=== PATIENT | male | born 1960 | race Caucasian/White ===

== ENCOUNTER 2024-04-23 08:15 | Outpatient (AMB) | payer OTHER, SELFPAY ==
--- NOTE | 2024-04-23 08:16 | MHC.OFFWIV ---
Intake Vital Signs 04/23/24 08:18 Height 5 ft 10 in Weight 201 lb BMI 28.8 BP 120/80 Blood Pressure Location Rt brachial Position Sitting Pulse 66 Pulse Source Pulse Oximeter Temp 97.9 F Temp Source Oral Pulse Oximetry (%) 97 Oxygen Delivery Method Room Air Intake Visit Reasons: EP-cough Intake Note: Patient here for cough,congestion and nausea that has been present since Monday. Patient Tobacco Use Status: Former Tobacco user Allergies NSAIDS (Non-Steroidal Anti-Inflamma Adverse Reaction (Severe, Verified 04/23/24 08:20) GI issues levofloxacin [From Levaquin] Adverse Reaction (Intermediate, Verified 04/23/24 08:20) Itching Do you need a note to return to daycare/school/sports/work: No HPI HPI Comments History of Present Illness Details Patient is a 64-year-old male complaining of cough, chest congestion, head congestion and some nausea for 4 days. He states his chest feels very heavy. He states he is not a current smoker but he used to smoke and quit 16 years ago. He states he has been taking DayQuil and NyQuil with some mild relief. He denies any fevers, ear pain, sinus pain, vomiting or diarrhea. He states he did test for COVID 2 days ago at home and it was negative [facility] Social History Patient Tobacco Use Status: Former Tobacco user Review of Systems Const All systems reviewed & are unremarkable except as noted in HPI and below Physical Exam Vital Signs: Last Vital Signs Temp 97.9 F 04/23/24 08:18 Pulse 66 04/23/24 08:18 BP 120/80 04/23/24 08:18 Pulse Ox 97 04/23/24 08:18 Oxygen Delivery Method Room Air 04/23/24 08:18 BMI result Body Mass Index 28.8 Const General: cooperative, healthy appearing, comfortable and no acute distress Orientation/consciousness: patient oriented x3 Limitations: no limitations HEENT Head: Yes normal to inspection Ears: hearing grossly normal bilaterally, external ears normal and TM's normal bilaterally General nose exam: Normal external nose present, Normal nares present and No nasal discharge present Face and sinus: Yes normal facial exam and Yes sinuses nontender Mouth: Normal oral and palatal mucosa present and moist mucous membranes Throat: Yes tonsils normal, Yes uvula midline and Yes posterior oropharynx abnormal (Erythema) Eyes General: appearance normal, both eyes and all related structures Neck Neck: Yes normal visual inspection Resp Effort & Inspection: normal respiratory effort, able to speak in complete sentences, Actively coughing, no respiratory distress, not tachypneic, no tripod positioning and no use of accessory muscles Auscultation: wheezes (slight) expiratory wheezes, right lower and right upper Cardio Rate: regular rate Rhythm: regular rhythm Heart sounds: normal S1 and S2 Skin General skin exam: no rashes or lesions noted Neuro General: patient oriented x3 Extrem General: Yes normal to inspection and Yes no clubbing, cyanosis or edema Assessment & Plan Assessment & Plan (1) URI (upper respiratory infection): Code(s): J06.9 - Acute upper respiratory infection, unspecified Qualifiers: URI type: unspecified URI Qualified Code(s): J06.9 - Acute upper respiratory infection, unspecified Plan: Vital signs are stable, slight expiratory wheeze, we will send 20mg prednisone for 5 days, had patient get chest x-ray, may add antibiotic depending on results Plan see above Orders: Orders SARS-CoV2/FLU/RSV Today R09.89 - Other specified symptoms and signs involving the circulatory and respiratory systems Coding Level of Care Code New Pt Level 4 (87838) Diagnoses Upper respiratory tract infection, unspecified type J06.9 URI type: unspecified URI
--- OUTSIDE RECORDS SUMMARY | 2024-04-23 08:16 | XMS_ITS | Continuity of Care Document ---
Author Organization [facility] Adult Address [address] [place] [address]- Care Team Providers Care Drop Wire Aliner Name Role Phone Sneha TEA BAG MACHINE TENDER, Radha Sorensen Primary Care Physician Encounter [facility] Date(s): 11/29/20 - 12/29/20 [facility] [address] [place] [id number]- Allergies, Adverse Reactions, Alerts Substance Reaction Severity Status Levaquin itch Moderate Active nonsteroidal anti-inflammatory agents diarrhea Active statins myalgia Active Crestor ck 400's and myalgia Active Immunizations Given and Recorded Vaccine Date Status Refusal Reason Influenza Virus Vaccine (oldterm) 1 05/12/20 Recor ded influenza virus vaccine, inactivated 2 06/12/19 Gi shane influenza virus vaccine, inactivated 3 05/25/18 Gi shane influenza virus vaccine, inactivated 4 03/03/17 Gi shane influenza virus vaccine, inactivated 06/05/14 Give n influenza virus vaccine, inactivated 06/08/11 Give n influenza virus vaccine, inactivated 05/10/10 Give n influenza virus vaccine, inactivated 5 05/08/09 Gi shane Influenza Inactive (IM) (oldterm) 6 06/10/15 Recor ded pneumococcal 23-valent vaccine 06/29/14 Given FluLaval (oldterm) 06/13/12 Given tetanus/diphtheria/pertussis, acel(Tdap) 06/08/11 Given 1Result Comment: per pt call to report when received vaccine 2Result Comment: [facility] [phone] 3Result Comment: [05/25/2018] [facility]: [id number] 4Admin Note: [facility] 5Admin Note: vis 03/31/09 6Result Comment: [08/11/2015] [facility] Medic[facility] acetaminophen 325 mg oral tablet 650 mg, By Mouth, Every 6 hours, may take OTC, not to exceed 3000 mg/day, Refills 0, Maintenance, 10/07/20 9:39:00 EST, Partial fill upon patient request if the prescription is for a schedule II opioid drug. Start Date: 10/07/20 Status: Ordered Ambien 10 mg oral tablet 1 tablet = 10 mg, By Mouth, Daily at bedtime, PRN for sleep, # 30 tablet, 3 Refills, Maintenance, 12/02/20 15:26:00 EDT, Tablet, [facility], 178, cm, 11/06/20 13:18:00 EDT, Height, 90.1, kg, 10/06/20 6:33:00 EST, Dry Weight Start Date: 12/02/20 Stop Date: 04/01/21 Status: Ordered aspirin 81 mg oral delayed release tablet 81 mg, 1, tablet, By Mouth, Daily, Refills 0, Maintenance, 12/15/20 17:07:00 EDT, Partial fill uponpatient request if the prescription is for a schedule II opioid drug. Start Date: 12/15/20 Status: Ordered Ativan 0.5 mg oral tablet 1 tablet = 0.5 mg, By Mouth, Every 8 hours, PRN as needed for anxiety, # 90 tablet, 3 Refills, Maintenance, 06/11/20 17:06:00 EDT, Tablet, [facility], 175.4, cm, 10/21/19 8:06:00 EST, Height Start Date: 06/11/20 Stop Date: 10/09/20 Status: Ordered fenofibrate 54 mg oral tablet 1 tablet, By Mouth, Daily, # 30 tablet, 5 Refills, Maintenance, 12/14/20 9:58:00 EDT, [facility], 178, cm, 11/06/20 13:18:00 EDT, Height, 90.1, kg, 10/06/20 6:33:00 EST, Dry Weight Start Date: 12/14/20 Status: Ordered finasteride 5 mg oral tablet 1 tablet = 5 mg, By Mouth, Daily at bedtime, # 30 tablet, 0 Refills, Maintenance, 07/29/19 8:19:57 EST, Tablet Start Date: 07/29/19 Status: Ordered gabapentin 100 mg oral capsule See Instructions, TAKE 1 CAPSULE BY MOUTH ONE HOUR PRIOR TO BEDTIME AND IF NEEDED CAN TAKE UP TO 3 CAPSULES, # 90 capsule, Refills 3, Tot. Refills 3, 09/11/20 10:37:00 EST, Instructions Replace Required Details, Route to Pharmacy Electronically, [facility]... Start Date: 09/11/20 Status: Ordered mercaptopurine 50 mg oral tablet 1 tablet = 50 mg, By Mouth, Daily at bedtime, 0 Refills, Maintenance, 07/20/17 8:35:35 EST, Tablet Start Date: 07/20/17 Status: Ordered metoprolol 25 mg oral tablet, extended release 25 mg, By Mouth, Daily at bedtime, # 30 each, Refills 5, Tot. Refills 5, Maintenance, 12/11/20 21:05:00 EDT, Route to Pharmacy Electronically, [facility], 178, cm, 11/06/20 13:18:00 EDT, Height,90.1, kg, 10/06/20 6:33:00 EST, Dry Weight Start Date: 12/11/20 Stop Date: 06/09/21 Status: Ordered MiraLax Powder 1 pack/packet = 17 Gm, By Mouth, Daily, PRN Constipation, 0 Refills, Maintenance, 10/07/20 9:40:00 EST, Powder, Partial fill upon patient request if the prescription is for a schedule II opioid drug. Start Date: 10/07/20 Status: Ordered nitroglycerin 0.4 mg sublingual tablet 1 tablet = 0.4 mg, Sublingual, Every 5 minutes, PRN as needed for chest pain, not to exceed 3 doses/15 min--if pain persists, seek medical attention, # 100 tablet, 0 Refills, Maintenance, 09/28/20 17:00:00 EST, Tablet, [facility], Partial fill up... Start Date: 09/28/20 Status: Ordered terazosin 5 mg oral capsule 5 mg, 1, capsule, By Mouth, Daily at bedtime, # 30 capsule, Refills 11, Tot. Refills 11, Soft Stop,05/08/20 16:25:00 EDT, Route to Pharmacy Electronically, [facility], 175.4, cm, 10/21/19 8:06:00 EST, Height Start Date: 05/08/20 Stop Date: 05/03/21 Status: Ordered Problem List Condition Effective Dates Status Health Status Inform ant Anxiety disorder(Confirmed) Active BPH (benign prostatic hyperplasia)(Confirmed) Active Cervical myofascial pain syndrome(Confirmed) Active Heart failure, diastolic, chronic(Confirmed) Active Chronic headaches(Confirmed) Active Colonic polyp(Confirmed) 1999 Active CAD (coronary artery disease)(Confirmed) Active Diverticulosis(Confirmed) Active 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
--- OUTSIDE RECORDS SUMMARY | 2024-04-23 08:16 | XMS_ITS | Continuity of Care Document ---
Author Organization [facility] Adult Address [address] [place] [id number]- Care Team Providers Care Quality Assurance Monitor Chassis Name Role Phone Radha Hoover NP Primary Care Physician Encounter [facility] Date(s): 12/15/21 - 01/14/22 [facility] [address] [place] [phone]- Allergies, Adverse Reactions, Alerts Substance Reaction Severity Status Levaquin itch Moderate Active nonsteroidal anti-inflammatory agents diarrhea Active Crestor ck 400's and myalgia Active statins myalgia Active Immunizations Given and Recorded Vaccine Date Status Refusal Reason zoster vaccine, inactivated 05/25/21 Recorded zoster vaccine, inactivated 07/02/20 Recorded influenza virus vaccine, inactivated 05/25/21 Domenico rded influenza virus vaccine, inactivated 1 06/12/19 Gi shane influenza virus vaccine, inactivated 2 05/25/18 Gi shane influenza virus vaccine, inactivated 3 03/03/17 Gi shane influenza virus vaccine, inactivated 05/18/16 Domenico rded influenza virus vaccine, inactivated 06/05/14 Give n influenza virus vaccine, inactivated 06/08/11 Give n influenza virus vaccine, inactivated 05/10/10 Give n influenza virus vaccine, inactivated 4 05/08/09 Gi shane SARS-CoV-2 (COVID-19) mRNA BNT-162b2 vac 12/21/20 Recorded SARS-CoV-2 (COVID-19) mRNA BNT-162b2 vac 11/28/20 Recorded Influenza Virus Vaccine (oldterm) 5 05/12/20 Recor ded Influenza Inactive (IM) (oldterm) 6 06/10/15 Recor ded pneumococcal 23-valent vaccine 06/29/14 Given FluLaval (oldterm) 06/13/12 Given tetanus/diphtheria/pertussis, acel(Tdap) 06/08/11 Given 1Result Comment: [facility] [id number] 2Result Comment: [05/25/2018] [facility]: [id number] 3Admin Note: Codi 4Admin Note: gabbie 03/31/09 5Result Comment: per pt call to report when received vaccine 6Result Comment: [08/11/2015] [facility] Medications acetaminophen 325 [...] sleep, # 30 tablet, 3 Refills, Maintenance, 08/18/21 8:58:00 EST, Tablet, [facility], 177.8, cm, 08/10/21 10:04:00 EST, Height, 96.8, kg, 08/05/21 8:57:00 EST, Dry Weight Start Date: 08/18/21 Stop Date: 12/16/21 Status: Ordered aspirin 81 mg oral delayed [...] as needed for anxiety, # 90 tablet, 0 Refills, Maintenance, 12/24/21 12:45:00 EDT, Tablet, [facility], 177.8, cm, 11/22/21 14:53:00 EDT, Height, 96.8, kg, 08/05/21 8:57:00 EST, Dry Weight Start Date: 12/24/21 Stop Date: 01/23/22 Status: Ordered CeleBREX 200 mg oral capsule 1 capsule = 200 mg, By Mouth, 2 times a day, 0 Refills, Maintenance, 10/25/21 11:54:00 EST, Capsule, Partial fill upon patient request if the prescription is for a schedule II opioid drug. Start Date: 10/25/21 Status: Ordered fenofibrate 54 mg oral tablet 1 tablet, By Mouth, Daily, # 30 tablet, 3 Refills, [facility], 177.8, cm, 11/22/21 14:53:00 EDT, Height, 96.8, kg, 08/05/21 8:57:00 EST, Dry Weight Start Date: 12/24/21 Status: Ordered finasteride 5 mg oral tablet 1 tablet = 5 mg, By Mouth, Daily at bedtime, # 30 tablet, 0 Refills, Maintenance, 07/29/19 8:19:57 EST, Tablet Start Date: 07/29/19 Status: Ordered GABAPENTIN 100 MG CAPS 100 Capsule GABAPENTIN 100 MG CAPS 100 Capsule, See Instructions, # 90 capsule, 3 Refills, TAKE 1 CAPSULE BY MOUTH ONE HOUR PRIOR TO BEDTIME AND IF NEEDED CAN TAKE UP TO 3 CAPSULES, 177.8, cm, 06/18/21 9:52:00 EDT, Height, 92.3, kg, 12/18/20 11:27:00 EDT, Dry Weight Start Date: 06/21/21 Status: Ordered gabapentin 100 mg oral capsule See Instructions, TAKE 1 CAPSULE BY MOUTH ONE HOUR PRIOR TO BEDTIME AND IF NEEDED CAN TAKE UP TO 3 CAPSULES, # 90 capsule, Refills 3, Instructions Replace Required Details, Route to Pharmacy Electronically, [facility], 177.8, cm, 09/07/21 13:03:0... Start Date: 09/17/21 Status: Ordered Guaiatussin AC 10 mg-100 mg/5 ml oral syrup 10 mL, By Mouth, Every 6 hours, PRN for cough, # 240 mL, 0 Refills, Maintenance, 11/22/21 16:22:00 EDT, Syrup, [facility], Partial fill upon patient request if the prescription is for a scheduleII opioid drug., 10 mL By Mouth Every 6 hours,PRN:f... Start Date: 11/22/21 Status: Ordered mercaptopurine 50 mg oral tablet 1 tablet = 50 mg, By Mouth, Daily at bedtime, 0 Refills, Maintenance, 07/20/17 8:35:35 EST, Tablet Start Date: 07/20/17 Status: Ordered Metoprolol Succinate ER 25 mg oral tablet, extended release 1 tablet, By Mouth, Daily at bedtime, # 30 tablet, 5 Refills, [facility], 177.8, cm, 11/22/21 14:53:00 EDT, Height, 96.8, kg, 08/05/21 8:57:00 EST, Dry Weight Start Date: 12/23/21 Status: Ordered nitroglycerin 0.4 mg sublingual tablet 1 tablet = 0.4 mg, Sublingual, Every 5 minutes, PRN as needed for chest pain, not to exceed 3 doses/15 min--if pain persists, seek medical attention, # 100 tablet, 0 Refills, Maintenance, 09/28/20 17:00:00 EST, Tablet, [facility], Partial fill up... Start Date: 09/28/20 Status: Ordered terazosin 5 mg oral capsule 5 mg, 1, capsule, By Mouth, Daily at bedtime, # 30 capsule, Refills 8, Tot. Refills 8, Soft Stop, 03/11/22 15:03:00 EDT, Route to Pharmacy Electronically, [facility], 177.8, cm, 04/22/21 14:54:00 EDT, Height, 92.3, kg, 12/18/20 11:27:00 EDT, Dry... 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
--- OUTSIDE RECORDS SUMMARY | 2024-04-23 08:16 | XMS_ITS | Continuity of Care Document ---
Author Organization [facility] Address [address] [facility], [address], [address] [place] [phone]- Care Team Providers Care Service Vehicle Operator Name Role Phone Sneha CASING BUILDER, Radha Sorensen Primary Care Physician Encounter [facility] Date(s): 10/16/23 - 11/15/23 [facility] [address], [address], [address] [place] [phone]- Attending Physician: Admlashay, Julia Admitting Physician: AdmtrJulia Referring Physician: Admtr, Ar8 Allergies, Adverse Reactions, Alerts Substance Reaction Severity Status Levaquin itch Moderate Active Crestor ck 400's and myalgia Active statins myalgia Active nonsteroidal anti-inflammatory agents diarrhea Active Immunizations Given and Recorded Vaccine Date Status Refusal Reason [id number] 12y+ bivalent booster vax 05/19/22 Recorded SARS-CoV-2 (COVID-19) mRNA-1273 vaccine 06/19/21 R ecorded zoster vaccine, inactivated 05/25/21 Recorded zoster vaccine, inactivated 07/02/20 Recorded influenza virus vaccine, inactivated 05/25/21 Domenico rded influenza virus vaccine, inactivated 1 06/12/19 Gi shane influenza virus vaccine, inactivated 2 05/25/18 Gi shane influenza virus vaccine, inactivated 05/23/17 Domenico rded influenza virus vaccine, inactivated 3 03/03/17 Gi [...] Given tetanus/diphtheria/pertussis, acel(Tdap) 06/08/11 Given 1Result Comment: [facility] [id number] 2Result Comment: [05/25/2018] [facility]: [id number] 3Admin Note: Codi 4Admin Note: vis 03/31/09 5Result Comment: per pt call to [...] sleep, # 30 tablet, 3 Refills, Maintenance, 05/12/23 16:48:00 EDT, Tablet, [facility], 177.8, cm, 12/01/22 8:22:00 EDT, Height, 96.8, kg, 08/05/21 8:57:00 EST, Dry Weight Start Date: 05/12/23 Stop Date: 09/09/23 Status: Ordered amLODIPine 5 mg oral tablet See Instructions, TAKE 1 TABLET BY MOUTH DAILY, # 30 tablet, 11 Refills, Maintenance, 10/02/23 17:04:00 EST, [facility], 177.8, cm, 12/01/22 8:22:00 EDT, Height Start Date: 10/02/23 Status: Ordered aspirin 81 mg oral delayed [...] as needed for anxiety, # 90 tablet, 5 Refills, Maintenance, 10/04/23 9:00:00 EST, Tablet, [facility], 177.8, cm, 12/01/22 8:22:00 EDT, Height Start Date: 10/04/23 Stop Date: 04/01/24 Status: Ordered cyclobenzaprine 10 mg oral tablet 10 mg, 1, tablet, By Mouth, Daily at supper, # 30 tablet, Refills 2, Tot. Refills 2, Maintenance, 10/24/22 15:13:00 EST, Route to Pharmacy Electronically, [facility], Partial fill upon patient request if the prescription is for a schedule II opio... Start Date: 10/24/22 Status: Ordered fenofibrate 54 mg oral tablet 1 tablet, By Mouth, Daily, # 30 tablet, 5 Refills, Maintenance, 10/04/23 8:48:00 EST, [facility], 177.8, cm, 12/01/22 8:22:00 EDT, Height Start Date: 10/04/23 Status: Ordered finasteride 5 mg oral tablet 1 tablet = 5 mg, By Mouth, Daily at bedtime, # 30 tablet, 0 Refills, Maintenance, 07/29/19 8:19:57 EST, Tablet Start Date: 07/29/19 Status: Ordered indomethacin 25 mg oral capsule 1 capsule, By Mouth, 3 times a day, PRN NEEDED FOR HEADACHE, # 30 capsule, 5 Refills, Maintenance, 02/09/23 18:32:00 EDT, [facility], 177.8, cm, 12/01/22 8:22:00 EDT, Height, 96.8, kg, 08/05/21 8:57:00 EST, Dry Weight Start Date: 02/09/23 Status: Ordered mercaptopurine 50 mg oral tablet 1 tablet = 50 mg, By Mouth, Daily at bedtime, 0 Refills, Maintenance, 07/20/17 8:35:35 EST, Tablet Start Date: 07/20/17 Status: Ordered Metoprolol Succinate ER 25 mg oral tablet, extended release See Instructions, TAKE 1 TABLET BY MOUTH DAILY AT BEDTIME, # 30 tablet, 5 Refills, Maintenance, 08/08/23 20:42:00 EST, [facility], 177.8, cm, 12/01/22 8:22:00 EDT, Height Start Date: 08/08/23 Status: Ordered nitroglycerin 0.4 mg sublingual tablet 1 tablet = 0.4 mg, Sublingual, Every 5 minutes, PRN as needed for chest pain, not to exceed 3 doses/15 min--if pain persists, seek medical attention, # 100 tablet, 0 Refills, Maintenance, 09/28/20 17:00:00 EST, Tablet, [facility], Partial fill up... Start Date: 09/28/20 Status: Ordered Pepcid 20 mg oral tablet 1 tablet = 20 mg, By Mouth, 2 times a day, # 60 tablet, 3 Refills, Maintenance, 10/16/23 16:31:00 EST, Tablet, [facility], Partial fill upon patient request if the prescription is for a scheduleII opioid drug., 177.8, cm, 10/16/23 16:14:00 EST,... Start Date: 10/16/23 Status: Ordered Repatha SureClick 140 mg/mL subcutaneous solution = 140 mg, Subcutaneous Infusion, Every 14 days, # 2 each, 11 Refills, Maintenance, 08/25/23 8:59:00EST, [facility], Partial fill upon patient request if the prescription is for a schedule II opioid drug., 177.8, cm, 12/01/22 8:22:00... Start Date: 08/25/23 Status: Ordered terazosin 5 mg oral capsule 1, capsule, By Mouth, Daily at bedtime, # 30 capsule, Refills 5, Maintenance, 10/04/23 8:48:00 EST,Route to Pharmacy Electronically, [facility], 177.8, cm, 12/01/22 8:22:00 EDT, Height Start Date: 10/04/23 Status: Ordered Problem List Condition Confirmation Course Effective Dates Status Health Status Informant Anxiety disorder Confirmed Active BPH (benign prostatic hyperplasia) Confirmed Active Cervical myofascial pain syndrome Confirmed Active Heart failure, diastolic, chronic Confirmed Active Chronic headaches Confirmed Active Colonic polyp Confirmed 2000 Active CAD (coronary artery disease) Confirmed Active Diverticulosis Confirmed Active History of DVT in adulthood Confirmed Active History of GI bleed Confirmed Active Hypercholesterolemia Confirmed Active Obese class I Confirmed Active ALICE (obstructive sleep apnea) Confirmed Active Osteoarthritis of knee Confirmed Active Prediabetes Confirmed Active Statin intolerance Confirmed Active Ulcerative colitis Confirmed 10/14/13 Active Social History Social History Type Response Smoking Status Former smoker; Tobac co user in household: No; Other: quit smoking in 2007; entered on: 07/16/14 Sex Patient Care team information Care Team Personnel Name: Kya Marina RN Position: S RN Member Role: Primary Care Nurse Name: Veronica Feng RN Position: [facility] SN RN Member Role: Primary Care Nurse Name: Radha Hoover NP Position: [facility] PCO Associate Professional Member Role: PCP Address: Address: [address] [place] [phone]- Name: Jonathan Ramos RN Position: [facility] RN Member Role: Primary Care Nurse Care Team Related Persons Name: LEN RAZO Address: [address] [address]
--- OUTSIDE RECORDS SUMMARY | 2024-04-23 08:16 | XMS_ITS | Continuity of Care Document ---
Author Organization [facility] Address [address] [place] [address]- Care Team Providers Care Dust Mill Operator Name Role Phone Sneha BANK APPRAISER, Radha Sorensen Primary Care Physician Encounter [facility] Date(s): 04/22/21 - 05/22/21 [facility] [address] [place] [address]- Attending Physician: Admtr, Ar8 Allergies, Adverse Reactions, Alerts [...] to report when received vaccine 2Result Comment: [facility] [id number] 3Result Comment: [05/25/2018] [facility]: [id number] 4Admin Note: Codi 5Admin Note: vis 03/31/09 6Result Comment: [08/11/2015] [...] sleep, # 30 tablet, 3 Refills, Maintenance, 04/19/21 10:21:00 EDT, Tablet, [facility], 177.8, cm, 03/11/21 9:04:00 EDT, Height, 92.3, kg, 12/18/20 11:27:00 EDT, Dry Weight Start Date: 04/19/21 Stop Date: 08/17/21 Status: Ordered aspirin 81 mg oral delayed [...] anxiety, # 90 tablet, 3 Refills, Maintenance, 01/06/21 15:26:00 EDT, Tablet, [facility], 177.8, cm, 12/18/20 11:27:00 EDT, Height, 92.3, kg, 12/18/20 11:27:00 EDT, Dry Weight Start Date: 01/06/21 Stop Date: 05/06/21 Status: Ordered fenofibrate 54 mg oral tablet 1 tablet, By Mouth, Daily, # 30 tablet, 5 Refills, Maintenance, 12/14/20 9:58:00 EDT, [facility], 178, cm, 11/06/20 13:18:00 EDT, Height, 90.1, kg, 10/06/20 6:33:00 EST, Dry Weight Start Date: 12/14/20 Status: Ordered fenofibrate 54 mg oral tablet 1 tablet = 54 mg, By Mouth, Daily, # 90 tablet, 1 Refills, Maintenance, 01/05/21 9:14:00 EDT, [facility], 177.8, cm, 12/18/20 11:27:00 EDT, Height, 92.3, kg, 12/18/20 11:27:00 EDT, Dry Weight Start Date: 01/05/21 Status: Ordered finasteride 5 mg oral tablet 1 tablet = 5 mg, By Mouth, Daily at bedtime, # 30 tablet, 0 Refills, Maintenance, 07/29/19 8:19:57 EST, Tablet Start Date: 07/29/19 Status: Ordered gabapentin 100 mg oral capsule See Instructions, TAKE 1 CAPSULE BY MOUTH ONE HOUR PRIOR TO BEDTIME AND IF NEEDED CAN TAKE UP TO 3 CAPSULES, # 90 capsule, Refills 3, Maintenance, Instructions Replace Required Details, Route to Pharmacy Electronically, [facility], 177.8, cm, ... Start Date: 01/07/21 Status: Ordered mercaptopurine 50 mg oral tablet 1 tablet = 50 mg, By Mouth, Daily at bedtime, 0 Refills, Maintenance, 07/20/17 8:35:35 EST, Tablet Start Date: 07/20/17 Status: Ordered metoprolol 25 mg oral tablet, extended release 25 mg, By Mouth, Daily at bedtime, # 30 each, Refills 5, Tot. Refills 5, Maintenance, 12/11/20 21:05:00 EDT, Route to Pharmacy Electronically, [facility], 178, cm, 11/06/20 13:18:00 EDT, Height,90.1, [...] 0 Refills, Maintenance, 09/28/20 17:00:00 EST, Tablet, [facility], Partial fill up... Start Date: 09/28/20 Status: Ordered terazosin 5 mg oral capsule 5 mg, 1, capsule, By Mouth, Daily at bedtime, for 30 days, # 30 capsule, Refills 11, Tot. Refills 11, Hard Stop 03/11/22 15:03:00 EDT, 03/16/21 15:03:00 EDT, Route to Pharmacy Electronically, [facility], 177.8, cm, 03/11/21 9:04:00 EDT, Height, 9... Start Date: 03/16/21 Stop Date: 03/11/22 Status: Ordered terazosin 5 mg oral capsule 5 mg, 1, capsule, By Mouth, Daily at bedtime, # 30 capsule, Refills 8, Tot. Refills 8, Soft Stop, 03/11/22 15:03:00 EDT, Route to Pharmacy Electronically, [facility], 177.8, cm, 04/22/21 14:54:00 EDT, Height, [...] Statin intolerance(Confirmed) Active Ulcerative colitis(Confirmed) 10/14/13 Active Procedures Procedure Date Related Diagnosis Body Site Status Euflexxa injections, bilateral 1, 2, 3 08[facility]01/12 [facility] 08[facility]08 3third injection 08/16 Social History Social History Type Response Smoking Status Former smoker; Tobac co user in household: No; Other: quit smoking in 2007; entered on: 07/16/14 Sex
--- OUTSIDE RECORDS SUMMARY | 2024-04-23 08:16 | XMS_ITS | Continuity of Care Document ---
Author Organization [facility] Address [address] [place] [address]- Care Team Providers Care Oracle Software Engineer Name Role Phone Sneha GORDON, Radha Sorensen Primary Care Physician Encounter [facility] Date(s): 12/09/21 - 01/08/22 [facility] [address] [place] [phone]- [place] Allergies, Adverse Reactions, Alerts Substance Reaction Severity [...] Given tetanus/diphtheria/pertussis, acel(Tdap) 06/08/11 Given 1Result Comment: [facility] [id number] 2Result Comment: [05/25/2018] [facility]: [id number] 3Admin Note: Codi 4Admin Note: gabbie 03/31/09 [...] 3 Refills, Maintenance, 08/18/21 8:58:00 EST, Tablet, [facility], 177.8, cm, 08/10/21 10:04:00 EST, Height, [...] 0 Refills, Maintenance, 12/24/21 12:45:00 EDT, Tablet, [facility], 177.8, cm, 11/22/21 14:53:00 EDT, Height, [...] Mouth, Daily, # 30 tablet, 3 Refills, [facility], 177.8, cm, 11/22/21 14:53:00 EDT, Height, [...] Replace Required Details, Route to Pharmacy Electronically, [facility], 177.8, cm, 09/07/21 13:03:0... Start Date: 09/17/21 Status: Ordered Guaiatussin AC 10 mg-100 mg/5 ml oral syrup 10 mL, By Mouth, Every 6 hours, PRN for cough, # 240 mL, 0 Refills, Maintenance, 11/22/21 16:22:00 EDT, Syrup, [facility], Partial fill upon patient request if [...] at bedtime, # 30 tablet, 5 Refills, [facility], 177.8, cm, 11/22/21 14:53:00 EDT, Height, 96.8, kg, 08/05/21 8:57:00 EST, Dry Weight Start Date: 12/23/21 Status: Ordered nitroglycerin 0.4 mg sublingual tablet 1 tablet = 0.4 mg, Sublingual, Every 5 minutes, PRN as needed for chest pain, not to exceed 3 doses/15 min--if pain persists, seek medical attention, # 100 tablet, 0 Refills, Maintenance, 09/28/20 17:00:00 EST, Tablet, [facility], Partial fill up... Start Date: 09/28/20 Status: Ordered terazosin 5 mg oral capsule 5 mg, 1, capsule, By Mouth, Daily at bedtime, # 30 capsule, Refills 8, Tot. Refills 8, Soft Stop, 03/11/22 15:03:00 EDT, Route to Pharmacy Electronically, [facility], 177.8, cm, 04/22/21 14:54:00 EDT, Height, [...]
--- OUTSIDE RECORDS SUMMARY | 2024-04-23 08:16 | XMS_ITS | Continuity of Care Document ---
Author Organization [facility] Address [address] [place] [address]- Care Team Providers Care Criminalist Name Role Phone Sneha GORDON, Radha Sorensen Primary Care Physician Encounter [facility] Date(s): 09/20/19 - 01/11/20 [facility] [address] [place] [address]- [facility] Attending Physician: Jaylen Zamora MD Admitting Physician: Jaylen Zamora MD Referring Physician: Radha Hoover NP Allergies, Adverse Reactions, Alerts Substance Reaction Severity Status pravastatin Myalgia Active Levaquin itch Moderate Active nonsteroidal anti-inflammatory agents Active Crestor ck 400's and myalgia Active Immunizations Given and Recorded Vaccine Date Status Refusal Reason influenza virus vaccine, inactivated 1 06/12/19 Gi shane influenza virus vaccine, inactivated 2 05/25/18 Gi shane influenza virus vaccine, inactivated 3 03/03/17 Gi shane influenza virus vaccine, inactivated 06/05/14 Give n influenza virus vaccine, inactivated 06/08/11 Give n influenza virus vaccine, inactivated 05/10/10 Give n influenza virus vaccine, inactivated 4 05/08/09 Gi shane Influenza Inactive (IM) (oldterm) 5 06/10/15 Recor ded pneumococcal 23-valent vaccine 06/29/14 Given FluLaval (oldterm) 06/13/12 Given tetanus/diphtheria/pertussis, acel(Tdap) 06/08/11 Given 1Result Comment: [facility] [id number] 2Result Comment: [05/25/2018] [facility]: [id number] 3Admin Note: [facility] 4Admin Note: vis 03/31/09 5Result Comment: [08/11/2015] [facility] Medic[facility] Ambien 10 mg oral tablet 1 tablet = 10 mg, By Mouth, Daily at bedtime, PRN for sleep, # 30 tablet, 3 Refills, Maintenance, 08/01/19 17:30:00 EST, Tablet, 175.4, cm, 07/29/19 8:33:52 EST, Height Start Date: 08/01/19 Stop Date: 11/29/19 Status: Ordered aspirin 81 mg oral delayed release tablet 81 mg, By Mouth, Daily at bedtime, Refills 0, Maintenance, 07/20/17 8:35:03 Start Date: 07/20/17 Status: Ordered Ativan 0.5 mg oral tablet 1 tablet = 0.5 mg, By Mouth, Every 8 hours, PRN as needed for anxiety, # 60 tablet, 3 Refills, Maintenance, 10/21/19 17:07:00 EST, Tablet, [facility], 175.4, cm, 10/21/19 8:06:00 EST, Height Start Date: 10/21/19 Status: Ordered azelastine nasal 0.15% spray 2 sprays, Nares, Both, 2 times a day, PRN for allergy symptoms, # 30 mL, 0 Refills, Maintenance, 10/21/19 8:40:00 EST, [place], [facility], 2 sprays Nares, Both 2 times a day,PRN:for allergy symptoms, 175.4, cm, 10/21/19 8:06:00 EST, Height Start Date: 10/21/19 Status: Ordered fenofibrate 54 mg oral tablet 1 tablet = 54 mg, By Mouth, Daily, # 30 tablet, 5 Refills, Maintenance, 12/31/19 10:02:00 EDT, [facility], 175.4, cm, 10/21/19 8:06:00 EST, Height Start Date: 12/31/19 Status: Ordered finasteride 5 mg oral tablet 1 tablet = 5 mg, By Mouth, Daily, # 30 tablet, 0 Refills, Maintenance, 07/29/19 8:19:57 EST, Tablet Start Date: 07/29/19 Status: Ordered gabapentin 100 mg oral capsule See Instructions, TAKE 1 CAPSULE BY MOUTH ONE HOUR PRIOR TO BEDTIME AND IF NEEDED CAN TAKE UP TO 3 CAPSULES, # 90 capsule, Refills 0, Maintenance, Instructions Replace Required Details, Route to Pharmacy Electronically, [facility], 175.4, cm, ... Start Date: 12/31/19 Status: Ordered mercaptopurine 50 mg oral tablet = 100 mg, By Mouth, Daily at bedtime, 0 Refills, Maintenance, 07/20/17 8:35:35, Tablet Start Date: 07/20/17 Status: Ordered metoprolol 25 mg oral tablet, extended release 25 mg, By Mouth, Daily at bedtime, # 30 tablet, Refills 5, Tot. Refills 5, Maintenance, 07/30/19 9:11:06 EST, Route to Pharmacy Electronically, [id number], [facility], 175.4, cm, 07/29/19 8:33:52 EST, Height Start Date: 07/30/19 Status: Ordered oxyCODONE 5 mg oral tablet 5 mg, 1, tablet, By Mouth, 2 times a day, PRN, for 28 days, # 56 tablet, Refills 0, Tot. Refills 0,Acute 01/22/20 16:12:00 EDT, Pain , Severe, 12/25/19 16:12:00 EDT, Route to Pharmacy Electronically, [facility], Partial fill upon patient request... Start Date: 12/25/19 Stop Date: 01/22/20 Status: Ordered Shingrix intramuscular injection 0.5 mL, Intramuscular, Once, # 0.5 mL, 1 Refills, Soft Stop, 06/28/19 13:15:54 EST, 0.5 mL Intramuscular Once Start Date: 06/28/19 Status: Ordered terazosin 5 mg oral capsule See Instructions, # 30 capsule, Refills 11 Tot. Refills 11, TAKE 1 CAPSULE BY MOUTH DAILY AT BEDTIME, [facility] Start Date: 05/02/19 Status: Ordered tiZANidine 2 mg oral tablet 1/2 tablet, By Mouth, Every 8 hours, PRN, # 45 tablet, Refills 0, Tot. Refills 0, Maintenance, as needed for muscle spasm, 11/05/19 10:51:00 EDT, Route to Pharmacy Electronically, [facility], 175.4, cm, 10/21/19 8:06:00 EST, Height Start Date: 11/05/19 Stop Date: 12/05/19 Status: Ordered Problem List Condition Effective Dates Status Health Status Inform ant Anxiety disorder(Confirmed) Active BPH (benign prostatic hyperplasia)(Confirmed) Active Cervical myofascial pain syndrome(Confirmed) Active Colonic polyp(Confirmed) 1999 Active CAD (coronary artery disease)(Confirmed) Active Diverticulitis(Confirmed) 2003 Active Facet syndrome of cervical spine(Confirmed) Active Hypercholesterolemia(Confirmed) Active Osteoarthritis of knee(Confirmed) Active 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
--- OUTSIDE RECORDS SUMMARY | 2024-04-23 08:16 | XMS_ITS | Continuity of Care Document ---
Author Organization [facility] Address [address] [place] [address]- Care Team Providers Care Marine Equipment Sales Engineer Name Role Phone Sneha GORDON, Radha Sorensen Primary Care Physician Encounter [facility] Date(s): 11/14/23 - 03/13/24 [facility] [address] [phone]- Attending Physician: Yang ANTONIO, Caleb Malin Admitting Physician: Yang ANTONIO, Caleb Malin Referring Physician: Sneha GORDON, Radha Sorensen Allergies, Adverse Reactions, Alerts Substance Reaction Severity Status statins myalgia Active Levaquin itch Moderate Active nonsteroidal anti-inflammatory agents diarrhea Active Crestor ck 400's and myalgia Active Immunizations Given and Recorded Vaccine Date Status Refusal Reason influenza virus vaccine, inactivated 05/29/23 Domenico rded influenza virus vaccine, inactivated 05/25/21 Domenico rded [...] virus vaccine, inactivated 4 05/08/09 Gi shane SARS-CoV-2(COVID-19)mRNA-LNP vac([id number]) 05/29/23 Recorded [id number] 12y+ bivalent booster vax 05/19/22 Recorded SARS-CoV-2 (COVID-19) mRNA-1273 vaccine 06/19/21 R ecorded zoster vaccine, inactivated 05/25/21 Recorded zoster vaccine, inactivated 07/02/20 Recorded SARS-CoV-2 (COVID-19) mRNA BNT-162b2 vac 12/21/20 Recorded SARS-CoV-2 (COVID-19) mRNA BNT-162b2 vac 11/28/20 Recorded Influenza Virus Vaccine (oldterm) 5 05/12/20 Recor ded Influenza Inactive (IM) (oldterm) 6 06/10/15 Recor ded pneumococcal 23-valent vaccine 06/29/14 Given FluLaval (oldterm) 06/13/12 Given tetanus/diphtheria/pertussis, acel(Tdap) 06/08/11 Given 1Result Comment: [facility] [id number] 2Result Comment: [05/25/2018] [facility]: [id number] 3Admin Note: Codi 4Admin Note: vis 03/31/09 [...] sleep, # 30 tablet, 3 Refills, Maintenance, 11/30/23 12:32:00 EDT, Tablet, [facility], 177.8, cm, 11/23/23 15:37:00 EDT, Height Start Date: 11/30/23 Status: Ordered amLODIPine 5 mg oral tablet See Instructions, TAKE 1 TABLET BY MOUTH DAILY, # 30 tablet, 11 Refills, Maintenance, 10/02/23 17:04:00 EST, [facility], 177.8, cm, 12/01/22 8:22:00 EDT, Height [...] 5 Refills, Maintenance, 10/04/23 9:00:00 EST, Tablet, [facility], 177.8, cm, 12/01/22 8:22:00 EDT, Height Start Date: 10/04/23 Stop Date: 04/01/24 Status: Ordered cyclobenzaprine 10 mg oral tablet 10 mg, 1, tablet, By Mouth, Daily at supper, # 30 tablet, Refills 2, Tot. Refills 2, Maintenance, 10/24/22 15:13:00 EST, Route to Pharmacy Electronically, [facility], Partial fill upon patient request if the prescription is for a schedule II opio... Start Date: 10/24/22 Status: Ordered fenofibrate 54 mg oral tablet 1 tablet, By Mouth, Daily, # 30 tablet, 5 Refills, Maintenance, 10/04/23 8:48:00 EST, [facility], 177.8, cm, 12/01/22 8:22:00 EDT, Height Start Date: 10/04/23 Status: Ordered finasteride 5 mg oral tablet 1 tablet, By Mouth, Daily at bedtime, # 30 tablet, 5 Refills, Maintenance, 01/25/24 7:43:00 EDT, [facility], 177.8, cm, 12/25/23 9:41:00 EDT, Height Start Date: 01/25/24 Status: Ordered indomethacin 25 mg oral capsule 1 capsule, By Mouth, 3 times a day, PRN NEEDED FOR HEADACHE, # 30 capsule, 5 Refills, Maintenance, 02/09/23 18:32:00 EDT, [facility], 177.8, cm, 12/01/22 8:22:00 EDT, Height, [...] at bedtime, # 30 tablet, 5 Refills, Maintenance, 01/25/24 7:43:00 EDT, [facility], 177.8 cm, 12/25/23 9:41:00 EDT, Height Start Date: 01/25/24 Status: Ordered nitroglycerin 0.4 mg sublingual tablet 1 tablet = 0.4 mg, Sublingual, Every 5 minutes, PRN as needed for chest pain, not to exceed 3 doses/15 min--if pain persists, seek medical attention, # 100 tablet, 0 Refills, Maintenance, 09/28/20 17:00:00 EST, Tablet, [facility], Partial fill up... Start Date: 09/28/20 Status: Ordered Pepcid 20 mg oral tablet 1 tablet = 20 mg, By Mouth, 2 times a day, # 60 tablet, 3 Refills, Maintenance, 10/16/23 16:31:00 EST, Tablet, [facility], Partial fill upon patient request if the prescription is for a scheduleII opioid drug., 177.8, cm, 10/16/23 16:14:00 EST,... Start Date: 10/16/23 Status: Ordered Repatha SureClick 140 mg/mL subcutaneous solution = 140 mg, Subcutaneous Infusion, Every 14 days, # 2 each, 11 Refills, Maintenance, 08/25/23 8:59:00EST, [facility], Partial fill upon patient request if the prescription is for a schedule II opioid drug., 177.8, cm, 12/01/22 8:22:00... Start Date: 08/25/23 Status: Ordered terazosin 5 mg oral capsule 1, capsule, By Mouth, Daily at bedtime, # 30 capsule, Refills 5, Maintenance, 10/04/23 8:48:00 EST,Route to Pharmacy Electronically, [facility], 177.8, cm, 12/01/22 8:22:00 EDT, Height [...] Team Personnel Name: Kya Marina RN Position: [facility] RN Member Role: Primary Care Nurse Name: Veronica Feng RN Position: [facility] SN RN Member Role: Primary Care Nurse Name: Radha Hoover NP Position: [facility] PCO Associate Professional Member Role: PCP Address: Address: [address] [place] [address] [address]rd [place] [address]- Name: Jonathan Ramos RN Position: [facility] RN Member Role: Primary Care Nurse Care Team Related Persons Name: LEN RAZO Address: home [address] [place] [id number]
--- OUTSIDE RECORDS SUMMARY | 2024-04-23 08:16 | XMS_ITS | Continuity of Care Document ---
Author Organization [facility] Address [address] [place] [address]- Care Team Providers Care Liquor Gallery Operator Name Role Phone Radha Hoover NP Primary Care Physician Encounter [facility] Date(s): 11/29/23 - 12/29/23 [facility] [address] [place] [address]- Allergies, Adverse Reactions, Alerts Substance Reaction Severity [...] vaccine, inactivated 4 05/08/09 Gi shane SARS-CoV-2(COVID-19)mRNA-LNP vac([id number]) 05/29/23 Recorded [id number] 12y+ bivalent booster vax 05/19/22 Recorded SARS-CoV-2 [...] Given tetanus/diphtheria/pertussis, acel(Tdap) 06/08/11 Given 1Result Comment: [facility] [id number] 2Result Comment: [05/25/2018] [facility]: [id number] 3Admin Note: [facility] 4Admin Note: vis 03/31/09 5Result Comment: per [...] 3 Refills, Maintenance, 11/30/23 12:32:00 EDT, Tablet, [facility], 177.8, cm, 11/23/23 15:37:00 EDT, Height Start Date: 11/30/23 Status: Ordered amLODIPine 5 mg oral tablet See Instructions, TAKE 1 TABLET BY MOUTH DAILY, # 30 tablet, 11 Refills, Maintenance, 10/02/23 17:04:00 EST, [facility], 177.8, cm, 12/01/22 8:22:00 EDT, Height [...] 5 Refills, Maintenance, 10/04/23 9:00:00 EST, Tablet, [facility], 177.8, cm, 12/01/22 8:22:00 EDT, Height Start Date: 10/04/23 Stop Date: 04/01/24 Status: Ordered cyclobenzaprine 10 mg oral tablet 10 mg, 1, tablet, By Mouth, Daily at supper, # 30 tablet, Refills 2, Tot. Refills 2, Maintenance, 10/24/22 15:13:00 EST, Route to Pharmacy Electronically, [facility], Partial fill upon patient request if the prescription is for a schedule II opio... Start Date: 10/24/22 Status: Ordered fenofibrate 54 mg oral tablet 1 tablet, By Mouth, Daily, # 30 tablet, 5 Refills, Maintenance, 10/04/23 8:48:00 EST, [facility], 177.8, cm, 12/01/22 8:22:00 EDT, Height Start Date: 10/04/23 Status: Ordered finasteride 5 mg oral tablet 1 tablet = 5 mg, By Mouth, Daily at bedtime, # 90 tablet, 0 Refills, Maintenance, 11/30/23 12:31:00EDT, Tablet, [facility], Partial fill upon patient request if the prescription is for a schedule II opioid drug., 177.8, cm, 11/23/23 15:37:00 EDT... Start Date: 11/30/23 Stop Date: 02/28/24 Status: Ordered indomethacin 25 mg oral capsule 1 capsule, By Mouth, 3 times a day, PRN NEEDED FOR HEADACHE, # 30 capsule, 5 Refills, Maintenance, 02/09/23 18:32:00 EDT, [facility], 177.8, cm, 12/01/22 8:22:00 EDT, Height, [...] tablet, 5 Refills, Maintenance, 08/08/23 20:42:00 EST, [facility], 177.8, cm, 12/01/22 8:22:00 EDT, Height Start Date: 08/08/23 Status: Ordered nitroglycerin 0.4 mg sublingual tablet 1 tablet = 0.4 mg, Sublingual, Every 5 minutes, PRN as needed for chest pain, not to exceed 3 doses/15 min--if pain persists, seek medical attention, # 100 tablet, 0 Refills, Maintenance, 09/28/20 17:00:00 EST, Tablet, [facility], Partial fill up... Start Date: 09/28/20 Status: Ordered Pepcid 20 mg oral tablet 1 tablet = 20 mg, By Mouth, 2 times a day, # 60 tablet, 3 Refills, Maintenance, 10/16/23 16:31:00 EST, Tablet, [facility], Partial fill upon patient request if the prescription is for a scheduleII opioid drug., 177.8, cm, 10/16/23 16:14:00 EST,... Start Date: 10/16/23 Status: Ordered Repatha SureClick 140 mg/mL subcutaneous solution = 140 mg, Subcutaneous Infusion, Every 14 days, # 2 each, 11 Refills, Maintenance, 08/25/23 8:59:00EST, [facility], Partial fill upon patient request if the prescription is for a schedule II opioid drug., 177.8, cm, 12/01/22 8:22:00... Start Date: 08/25/23 Status: Ordered terazosin 5 mg oral capsule 1, capsule, By Mouth, Daily at bedtime, # 30 capsule, Refills 5, Maintenance, 10/04/23 8:48:00 EST,Route to Pharmacy Electronically, [facility], 177.8, cm, 12/01/22 8:22:00 EDT, Height [...] Care Nurse Name: Veronica Feng RN Position: [facility] SN RN Member Role: Primary Care Nurse Name: Radha Hoover NP Position: [facility] PCO Associate Professional Member Role: PCP Address: Address: [address] [place] [address] [address] [place] [address]- Name: Jonathan Ramos RN Position: S RN Member Role: Primary Care Nurse Care Team Related Persons Name: LEN RAZO Address: [address] [address]
--- OUTSIDE RECORDS SUMMARY | 2024-04-23 08:16 | XMS_ITS | Continuity of Care Document ---
Author Organization [facility] Address [address] [facility], [address], [address] [place] [phone]- Care Team Providers Care Insole Coverer Name Role Phone Sneha GORDON, Radha Sorensen Primary Care Physician Encounter [facility] Date(s): 03/21/22 - 04/20/22 [facility] [address], [address], [address] [place] [phone] [place] Allergies, Adverse Reactions, Alerts Substance Reaction [...] Given tetanus/diphtheria/pertussis, acel(Tdap) 06/08/11 Given 1Result Comment: [facility] [id number] 2Result Comment: [05/25/2018] [facility]: [id number] 3Admin Note: [facility] 4Admin Note: gabbie 03/31/09 5Result Comment: per [...] sleep, # 30 tablet, 3 Refills, Maintenance, 02/17/22 12:36:00 EDT, Tablet, [facility], 177.8, cm, 02/14/22 8:18:00 EDT, Height, 96.8, kg, 08/05/21 8:57:00 EST, Dry Weight Start Date: 02/17/22 Stop Date: 06/17/22 Status: Ordered amitriptyline 50 mg oral tablet 1 tablet = 50 mg, By Mouth, Daily at bedtime, # 30 tablet, 5 Refills, Maintenance, 02/17/22 9:53:00EDT, [facility], Partial fill upon patient request if the prescription is for a schedule II opioid drug., 177.8, cm, 02/14/22 8:18:00 EDT, Height,... Start Date: 02/17/22 Status: Ordered aspirin 81 mg oral delayed [...] anxiety, # 90 tablet, 0 Refills, Maintenance, 03/09/22 10:00:00 EDT, Tablet, [facility], 177.8, cm, 02/14/22 8:18:00 EDT, Height, 96.8, kg, 08/05/21 8:57:00 EST, Dry Weight Start Date: 03/09/22 Stop Date: 04/08/22 Status: Ordered CeleBREX 200 mg oral capsule 1 capsule = 200 mg, By Mouth, 2 times a day, 0 Refills, Maintenance, 10/25/21 11:54:00 EST, Caps[facility], Partial fill upon patient request if the prescription is for a schedule II opioid drug. Start Date: 10/25/21 Status: Ordered fenofibrate 54 mg oral tablet 1 tablet, By Mouth, Daily, # 30 tablet, 5 Refills, Maintenance, 03/25/22 14:14:00 EDT, [facility], 177.8, cm, 02/14/22 8:18:00 EDT, Height, 96.8, kg, 08/05/21 8:57:00 EST, Dry Weight Start Date: 03/25/22 Status: Ordered finasteride 5 mg oral tablet [...] Replace Required Details, Route to Pharmacy Electronically, [facility], 177.8, cm, 02/14/22 8:18:00... Start Date: 03/24/22 Status: Ordered Guaiatussin AC 10 mg-100 mg/5 ml oral syrup 10 mL, By Mouth, Every 6 hours, PRN for cough, # 240 mL, 0 Refills, Maintenance, 11/22/21 16:22:00 EDT, Syrup, [facility], Partial fill upon patient request if [...] at bedtime, # 30 tablet, 5 Refills, [facility], 177.8, cm, 11/22/21 14:53:00 EDT, Height, 96.8, kg, 08/05/21 8:57:00 EST, Dry Weight Start Date: 12/23/21 Status: Ordered nitroglycerin 0.4 mg sublingual tablet 1 tablet = 0.4 mg, Sublingual, Every 5 minutes, PRN as needed for chest pain, not to exceed 3 doses/15 min--if pain persists, seek medical attention, # 100 tablet, 0 Refills, Maintenance, 09/28/20 17:00:00 EST, Tablet, [facility], Partial fill up... Start Date: 09/28/20 Status: Ordered SUMAtriptan 4 mg/0.5 mL subcutaneous solution 0.5 mL = 4 mg, Subcutaneous Injection, Once, PRN as needed for migraine headache, may repeat once in 1 hour if needed, # 1 kit, 0 Refills, Soft Stop, 03/21/22 14:40:00 EDT, Solution, [facility],Partial fill upon patient request if the prescripti... Start Date: 03/21/22 Status: Ordered terazosin 5 mg oral capsule See Instructions, TAKE 1 CAPSULE BY MOUTH DAILY AT BEDTIME, # 30 capsule, Refills 5, Instructions Replace Required Details, Route to Pharmacy Electronically, [facility], 177.8, cm, 02/14/22 8:18:00 EDT, Height, 96.8, kg, 08/05/21 8:57:00 EST, Dry... Start Date: 02/17/22 Status: Ordered Problem List Condition Effective Dates [...] smoking in 2007; entered on: 07/16/14 Sex Care Team Personnel Name: Sneha GORDON, Radha Sorensen Address: [address] [place] [address] 3rd [address] [place], [place] [address]
--- OUTSIDE RECORDS SUMMARY | 2024-04-23 08:16 | XMS_ITS | Continuity of Care Document ---
Author Organization [facility] Address [address] [place] [phone]- Care Team Providers Care Medicinal Plant Picker Name Role Phone Sneha WAIST PLEATER, Radha Sorensen Primary Care Physician Encounter [facility] Date(s): 07/14/21 - 08/13/21 [facility] [address] [place] [id number]- Attending Physician: Julia Allen Admitting Physician: Julia Allen Referring Physician: AdmtrJulia Allergies, Adverse Reactions, Alerts Substance Reaction Severity [...] Given tetanus/diphtheria/pertussis, acel(Tdap) 06/08/11 Given 1Result Comment: [facility] [id number] 2Result Comment: [05/25/2018] [facility]: [id number] 3Admin Note: Codi 4Admin Note: vis 03/31/09 [...] 3 Refills, Maintenance, 04/19/21 10:21:00 EDT, Tablet, [facility], 177.8, cm, 03/11/21 9:04:00 EDT, Height, [...] anxiety, # 90 tablet, 0 Refills, Maintenance, 07/16/21 12:39:00 EST, Tablet, [facility], 177.8, cm, 06/18/21 9:52:00 EDT, Height, 92.3, kg, 12/18/20 11:27:00 EDT, Dry Weight Start Date: 07/16/21 Stop Date: 08/15/21 Status: Ordered fenofibrate 54 mg oral tablet 1 tablet = 54 mg, By Mouth, Daily at bedtime, # 90 tablet, 1 Refills, Maintenance, 01/05/21 9:14:00EDT, [facility], 177.8, cm, 12/18/20 11:27:00 EDT, Height, [...] Dry Weight Start Date: 06/21/21 Status: Ordered mercaptopurine 50 mg oral tablet 1 tablet = 50 mg, By Mouth, Daily at bedtime, 0 Refills, Maintenance, 07/20/17 8:35:35 EST, Tablet Start Date: 07/20/17 Status: Ordered Metoprolol Succinate ER 25 mg oral tablet, extended release See Instructions, TAKE 1 TABLET BY MOUTH DAILY AT BEDTIME, # 30 tablet, 5 Refills, [facility],177.8, cm, 06/18/21 9:52:00 EDT, Height, 92.3, kg, 12/18/20 11:27:00 EDT, Dry Weight Start Date: 07/16/21 Status: Ordered nitroglycerin 0.4 mg sublingual tablet 1 tablet = 0.4 mg, Sublingual, Every 5 minutes, PRN as needed for chest pain, not to exceed 3 doses/15 min--if pain persists, seek medical attention, # 100 tablet, 0 Refills, Maintenance, 09/28/20 17:00:00 EST, Tablet, [facility], Partial fill up... Start Date: 09/28/20 Status: Ordered terazosin 5 mg oral capsule 5 mg, 1, capsule, By Mouth, Daily at bedtime, # 30 capsule, Refills 8, Tot. Refills 8, Soft Stop, 03/11/22 15:03:00 EDT, Route to Pharmacy Electronically, [facility], 177.8, cm, 04/22/21 14:54:00 EDT, Height, [...]
--- OUTSIDE RECORDS SUMMARY | 2024-04-23 08:16 | XMS_ITS | Continuity of Care Document ---
Author Organization [facility] Address [address] [place] [phone]- Care Team Providers Care Local Truck Driver Name Role Phone Radha Hoovre NP Primary Care Physician Encounter [facility] Date(s): 09/15/22 - 10/15/22 [facility] [address] [place] [id number]- Allergies, Adverse Reactions, Alerts Substance Reaction Severity [...] tetanus/diphtheria/pertussis, acel(Tdap) 06/08/11 Given 1Result Comment: [facility] [id number] 2Result Comment: [05/25/2018] [facility]: [id number] 3Admin Note: Codi 4Admin Note: gabbie 03/31/09 [...] sleep, # 30 tablet, 3 Refills, Maintenance, 09/16/22 8:46:00 EST, Tablet, [facility], 177.8, cm, 08/03/22 15:31:00 EST, Height, 96.8, kg, 08/05/21 8:57:00 EST, Dry Weight Start Date: 09/16/22 Stop Date: 01/14/23 Status: Ordered amitriptyline 50 mg oral tablet 2 tablet = 100 mg, By Mouth, Daily at bedtime, 1 tab dailyx 1 week then increase to 2 tabs, # 60 tablet, 5 Refills, Maintenance, 05/20/22 7:56:00 EDT, [facility], Partial fill upon patient request if the prescription is for a schedule II opioid... Start Date: 05/20/22 Stop Date: 11/16/22 Status: Ordered amLODIPine 5 mg oral tablet 5 mg, 1, tablet, By Mouth, Daily, # 90 tablet, Refills 3, Tot. Refills 3, Maintenance, 09/29/22 9:48:00 EST, Route to Pharmacy Electronically, [facility], Partial fill upon patient request if the prescription is for a schedule II opioid drug., 17... Start Date: 09/29/22 Status: Ordered aspirin 81 mg oral delayed [...] anxiety, # 90 tablet, 5 Refills, Maintenance, 04/27/22 12:46:00 EDT, Tablet, [facility], 177.8, cm, 04/19/22 9:41:00 EDT, Height, 96.8, kg, 08/05/21 8:57:00 EST, Dry Weight Start Date: 04/27/22 Stop Date: 10/24/22 Status: Ordered evolocumab 140 mg/mL subcutaneous solution = 140 mg, Subcutaneous Infusion, Every 14 days, # 1 kit, 6 Refills, Maintenance, 09/29/22 9:51:00 EST, [facility], Partial fill upon patient request if the prescription is for a schedule II opioid drug., 177.8, cm, 09/29/22 9:19:00 EST, Height, 9... Start Date: 09/29/22 Status: Ordered fenofibrate 54 mg oral tablet 1 tablet, By Mouth, Daily, # 30 tablet, 5 Refills, Maintenance, 03/25/22 14:14:00 EDT, [facility], 177.8, cm, 02/14/22 8:18:00 EDT, Height, [...] CAPSULES, # 90 capsule, Refills 3, Maintenance, 06/23/22 10:23:00 EDT, Instructions Replace RequiredDetails, Route to Pharmacy Electronically, [facility]... Start Date: 06/23/22 Status: Ordered Guaiatussin AC 10 mg-100 mg/5 ml oral syrup 10 mL, By Mouth, Every 6 hours, PRN for cough, # 240 mL, 0 Refills, Maintenance, 11/22/21 16:22:00 EDT, Syrup, [facility], Partial fill upon patient request if the prescription is for a scheduleII opioid drug., 10 mL By Mouth Every 6 hours,PRN:f... Start Date: 11/22/21 Status: Ordered indomethacin 25 mg oral capsule 1 capsule = 25 mg, By Mouth, 3 times a day, PRN Headache, # 30 capsule, 5 Refills, Maintenance, 08/24/22 13:53:00 EST, Capsule, [facility], 30 caps / month, 177.8, cm, 08/03/22 15:31:00 EST, Height, 96.8, kg, 08/05/21 8:57:00 EST, Dry Weight Start Date: 08/24/22 Status: Ordered mercaptopurine 50 mg oral tablet 1 tablet = 50 mg, By Mouth, Daily at bedtime, 0 Refills, Maintenance, 07/20/17 8:35:35 EST, Tablet Start Date: 07/20/17 Status: Ordered Metoprolol Succinate ER 25 mg oral tablet, extended release 1 tablet, By Mouth, Daily at bedtime, # 30 tablet, 5 Refills, [facility], 177.8, cm, 11/22/21 14:53:00 EDT, Height, 96.8, kg, 08/05/21 8:57:00 EST, Dry Weight Start Date: 12/23/21 Status: Ordered nitroglycerin 0.4 mg sublingual tablet 1 tablet = 0.4 mg, Sublingual, Every 5 minutes, PRN as needed for chest pain, not to exceed 3 doses/15 min--if pain persists, seek medical attention, # 100 tablet, 0 Refills, Maintenance, 09/28/20 17:00:00 EST, Tablet, [facility], Partial fill up... Start Date: 09/28/20 Status: Ordered rizatriptan 5 mg oral tablet 1 tablet = 5 mg, By Mouth, Once, PRN for migraine headache, may repeat dose once in 2 hours max 2 tabs in 24hrs ., # 12 tablet, 2 Refills, Soft Stop, 05/20/22 7:59:00 EDT, Tablet, [facility], Partial fill upon patient request if the prescript... Start Date: 05/20/22 Status: Ordered SUMAtriptan 4 mg/0.5 mL subcutaneous solution 0.5 mL = 4 mg, Subcutaneous Injection, Once, PRN as needed for migraine headache, may repeat once in 1 hour if needed, # 1 kit, 0 Refills, Soft Stop, 03/21/22 14:40:00 EDT, Solution, [facility],Partial fill upon patient request if the prescripti... Start Date: 03/21/22 Status: Ordered terazosin 5 mg oral capsule 1, capsule, By Mouth, Daily at bedtime, # 30 capsule, Refills 5, Maintenance, 08/04/22 11:10:00 EST, Route to Pharmacy Electronically, [facility], 177.8, cm, 08/03/22 15:31:00 EST, Height, 96.8,kg, 08/05/21 8:57:00 EST, Dry Weight Start Date: 08/04/22 Status: Ordered Problem List Condition Confirmation Course Effective Dates Status Health Status Informant Anxiety disorder Confirmed Active BPH (benign prostatic hyperplasia) Confirmed Active Cervical myofascial pain syndrome Confirmed Active Heart failure, diastolic, chronic Confirmed Active Chronic headaches Confirmed Active Colonic polyp Confirmed 1999 Active CAD (coronary artery disease) Confirmed Active [...] Care Nurse Name: Veronica Feng RN Position: S RN Member Role: Primary Care Nurse Name: Radha Hoover NP Position: [facility] PCO Associate Professional Member Role: PCP Address: Address: [address] [place] [address] [address] [place] [address]- Name: Richard AREVALO, Jonathan Position: [facility] RN Member Role: Primary Care Nurse Care Team Related Persons Name: DUNG, LEN Address: home [address] [place] [id number]
--- OUTSIDE RECORDS SUMMARY | 2024-04-23 08:17 | XMS_ITS | Continuity of Care Document ---
Author Organization [facility] Address [address] [place] [address]- Care Team Providers Care Repairer Helper Name Role Phone Sneha BUSINESS ANALYSIS SPECIALIST, Radha Sorensen Primary Care Physician Encounter [facility] Date(s): 12/02/20 - 01/01/21 [facility] [address] [place] [phone]- Allergies, Adverse Reactions, Alerts Substance Reaction Severity [...] to report when received vaccine 2Result Comment: [facility] [id number] 3Result Comment: [05/25/2018] [facility]: [id number] 4Admin Note: [facility] 5Admin Note: vis 03/31/09 [...] 3 Refills, Maintenance, 12/02/20 15:26:00 EDT, Tablet, [facility], 178, cm, 11/06/20 13:18:00 EDT, Height, [...] 3 Refills, Maintenance, 06/11/20 17:06:00 EDT, Tablet, [facility], 175.4, cm, 10/21/19 8:06:00 EST, Height Start Date: 06/11/20 Stop Date: 10/09/20 Status: Ordered fenofibrate 54 mg oral tablet 1 tablet, By Mouth, Daily, # 30 tablet, 5 Refills, Maintenance, 12/14/20 9:58:00 EDT, [facility], 178, cm, 11/06/20 13:18:00 EDT, Height, [...] 12/11/20 21:05:00 EDT, Route to Pharmacy Electronically, [facility], 178, cm, 11/06/20 13:18:00 EDT, Height,90.1, [...] 0 Refills, Maintenance, 09/28/20 17:00:00 EST, Tablet, [facility], Partial fill up... Start Date: 09/28/20 Status: Ordered terazosin 5 mg oral capsule 5 mg, 1, capsule, By Mouth, Daily at bedtime, # 30 capsule, Refills 11, Tot. Refills 11, Soft Stop,05/08/20 16:25:00 EDT, Route to Pharmacy Electronically, [facility], 175.4, cm, 10/21/19 8:06:00 EST, Height [...]
--- OUTSIDE RECORDS SUMMARY | 2024-04-23 08:17 | XMS_ITS | Continuity of Care Document ---
Author Organization [facility] Address [address] [facility], [address] Floor, [address] [place] [id number]- Care Team Providers Care Technical Solution Architect Name Role Phone Sneha GORDNO, Radha Sorensen Primary Care Physician [place] [facility] [place]s): 02/09/23 - 03/11/23 [facility] [address], [address], [address] [place] [address] Allergies, Adverse Reactions, Alerts Substance Reaction Severity Status Levaquin itch Moderate Active nonsteroidal anti-inflammatory agents diarrhea Active Crestor ck 400's and myalgia Active statins myalgia Active Immunizations Given and Recorded Vaccine Date Status Refusal Reason [id number] 12y+ bivalent booster vax 05/19/22 Recorded SARS-CoV-2 [...] Given tetanus/diphtheria/pertussis, acel(Tdap) 06/08/11 Given 1Result Comment: [facility] [id number] 2Result Comment: [05/25/2018] [facility]: [id number] 3Admin Note: Codi 4Admin Note: vis 03/31/09 [...] sleep, # 30 tablet, 3 Refills, Maintenance, 01/10/23 16:19:00 EDT, Tablet, [facility], 177.8, cm, 12/01/22 8:22:00 EDT, Height, 96.8, kg, 08/05/21 8:57:00 EST, Dry Weight Start Date: 01/10/23 Stop Date: 05/10/23 Status: Ordered amitriptyline 50 mg oral tablet 2 tablet = 100 mg, By Mouth, Daily at bedtime, # 60 tablet, 0 Refills, Maintenance, 12/15/22 13:40:00 EDT, [facility], Partial fill upon patient request if the prescription is for a schedule II opioid drug., 177.8, cm, 12/01/22 8:22:00 EDT, Heigh... Start Date: 12/15/22 Stop Date: 01/14/23 Status: Ordered amLODIPine 5 mg oral tablet 5 mg, 1, tablet, By Mouth, Daily, # 90 tablet, Refills 3, Tot. Refills 3, Maintenance, 09/29/22 9:48:00 EST, Route to Pharmacy Electronically, [facility], Partial fill upon patient request if [...] anxiety, # 90 tablet, 5 Refills, Maintenance, 11/11/22 12:40:00 EDT, Tablet, [facility], 177.8, cm, 10/24/22 8:53:00 EST, Height, 96.8, kg, 08/05/21 8:57:00 EST, Dry Weight Start Date: 11/11/22 Stop Date: 05/10/23 Status: Ordered cyclobenzaprine 10 mg oral tablet 10 mg, 1, tablet, By Mouth, Daily at supper, # 30 tablet, Refills 2, Tot. Refills 2, Maintenance, 10/24/22 15:13:00 EST, Route to Pharmacy Electronically, [facility], Partial fill upon patient request if the prescription is for a schedule II opio... Start Date: 10/24/22 Status: Ordered evolocumab 140 mg/mL subcutaneous solution = 140 mg, Subcutaneous Infusion, Every 14 days, # 1 kit, 6 Refills, Maintenance, 01/30/23 14:16:00 EDT, [facility], Partial fill upon patient request if the prescription is for a schedule II opioid drug., 177.8, cm, 12/01/22 8:22:00 E... Start Date: 01/30/23 Status: Ordered fenofibrate 54 mg oral tablet 1 tablet, By Mouth, Daily, # 30 tablet, 5 Refills, Maintenance, 11/09/22 6:38:00 EDT, [facility], 177.8, cm, 10/24/22 8:53:00 EST, Height, 96.8, kg, 08/05/21 8:57:00 EST, Dry Weight Start Date: 11/09/22 Status: Ordered finasteride 5 mg oral tablet [...] CENTER P... Start Date: 06/23/22 Status: Ordered indomethacin 25 mg oral capsule 1 capsule, By Mouth, 3 times a day, PRN NEEDED FOR HEADACHE, # 30 capsule, 5 Refills, Maintenance, 02/09/23 18:32:00 EDT, [facility], 177.8, cm, 12/01/22 8:22:00 EDT, Height, [...] at bedtime, # 30 tablet, 5 Refills, 03/07/23 10:21:00 EDT, [facility], 177.8, cm, 12/01/22 8:22:00 EDT, Height, 96.8, kg, 08/05/21 8:57:00 EST, Dry Weight Start Date: 03/07/23 Status: Ordered nitroglycerin 0.4 mg sublingual tablet 1 tablet = 0.4 mg, Sublingual, Every 5 minutes, PRN as needed for chest pain, not to exceed 3 doses/15 min--if pain persists, seek medical attention, # 100 tablet, 0 Refills, Maintenance, 09/28/20 17:00:00 EST, Tablet, [facility], Partial fill up... Start Date: 09/28/20 Status: Ordered Praluent Pen 75 mg/mL subcutaneous solution See Instructions, 75 mg Subcutaneous Infusion every 2 weeks, # 3 kit, 0 Refills, Maintenance, 02/01/23 16:53:00 EDT, [facility], Partial fill upon patient request if the prescriptionis for a schedule II opioid drug., 177.8, cm, 12/01... Start Date: 02/01/23 Status: Ordered rizatriptan 5 mg oral tablet 1 tablet = 5 mg, By Mouth, Once, PRN for migraine headache, may repeat dose once in 2 hours max 2 tabs in 24hrs ., # 12 tablet, 2 Refills, Soft Stop, 05/20/22 7:59:00 EDT, Tablet, [facility], Partial fill upon patient request if the prescript... Start Date: 05/20/22 Status: Ordered SUMAtriptan 4 mg/0.5 mL subcutaneous solution 0.5 mL = 4 mg, Subcutaneous Injection, Once, PRN as needed for migraine headache, may repeat once in 1 hour if needed, # 1 kit, 0 Refills, Soft Stop, 03/21/22 14:40:00 EDT, Solution, [facility],Partial fill upon patient request if the prescripti... Start Date: 03/21/22 Status: Ordered terazosin 5 mg oral capsule See Instructions, TAKE 1 CAPSULE BY MOUTH DAILY AT BEDTIME, # 30 capsule, Refills 5, Maintenance, 02/09/23 19:59:00 EDT, Instructions Replace Required Details, Route to Pharmacy Electronically, [facility], 177.8, cm, 12/01/22 8:22:00 EDT, Height,... Start Date: 02/09/23 Status: Ordered Problem List Condition Confirmation Course [...] RN Member Role: Primary Care Nurse Name: Sneha GORDON, Radha Sorensen Position: [facility] PCO Associate Professional Member Role: PCP Address: Address: [address] [place] [address]- Name: Jonathan Ramos RN Position: S RN Member Role: Primary Care Nurse Care Team Related Persons Name: LEN RAZO Address: home [address] [place] [id number]
--- OUTSIDE RECORDS SUMMARY | 2024-04-23 08:17 | XMS_ITS | Continuity of Care Document ---
Author Organization [facility] Address [address] [place] [phone]- Care Team Providers Care Inletter Name Role Phone Sneha GORDON, Radha Sorensen Primary Care Physician Encounter [facility] Date(s): 11/05/19 - 11/12/19 [facility] [address] [place] [address]- [facility] Attending Physician: Ashley ANTONIO, Petr Marcus Referring Physician: Radha Hoover NP Allergies, Adverse [...] Given tetanus/diphtheria/pertussis, acel(Tdap) 06/08/11 Given 1Result Comment: [facility] [id number] 2Result Comment: [05/25/2018] [facility]: [id number] 3Admin Note: [facility] 4Admin Note: vis 03/31/09 [...] 3 Refills, Maintenance, 10/21/19 17:07:00 EST, Tablet, [facility], 175.4, cm, 10/21/19 8:06:00 EST, Height Start Date: 10/21/19 Status: Ordered azelastine nasal 0.15% spray 2 sprays, Nares, Both, 2 times a day, PRN for allergy symptoms, # 30 mL, 0 Refills, Maintenance, 10/21/19 8:40:00 EST, [place], [facility], 2 sprays Nares, Both 2 times a day,PRN:for allergy symptoms, 175.4, cm, 10/21/19 8:06:00 EST, Height Start Date: 10/21/19 Status: Ordered baclofen 10 mg oral tablet 5 mg, 0.5, tablet, By Mouth, 3 times a day, # 45 tablet, Refills 1, Tot. Refills 1, Maintenance, 09/10/19 9:37:00 EST, Route to Pharmacy Electronically, [facility], 175.4, cm, 09/10/19 9:16:00 EST, Height Start Date: 09/10/19 Stop Date: 11/09/19 Status: Ordered fenofibrate 54 mg oral tablet 1 tablet = 54 mg, By Mouth, Daily, # 30 tablet, 5 Refills, Maintenance, 07/02/19 10:01:56 EST Start Date: 07/02/19 Status: Ordered finasteride 5 mg oral tablet 1 tablet = 5 mg, By Mouth, Daily, # 30 tablet, 0 Refills, Maintenance, 07/29/19 8:19:57 EST, Tablet Start Date: 07/29/19 Status: Ordered gabapentin 100 mg oral capsule See Instructions, 1 capsule By Mouth 1 hr prior to bed time, if needed can go up to 3 caspule, # 90capsule, Refills 0, Tot. Refills 0, Maintenance, 10/21/19 8:40:00 EST, Instructions Replace Required Details, Route to Pharmacy Electronically, [facility]... Start Date: 10/21/19 Status: Ordered mercaptopurine 50 mg oral tablet = 100 mg, By Mouth, Daily at bedtime, 0 Refills, Maintenance, 07/20/17 8:35:35, Tablet Start Date: 07/20/17 Status: Ordered metoprolol 25 mg oral tablet, extended release 25 mg, By Mouth, Daily at bedtime, # 30 tablet, Refills 5, Tot. Refills 5, Maintenance, 07/30/19 9:11:06 EST, Route to Pharmacy Electronically, [id number], [facility], 175.4, cm, 07/29/19 8:33:52 EST, Height Start Date: 07/30/19 Status: Ordered oxyCODONE 5 mg oral tablet 5 mg, 1, tablet, By Mouth, 2 times a day, PRN, for 28 days, # 56 tablet, Refills 0, Tot. Refills 0,Acute 11/26/19 12:55:00 EDT, Pain , Severe, 10/29/19 12:55:00 EDT, Route to Pharmacy Electronically, [facility], Partial fill upon patient request... Start Date: 10/29/19 Stop Date: 11/26/19 Status: Ordered Shingrix intramuscular injection 0.5 mL, Intramuscular, Once, # 0.5 mL, 1 Refills, Soft Stop, 06/28/19 13:15:54 EST, 0.5 mL Intramuscular Once Start Date: 06/28/19 Status: Ordered terazosin 5 mg oral capsule See Instructions, # 30 capsule, Refills 11 Tot. Refills 11, TAKE 1 CAPSULE BY MOUTH DAILY AT BEDTIME, [facility] Start Date: 05/02/19 Status: Ordered tiZANidine 2 mg oral tablet 1/2 tablet, By Mouth, Every 8 hours, PRN, # 45 tablet, Refills 0, Tot. 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
--- OUTSIDE RECORDS SUMMARY | 2024-04-23 08:17 | XMS_ITS | Continuity of Care Document ---
Author Organization [facility] Address [address] [place] [address]- Care Team Providers Care Instructor Of Education Name Role Phone Sneha GORDON, Radha Sorensen Primary Care Physician Encounter [facility] [place] Date(s): 05/26/20 - 06/01/[address] [address]- [facility] Discharge Disposition: A-D/C Home Attending Physician: Dany Molina MD Admitting Physician: Dany Molina MD Referring Physician: Dany Molina MD Allergies, Adverse Reactions, Alerts Substance Reaction Severity [...] Comment: [facility] [id number] 2Result Comment: [05/25/2018] [facility]: [id number] 3Admin Note: [facility] 4Admin Note: vis 03/31/09 5Result Comment: [08/11/2015] [facility] Ambien 10 mg oral tablet 1 tablet = 10 mg, By Mouth, Daily at bedtime, PRN for sleep, # 30 tablet, 3 Refills, Maintenance, 05/08/20 9:35:00 EDT, Tablet, [facility], 175.4, cm, 10/21/19 8:06:00 EST, Height Start Date: 05/08/20 Stop Date: 09/05/20 Status: Ordered aspirin 81 mg oral delayed release tablet 81 mg, By Mouth, Daily at bedtime, Refills 0, Maintenance, 07/20/17 8:35:03 Start Date: 07/20/17 Status: Ordered Ativan 0.5 mg oral tablet 1 tablet = 0.5 mg, By Mouth, Every 8 hours, PRN as needed for anxiety, # 60 tablet, 3 Refills, Maintenance, 10/21/19 17:07:00 EST, Tablet, [facility], 175.4, cm, 10/21/19 8:06:00 EST, Height Start Date: 10/21/19 Status: Ordered azelastine nasal 0.15% spray 2 sprays, Nares, Both, 2 times a day, PRN for allergy symptoms, # 30 mL, 0 Refills, Maintenance, 10/21/19 8:40:00 EST, [place], [facility], 2 sprays Nares, Both 2 times a day,PRN:for allergy symptoms, 175.4, cm, 10/21/19 8:06:00 EST, Height Start Date: 10/21/19 Status: Ordered fenofibrate 54 mg oral tablet 1 tablet = 54 mg, By Mouth, Daily, # 30 tablet, 5 Refills, Maintenance, 12/31/19 10:02:00 EDT, [facility], 175.4, cm, 10/21/19 8:06:00 EST, Height [...] Replace Required Details, Route to Pharmacy Electronically, [facility], 175.4, cm, ... Start Date: 02/26/20 Status: Ordered mercaptopurine 50 mg oral tablet = 100 mg, By Mouth, Daily at bedtime, 0 Refills, Maintenance, 07/20/17 8:35:35, Tablet Start Date: 07/20/17 Status: Ordered metoprolol 25 mg oral tablet, extended release 25 mg, By Mouth, Daily at bedtime, # 30 each, Refills 0, Tot. Refills 0, Maintenance, 03/02/20 14:36:00 EDT, Route to Pharmacy Electronically, [facility], 175.4, cm, 10/21/19 8:06:00 EST, Height Start Date: 03/02/20 Stop Date: 04/01/20 Status: Ordered oxyCODONE 5 mg oral tablet 5 mg, 1, tablet, By Mouth, 2 times a day, PRN, for 28 days, # 56 tablet, Refills 0, Tot. Refills 0,Acute 06/09/20 12:17:00 EDT, Pain , Severe, 05/12/20 12:17:00 EDT, Route to Pharmacy Electronically, [facility], Partial fill upon patient request... Start Date: 05/12/20 Stop Date: 06/09/20 Status: Ordered Shingrix intramuscular injection 0.5 mL, Intramuscular, Once, # 0.5 mL, 1 Refills, Soft Stop, 06/28/19 13:15:54 EST, 0.5 mL Intramuscular Once Start Date: 06/28/19 Status: Ordered terazosin 5 mg oral capsule 5 mg, 1, capsule, By Mouth, Daily at bedtime, # 30 capsule, Refills 11, Tot. Refills 11, Soft Stop,05/08/20 16:25:00 EDT, Route to Pharmacy Electronically, [facility], 175.4, cm, 10/21/19 8:06:00 EST, Height Start Date: 05/08/20 Stop Date: 05/03/21 Status: Ordered tiZANidine 2 mg oral tablet [...]
--- OUTSIDE RECORDS SUMMARY | 2024-04-23 08:17 | XMS_ITS | Continuity of Care Document ---
Author Organization [facility] Address [address] [place] [address]- Care Team Providers Care Adult Neuropsychologist Name Role Phone Sneha FIRE SAFETY MANAGER, Radha Sorensen Primary Care Physician [facility]counter [facility] Date(s): 12/12/20 - 01/11/21 [facility] [address] [place] [address]- Allergies, Adverse Reactions, Alerts Substance Reaction Severity [...] to report when received vaccine 2Result Comment: [facility] [id number] 3Result Comment: [05/25/2018] [facility]: [id number] 4Admin Note: [facility] 5Admin Note: vis 03/31/09 [...] 3 Refills, Maintenance, 12/02/20 15:26:00 EDT, Tablet, [facility], 178, cm, 11/06/20 13:18:00 EDT, Height, [...] 3 Refills, Maintenance, 01/06/21 15:26:00 EDT, Tablet, [facility], 177.8, cm, 12/18/20 11:27:00 EDT, Height, 92.3, kg, 12/18/20 11:27:00 EDT, Dry Weight Start Date: 01/06/21 Stop Date: 05/06/21 Status: Ordered fenofibrate 54 mg oral tablet 1 tablet, By Mouth, Daily, # 30 tablet, 5 Refills, Maintenance, 12/14/20 9:58:00 EDT, [facility], 178, cm, 11/06/20 13:18:00 EDT, Height, 90.1, kg, 10/06/20 6:33:00 EST, Dry Weight Start Date: 12/14/20 Status: Ordered fenofibrate 54 mg oral tablet 1 tablet = 54 mg, By Mouth, Daily, # 90 tablet, 1 Refills, Maintenance, 01/05/21 9:14:00 EDT, [facility], 177.8, cm, 12/18/20 11:27:00 EDT, Height, [...] Replace Required Details, Route to Pharmacy Electronically, [facility], 177.8, cm, ... Start Date: 01/07/21 [...] 12/11/20 21:05:00 EDT, Route to Pharmacy Electronically, [facility], 178, cm, 11/06/20 13:18:00 EDT, Height,90.1, [...] 0 Refills, Maintenance, 09/28/20 17:00:00 EST, Tablet, [facility], Partial fill up... Start Date: 09/28/20 Status: Ordered oxyCODONE 5 mg oral tablet 5 mg, 1, tablet, By Mouth, Every 6 hours, PRN, for 10 days, # 40 tablet, Refills 0, Tot. Refills 0,Acute 01/18/21 14:05:00 EDT, as needed for pain, 01/08/21 14:05:00 EDT, Route to Pharmacy Electronically, [facility], Partial fill upon patient re... Start Date: 01/08/21 Stop Date: 01/18/21 Status: Ordered terazosin 5 mg oral capsule 5 mg, 1, capsule, By Mouth, Daily at bedtime, # 30 capsule, Refills 11, Tot. Refills 11, Soft Stop,05/08/20 16:25:00 EDT, Route to Pharmacy Electronically, [facility], 175.4, cm, 10/21/19 8:06:00 EST, Height [...]
--- OUTSIDE RECORDS SUMMARY | 2024-04-23 08:17 | XMS_ITS | Continuity of Care Document ---
Author Organization [facility] Address [address] [place] [address]- Care Team Providers Care Paving Rammer Name Role Phone Sneha SEISMIC PROSPECTING SUPERVISOR, Radha Sorensen Primary Care Physician Encounter [facility] Date(s): 07/07/20 - 08/06/20 [facility] [address] [place] [address]- Allergies, Adverse Reactions, Alerts Substance Reaction Severity [...] to report when received vaccine 2Result Comment: [facility] [id number] 3Result Comment: [05/25/2018] [facility]: [id number] 4Admin Note: [facility] 5Admin Note: vis 03/31/09 6Result Comment: [08/11/2015] [facility] Ambien 10 mg oral tablet 1 tablet = 10 mg, By Mouth, Daily at bedtime, PRN for sleep, # 30 tablet, 3 Refills, Maintenance, 05/08/20 9:35:00 EDT, Tablet, [facility], 175.4, cm, 10/21/19 8:06:00 EST, Height [...] 3 Refills, Maintenance, 06/11/20 17:06:00 EDT, Tablet, [facility], 175.4, cm, 10/21/19 8:06:00 EST, Height Start Date: 06/11/20 Stop Date: 10/09/20 Status: Ordered azelastine nasal 0.15% spray 2 sprays, Nares, Both, 2 times a day, PRN for allergy symptoms, # 30 mL, 0 Refills, Maintenance, 10/21/19 8:40:00 EST, [place], [facility], 2 sprays Nares, Both 2 times a day,PRN:for allergy symptoms, 175.4, cm, 10/21/19 8:06:00 EST, Height Start Date: 10/21/19 Status: Ordered fenofibrate 54 mg oral tablet 1 tablet = 54 mg, By Mouth, Daily, # 30 tablet, 5 Refills, Maintenance, 06/11/20 11:29:00 EDT, [facility], 175.4, cm, 10/21/19 8:06:00 EST, Height Start Date: 06/11/20 Status: Ordered finasteride 5 mg oral tablet [...] Replace Required Details, Route to Pharmacy Electronically, [facility], 175.4, cm, ... Start Date: 02/26/20 Status: Ordered mercaptopurine 50 mg oral tablet = 100 mg, By Mouth, Daily at bedtime, 0 Refills, Maintenance, 07/20/17 8:35:35, Tablet Start Date: 07/20/17 Status: Ordered metoprolol 25 mg oral tablet, extended release 25 mg, By Mouth, Daily at bedtime, # 30 each, Refills 0, Tot. Refills 0, Maintenance, 03/02/20 14:36:00 EDT, Route to Pharmacy Electronically, [facility], 175.4, cm, 10/21/19 8:06:00 EST, Height Start Date: 03/02/20 Stop Date: 04/01/20 Status: Ordered Shingrix intramuscular injection 0.5 mL, Intramuscular, Once, # 0.5 mL, 1 Refills, Soft Stop, 06/28/19 13:15:54 EST, 0.5 mL Intramuscular Once Start Date: 06/28/19 Status: Ordered terazosin 5 mg oral capsule 5 mg, 1, capsule, By Mouth, Daily at bedtime, # 30 capsule, Refills 11, Tot. Refills 11, Soft Stop,05/08/20 16:25:00 EDT, Route to Pharmacy Electronically, [facility], 175.4, cm, 10/21/19 8:06:00 EST, Height Start Date: 05/08/20 Stop Date: 05/03/21 Status: Ordered tiZANidine 2 mg oral tablet 1/2 tablet, By Mouth, Every 8 hours, PRN, # 45 tablet, Refills 0, Tot. Refills 0, Maintenance, as needed for muscle spasm, 11/05/19 10:51:00 EDT, Route to Pharmacy Electronically, [facility], 175.4, cm, 10/21/19 8:06:00 EST, Height [...]
--- OUTSIDE RECORDS SUMMARY | 2024-04-23 08:17 | XMS_ITS | Continuity of Care Document ---
Author Organization [facility] Address [address] [place] [address]- Care Team Providers Care House Superintendent Name Role Phone Sneha SHAREBROKER, Radha Sorensen Primary Care Physician Encounter [facility] Date(s): 11/20/20 - 12/20/[address] [address]- Attending Physician: Julia Allen Admitting Physician: Julia [...] to report when received vaccine 2Result Comment: [facility] [id number] 3Result Comment: [05/25/2018] [facility]: [id number] 4Admin Note: [facility] 5Admin Note: gabbie 03/31/09 6Result Comment: [08/11/2015] [facility] acetaminophen [...] 3 Refills, Maintenance, 12/02/20 15:26:00 EDT, Tablet, [facility], 178, cm, 11/06/20 13:18:00 EDT, Height, [...] 3 Refills, Maintenance, 06/11/20 17:06:00 EDT, Tablet, [facility], 175.4, cm, 10/21/19 8:06:00 EST, Height Start Date: 06/11/20 Stop Date: 10/09/20 Status: Ordered fenofibrate 54 mg oral tablet 1 tablet, By Mouth, Daily, # 30 tablet, 5 Refills, Maintenance, 12/14/20 9:58:00 EDT, [facility], 178, cm, 11/06/20 13:18:00 EDT, Height, [...] Replace Required Details, [facility] to [facility] Electronically, [facility] Start Date: 09/11/20 Status: Ordered mercaptopurine 50 mg oral tablet 1 tablet = 50 mg, By Mouth, Daily at bedtime, 0 Refills, Maintenance, 07/20/17 8:35:35 EST, Tablet Start Date: 07/20/17 Status: Ordered metoprolol 25 mg oral tablet, extended release 25 mg, By Mouth, Daily at bedtime, # 30 each, Refills 5, Tot. Refills 5, Maintenance, 12/11/20 21:05:00 EDT, Route to Pharmacy Electronically, [facility], 178, cm, 11/06/20 13:18:00 EDT, Height,90.1, [...] Stop,05/08/20 16:25:00 EDT, Route to Pharmacy Electronically, [facility], 175.4, cm, 10/21/19 8:06:00 EST, Height [...]
--- OUTSIDE RECORDS SUMMARY | 2024-04-23 08:17 | XMS_ITS | Continuity of Care Document ---
Author Organization [facility] alicia Address [address] [place], [place] [address]i ve [address] [place] [address]- Care Team Providers Care Deaf/Hard Of Hearing Specialist Name Role Phone Sneha GORDON, Radha Sorensen Primary Care Physician Encounter [facility] Date(s): 03/27/21 - 07/25/21 [facility] [address] [place] [address] Drive [address] [place], [place] [address] Attending Physician: Raj Borja MD Referring Physician: Radha oHover NP Allergies, Adverse Reactions, Alerts Substance Reaction Severity Status Levaquin itch Moderate Active statins myalgia Active Crestor ck 400's and myalgia Active nonsteroidal anti-inflammatory agents diarrhea Active [...] Given tetanus/diphtheria/pertussis, acel(Tdap) 06/08/11 Given 1Result Comment: [facility] [id number] 2Result Comment: [05/25/2018] [facility]: [id number] 3Admin Note: [facility] 4Admin Note: vis 03/31/09 [...] 3 Refills, Maintenance, 04/19/21 10:21:00 EDT, Tablet, [facility], 177.8, cm, 03/11/21 9:04:00 EDT, Height, [...] 0 Refills, Maintenance, 07/16/21 12:39:00 EST, Tablet, [facility], 177.8, cm, 06/18/21 9:52:00 EDT, Height, 92.3, kg, 12/18/20 11:27:00 EDT, Dry Weight Start Date: 07/16/21 Stop Date: 08/15/21 Status: Ordered fenofibrate 54 mg oral tablet 1 tablet, By Mouth, Daily, # 30 tablet, 5 Refills, Maintenance, 12/14/20 9:58:00 EDT, [facility], 178, cm, 11/06/20 13:18:00 EDT, Height, 90.1, kg, 10/06/20 6:33:00 EST, Dry Weight Start Date: 12/14/20 Status: Ordered fenofibrate 54 mg oral tablet 1 tablet = 54 mg, By Mouth, Daily, # 90 tablet, 1 Refills, Maintenance, 01/05/21 9:14:00 EDT, [facility], 177.8, cm, 12/18/20 11:27:00 EDT, Height, [...] Replace Required Details, Route to Pharmacy Electronically, [facility], 177.8, cm, ... Start Date: 01/07/21 Status: Ordered mercaptopurine 50 mg oral tablet 1 tablet = 50 mg, By Mouth, Daily at bedtime, 0 Refills, Maintenance, 07/20/17 8:35:35 EST, Tablet Start Date: 07/20/17 Status: Ordered Metoprolol Succinate ER 25 mg oral tablet, extended release See Instructions, TAKE 1 TABLET BY MOUTH DAILY AT BEDTIME, # 30 tablet, 5 Refills, [facility],177.8, cm, 06/18/21 9:52:00 EDT, Height, 92.3, kg, 12/18/20 11:27:00 EDT, Dry Weight Start Date: 07/16/21 Status: Ordered MiraLax Powder 1 pack/packet = [...] 03/16/21 15:03:00 EDT, Route to Pharmacy Electronically, [facility], 177.8, cm, 03/11/21 9:04:00 EDT, Height, 9... Start Date: 03/16/21 Stop Date: 03/11/22 Status: Ordered terazosin 5 mg oral capsule 5 mg, 1, capsule, By Mouth, Daily at bedtime, # 30 capsule, Refills 8, Tot. Refills 8, Soft Stop, 03/11/22 15:03:00 EDT, Route to Pharmacy Electronically, [facility], 177.8, cm, 04/22/21 14:54:00 EDT, Height, [...]
--- OUTSIDE RECORDS SUMMARY | 2024-04-23 08:17 | XMS_ITS | Continuity of Care Document ---
Author Organization [facility] Address [address] [place] [address]- Care Team Providers Care Practical Nursing Instructor Name Role Phone Sneha BICYCLE TAXI DRIVER, Radha Sorensen Primary Care Physician [facility]counter [facility] Date(s): 01/05/21 - 02/04/21 [facility] [address] [place] [address]- Allergies, Adverse Reactions, Alerts Substance Reaction Severity [...] to report when received vaccine 2Result Comment: [facility] [id number] 3Result Comment: [05/25/2018] [facility]: [id number] 4Admin Note: [facility] 5Admin Note: vis 03/31/09 [...] 3 Refills, Maintenance, 12/02/20 15:26:00 EDT, Tablet, [facility], 178, cm, 11/06/20 13:18:00 EDT, Height, [...] 3 Refills, Maintenance, 01/06/21 15:26:00 EDT, Tablet, [facility], 177.8, cm, 12/18/20 11:27:00 EDT, Height, 92.3, kg, 12/18/20 11:27:00 EDT, Dry Weight Start Date: 01/06/21 Stop Date: 05/06/21 Status: Ordered fenofibrate 54 mg oral tablet 1 tablet, By Mouth, Daily, # 30 tablet, 5 Refills, Maintenance, 12/14/20 9:58:00 EDT, [facility], 178, cm, 11/06/20 13:18:00 EDT, Height, 90.1, kg, 10/06/20 6:33:00 EST, Dry Weight Start Date: 12/14/20 Status: Ordered fenofibrate 54 mg oral tablet 1 tablet = 54 mg, By Mouth, Daily, # 90 tablet, 1 Refills, Maintenance, 01/05/21 9:14:00 EDT, [facility], 177.8, cm, 12/18/20 11:27:00 EDT, Height, [...] Replace Required Details, Route to Pharmacy Electronically, [facility], 177.8, cm, ... Start Date: 01/07/21 [...] 12/11/20 21:05:00 EDT, Route to Pharmacy Electronically, [facility], 178, cm, 11/06/20 13:18:00 EDT, Height,90.1, [...] 0 Refills, Maintenance, 09/28/20 17:00:00 EST, Tablet, [facility], Partial fill up... Start Date: 09/28/20 Status: Ordered terazosin 5 mg oral capsule 5 mg, 1, capsule, By Mouth, Daily at bedtime, # 30 capsule, Refills 11, Tot. Refills 11, Soft Stop,05/08/20 16:25:00 EDT, Route to Pharmacy Electronically, [facility], [...]
--- OUTSIDE RECORDS SUMMARY | 2024-04-23 08:17 | XMS_ITS | Continuity of Care Document ---
Author Organization [facility] Address [address] [place] [address]- Care Team Providers Care Group President Name Role Phone Sneha ENVIRONMENTAL STUDIES DEPARTMENT CHAIR, Radha Sorensen Primary Care Physician [place] [facility] [place]15[place] - 10/13/19 [facility] [address] [place] [address]- [facility] Attending Physician: Ruby Luque MD Referring Physician: Julius ANTONIO, Prashanth Turner Allergies, Adverse Reactions, Alerts Substance Reaction Severity [...] tetanus/diphtheria/pertussis, acel(Tdap) 06/08/11 Given 1Result Comment: [facility] [id number] 2Result Comment: [05/25/2018] [facility]: [id number] 3Admin Note: [facility] 4Admin Note: vis 03/31/09 [...] anxiety, # 60 tablet, 3 Refills, Maintenance, 08/01/19 17:30:00 EST, Tablet, 175.4, cm, 07/29/19 8:33:52 EST, Height Start Date: 08/01/19 Status: Ordered baclofen 10 mg oral tablet 5 mg, 0.5, tablet, By Mouth, 3 times a day, # 45 tablet, Refills 1, Tot. Refills 1, Maintenance, 09/10/19 9:37:00 EST, Route to Pharmacy Electronically, [facility], 175.4, cm, 09/10/19 9:16:00 EST, Height [...] EST, Tablet Start Date: 07/29/19 Status: Ordered mercaptopurine 50 mg oral tablet = 100 mg, By Mouth, Daily at bedtime, 0 Refills, Maintenance, 07/20/17 8:35:35, Tablet Start Date: 07/20/17 Status: Ordered metoprolol 25 mg oral tablet, extended release 25 mg, By Mouth, Daily at bedtime, # 30 tablet, Refills 5, Tot. Refills 5, Maintenance, 07/30/19 9:11:06 EST, Route to Pharmacy Electronically, [id number], [facility], 175.4, cm, 07/29/19 8:33:52 EST, Height Start Date: 07/30/19 Status: Ordered oxyCODONE 5 mg oral tablet 5 mg, 1, tablet, By Mouth, 2 times a day, PRN, for 28 days, # 56 tablet, Refills 0, Tot. Refills 0,Acute 10/29/19 17:53:00 EDT, Pain , Severe, 10/01/19 17:53:00 EST, Route to Pharmacy Electronically, [facility], Partial fill upon patient request... Start Date: 10/01/19 Stop Date: 10/29/19 Status: Ordered Shingrix intramuscular injection 0.5 mL, Intramuscular, Once, # 0.5 mL, 1 Refills, Soft Stop, 06/28/19 13:15:54 EST, 0.5 mL Intramuscular Once Start Date: 06/28/19 Status: Ordered terazosin 5 mg oral capsule See Instructions, # 30 capsule, Refills 11 Tot. Refills 11, TAKE 1 CAPSULE BY MOUTH DAILY AT BEDTIME, [facility] Start Date: 05/02/19 Status: Ordered Problem List Condition Effective Dates [...]
--- OUTSIDE RECORDS SUMMARY | 2024-04-23 08:17 | XMS_ITS | Continuity of Care Document ---
Author Organization [facility] Address [address] [facility], [address] d Floor, [address] [place] [address]- Care Team Providers Care Speech Language Pathology Assistant Name Role Phone Sneha SUPERVISOR ALUM PLANTRadha Primary Care Physician [place] [facility] [place] - 05/20/22 [facility] [address], [address], [address] [place] [address]- [place] Allergies, Adverse Reactions, Alerts Substance Reaction [...] Given tetanus/diphtheria/pertussis, acel(Tdap) 06/08/11 Given 1Result Comment: [facility] [id number] 2Result Comment: [05/25/2018] [facility]: [id number] 3Admin Note: Codi 4Admin Note: gabbie 03/31/09 [...] 3 Refills, Maintenance, 02/17/22 12:36:00 EDT, Tablet, [facility], 177.8, cm, 02/14/22 8:18:00 EDT, Height, 96.8, kg, 08/05/21 8:57:00 EST, Dry Weight Start Date: 02/17/22 Stop Date: 06/17/22 Status: Ordered amitriptyline 50 mg oral tablet 2 tablet = 100 mg, By Mouth, Daily at bedtime, 1 tab dailyx 1 week then increase to 2 tabs, # 60 tablet, 5 Refills, Maintenance, 05/20/22 7:56:00 EDT, [facility], Partial fill upon patient request if the prescription is for a schedule II opioid... Start Date: 05/20/22 Stop Date: 11/16/22 Status: Ordered aspirin 81 mg oral delayed [...] 5 Refills, Maintenance, 04/27/22 12:46:00 EDT, Tablet, [facility], 177.8, cm, 04/19/22 9:41:00 EDT, Height, 96.8, kg, 08/05/21 8:57:00 EST, Dry Weight Start Date: 04/27/22 Stop Date: 10/24/22 Status: Ordered CeleBREX 200 mg oral capsule [...] tablet, 5 Refills, Maintenance, 03/25/22 14:14:00 EDT, [facility], 177.8, cm, 02/14/22 8:18:00 EDT, Height, [...] Replace Required Details, Route to Pharmacy Electronically, [facility], 177.8, cm, 02/14/22 8:18:00... Start Date: 03/24/22 Status: Ordered Guaiatussin AC 10 mg-100 mg/5 ml oral syrup 10 mL, By Mouth, Every 6 hours, PRN for cough, # 240 mL, 0 Refills, Maintenance, 11/22/21 16:22:00 EDT, Syrup, [facility], Partial fill upon patient request if the prescription is for a scheduleII opioid drug., 10 mL By Mouth Every 6 hours,PRN:f... Start Date: 11/22/21 Status: Ordered indomethacin 25 mg oral capsule 1 capsule = 25 mg, By Mouth, 3 times a day, PRN Headache, # 30 capsule, 2 Refills, Maintenance, 05/20/22 8:07:00 EDT, Capsule, [facility], 30 caps / month, 177.8, cm, 04/19/22 9:41:00 EDT, Height, 96.8, kg, 08/05/21 8:57:00 EST, Dry Weight Start Date: 05/20/22 Status: Ordered mercaptopurine 50 mg oral tablet 1 tablet = 50 mg, By Mouth, Daily at bedtime, 0 Refills, Maintenance, 07/20/17 8:35:35 EST, Tablet Start Date: 07/20/17 Status: Ordered Metoprolol Succinate ER 25 mg oral tablet, extended release 1 tablet, By Mouth, Daily at bedtime, # 30 tablet, 5 Refills, [facility], 177.8, cm, 11/22/21 14:53:00 EDT, Height, 96.8, kg, 08/05/21 8:57:00 EST, Dry Weight Start Date: 12/23/21 Status: Ordered nitroglycerin 0.4 mg sublingual tablet 1 tablet = 0.4 mg, Sublingual, Every 5 minutes, PRN as needed for chest pain, not to exceed 3 doses/15 min--if pain persists, seek medical attention, # 100 tablet, 0 Refills, Maintenance, 09/28/20 17:00:00 EST, Tablet, [facility], Partial fill up... Start Date: 09/28/20 Status: Ordered rizatriptan 5 mg oral tablet 1 tablet = 5 mg, By Mouth, Once, PRN for migraine headache, may repeat dose once in 2 hours max 2 tabs in 24hrs ., # 12 tablet, 2 Refills, Soft Stop, 05/20/22 7:59:00 EDT, Tablet, [facility], Partial fill upon patient request if the prescript... Start Date: 05/20/22 Status: Ordered SUMAtriptan 4 mg/0.5 mL subcutaneous solution 0.5 mL = 4 mg, Subcutaneous Injection, Once, PRN as needed for migraine headache, may repeat once in 1 hour if needed, # 1 kit, 0 Refills, Soft Stop, 03/21/22 14:40:00 EDT, Solution, [facility],Partial fill upon patient request if the prescripti... Start Date: 03/21/22 Status: Ordered terazosin 5 mg oral capsule See Instructions, TAKE 1 CAPSULE BY MOUTH DAILY AT BEDTIME, # 30 capsule, Refills 5, Instructions Replace Required Details, Route to Pharmacy Electronically, [facility], 177.8, cm, 02/14/22 8:18:00 EDT, Height, 96.8, kg, 08/05/21 8:57:00 EST, Dry... Start Date: 02/17/22 Status: Ordered Problem List Condition Confirmation Course [...] on: 07/16/14 Sex Patient Care team information Personnel Name: Radha Hoover NP Address: Address: [address] [place] [address] 3rd [address] [place], [place] [address]
--- OUTSIDE RECORDS SUMMARY | 2024-04-23 08:17 | XMS_ITS | Continuity of Care Document ---
Author Organization [facility] Address [address] [place] [address]- Care Team Providers Care Geological Drafter Name Role Phone Sneha GORDON, Radha Sorensen Primary Care Physician [place] [facility] [place] - 08/13/[address] [facility] [address] [address]- Attending Physician: Kimo Queen MD Admitting Physician: Kimo Queen MD Referring Physician: Radha Hoover NP Allergies, [...] Given tetanus/diphtheria/pertussis, acel(Tdap) 06/08/11 Given 1Result Comment: [facility] [id number] 2Result Comment: [05/25/2018] [facility]: [id number] 3Admin Note: Codi 4Admin Note: vis 03/31/09 [...] 0 Refills, Maintenance, 07/16/21 12:39:00 EST, Tablet, [facility], 177.8, cm, 06/18/21 9:52:00 EDT, Height, 92.3, kg, 12/18/20 11:27:00 EDT, Dry Weight Start Date: 07/16/21 Stop Date: 08/15/21 Status: Ordered fenofibrate 54 mg oral tablet 1 tablet = 54 mg, By Mouth, Daily at bedtime, # 90 tablet, 1 Refills, Maintenance, 01/05/21 9:14:00EDT, [facility], 177.8, cm, 12/18/20 11:27:00 EDT, Height, [...] AT BEDTIME, # 30 tablet, 5 Refills, [facility],177.8, cm, 06/18/21 9:52:00 EDT, Height, 92.3, kg, 12/18/20 11:27:00 EDT, Dry Weight Start Date: 07/16/21 Status: Ordered nitroglycerin 0.4 mg sublingual tablet 1 tablet = 0.4 mg, Sublingual, Every 5 minutes, PRN as needed for chest pain, not to exceed 3 doses/15 min--if pain persists, seek medical attention, # 100 tablet, 0 Refills, Maintenance, 09/28/20 17:00:00 EST, Tablet, [facility], Partial fill up... Start Date: 09/28/20 [...]
--- OUTSIDE RECORDS SUMMARY | 2024-04-23 08:17 | XMS_ITS | Continuity of Care Document ---
Author Organization [facility] Address [address] [place] [address]- Care Team Providers Care Thermometer Tester Name Role Phone Sneha PLANT PHYSIOLOGIST, Radha Sorensen Primary Care Physician Encounter [facility] [place] Date(s): 11/19/19 - 11/29/19 [facility] [address] [place] [address]- [facility] Attending Physician: Julia Allen Admitting Physician: AdmJulia metz Referring Physician: AdmtrJulia Allergies, Adverse Reactions, Alerts [...] Given tetanus/diphtheria/pertussis, acel(Tdap) 06/08/11 Given 1Result Comment: [facility] [id number] 2Result Comment: [05/25/2018] [facility]: [id number] 3Admin Note: [facility] 4Admin Note: vis 03/31/09 [...] 3 Refills, Maintenance, 10/21/19 17:07:00 EST, Tablet, [facility], 175.4, cm, 10/21/19 8:06:00 EST, Height Start Date: 10/21/19 Status: Ordered azelastine nasal 0.15% spray 2 sprays, Nares, Both, 2 times a day, PRN for allergy symptoms, # 30 mL, 0 Refills, Maintenance, 10/21/19 8:40:00 EST, [place], [facility], 2 sprays Nares, Both 2 times [...] Replace Required Details, Route to Pharmacy Electronically, [facility], 175.4, cm, .. Start Date: 11/26/19 Status: Ordered mercaptopurine 50 mg oral tablet = 100 mg, By Mouth, Daily at bedtime, 0 Refills, Maintenance, 07/20/17 8:35:35, Tablet Start Date: 07/20/17 Status: Ordered metoprolol 25 mg oral tablet, extended release 25 mg, By Mouth, Daily at bedtime, # 30 tablet, Refills 5, Tot. Refills 5, Maintenance, 07/30/19 9:11:06 EST, Route to Pharmacy Electronically, [id number], [facility], 175.4, cm, 07/29/19 8:33:52 EST, Height Start Date: 07/30/19 Status: Ordered oxyCODONE 5 mg oral tablet 5 mg, 1, tablet, By Mouth, 2 times a day, PRN, for 28 days, # 56 tablet, Refills 0, Tot. Refills 0,Acute 12/24/19 14:59:00 EDT, Pain , Severe, 11/26/19 14:59:00 EDT, Route to Pharmacy Electronically, [facility], Partial fill upon patient request... Start Date: 11/26/19 Stop Date: 12/24/19 Status: Ordered Shingrix intramuscular injection 0.5 mL, Intramuscular, Once, # 0.5 mL, 1 Refills, Soft Stop, 06/28/19 13:15:54 EST, 0.5 mL Intramuscular Once Start Date: 06/28/19 Status: Ordered terazosin 5 mg oral capsule See Instructions, # 30 capsule, Refills 11 Tot. Refills 11, TAKE 1 CAPSULE BY MOUTH DAILY AT BEDTIME, [facility] Start Date: 05/02/19 Status: Ordered tiZANidine 2 mg oral tablet 1/2 tablet, By Mouth, Every 8 hours, PRN, # 45 tablet, Refills 0, Tot. Refills 0, Maintenance, as needed for muscle spasm, 11/05/19 10:51:00 EDT, Route to Pharmacy Electronically, [facility], 175.4, cm, 10/21/19 8:06:00 EST, Height [...]
--- OUTSIDE RECORDS SUMMARY | 2024-04-23 08:17 | XMS_ITS | Continuity of Care Document ---
Author Organization [facility] Address [address] [place] [address]- Care Team Providers Care Hydrographic Surveyor Name Role Phone Sneha CHIEF DISPATCHER SERVICE, Radha Sorensen Primary Care Physician Encounter [facility] Date(s): 10/05/20 - 11/04/20 [facility] [address] [place] [address]- Allergies, Adverse Reactions, Alerts Substance Reaction Severity Status Levaquin itch Moderate Active nonsteroidal anti-inflammatory agents Active Crestor ck 400's and myalgia Active statins Active Immunizations Given and Recorded Vaccine Date [...] received vaccine 2Result Comment: [facility] [id number] 3Result Comment: [05/25/2018] [facility] [place] 2]: [id number] 4Admin Note: [facility] 5Admin Note: vis 03/31/09 [...] 3 Refills, Maintenance, 05/08/20 9:35:00 EDT, Tablet, [facility], 175.4, cm, 10/21/19 8:06:00 EST, Height Start Date: 05/08/20 Stop Date: 09/05/20 Status: Ordered apixaban 5 mg oral tablet 1 tablet = 5 mg, By Mouth, 2 times a day, # 60 tablet, 0 Refills, Maintenance, 10/07/20 9:38:00 EST, Tablet, [facility], Partial fill upon patient request if the prescription is for a schedule II opioid drug., 178, cm, 10/07/20 7:43:00 E... Start Date: 10/07/20 Stop Date: 11/06/20 Status: Ordered Ativan 0.5 mg oral tablet 1 tablet = 0.5 mg, By Mouth, Every 8 hours, PRN as needed for anxiety, # 90 tablet, 3 Refills, Maintenance, 06/11/20 17:06:00 EDT, Tablet, [facility], 175.4, cm, 10/21/19 8:06:00 EST, Height Start Date: 06/11/20 Stop Date: 10/09/20 Status: Ordered docusate sodium 100 mg oral capsule 100 mg, 1, capsule, By Mouth, 2 times a day, # 60 capsule, Refills 0, Tot. Refills 0, Maintenance, 10/07/20 9:37:00 EST, Route to Pharmacy Electronically, [facility], Partial fill upon patient request if the prescription is for a schedul... Start Date: 10/07/20 Status: Ordered fenofibrate 54 mg oral tablet 1 tablet = 54 mg, By Mouth, Daily at bedtime, # 30 tablet, 5 Refills, Maintenance, 06/11/20 11:29:00 EDT, [facility], 175.4, cm, 10/21/19 8:06:00 EST, Height [...] Replace Required Details, Route to Pharmacy Electronically, [facility] Start Date: 09/11/20 Status: Ordered Maalox Plus Liquid 30 mL, By Mouth, Every 4 hours, PRN Other, Heartburn, 0 Refills, Maintenance, 10/07/20 9:40:00 EST,Suspension, Partial fill upon patient request if the prescription is for a schedule II opioid drug. Start Date: 10/07/20 Status: Ordered mercaptopurine 50 mg oral tablet 1 tablet = 50 mg, By Mouth, Daily at bedtime, 0 Refills, Maintenance, 07/20/17 8:35:35 EST, Tablet Start Date: 07/20/17 Status: Ordered metoprolol 25 mg oral tablet, extended release 25 mg, By Mouth, Daily at bedtime, # 30 each, Refills 2, Tot. Refills 2, Maintenance, 08/09/20 21:59:00 EST, Route to Pharmacy Electronically, [facility], 175.4, cm, 10/21/19 8:06:00 EST, Height Start Date: 08/09/20 Stop Date: 11/07/20 Status: Ordered Milk of Magnesia Liquid 30 mL, By Mouth, Daily, PRN Constipation, 0 Refills, Maintenance, 10/07/20 9:40:00 EST, Suspension,Partial fill upon patient request if the prescription is for a schedule II opioid drug. Start Date: 10/07/20 Status: Ordered MiraLax Powder 1 pack/packet = [...] fill up... Start Date: 09/28/20 Status: Ordered pantoprazole 40 mg oral delayed release tablet = 40 mg, By Mouth, Daily in AM, # 30 tablet, 0 Refills, Maintenance, 10/07/20 9:37:00 EST, [facility], 178, cm, 10/07/20 7:43:00 EST, Height, 90.1, kg, 10/06/20 6:33:00 EST, Dry Weight Start Date: 10/07/20 Stop Date: 11/06/20 Status: Ordered senna 187 mg oral tablet 1 tablet = 8.6 mg, By Mouth, Daily at bedtime, PRN as needed for constipation, 0 Refills, Maintenance, 10/07/20 9:40:00 EST, Tablet, Partial fill upon patient request if the prescription is for a schedule II opioid drug. Start Date: 10/07/20 Status: Ordered terazosin 5 mg oral capsule 5 mg, 1, capsule, By Mouth, Daily at bedtime, # 30 capsule, Refills 11, Tot. Refills 11, Soft Stop,05/08/20 16:25:00 EDT, Route to Pharmacy Electronically, [facility], 175.4, cm, 10/21/19 8:06:00 EST, Height Start Date: 05/08/20 Stop Date: 05/03/21 Status: Ordered Zetia 10 mg oral tablet 1 tablet = 10 mg, By Mouth, Daily at bedtime, # 90 tablet, 3 Refills, Maintenance, 09/14/20 9:19:00EST, Tablet, [facility], Partial fill upon patient request if the prescription is for a schedule II opioid drug., 175.4, cm, 10/21/19 8:06:00 EST,... Start Date: 09/14/20 Status: Ordered Problem List Condition Effective Dates [...]
--- OUTSIDE RECORDS SUMMARY | 2024-04-23 08:17 | XMS_ITS | Continuity of Care Document ---
Author Organization [facility] Address [address] [place] [address]- Care Team Providers Care Distance Learning Technician Name Role Phone Radha Hoover NP Primary Care Physician [facility]counter [facility] Date(s): 06/10/22 - 07/10/22 [facility] [address] [place] [address]- Allergies, Adverse Reactions, Alerts Substance Reaction Severity [...] Given tetanus/diphtheria/pertussis, acel(Tdap) 06/08/11 Given 1Result Comment: [facility] [id number] 2Result Comment: [05/25/2018] [facility]: [id number] 3Admin Note: Codi 4Admin Note: vis 03/31/09 [...] 3 Refills, Maintenance, 02/17/22 12:36:00 EDT, Tablet, [facility], 177.8, cm, 02/14/22 8:18:00 EDT, Height, 96.8, kg, 08/05/21 8:57:00 EST, Dry Weight Start Date: 02/17/22 Stop Date: 06/17/22 Status: Ordered amitriptyline 50 mg oral tablet 2 tablet = 100 mg, By Mouth, Daily at bedtime, 1 tab dailyx 1 week then increase to 2 tabs, # 60 tablet, 5 Refills, Maintenance, 05/20/22 7:56:00 EDT, [facility], Partial fill upon patient request [...] 5 Refills, Maintenance, 04/27/22 12:46:00 EDT, Tablet, [facility], 177.8, cm, 04/19/22 9:41:00 EDT, Height, [...] tablet, 5 Refills, Maintenance, 03/25/22 14:14:00 EDT, [facility], 177.8, cm, 02/14/22 8:18:00 EDT, Height, [...] 0 Refills, Maintenance, 11/22/21 16:22:00 EDT, Syrup, [facility], Partial fill upon patient request if the prescription is for a scheduleII opioid drug., 10 mL By Mouth Every 6 hours,PRN:f... Start Date: 11/22/21 Status: Ordered indomethacin 25 mg oral capsule 1 capsule = 25 mg, By Mouth, 3 times a day, PRN Headache, # 30 capsule, 2 Refills, Maintenance, 05/20/22 8:07:00 EDT, Capsule, [facility], 30 caps / month, 177.8, cm, [...] at bedtime, # 30 tablet, 5 Refills, [facility], 177.8, cm, 11/22/21 14:53:00 EDT, Height, 96.8, kg, 08/05/21 8:57:00 EST, Dry Weight Start Date: 12/23/21 Status: Ordered nitroglycerin 0.4 mg sublingual tablet 1 tablet = 0.4 mg, Sublingual, Every 5 minutes, PRN as needed for chest pain, not to exceed 3 doses/15 min--if pain persists, seek medical attention, # 100 tablet, 0 Refills, Maintenance, 09/28/20 17:00:00 EST, Tablet, [facility], Partial fill up... Start Date: 09/28/20 Status: Ordered rizatriptan 5 mg oral tablet 1 tablet = 5 mg, By Mouth, Once, PRN for migraine headache, may repeat dose once in 2 hours max 2 tabs in 24hrs ., # 12 tablet, 2 Refills, Soft Stop, 05/20/22 7:59:00 EDT, Tablet, [facility], Partial fill upon patient request if the prescript... Start Date: 05/20/22 Status: Ordered SUMAtriptan 4 mg/0.5 mL subcutaneous solution 0.5 mL = 4 mg, Subcutaneous Injection, Once, PRN as needed for migraine headache, may repeat once in 1 hour if needed, # 1 kit, 0 Refills, Soft Stop, 03/21/22 14:40:00 EDT, Solution, [facility],Partial fill upon patient request if the prescripti... Start Date: 03/21/22 Status: Ordered terazosin 5 mg oral capsule See Instructions, TAKE 1 CAPSULE BY MOUTH DAILY AT BEDTIME, # 30 capsule, Refills 5, Instructions Replace Required Details, Route to Pharmacy Electronically, [facility], 177.8, cm, 02/14/22 8:18:00 EDT, Height, [...] Team Personnel Name: Kya Marina RN Position: [facility] RN Member Role: Primary Care Nurse Name: Veronica Feng RN Position: S RN Member Role: Primary Care Nurse Name: Radha Hoover NP Position: [facility] PCO Associate Professional Member Role: PCP Address: Address: [address] [facility] [address]rd [place] [address]- Name: Jonathan Ramos RN Position: S RN Member Role: Primary Care Nurse Care Team Related Persons Name: DUNG LEN Address: home [address] [place] [id number]
--- OUTSIDE RECORDS SUMMARY | 2024-04-23 08:17 | XMS_ITS | Continuity of Care Document ---
Author Organization [facility] Address [address] [place] [address]- Care Team Providers Care Client Insights Consultant Name Role Phone Sneha ELECTRIC SHOVEL OPERATOR, Radha Sorensen Primary Care Physician [facility]counter [facility] Date(s): 01/07/21 - 02/06/21 [facility] [address] [place] [address] Allergies, Adverse Reactions, Alerts Substance Reaction Severity [...] to report when received vaccine 2Result Comment: [facility] [id number] 3Result Comment: [05/25/2018] [facility]: [id number] 4Admin Note: [facility] 5Admin Note: vis 03/31/09 [...] 3 Refills, Maintenance, 12/02/20 15:26:00 EDT, Tablet, [facility], 178, cm, 11/06/20 13:18:00 EDT, Height, [...] 3 Refills, Maintenance, 01/06/21 15:26:00 EDT, Tablet, [facility], 177.8, cm, 12/18/20 11:27:00 EDT, Height, 92.3, kg, 12/18/20 11:27:00 EDT, Dry Weight Start Date: 01/06/21 Stop Date: 05/06/21 Status: Ordered fenofibrate 54 mg oral tablet 1 tablet, By Mouth, Daily, # 30 tablet, 5 Refills, Maintenance, 12/14/20 9:58:00 EDT, [facility], 178, cm, 11/06/20 13:18:00 EDT, Height, 90.1, kg, 10/06/20 6:33:00 EST, Dry Weight Start Date: 12/14/20 Status: Ordered fenofibrate 54 mg oral tablet 1 tablet = 54 mg, By Mouth, Daily, # 90 tablet, 1 Refills, Maintenance, 01/05/21 9:14:00 EDT, [facility], 177.8, cm, 12/18/20 11:27:00 EDT, Height, [...] Replace Required Details, Route to Pharmacy Electronically, [facility], 177.8, cm, ... Start Date: 01/07/21 [...] 12/11/20 21:05:00 EDT, Route to Pharmacy Electronically, [facility], 178, cm, 11/06/20 13:18:00 EDT, Height,90.1, [...] Stop,05/08/20 16:25:00 EDT, Route to Pharmacy Electronically, [facility], 175.4, cm, 10/21/19 8:06:00 EST, Height [...]
--- OUTSIDE RECORDS SUMMARY | 2024-04-23 08:17 | XMS_ITS | Continuity of Care Document ---
Author Organization [facility] Address [address] [facility], [address] d [address], [address] [place] [address]- Care Team Providers Care Retail Warehouse Associate Name Role Phone Sneha GORDON, Radha Sorensen Primary Care Physician [place] [facility] [place] 04/20/22 [facility] [address], [address], [address] [place] [address]- [place] Allergies, Adverse Reactions, Alerts Substance Reaction [...] 06/08/11 Given 1Result Comment: [facility] [id number] 2Result Comment: [05/25/2018] [facility]: [id number] 3Admin Note: Danielitomatt 4Admin Note: gabbie 03/31/09 [...] tablet, 5 Refills, Maintenance, 03/25/22 14:14:00 EDT, [facility], 177.8, cm, 02/14/22 8:18:00 EDT, Height, [...] Replace Required Details, Route to Pharmacy Electronically, [facility], 177.8, cm, 02/14/22 8:18:00... Start Date: 03/24/22 Status: Ordered Guaiatussin AC 10 mg-100 mg/5 ml oral syrup 10 mL, By Mouth, Every 6 hours, PRN for cough, # 240 mL, 0 Refills, Maintenance, 11/22/21 16:22:00 EDT, Syrup, [facility], Partial fill upon patient request if [...] at bedtime, # 30 tablet, 5 Refills, [facility], 177.8, cm, 11/22/21 14:53:00 EDT, Height, 96.8, kg, 08/05/21 8:57:00 EST, Dry Weight Start Date: 12/23/21 Status: Ordered nitroglycerin 0.4 mg sublingual tablet 1 tablet = 0.4 mg, Sublingual, Every 5 minutes, PRN as needed for chest pain, not to exceed 3 doses/15 min--if pain persists, seek medical attention, # 100 tablet, 0 Refills, Maintenance, 09/28/20 17:00:00 EST, Tablet, [facility], Partial fill up... Start Date: 09/28/20 Status: Ordered SUMAtriptan 4 mg/0.5 mL subcutaneous solution 0.5 mL = 4 mg, Subcutaneous Injection, Once, PRN as needed for migraine headache, may repeat once in 1 hour if needed, # 1 kit, 0 Refills, Soft Stop, 03/21/22 14:40:00 EDT, Solution, [facility],Partial fill upon patient request if the prescripti... Start Date: 03/21/22 Status: Ordered terazosin 5 mg oral capsule See Instructions, TAKE 1 CAPSULE BY MOUTH DAILY AT BEDTIME, # 30 capsule, Refills 5, Instructions Replace Required Details, Route to Pharmacy Electronically, [facility], 177.8, cm, 02/14/22 8:18:00 EDT, Height, [...] Personnel Name: Sneha GORDON, Radha Sorensen Address: [address] [place] [address] 3rd [address] [place], [place] [address]
--- OUTSIDE RECORDS SUMMARY | 2024-04-23 08:17 | XMS_ITS | Continuity of Care Document ---
Author Organization [facility] Address [address] [place] [address]- Care Team Providers Care Material Handling Technician Name Role Phone Sneha GORDON, Radha Sorensen Primary Care Physician En[place] [facility] [place] Date(s): 12/08/21 - 12/15/21 [facility] [address] [place] [address]- Encounter Diagnosis Acute headache(Discharge Diagnosis) - 12/08/21 Attending Physician: Srini PAYTON, Lori Sanchez Allergies, Adverse Reactions, Alerts Substance Reaction Severity [...] Given tetanus/diphtheria/pertussis, acel(Tdap) 06/08/11 Given 1Result Comment: [facility] [place] [id number] 2Result Comment: [05/25/2018] [facility]: [id number] 3Admin Note: Codi 4Admin Note: vis 03/31/09 [...] 3 Refills, Maintenance, 08/18/21 8:58:00 EST, Tablet, [facility], 177.8, cm, 08/10/21 10:04:00 EST, Height, [...] anxiety, # 90 tablet, 0 Refills, Maintenance, 11/22/21 12:48:00 EDT, Tablet, [facility], 177.8, cm, 11/15/21 9:37:00 EDT, Height, 96.8, kg, 08/05/21 8:57:00 EST, Dry Weight Start Date: 11/22/21 Stop Date: 12/22/21 Status: Ordered CeleBREX 200 mg oral capsule [...] 90 tablet, 1 Refills, Maintenance, 01/05/21 9:14:00EDT, [facility], 177.8, cm, 12/18/20 11:27:00 EDT, Height, [...] Replace Required Details, Route to Pharmacy Electronically, [facility], 177.8, cm, 09/07/21 13:03:0... Start Date: 09/17/21 Status: Ordered Guaiatussin AC 10 mg-100 mg/5 ml oral syrup 10 mL, By Mouth, Every 6 hours, PRN for cough, # 240 mL, 0 Refills, Maintenance, 11/22/21 16:22:00 EDT, Syrup, [facility], Partial fill upon patient request if [...] AT BEDTIME, # 30 tablet, 5 Refills, [facility],177.8, cm, 06/18/21 9:52:00 EDT, Height, 92.3, kg, 12/18/20 11:27:00 EDT, Dry Weight Start Date: 07/16/21 Status: Ordered nitroglycerin 0.4 mg sublingual tablet 1 tablet = 0.4 mg, Sublingual, Every 5 minutes, PRN as needed for chest pain, not to exceed 3 doses/15 min--if pain persists, seek medical attention, # 100 tablet, 0 Refills, Maintenance, 09/28/20 17:00:00 EST, Tablet, [facility], Partial fill up... Start Date: 09/28/20 Status: Ordered terazosin 5 mg oral capsule 5 mg, 1, capsule, By Mouth, Daily at bedtime, # 30 capsule, Refills 8, Tot. Refills 8, Soft Stop, 03/11/22 15:03:00 EDT, Route to Pharmacy Electronically, [facility], 177.8, cm, 04/22/21 14:54:00 EDT, Height, [...] Statin intolerance(Confirmed) Active Ulcerative colitis(Confirmed) 10/14/13 Active Diagnosis Diagnosis Type Effective Dates Health Status Cl inical Service Informant Acute headache Discharge Diagnosis 12/08/21 Social History Social History Type Response Smoking Status Former smoker; Tobac co user in household: No; Other: quit smoking in 2007; entered on: 07/16/14 Sex
--- OUTSIDE RECORDS SUMMARY | 2024-04-23 08:17 | XMS_ITS | Continuity of Care Document ---
Author Organization [facility] Address [address] [place] [address]- Care Team Providers Care Ground Intelligence Officer Name Role Phone Sneha CORPORATE STRATEGY INTERN, Radha Sorensen Primary Care Physician [facility] Date[facility]s): 09/[facility]/20 - 10/25/20 [facility] [address] [place] [phone]- Allergies, Adverse Reactions, Alerts Substance Reaction Severity [...] to report when received vaccine 2Result Comment: [facility] [id number] 3Result Comment: [05/25/2018] [facility] [place]NOTE 2]: [address]-84 4Admin Note: [facility] 5Admin Note: vis 03/31/09 [...] Refills, Maintenance, 05/08/20 9:35:00 EDT, Tablet, [facility], 175.4, cm, 10/21/19 8:06:00 EST, Height Start Date: 05/08/20 Stop Date: 09/05/20 Status: Ordered apixaban 5 mg oral tablet 1 tablet = 5 mg, By Mouth, 2 times a day, # 60 tablet, 0 Refills, Maintenance, 10/07/20 9:38:00 EST, Tablet, [facility], Partial fill upon patient request if the prescription is for a schedule II opioid drug., 178, cm, 10/07/20 7:43:00 E... Start Date: 10/07/20 Stop Date: 11/06/20 Status: Ordered Ativan 0.5 mg oral tablet 1 tablet = 0.5 mg, By Mouth, Every 8 hours, PRN as needed for anxiety, # 90 tablet, 3 Refills, Maintenance, 06/11/20 17:06:00 EDT, Tablet, [facility], 175.4, cm, 10/21/19 8:06:00 EST, Height Start Date: 06/11/20 Stop Date: 10/09/20 Status: Ordered docusate sodium 100 mg oral capsule 100 mg, 1, capsule, By Mouth, 2 times a day, # 60 capsule, Refills 0, Tot. Refills 0, Maintenance, 10/07/20 9:37:00 EST, Route to Pharmacy Electronically, [facility], Partial fill upon patient request if the prescription is for a schedul... Start Date: 10/07/20 Status: Ordered fenofibrate 54 mg oral tablet 1 tablet = 54 mg, By Mouth, Daily at bedtime, # 30 tablet, 5 Refills, Maintenance, 06/11/20 11:29:00 EDT, [facility], 175.4, cm, 10/21/19 8:06:00 EST, Height [...] Replace Required Details, Route to Pharmacy Electronically, [facility] Start Date: 09/11/20 Status: Ordered Maalox Plus [...] 08/09/20 21:59:00 EST, Route to Pharmacy Electronically, [facility], 175.4, cm, 10/21/19 8:06:00 EST, Height [...]
--- OUTSIDE RECORDS SUMMARY | 2024-04-23 08:17 | XMS_ITS | Continuity of Care Document ---
Author Organization [facility] Address [address] [place] [phone]- Care Team Providers Care Supervisor Wrapping Room Name Role Phone Sneha GORDON, Radha Sorensen Primary Care Physician [facility] Date(s): 04/15/20 - 05/15/20 [facility] [address] [place] [phone]- [facility] Allergies, Adverse Reactions, Alerts Substance Reaction Severity [...] Given tetanus/diphtheria/pertussis, acel(Tdap) 06/08/11 Given 1Result Comment: [facility] [id number] 2Result Comment: [05/25/2018] [facility]: [id number] 3Admin Note: Codi 4Admin Note: vis 03/31/09 5Result Comment: [08/11/2015] [facility] Ambien 10 mg oral tablet 1 tablet = 10 mg, By Mouth, Daily at bedtime, PRN for sleep, # 30 tablet, 3 Refills, Maintenance, 05/08/20 9:35:00 EDT, Tablet, [facility], 175.4, cm, 10/21/19 8:06:00 EST, Height [...] 3 Refills, Maintenance, 10/21/19 17:07:00 EST, Tablet, [facility], 175.4, cm, 10/21/19 8:06:00 EST, Height Start Date: 10/21/19 Status: Ordered azelastine nasal 0.15% spray 2 sprays, Nares, Both, 2 times a day, PRN for allergy symptoms, # 30 mL, 0 Refills, Maintenance, 10/21/19 8:40:00 EST, [place], [facility], 2 sprays Nares, Both 2 times a day,PRN:for allergy symptoms, 175.4, cm, 10/21/19 8:06:00 EST, Height Start Date: 10/21/19 Status: Ordered fenofibrate 54 mg oral tablet 1 tablet = 54 mg, By Mouth, Daily, # 30 tablet, 5 Refills, Maintenance, 12/31/19 10:02:00 EDT, [facility], 175.4, cm, 10/21/19 8:06:00 EST, Height [...] Replace Required Details, Route to Pharmacy Electronically, [facility], 175.4, cm, ... Start Date: 02/26/20 Status: Ordered mercaptopurine 50 mg oral tablet = 100 mg, By Mouth, Daily at bedtime, 0 Refills, Maintenance, 07/20/17 8:35:35, Tablet Start Date: 07/20/17 Status: Ordered metoprolol 25 mg oral tablet, extended release 25 mg, By Mouth, Daily at bedtime, # 30 each, Refills 0, Tot. Refills 0, Maintenance, 03/02/20 14:36:00 EDT, Route to Pharmacy Electronically, [facility], 175.4, cm, 10/21/19 8:06:00 EST, Height Start Date: 03/02/20 Stop Date: 04/01/20 Status: Ordered oxyCODONE 5 mg oral tablet 5 mg, 1, tablet, By Mouth, 2 times a day, PRN, for 28 days, # 56 tablet, Refills 0, Tot. Refills 0,Acute 06/09/20 12:17:00 EDT, Pain , Severe, 05/12/20 12:17:00 EDT, Route to Pharmacy Electronically, [facility], Partial fill upon patient request... Start [...] Stop,05/08/20 16:25:00 EDT, Route to Pharmacy Electronically, [facility], 175.4, cm, 10/21/19 8:06:00 EST, Height Start Date: 05/08/20 Stop Date: 05/03/21 Status: Ordered tiZANidine 2 mg oral tablet 1/2 tablet, By Mouth, Every 8 hours, PRN, # 45 tablet, Refills 0, Tot. Refills 0, Maintenance, as needed for muscle spasm, 11/05/19 10:51:00 EDT, Route to Pharmacy Electronically, [facility], 175.4, cm, 10/21/19 8:06:00 EST, Height [...]
--- OUTSIDE RECORDS SUMMARY | 2024-04-23 08:17 | XMS_ITS | Continuity of Care Document ---
Author Organization [facility] Address [address] [place] [address]- Care Team Providers Care Field Artillery Fire Control Man Name Role Phone Sneha GORDON, Radha Sorensen Primary Care Physician [facility] Date(s): 05/11/23 - 06/10/23 [facility] [address] [place] [phone]- Allergies, Adverse Reactions, Alerts Substance Reaction Severity Status Levaquin itch Moderate Active nonsteroidal anti-inflammatory agents diarrhea Active Crestor ck 400's and myalgia Active statins myalgia Active Immunizations Given and Recorded Vaccine Date Status Refusal Reason [id number] 12y+ bivalent booster vax 05/19/22 Recorded SARS-CoV-2 [...] 1Result Comment: [facility] [id number] 2Result Comment: [05/25/2018] [facility]: [id number] 3Admin Note: Codi 4Admin Note: vis 03/31/09 [...] 3 Refills, Maintenance, 05/12/23 16:48:00 EDT, Tablet, [facility], 177.8, cm, 12/01/22 8:22:00 EDT, Height, 96.8, kg, 08/05/21 8:57:00 EST, Dry Weight Start Date: 05/12/23 Stop Date: 09/09/23 Status: Ordered amitriptyline 50 mg oral tablet 2 tablet = 100 mg, By Mouth, Daily at bedtime, # 60 tablet, 0 Refills, Maintenance, 12/15/22 13:40:00 EDT, [facility], Partial fill upon patient request if the prescription is for a schedule II opioid drug., 177.8, cm, 12/01/22 8:22:00 EDT, Anisha... Start Date: 12/15/22 Stop Date: 01/14/23 Status: Ordered amLODIPine 5 mg oral tablet 5 mg, 1, tablet, By Mouth, Daily, # 90 tablet, Refills 3, Tot. Refills 3, Maintenance, 09/29/22 9:48:00 EST, Route to Pharmacy Electronically, [facility], Partial fill upon patient request [...] anxiety, # 90 tablet, 5 Refills, Maintenance, 05/11/23 14:18:00 EDT, Tablet, [facility], 177.8, cm, 12/01/22 8:22:00 EDT, Height, 96.8, kg, 08/05/21 8:57:00 EST, Dry Weight Start Date: 05/11/23 Stop Date: 11/07/23 Status: Ordered cyclobenzaprine 10 mg oral tablet 10 mg, 1, tablet, By Mouth, Daily at supper, # 30 tablet, Refills 2, Tot. Refills 2, Maintenance, 10/24/22 15:13:00 EST, Route to Pharmacy Electronically, [facility], Partial fill upon patient request if the prescription is for a schedule II opio... Start Date: 10/24/22 Status: Ordered evolocumab 140 mg/mL subcutaneous solution = 140 mg, Subcutaneous Infusion, Every 14 days, # 1 kit, 6 Refills, Maintenance, 01/30/23 14:16:00 EDT, [facility], Partial fill upon patient request if the prescription is for a schedule II opioid drug., 177.8, cm, 12/01/22 8:22:00 E... Start Date: 01/30/23 Status: Ordered fenofibrate 54 mg oral tablet 1 tablet, By Mouth, Daily, # 30 tablet, 5 Refills, Maintenance, 05/11/23 13:30:00 EDT, [facility], 177.8, cm, 12/01/22 8:22:00 EDT, Height, 96.8, kg, 08/05/21 8:57:00 EST, Dry Weight Start Date: 05/11/23 Status: Ordered finasteride 5 mg oral tablet [...] capsule, 5 Refills, Maintenance, 02/09/23 18:32:00 EDT, [facility], 177.8, cm, 12/01/22 8:22:00 EDT, Height, [...] 30 tablet, 5 Refills, 03/07/23 10:21:00 EDT, [facility], 177.8, cm, 12/01/22 8:22:00 EDT, Height, 96.8, kg, 08/05/21 8:57:00 EST, Dry Weight Start Date: 03/07/23 Status: Ordered nitroglycerin 0.4 mg sublingual tablet 1 tablet = 0.4 mg, Sublingual, Every 5 minutes, PRN as needed for chest pain, not to exceed 3 doses/15 min--if pain persists, seek medical attention, # 100 tablet, 0 Refills, Maintenance, 09/28/20 17:00:00 EST, Tablet, [facility], Partial fill up... Start Date: 09/28/20 Status: Ordered Praluent Pen 75 mg/mL subcutaneous solution See Instructions, INJECT 75MG SUBCUTANEOUSLY EVERY 2 WEEKS, # 2 mL, 10 Refills, Maintenance, 05/25/23 10:56:00 EDT, [facility], 177.8, cm, 12/01/22 8:22:00 EDT, Height, 96.8, kg, 08/05/21 8:57:00 EST, Dry Weight Start Date: 05/25/23 Status: Ordered rizatriptan 5 mg oral tablet 1 tablet = 5 mg, By Mouth, Once, PRN for migraine headache, may repeat dose once in 2 hours max 2 tabs in 24hrs ., # 12 tablet, 2 Refills, Soft Stop, 05/20/22 7:59:00 EDT, Tablet, [facility], Partial fill upon patient request if the prescript... Start Date: 05/20/22 Status: Ordered SUMAtriptan 4 mg/0.5 mL subcutaneous solution 0.5 mL = 4 mg, Subcutaneous Injection, Once, PRN as needed for migraine headache, may repeat once in 1 hour if needed, # 1 kit, 0 Refills, Soft Stop, 03/21/22 14:40:00 EDT, Solution, [facility],Partial fill upon patient request if the prescripti... Start Date: 03/21/22 Status: Ordered terazosin 5 mg oral capsule See Instructions, TAKE 1 CAPSULE BY MOUTH DAILY AT BEDTIME, # 90 capsule, Refills 1, Tot. Refills 1, Maintenance, 03/13/23 8:21:00 EDT, Instructions Replace Required Details, Route to Pharmacy Electronically, [facility], 177.8, cm, 12/01/22 8:22:... Start Date: 03/13/23 Status: Ordered zolpidem 10 mg oral tablet 1 tablet = 10 mg, By Mouth, Daily at bedtime, PRN as needed for insomnia, # 15 tablet, 0 Refills, Maintenance, 05/12/23 7:19:00 EDT, Tablet, [facility], Partial fill upon patient request if the prescription is for a schedule II opioid... Start Date: 05/12/23 Status: Ordered Problem List Condition Confirmation Course [...] Team Personnel Name: Kya Marina RN Position: [facility] RN Member Role: Primary Care Nurse Name: Veronica Feng RN Position: S RN Member Role: Primary Care Nurse Name: Radha Hoover NP Position: [facility] PCO Associate Professional Member Role: PCP Address: Address: [address] [place] [address] [address] [place] [address]- Name: Jonathan Ramos RN Position: S RN Member Role: Primary Care Nurse Care Team Related Persons Name: LEN RAZO Address: home [address] [place] [address]
--- OUTSIDE RECORDS SUMMARY | 2024-04-23 08:17 | XMS_ITS | Continuity of Care Document ---
Author Organization [facility] Address [address] [facility], [address], [address] [place] [address]- Care Team Providers Care Strainer Cleaner Name Role Phone Sneha GORDON, Radha Sorensen Primary Care Physician Encounter [facility] Date(s): 04/21/22 - 05/21/22 [facility] [address] [place], [address], [address] [place] [phone]- [place] Allergies, Adverse Reactions, Alerts Substance Reaction [...] Given tetanus/diphtheria/pertussis, acel(Tdap) 06/08/11 Given 1Result Comment: [facility] [id number] 2Result Comment: [05/25/2018] [facility]: [id number] 3Admin Note: Danielitomatt 4Admin Note: gabbie 03/31/09 [...] 5 Refills, Maintenance, 04/27/22 12:46:00 EDT, Tablet, [facility], 177.8, cm, 04/19/22 9:41:00 EDT, Height, [...] tablet, 5 Refills, Maintenance, 03/25/22 14:14:00 EDT, [facility], 177.8, cm, 02/14/22 8:18:00 EDT, Height, [...] Replace Required Details, Route to Pharmacy Electronically, [facility], 177.8, cm, 02/14/22 8:18:00... Start Date: 03/24/22 Status: Ordered Guaiatussin AC 10 mg-100 mg/5 ml oral syrup 10 mL, By Mouth, Every 6 hours, PRN for cough, # 240 mL, 0 Refills, Maintenance, 11/22/21 16:22:00 EDT, Syrup, [facility], Partial fill upon patient request if the prescription is for a scheduleII opioid drug., 10 mL By Mouth Every 6 hours,PRN:f... Start Date: 11/22/21 Status: Ordered indomethacin 25 mg oral capsule 1 capsule = 25 mg, By Mouth, 3 times a day, PRN Headache, # 30 capsule, 2 Refills, Maintenance, 05/20/22 8:07:00 EDT, Capsule, [facility], 30 caps / month, 177.8, cm, [...] at bedtime, # 30 tablet, 5 Refills, [facility], 177.8, cm, 11/22/21 14:53:00 EDT, Height, 96.8, kg, 08/05/21 8:57:00 EST, Dry Weight Start Date: 12/23/21 Status: Ordered nitroglycerin 0.4 mg sublingual tablet 1 tablet = 0.4 mg, Sublingual, Every 5 minutes, PRN as needed for chest pain, not to exceed 3 doses/15 min--if pain persists, seek medical attention, # 100 tablet, 0 Refills, Maintenance, 09/28/20 17:00:00 EST, Tablet, [facility], Partial fill up... Start Date: 09/28/20 Status: Ordered rizatriptan 5 mg oral tablet 1 tablet = 5 mg, By Mouth, Once, PRN for migraine headache, may repeat dose once in 2 hours max 2 tabs in 24hrs ., # 12 tablet, 2 Refills, Soft Stop, 05/20/22 7:59:00 EDT, Tablet, [facility], Partial fill upon patient request if the prescript... Start Date: 05/20/22 Status: Ordered SUMAtriptan 4 mg/0.5 mL subcutaneous solution 0.5 mL = 4 mg, Subcutaneous Injection, Once, PRN as needed for migraine headache, may repeat once in 1 hour if needed, # 1 kit, 0 Refills, Soft Stop, 03/21/22 14:40:00 EDT, Solution, [facility],Partial fill upon patient request if the prescripti... Start Date: 03/21/22 Status: Ordered terazosin 5 mg oral capsule See Instructions, TAKE 1 CAPSULE BY MOUTH DAILY AT BEDTIME, # 30 capsule, Refills 5, Instructions Replace Required Details, Route to Pharmacy Electronically, [facility], 177.8, cm, 02/14/22 8:18:00 EDT, Height, [...] Personnel Name: Radha Hoover NP Address: Address: [address] [facility] [address]rd [address] [place], [place] [address]
--- OUTSIDE RECORDS SUMMARY | 2024-04-23 08:17 | XMS_ITS | Continuity of Care Document ---
Author Organization [facility] Address [address] [place] [address]- Care Team Providers Care Legal Administrator Name Role Phone Sneha FUR WEIGHER, Radha Sorensen Primary Care Physician [facility] Date[facility]s): 09/25/20 - 10/25/20 [facility] [address] [place] [phone]- Allergies, Adverse Reactions, Alerts Substance Reaction Severity [...] to report when received vaccine 2Result Comment: [facility] [id number] 3Result Comment: [05/25/2018] [facility]: [id number] 4Admin Note: [facility] 5Admin Note: vis 03/31/09 [...] 3 Refills, Maintenance, 05/08/20 9:35:00 EDT, Tablet, [facility], 175.4, cm, 10/21/19 8:06:00 EST, Height Start Date: 05/08/20 Stop Date: 09/05/20 Status: Ordered apixaban 5 mg oral tablet 1 tablet = 5 mg, By Mouth, 2 times a day, # 60 tablet, 0 Refills, Maintenance, 10/07/20 9:38:00 EST, Tablet, [facility], Partial fill upon patient request if the prescription is for a schedule II opioid drug., 178, cm, 10/07/20 7:43:00 E... Start Date: 10/07/20 Stop Date: 11/06/20 Status: Ordered Ativan 0.5 mg oral tablet 1 tablet = 0.5 mg, By Mouth, Every 8 hours, PRN as needed for anxiety, # 90 tablet, 3 Refills, Maintenance, 06/11/20 17:06:00 EDT, Tablet, [facility], 175.4, cm, 10/21/19 8:06:00 EST, Height Start Date: 06/11/20 Stop Date: 10/09/20 Status: Ordered docusate sodium 100 mg oral capsule 100 mg, 1, capsule, By Mouth, 2 times a day, # 60 capsule, Refills 0, Tot. Refills 0, Maintenance, 10/07/20 9:37:00 EST, Route to Pharmacy Electronically, [facility], Partial fill upon patient request if the prescription is for a schedul... Start Date: 10/07/20 Status: Ordered fenofibrate 54 mg oral tablet 1 tablet = 54 mg, By Mouth, Daily at bedtime, # 30 tablet, 5 Refills, Maintenance, 06/11/20 11:29:00 EDT, [facility], 175.4, cm, 10/21/19 8:06:00 EST, Height [...] Replace Required Details, Route to Pharmacy Electronically, [facility] Start Date: 09/11/20 Status: Ordered Maalox Plus [...] 08/09/20 21:59:00 EST, Route to Pharmacy Electronically, [facility], 175.4, cm, 10/21/19 8:06:00 EST, Height [...]
--- OUTSIDE RECORDS SUMMARY | 2024-04-23 08:17 | XMS_ITS | Continuity of Care Document ---
Author Organization [facility] Address [address] [place] [address]- Care Team Providers Care Stock Lifter Name Role Phone Sneha GORDON, Radha Sorensen Primary Care Physician [facility] Date[facility]s): 03/13/20 - 04/12/20 [facility] [address] [place] [phone]- [facility] Allergies, Adverse Reactions, Alerts Substance Reaction Severity [...] tetanus/diphtheria/pertussis, acel(Tdap) 06/08/11 Given 1Result Comment: [facility] [id number] 2Result Comment: [05/25/2018] [facility]: [id number] 3Admin Note: C[facility] 4Admin Note: vis 03/31/09 [...] 3 Refills, Maintenance, 10/21/19 17:07:00 EST, Tablet, [facility], 175.4, cm, 10/21/19 8:06:00 EST, Height Start Date: 10/21/19 Status: Ordered azelastine nasal 0.15% spray 2 sprays, Nares, Both, 2 times a day, PRN for allergy symptoms, # 30 mL, 0 Refills, Maintenance, 10/21/19 8:40:00 EST, [place], [facility], 2 sprays Nares, Both 2 times a day,PRN:for allergy symptoms, 175.4, cm, 10/21/19 8:06:00 EST, Height Start Date: 10/21/19 Status: Ordered fenofibrate 54 mg oral tablet 1 tablet = 54 mg, By Mouth, Daily, # 30 tablet, 5 Refills, Maintenance, 12/31/19 10:02:00 EDT, [facility], 175.4, cm, 10/21/19 8:06:00 EST, Height [...] Replace Required Details, Route to Pharmacy Electronically, [facility], 175.4, cm, .. Start Date: 02/26/20 Status: Ordered mercaptopurine 50 mg oral tablet = 100 mg, By Mouth, Daily at bedtime, 0 Refills, Maintenance, 07/20/17 8:35:35, Tablet Start Date: 07/20/17 Status: Ordered metoprolol 25 mg oral tablet, extended release 25 mg, By Mouth, Daily at bedtime, # 30 each, Refills 0, Tot. Refills 0, Maintenance, 03/02/20 14:36:00 EDT, Route to Pharmacy Electronically, [facility], 175.4, cm, 10/21/19 8:06:00 EST, Height [...] 1 CAPSULE BY MOUTH DAILY AT BEDTIME, [facility] Start Date: 05/02/19 Status: Ordered tiZANidine 2 mg oral tablet 1/2 tablet, By Mouth, Every 8 hours, PRN, # 45 tablet, Refills 0, Tot. Refills 0, Maintenance, as needed for muscle spasm, 11/05/19 10:51:00 EDT, Route to Pharmacy Electronically, [facility], 175.4, cm, 10/21/19 8:06:00 EST, Height [...]
--- OUTSIDE RECORDS SUMMARY | 2024-04-23 08:17 | XMS_ITS | Continuity of Care Document ---
Author Organization [facility] Adult Address [address] [place] [address]- Care Team Providers Care Hvac Service Technician Name Role Phone Sneha ACCOUNTING CONSULTANT, Radha Sorensen Primary Care Physician [facility]): 09[facility]/20 - 10/11/20 [facility] Adult [address] [place] [address]- Allergies, Adverse Reactions, Alerts Substance Reaction Severity [...] to report when received vaccine 2Result Comment: [facility] [id number] 3Result Comment: [05/25/2018] [facility]: [id number] 4Admin Note: [facility] 5Admin Note: vis 03/31/09 [...] 3 Refills, Maintenance, 05/08/20 9:35:00 EDT, Tablet, [facility], 175.4, cm, 10/21/19 8:06:00 EST, Height Start Date: 05/08/20 Stop Date: 09/05/20 Status: Ordered apixaban 5 mg oral tablet 1 tablet = 5 mg, By Mouth, 2 times a day, # 60 tablet, 0 Refills, Maintenance, 10/07/20 9:38:00 EST, Tablet, [facility], Partial fill upon patient request if the prescription is for a schedule II opioid drug., 178, cm, 10/07/20 7:43:00 E... Start Date: 10/07/20 Stop Date: 11/06/20 Status: Ordered Ativan 0.5 mg oral tablet 1 tablet = 0.5 mg, By Mouth, Every 8 hours, PRN as needed for anxiety, # 90 tablet, 3 Refills, Maintenance, 06/11/20 17:06:00 EDT, Tablet, [facility], 175.4, cm, 10/21/19 8:06:00 EST, Height Start Date: 06/11/20 Stop Date: 10/09/20 Status: Ordered docusate sodium 100 mg oral capsule 100 mg, 1, capsule, By Mouth, 2 times a day, # 60 capsule, Refills 0, Tot. Refills 0, Maintenance, 10/07/20 9:37:00 EST, Route to Pharmacy Electronically, [facility], Partial fill upon patient request if the prescription is for a schedul... Start Date: 10/07/20 Status: Ordered fenofibrate 54 mg oral tablet 1 tablet = 54 mg, By Mouth, Daily at bedtime, # 30 tablet, 5 Refills, Maintenance, 06/11/20 11:29:00 EDT, [facility], 175.4, cm, 10/21/19 8:06:00 EST, Height [...] Replace Required Details, Route to Pharmacy Electronically, [facility] Start Date: 09/11/20 Status: Ordered HYDROmorphone 2 mg oral tablet See Instructions, PRN Pain , Moderate, Take 1-2 tablets every 4 hours as needed for pain x 7 days.,# 84 tablet, 0 Refills, Acute 10/14/20 8:00:00 EST, 10/07/20 9:35:00 EST, Tablet, [facility], Partial fill upon patient request if the pr... Start Date: 10/07/20 Stop Date: 10/14/20 Status: Ordered Maalox Plus Liquid 30 mL, [...] 08/09/20 21:59:00 EST, Route to Pharmacy Electronically, [facility], 175.4, cm, 10/21/19 8:06:00 EST, Height [...]
[2024-04-23 08:18] VITALS: BP 120/80; PULSE 66; TEMP 36.6; O2SAT 97; BMI 28.8
--- OUTSIDE RECORDS SUMMARY | 2024-04-23 08:18 | XMS_ITS | Continuity of Care Document ---
Author Organization [facility] ter Address [address] [place] [address]- Care Team Providers Care Air Defense Control Officer Name Role Phone Sneha NEON INSTALLER, Radha Sorensen Primary Care Physician [facility] Date[facility]s): 09/25/20 - 10/25/[address] [address] Attending Physician: AdmJulia metz Admitting Physician: AdmtrJulia Referring Physician: Admtr, Ar8 Allergies, Adverse Reactions, Alerts Substance Reaction Severity Status Levaquin itch Moderate Active statins Active Crestor ck 400's and myalgia Active nonsteroidal anti-inflammatory agents Active Immunizations Given and Recorded Vaccine Date [...] to report when received vaccine 2Result Comment: [facility] [id number] 3Result Comment: [05/25/2018] [facility]: [id number] 4Admin Note: [facility] 5Admin Note: vis 03/31/09 [...] 3 Refills, Maintenance, 05/08/20 9:35:00 EDT, Tablet, [facility], 175.4, cm, 10/21/19 8:06:00 EST, Height Start Date: 05/08/20 Stop Date: 09/05/20 Status: Ordered apixaban 5 mg oral tablet 1 tablet = 5 mg, By Mouth, 2 times a day, # 60 tablet, 0 Refills, Maintenance, 10/07/20 9:38:00 EST, Tablet, [facility], Partial fill upon patient request if the prescription is for a schedule II opioid drug., 178, cm, 10/07/20 7:43:00 E... Start Date: 10/07/20 Stop Date: 11/06/20 Status: Ordered Ativan 0.5 mg oral tablet 1 tablet = 0.5 mg, By Mouth, Every 8 hours, PRN as needed for anxiety, # 90 tablet, 3 Refills, Maintenance, 06/11/20 17:06:00 EDT, Tablet, [facility], 175.4, cm, 10/21/19 8:06:00 EST, Height Start Date: 06/11/20 Stop Date: 10/09/20 Status: Ordered docusate sodium 100 mg oral capsule 100 mg, 1, capsule, By Mouth, 2 times a day, # 60 capsule, Refills 0, Tot. Refills 0, Maintenance, 10/07/20 9:37:00 EST, Route to Pharmacy Electronically, [facility], Partial fill upon patient request if the prescription is for a schedul... Start Date: 10/07/20 Status: Ordered fenofibrate 54 mg oral tablet 1 tablet = 54 mg, By Mouth, Daily at bedtime, # 30 tablet, 5 Refills, Maintenance, 06/11/20 11:29:00 EDT, [facility], 175.4, cm, 10/21/19 8:06:00 EST, Height [...] Replace Required Details, Route to Pharmacy Electronically, [facility]... Start Date: 09/11/20 Status: Ordered Maalox Plus [...] 08/09/20 21:59:00 EST, Route to Pharmacy Electronically, [facility], 175.4, cm, 10/21/19 8:06:00 EST, Height [...] Stop,05/08/20 16:25:00 EDT, Route to Pharmacy Electronically, [facility], 175.4, cm, 10/21/19 8:06:00 EST, Height [...]
--- OUTSIDE RECORDS SUMMARY | 2024-04-23 08:18 | XMS_ITS | Continuity of Care Document ---
Author Organization [facility] Address [address] [place] [address]- Care Team Providers Care Cultural Centre Manager Name Role Phone Sneha GORDON, Radha Sorensen Primary Care Physician [place] [facility] [place] 11/18/22 - 12/18/22 [facility] [address] [place] [id number] Attending Physician: Julia Allen Admitting Physician: AdmJulia metz Referring Physician: AdmtrJulia Allergies, Adverse Reactions, Alerts Substance Reaction Severity Status Levaquin itch Moderate Active nonsteroidal anti-inflammatory agents diarrhea Active Crestor ck 400's and myalgia Active statins myalgia Active Immunizations Given and Recorded Vaccine Date Status Refusal Reason [id number] 12y+ bivalent booster vax 05/19/22 Recorded SARS-CoV-2 [...] tetanus/diphtheria/pertussis, acel(Tdap) 06/08/11 Given 1Result Comment: [facility] [id number] 2Result Comment: [05/25/2018] [facility]: [id number] 3Admin Note: [facility] 4Admin Note: vis 03/31/09 [...] 3 Refills, Maintenance, 09/16/22 8:46:00 EST, Tablet, [facility], 177.8, cm, 08/03/22 15:31:00 EST, Height, 96.8, kg, 08/05/21 8:57:00 EST, Dry Weight Start Date: 09/16/22 Stop Date: 01/14/23 Status: Ordered amitriptyline 50 mg oral tablet 2 tablet = 100 mg, By Mouth, Daily at bedtime, # 60 tablet, 0 Refills, Maintenance, 12/15/22 13:40:00 EDT, [facility], Partial fill upon patient request if [...] 5 Refills, Maintenance, 11/11/22 12:40:00 EDT, Tablet, [facility], 177.8, cm, 10/24/22 8:53:00 EST, Height, 96.8, kg, 08/05/21 8:57:00 EST, Dry Weight Start Date: 11/11/22 Stop Date: 05/10/23 Status: Ordered cyclobenzaprine 10 mg oral tablet 10 mg, 1, tablet, By Mouth, Daily at supper, # 30 tablet, Refills 2, Tot. Refills 2, Maintenance, 10/24/22 15:13:00 EST, Route to Pharmacy Electronically, [facility], Partial fill upon patient request if the prescription is for a schedule II opio... Start Date: 10/24/22 Status: Ordered evolocumab 140 mg/mL subcutaneous solution = 140 mg, Subcutaneous Infusion, Every 14 days, # 1 kit, 6 Refills, Maintenance, 09/29/22 9:51:00 EST, [facility], Partial fill upon patient request if the prescription is for a schedule II opioid drug., 177.8, cm, 09/29/22 9:19:00 EST, Height, 9... Start Date: 09/29/22 Status: Ordered fenofibrate 54 mg oral tablet 1 tablet, By Mouth, Daily, # 30 tablet, 5 Refills, Maintenance, 11/09/22 6:38:00 EDT, [facility], 177.8, cm, 10/24/22 8:53:00 EST, Height, [...] 5 Refills, Maintenance, 08/24/22 13:53:00 EST, Capsule, [facility], 30 caps / month, 177.8, cm, [...] at bedtime, # 30 tablet, 5 Refills, [facility], 177.8, cm, 11/22/21 14:53:00 EDT, Height, [...] Refills, Soft Stop, 05/20/22 7:59:00 EDT, Tablet, [facility], Partial fill upon patient request if the prescript... Start Date: 05/20/22 Status: Ordered SUMAtriptan 4 mg/0.5 mL subcutaneous solution 0.5 mL = 4 mg, Subcutaneous Injection, Once, PRN as needed for migraine headache, may repeat once in 1 hour if needed, # 1 kit, 0 Refills, Soft Stop, 03/21/22 14:40:00 EDT, Solution, [facility],Partial fill upon patient request if the prescripti... Start Date: 03/21/22 Status: Ordered terazosin 5 mg oral capsule 1, capsule, By Mouth, Daily at bedtime, # 30 capsule, Refills 5, Maintenance, 08/04/22 11:10:00 EST, Route to Pharmacy Electronically, [facility], 177.8, cm, 08/03/22 15:31:00 EST, Height, [...] Nurse Name: Sneha GORDON, Radha Sorensen Position: [facility] PCO Associate Professional Member Role: PCP Address: Address: [address] [place] [address] [address] [place], [place] [address] Name: Jonathan Ramos RN Position: S RN Member Role: Primary Care Nurse Care Team Related Persons Name: LEN RAZO Address: [address] [address]
--- OUTSIDE RECORDS SUMMARY | 2024-04-23 08:18 | XMS_ITS | Continuity of Care Document ---
Author Organization [facility] Adult Address [address] [place] [address]- Care Team Providers Care Lan/Wan Engineer Name Role Phone Sneha GORDON, Radha Sorensen Primary Care Physician [facility] Date[facility]s): 05/12/20 - 06/11/20 [facility] Adult [address] [place] [address] [facility] Allergies, Adverse Reactions, Alerts Substance Reaction Severity [...] to report when received vaccine 2Result Comment: [facility] [id number] 3Result Comment: [05/25/2018] [facility]: [id number] 4Admin Note: [facility] 5Admin Note: vis 03/31/09 6Result Comment: [08/11/2015] [facility] Ambien 10 mg oral tablet 1 tablet = 10 mg, By Mouth, Daily at bedtime, PRN for sleep, # 30 tablet, 3 Refills, Maintenance, 05/08/20 9:35:00 EDT, Tablet, [facility], 175.4, cm, 10/21/19 8:06:00 EST, Height [...] 3 Refills, Maintenance, 06/11/20 17:06:00 EDT, Tablet, [facility], 175.4, cm, 10/21/19 8:06:00 EST, Height Start Date: 06/11/20 Stop Date: 10/09/20 Status: Ordered azelastine nasal 0.15% spray 2 sprays, Nares, Both, 2 times a day, PRN for allergy symptoms, # 30 mL, 0 Refills, Maintenance, 10/21/19 8:40:00 EST, [place], [facility], 2 sprays Nares, Both 2 times a day,PRN:for allergy symptoms, 175.4, cm, 10/21/19 8:06:00 EST, Height Start Date: 10/21/19 Status: Ordered fenofibrate 54 mg oral tablet 1 tablet = 54 mg, By Mouth, Daily, # 30 tablet, 5 Refills, Maintenance, 06/11/20 11:29:00 EDT, [facility], 175.4, cm, 10/21/19 8:06:00 EST, Height [...] Replace Required Details, Route to Pharmacy Electronically, [facility], 175.4, cm, ... Start Date: 02/26/20 Status: Ordered mercaptopurine 50 mg oral tablet = 100 mg, By Mouth, Daily at bedtime, 0 Refills, Maintenance, 07/20/17 8:35:35, Tablet Start Date: 07/20/17 Status: Ordered metoprolol 25 mg oral tablet, extended release 25 mg, By Mouth, Daily at bedtime, # 30 each, Refills 0, Tot. Refills 0, Maintenance, 03/02/20 14:36:00 EDT, Route to Pharmacy Electronically, [facility], 175.4, cm, 10/21/19 8:06:00 EST, Height [...] Stop,05/08/20 16:25:00 EDT, Route to Pharmacy Electronically, [facility], 175.4, cm, 10/21/19 8:06:00 EST, Height Start Date: 05/08/20 Stop Date: 05/03/21 Status: Ordered tiZANidine 2 mg oral tablet 1/2 tablet, By Mouth, Every 8 hours, PRN, # 45 tablet, Refills 0, Tot. Refills 0, Maintenance, as needed for muscle spasm, 11/05/19 10:51:00 EDT, Route to Pharmacy Electronically, [facility], 175.4, cm, 10/21/19 8:06:00 EST, Height [...]
--- OUTSIDE RECORDS SUMMARY | 2024-04-23 08:18 | XMS_ITS | Continuity of Care Document ---
Author Organization [facility] Adult Address [address] [place] [address]- Care Team Providers Care Industrial Laborer Name Role Phone Sneha GORDON, Radha Sorensen Primary Care Physician Encounter [facility] Date(s): 05/12/23 - 06/11/23 [facility] Adult [address] [place] [address]- Allergies, Adverse Reactions, Alerts Substance Reaction Severity Status Levaquin itch Moderate Active nonsteroidal anti-inflammatory agents diarrhea Active Crestor ck 400's and myalgia Active statins myalgia Active Immunizations Given and Recorded Vaccine Date Status Refusal Reason [id number] 12y+ bivalent booster vax 05/19/22 Recorded SARS-CoV-2 [...] Given 1Result Comment: [facility] [id number] 2Result Comment: [05/25/2018] [facility]: [id number] 3Admin Note: [facility] 4Admin Note: vis 03/31/09 [...] 3 Refills, Maintenance, 05/12/23 16:48:00 EDT, Tablet, [facility], 177.8, cm, 12/01/22 8:22:00 EDT, Height, 96.8, kg, 08/05/21 8:57:00 EST, Dry Weight Start Date: 05/12/23 Stop Date: 09/09/23 Status: Ordered amitriptyline 50 mg oral tablet 2 tablet = 100 mg, By Mouth, Daily at bedtime, # 60 tablet, 0 Refills, Maintenance, 12/15/22 13:40:00 EDT, [facility], Partial fill upon patient request if [...] 5 Refills, Maintenance, 05/11/23 14:18:00 EDT, Tablet, [facility], 177.8, cm, 12/01/22 8:22:00 EDT, Height, 96.8, kg, 08/05/21 8:57:00 EST, Dry Weight Start Date: 05/11/23 Stop Date: 11/07/23 Status: Ordered cyclobenzaprine 10 mg oral tablet 10 mg, 1, tablet, By Mouth, Daily at supper, # 30 tablet, Refills 2, Tot. Refills 2, Maintenance, 10/24/22 15:13:00 EST, Route to Pharmacy Electronically, [facility], Partial fill upon patient request if the prescription is for a schedule II opio... Start Date: 10/24/22 Status: Ordered evolocumab 140 mg/mL subcutaneous solution = 140 mg, Subcutaneous Infusion, Every 14 days, # 1 kit, 6 Refills, Maintenance, 01/30/23 14:16:00 EDT, [facility], Partial fill upon patient request if the prescription is for a schedule II opioid drug., 177.8, cm, 12/01/22 8:22:00 E... Start Date: 01/30/23 Status: Ordered fenofibrate 54 mg oral tablet 1 tablet, By Mouth, Daily, # 30 tablet, 5 Refills, Maintenance, 05/11/23 13:30:00 EDT, [facility], 177.8, cm, 12/01/22 8:22:00 EDT, Height, [...] capsule, 5 Refills, Maintenance, 02/09/23 18:32:00 EDT, [facility], 177.8, cm, 12/01/22 8:22:00 EDT, Height, [...] 30 tablet, 5 Refills, 03/07/23 10:21:00 EDT, [facility], 177.8, cm, 12/01/22 8:22:00 EDT, Height, 96.8, kg, 08/05/21 8:57:00 EST, Dry Weight Start Date: 03/07/23 Status: Ordered nitroglycerin 0.4 mg sublingual tablet 1 tablet = 0.4 mg, Sublingual, Every 5 minutes, PRN as needed for chest pain, not to exceed 3 doses/15 min--if pain persists, seek medical attention, # 100 tablet, 0 Refills, Maintenance, 09/28/20 17:00:00 EST, Tablet, [facility], Partial fill up... Start Date: 09/28/20 Status: Ordered Praluent Pen 75 mg/mL subcutaneous solution See Instructions, INJECT 75MG SUBCUTANEOUSLY EVERY 2 WEEKS, # 2 mL, 10 Refills, Maintenance, 05/25/23 10:56:00 EDT, [facility], 177.8, cm, 12/01/22 8:22:00 EDT, Height, 96.8, kg, 08/05/21 8:57:00 EST, Dry Weight Start Date: 05/25/23 Status: Ordered rizatriptan 5 mg oral tablet 1 tablet = 5 mg, By Mouth, Once, PRN for migraine headache, may repeat dose once in 2 hours max 2 tabs in 24hrs ., # 12 tablet, 2 Refills, Soft Stop, 05/20/22 7:59:00 EDT, Tablet, [facility], Partial fill upon patient request if the prescript... Start Date: 05/20/22 Status: Ordered SUMAtriptan 4 mg/0.5 mL subcutaneous solution 0.5 mL = 4 mg, Subcutaneous Injection, Once, PRN as needed for migraine headache, may repeat once in 1 hour if needed, # 1 kit, 0 Refills, Soft Stop, 03/21/22 14:40:00 EDT, Solution, [facility],Partial fill upon patient request if the prescripti... Start Date: 03/21/22 Status: Ordered terazosin 5 mg oral capsule See Instructions, TAKE 1 CAPSULE BY MOUTH DAILY AT BEDTIME, # 90 capsule, Refills 1, Tot. Refills 1, Maintenance, 03/13/23 8:21:00 EDT, Instructions Replace Required Details, Route to Pharmacy Electronically, [facility], 177.8, cm, 12/01/22 8:22:... Start Date: [...] Team Personnel Name: Kya Marina RN Position: [facility] RN Member Role: Primary Care Nurse Name: Veronica Feng RN Position: S RN Member Role: Primary Care Nurse Name: Radha Hoover NP Position: [facility] PCO Associate Professional Member Role: PCP Address: Address: [address] [place] [address] [address] [place] [address]- Name: Jonathan Ramos RN Position: S RN Member Role: Primary Care Nurse Care Team Related Persons Name: LEN RAZO Address: home [address] [place] [address]
--- OUTSIDE RECORDS SUMMARY | 2024-04-23 08:18 | XMS_ITS | Continuity of Care Document ---
Author Organization [facility] Adult Address [address] [place] [address]- Care Team Providers Care Hearing And Speech Assistant Name Role Phone Sneha MENTAL HEALTH ASSOCIATE, Radha Sorensen Primary Care Physician [facility] Date[facility]s): 01/05/21 - 02/04/21 [facility] [address] [place] [address]- Allergies, Adverse Reactions, Alerts Substance Reaction Severity [...] to report when received vaccine 2Result Comment: [facility] [id number] 3Result Comment: [05/25/2018] [facility]: [id number] 4Admin Note: [facility] 5Admin Note: vis 03/31/09 [...] 3 Refills, Maintenance, 12/02/20 15:26:00 EDT, Tablet, [facility], 178, cm, 11/06/20 13:18:00 EDT, Height, [...] 3 Refills, Maintenance, 01/06/21 15:26:00 EDT, Tablet, [facility], 177.8, cm, 12/18/20 11:27:00 EDT, Height, 92.3, kg, 12/18/20 11:27:00 EDT, Dry Weight Start Date: 01/06/21 Stop Date: 05/06/21 Status: Ordered fenofibrate 54 mg oral tablet 1 tablet, By Mouth, Daily, # 30 tablet, 5 Refills, Maintenance, 12/14/20 9:58:00 EDT, [facility], 178, cm, 11/06/20 13:18:00 EDT, Height, 90.1, kg, 10/06/20 6:33:00 EST, Dry Weight Start Date: 12/14/20 Status: Ordered fenofibrate 54 mg oral tablet 1 tablet = 54 mg, By Mouth, Daily, # 90 tablet, 1 Refills, Maintenance, 01/05/21 9:14:00 EDT, [facility], 177.8, cm, 12/18/20 11:27:00 EDT, Height, [...] Replace Required Details, Route to Pharmacy Electronically, [facility], 177.8, cm, ... Start Date: 01/07/21 [...] 12/11/20 21:05:00 EDT, Route to Pharmacy Electronically, [facility], 178, cm, 11/06/20 13:18:00 EDT, Height,90.1, [...] 0 Refills, Maintenance, 09/28/20 17:00:00 EST, Tablet, [facility], Partial fill up... Start Date: 09/28/20 [...]
--- OUTSIDE RECORDS SUMMARY | 2024-04-23 08:18 | XMS_ITS | Continuity of Care Document ---
Author Organization [facility] Address [address] [place] [address]- Care Team Providers Care Electrical Panel Builder Name Role Phone Sneha SPRAY PAINTING MACHINE OPERATOR, Radha Sorensen Primary Care Physician Encounter [facility] Date(s): 01/20/20 - 02/19/20 [facility] [address] [address]- [facility] Attending Physician: Julia Allen Admitting Physician: AdmtrJulia Referring Physician: AdmtrJulia Allergies, Adverse Reactions, Alerts [...] 1Result Comment: [facility] [id number] 2Result Comment: [05/25/2018] [facility]: [id number] 3Admin Note: [facility] 4Admin Note: vis 03/31/09 [...] 3 Refills, Maintenance, 10/21/19 17:07:00 EST, Tablet, [facility], 175.4, cm, 10/21/19 8:06:00 EST, Height Start Date: 10/21/19 Status: Ordered azelastine nasal 0.15% spray 2 sprays, Nares, Both, 2 times a day, PRN for allergy symptoms, # 30 mL, 0 Refills, Maintenance, 10/21/19 8:40:00 EST, [place], [facility], 2 sprays Nares, Both 2 times a day,PRN:for allergy symptoms, 175.4, cm, 10/21/19 8:06:00 EST, Height Start Date: 10/21/19 Status: Ordered fenofibrate 54 mg oral tablet 1 tablet = 54 mg, By Mouth, Daily, # 30 tablet, 5 Refills, Maintenance, 12/31/19 10:02:00 EDT, [facility], 175.4, cm, 10/21/19 8:06:00 EST, Height [...] Replace Required Details, Route to Pharmacy Electronically, [facility], 175.4, cm, ... Start Date: 12/31/19 Status: Ordered mercaptopurine 50 mg oral tablet = 100 mg, By Mouth, Daily at bedtime, 0 Refills, Maintenance, 07/20/17 8:35:35, Tablet Start Date: 07/20/17 Status: Ordered metoprolol 25 mg oral tablet, extended release 25 mg, By Mouth, Daily at bedtime, # 30 tablet, Refills 5, Tot. Refills 5, Maintenance, 07/30/19 9:11:06 EST, Route to Pharmacy Electronically, [id number], [facility], 175.4, cm, 07/29/19 8:33:52 EST, Height Start Date: 07/30/19 Status: Ordered oxyCODONE 5 mg oral tablet 5 mg, 1, tablet, By Mouth, 2 times a day, PRN, for 28 days, # 56 tablet, Refills 0, Tot. Refills 0,Acute 03/17/20 11:39:00 EDT, Pain , Severe, 02/18/20 11:39:00 EDT, Route to Pharmacy Electronically, [facility], Partial fill upon patient request... Start Date: 02/18/20 Stop Date: 03/17/20 Status: Ordered Shingrix intramuscular injection 0.5 mL, Intramuscular, Once, # 0.5 mL, 1 Refills, Soft Stop, 06/28/19 13:15:54 EST, 0.5 mL Intramuscular Once Start Date: 06/28/19 Status: Ordered terazosin 5 mg oral capsule See Instructions, # 30 capsule, Refills 11 Tot. Refills 11, TAKE 1 CAPSULE BY MOUTH DAILY AT BEDTIME, [facility] Start Date: 05/02/19 Status: Ordered tiZANidine 2 mg oral tablet 1/2 tablet, By Mouth, Every 8 hours, PRN, # 45 tablet, Refills 0, Tot. Refills 0, Maintenance, as needed for muscle spasm, 11/05/19 10:51:00 EDT, Route to Pharmacy Electronically, [facility], 175.4, cm, 10/21/19 8:06:00 EST, Height [...]
--- OUTSIDE RECORDS SUMMARY | 2024-04-23 08:18 | XMS_ITS | Continuity of Care Document ---
Author Organization [facility] Address [address] [place] [address] [address] [place] [address]- Care Team Providers Care Dinkey Engineer Name Role Phone Sneha GORDON, Radha Sorensen Primary Care Physician Encounter [facility] Date(s): 08/10/21 - 08/17/21 [facility] [address] [place] [address]- Attending Physician: Nader GORDON, Kari Berman Referring Physician: Sneha GORDON, Radha Sorensen Allergies, [...] [facility] [id number] 2Result Comment: [05/25/2018] [facility]: [id number] 3Admin Note: Codi 4Admin Note: vis 03/31/09 [...] 3 Refills, Maintenance, 04/19/21 10:21:00 EDT, Tablet, [facility], 177.8, cm, 03/11/21 9:04:00 EDT, Height, [...] 0 Refills, Maintenance, 07/16/21 12:39:00 EST, Tablet, [facility], 177.8, cm, 06/18/21 9:52:00 EDT, Height, 92.3, kg, 12/18/20 11:27:00 EDT, Dry Weight Start Date: 07/16/21 Stop Date: 08/15/21 Status: Ordered fenofibrate 54 mg oral tablet 1 tablet = 54 mg, By Mouth, Daily at bedtime, # 90 tablet, 1 Refills, Maintenance, 01/05/21 9:14:00EDT, [facility], 177.8, cm, 12/18/20 11:27:00 EDT, Height, [...] AT BEDTIME, # 30 tablet, 5 Refills, [facility],177.8, cm, 06/18/21 9:52:00 EDT, Height, 92.3, kg, 12/18/20 11:27:00 EDT, Dry Weight Start Date: 07/16/21 Status: Ordered nitroglycerin 0.4 mg sublingual tablet 1 tablet = 0.4 mg, Sublingual, Every 5 minutes, PRN as needed for chest pain, not to exceed 3 doses/15 min--if pain persists, seek medical attention, # 100 tablet, 0 Refills, Maintenance, 09/28/20 17:00:00 EST, Tablet, [facility], Partial fill up... Start Date: 09/28/20 Status: Ordered terazosin 5 mg oral capsule 5 mg, 1, capsule, By Mouth, Daily at bedtime, # 30 capsule, Refills 8, Tot. Refills 8, Soft Stop, 03/11/22 15:03:00 EDT, Route to Pharmacy Electronically, [facility], 177.8, cm, 04/22/21 14:54:00 EDT, Height, [...] Statin intolerance(Confirmed) Active Ulcerative colitis(Confirmed) 10/14/13 Active Vital Signs Most recent to oldest [Reference Range]: 1 Height 177.8 cm (08/10/21 10:04 AM) Temperature [96.8-100.4 DegF] 96.4 DegF *L* (08/10/21 10:04 AM) Temperature Route Temporal (08/10/21 10:04 AM) Social History Social History Type Response Smoking Status Former smoker; Tobac co user in household: No; Other: quit smoking in 2007; entered on: 07/16/14 Sex
--- OUTSIDE RECORDS SUMMARY | 2024-04-23 08:18 | XMS_ITS | Continuity of Care Document ---
Author Organization [facility] Address [address] [place] [address]- Care Team Providers Care Deliverer Food Name Role Phone Sneha CARDIOLOGY ASSOCIATE, Radha Sorensen Primary Care Physician [facility]counter [facility] Date(s): 06/18/21 - 07/18/21 [facility] [address] [place] [address]- Attending Physician: Admtr, Ar8 Allergies, Adverse Reactions, [...] Given tetanus/diphtheria/pertussis, acel(Tdap) 06/08/11 Given 1Result Comment: [facility] [id number] 2Result Comment: [05/25/2018] [facility]: [id number] 3Admin Note: Codi 4Admin Note: vis 03/31/09 [...] 3 Refills, Maintenance, 04/19/21 10:21:00 EDT, Tablet, [facility], 177.8, cm, 03/11/21 9:04:00 EDT, Height, [...] 0 Refills, Maintenance, 07/16/21 12:39:00 EST, Tablet, [facility], 177.8, cm, 06/18/21 9:52:00 EDT, Height, 92.3, kg, 12/18/20 11:27:00 EDT, Dry Weight Start Date: 07/16/21 Stop Date: 08/15/21 Status: Ordered fenofibrate 54 mg oral tablet 1 tablet, By Mouth, Daily, # 30 tablet, 5 Refills, Maintenance, 12/14/20 9:58:00 EDT, [facility], 178, cm, 11/06/20 13:18:00 EDT, Height, 90.1, kg, 10/06/20 6:33:00 EST, Dry Weight Start Date: 12/14/20 Status: Ordered fenofibrate 54 mg oral tablet 1 tablet = 54 mg, By Mouth, Daily, # 90 tablet, 1 Refills, Maintenance, 01/05/21 9:14:00 EDT, [facility], 177.8, cm, 12/18/20 11:27:00 EDT, Height, [...] Replace Required Details, Route to Pharmacy Electronically, [facility], 177.8, cm, ... Start Date: 01/07/21 Status: Ordered mercaptopurine 50 mg oral tablet 1 tablet = 50 mg, By Mouth, Daily at bedtime, 0 Refills, Maintenance, 07/20/17 8:35:35 EST, Tablet Start Date: 07/20/17 Status: Ordered Metoprolol Succinate ER 25 mg oral tablet, extended release See Instructions, TAKE 1 TABLET BY MOUTH DAILY AT BEDTIME, # 30 tablet, 5 Refills, [facility],177.8, cm, 06/18/21 9:52:00 EDT, Height, 92.3, [...] 03/16/21 15:03:00 EDT, Route to Pharmacy Electronically, [facility], 177.8, cm, 03/11/21 9:04:00 EDT, Height, 9... Start Date: 03/16/21 Stop Date: 03/11/22 Status: Ordered terazosin 5 mg oral capsule 5 mg, 1, capsule, By Mouth, Daily at bedtime, # 30 capsule, Refills 8, Tot. Refills 8, Soft Stop, 03/11/22 15:03:00 EDT, Route to Pharmacy Electronically, [facility], 177.8, cm, 04/22/21 14:54:00 EDT, Height, 92.3, kg, 12/18/20 11:27:00 EDT, Dry... Start Date: 03/11/22 Stop Date: 12/06/22 Status: Ordered Problem List Condition Effective Dates Status Health Status Inform ant Anxiety disorder(Confirmed) Active BPH (benign prostatic hyperplasia)(Confirmed) Active Cervical myofascial pain syndrome(Confirmed) Active Heart failure, diastolic, chronic(Confirmed) Active Chronic headaches(Confirmed) Active Colonic polyp(Confirmed) 2000 Active CAD (coronary artery disease)(Confirmed) Active Diverticulosis(Confirmed) Active History of DVT in adulthood(Confirmed) Active History of GI bleed(Confirmed) Active Hypercholesterolemia(Confirmed) Active ALICE (obstructive sleep apnea)(Confirmed) Active Osteoarthritis of knee(Confirmed) Active Prediabetes(Confirmed) Active Statin intolerance(Confirmed) Active Ulcerative colitis(Confirmed) 10/14/13 Active Procedures Procedure Date Related Diagnosis Body Site Status Euflexxa injections, bilateral 1, 2, 3 08/01/12 [facility] 08[facility]08 3third injection 08/16 Social History Social History Type Response Smoking Status Former smoker; Tobac co user in household: No; Other: quit smoking in 2007; entered on: 07/16/14 Sex
--- OUTSIDE RECORDS SUMMARY | 2024-04-23 08:18 | XMS_ITS | Continuity of Care Document ---
Author Organization [facility] Address [address] [place] [address]- Care Team Providers Care Quality Checker Name Role Phone Sneha CLIENT SERVICE CONSULTANT, Radha Sorensen Primary Care Physician Encounter [facility] Date(s): 05/17/22 - 08/27/22 [facility] [address] [address]- Attending Physician: Kimo Queen MD Admitting Physician: Kimo Queen MD Allergies, Adverse Reactions, Alerts Substance Reaction [...] Given tetanus/diphtheria/pertussis, acel(Tdap) 06/08/11 Given 1Result Comment: [facility] [id number] 2Result Comment: [05/25/2018] [facility]: [id number] 3Admin Note: Codi 4Admin Note: vis 03/31/09 [...] 5 Refills, Maintenance, 04/27/22 12:46:00 EDT, Tablet, [facility], 177.8, cm, 04/19/22 9:41:00 EDT, Height, [...] tablet, 5 Refills, Maintenance, 03/25/22 14:14:00 EDT, [facility], 177.8, cm, 02/14/22 8:18:00 EDT, Height, [...] Instructions Replace RequiredDetails, Route to Pharmacy Electronically, [facility] Start Date: 06/23/22 Status: Ordered Guaiatussin AC 10 mg-100 mg/5 ml oral syrup 10 mL, By Mouth, Every 6 hours, PRN for cough, # 240 mL, 0 Refills, Maintenance, 11/22/21 16:22:00 EDT, Syrup, [facility], Partial fill upon patient request if the prescription is for a scheduleII opioid drug., 10 mL By Mouth Every 6 hours,PRN:f... Start Date: 11/22/21 Status: Ordered indomethacin 25 mg oral capsule 1 capsule = 25 mg, By Mouth, 3 times a day, PRN Headache, # 30 capsule, 5 Refills, Maintenance, 08/24/22 13:53:00 EST, Capsule, [facility], 30 caps / month, 177.8, cm, [...] at bedtime, # 30 tablet, 5 Refills, [facility], 177.8, cm, 11/22/21 14:53:00 EDT, Height, 96.8, kg, 08/05/21 8:57:00 EST, Dry Weight Start Date: 12/23/21 Status: Ordered nitroglycerin 0.4 mg sublingual tablet 1 tablet = 0.4 mg, Sublingual, Every 5 minutes, PRN as needed for chest pain, not to exceed 3 doses/15 min--if pain persists, seek medical attention, # 100 tablet, 0 Refills, Maintenance, 09/28/20 17:00:00 EST, Tablet, [facility], Partial fill up... Start Date: 09/28/20 [...] Refills, Soft Stop, 03/21/22 14:40:00 EDT, Solution, [facility],Partial fill upon patient request if the prescripti... Start Date: 03/21/22 Status: Ordered terazosin 5 mg oral capsule 1, capsule, By Mouth, Daily at bedtime, # 30 capsule, Refills 5, Maintenance, 08/04/22 11:10:00 EST, Route to Pharmacy Electronically, [facility], 177.8, cm, 08/03/22 15:31:00 EST, Height, [...] Team Personnel Name: Kya Marina RN Position: [facility] RN Member Role: Primary Care Nurse Name: Veronica Feng RN Position: S RN Member Role: Primary Care Nurse Name: Radha Hoover NP Position: [facility] PCO Associate Professional Member Role: PCP [facility] [address] [place] [address]- Name: Jonathan Ramos RN Position: [facility] RN Member Role: Primary Care Nurse Care Team Related Persons Name: DUNGLEN Address: home [address] [place] [address]
--- OUTSIDE RECORDS SUMMARY | 2024-04-23 08:18 | XMS_ITS | Continuity of Care Document ---
Author Organization [facility] Address [address] [facility], [address], [address] [place] [address]- Care Team Providers Care Black Powder Glazing Operator Name Role Phone Sneha FAMILY DINNER SERVICE SPECIALIST, Radha Sorensen Primary Care Physician Encounter [facility] Date(s): 10/24/22 - 11/23/22 [facility] [address] [facility], 3rd Floor, [address] [place] [address]- Attending Physician: Julia Allen Admitting Physician: Julia [...] Given tetanus/diphtheria/pertussis, acel(Tdap) 06/08/11 Given 1Result Comment: [facility] [id number] 2Result Comment: [05/25/2018] [facility]: [id number] 3Admin Note: Codi 4Admin Note: vis 03/31/09 [...] opioid drug. Start Date: 10/07/20 Status: Ordered alirocumab 75 mg/mL subcutaneous solution = 75 mg, Subcutaneous Infusion, Every 14 days, # 2 each, 11 Refills, Maintenance, 10/20/22 8:14:00 EST, [facility], Partial fill upon patient request if the prescription is for a schedule II opioid drug., 177.8, cm, 09/29/22 9:19:00 EST, Height,... Start Date: 10/20/22 Stop Date: 10/15/23 Status: Ordered Ambien 10 mg oral tablet [...] tablet, 5 Refills, Maintenance, 05/20/22 7:56:00 EDT, [facility], Partial fill upon patient request if [...] 5 Refills, Maintenance, 11/11/22 12:40:00 EDT, Tablet, [facility], 177.8, cm, 10/24/22 8:53:00 EST, Height, [...] tablet, 5 Refills, Maintenance, 11/09/22 6:38:00 EDT, [facility], 177.8, cm, 10/24/22 8:53:00 EST, Height, [...] Instructions Replace RequiredDetails, Route to Pharmacy Electronically, [facility] Start Date: 06/23/22 Status: Ordered Guaiatussin AC 10 mg-100 mg/5 ml oral syrup 10 mL, By Mouth, Every 6 hours, PRN for cough, # 240 mL, 0 Refills, Maintenance, 11/22/21 16:22:00 EDT, Syrup, [facility], Partial fill upon patient request if the prescription is for a scheduleII opioid drug., 10 mL By Mouth Every 6 hours,PRN:f... Start Date: 11/22/21 Status: Ordered indomethacin 25 mg oral capsule 1 capsule = 25 mg, By Mouth, 3 times a day, PRN Headache, # 30 capsule, 5 Refills, Maintenance, 08/24/22 13:53:00 EST, Capsule, [facility], 30 caps / month, 177.8, cm, [...] at bedtime, # 30 tablet, 5 Refills, [facility], 177.8, cm, 11/22/21 14:53:00 EDT, Height, 96.8, kg, 08/05/21 8:57:00 EST, Dry Weight Start Date: 12/23/21 Status: Ordered nitroglycerin 0.4 mg sublingual tablet 1 tablet = 0.4 mg, Sublingual, Every 5 minutes, PRN as needed for chest pain, not to exceed 3 doses/15 min--if pain persists, seek medical attention, # 100 tablet, 0 Refills, Maintenance, 09/28/20 17:00:00 EST, Tablet, [facility], Partial fill up... Start Date: 09/28/20 Status: Ordered rizatriptan 5 mg oral tablet 1 tablet = 5 mg, By Mouth, Once, PRN for migraine headache, may repeat dose once in 2 hours max 2 tabs in 24hrs ., # 12 tablet, 2 Refills, Soft Stop, 05/20/22 7:59:00 EDT, Tablet, [facility], Partial fill upon patient request if [...] 08/04/22 11:10:00 EST, Route to Pharmacy Electronically, [facility], 177.8, cm, 08/03/22 15:31:00 EST, Height, [...] Team Personnel Name: Kya Marina RN Position: [facility] RN Member Role: Primary Care Nurse Name: Veronica Feng RN Position: S RN Member Role: Primary Care Nurse Name: Radha Hoover NP Position: [facility] PCO Associate Professional Member Role: PCP Address: Address: [address] [place] [address] [address]rd [place] [address]- Name: Jonathan Ramos RN Position: [facility] RN Member Role: Primary Care Nurse Care Team Related Persons Name: LEN RAZO Address: home [address] [place] [id number]
--- OUTSIDE RECORDS SUMMARY | 2024-04-23 08:18 | XMS_ITS | Continuity of Care Document ---
Author Organization [facility] Address [address] [place] [address]- Care Team Providers Care Cellars Supervisor Name Role Phone Sneha GORDON, Radha Sorensen Primary Care Physician Encounter [id number] Date(s): 11/20/23 - 11/20/23 [facility] [address] [place] [address]- [place] Allergies, Adverse Reactions, Alerts Substance Reaction Severity Status Levaquin itch Moderate Active Crestor ck 400's and myalgia Active statins myalgia Active nonsteroidal anti-inflammatory agents diarrhea Active Immunizations Given and Recorded Vaccine Date Status Refusal Reason [id number] 12y+ bivalent booster vax 05/19/22 Recorded SARS-CoV-2 [...] Given tetanus/diphtheria/pertussis, acel(Tdap) 06/08/11 Given 1Result Comment: [facility] [id number] 2Result Comment: [05/25/2018] [facility]: [id number] 3Admin Note: Codi 4Admin Note: vis 03/31/09 [...] 3 Refills, Maintenance, 05/12/23 16:48:00 EDT, Tablet, [facility], 177.8, cm, 12/01/22 8:22:00 EDT, Height, 96.8, kg, 08/05/21 8:57:00 EST, Dry Weight Start Date: 05/12/23 Stop Date: 09/09/23 Status: Ordered amLODIPine 5 mg oral tablet See Instructions, TAKE 1 TABLET BY MOUTH DAILY, # 30 tablet, 11 Refills, Maintenance, 10/02/23 17:04:00 EST, [facility], 177.8, cm, 12/01/22 8:22:00 EDT, Height [...] 5 Refills, Maintenance, 10/04/23 9:00:00 EST, Tablet, [facility], 177.8, cm, 12/01/22 8:22:00 EDT, Height Start Date: 10/04/23 Stop Date: 04/01/24 Status: Ordered cyclobenzaprine 10 mg oral tablet 10 mg, 1, tablet, By Mouth, Daily at supper, # 30 tablet, Refills 2, Tot. Refills 2, Maintenance, 10/24/22 15:13:00 EST, Route to Pharmacy Electronically, [facility], Partial fill upon patient request if the prescription is for a schedule II opio... Start Date: 10/24/22 Status: Ordered fenofibrate 54 mg oral tablet 1 tablet, By Mouth, Daily, # 30 tablet, 5 Refills, Maintenance, 10/04/23 8:48:00 EST, [facility], 177.8, cm, 12/01/22 8:22:00 EDT, Height [...] capsule, 5 Refills, Maintenance, 02/09/23 18:32:00 EDT, [facility], 177.8, cm, 12/01/22 8:22:00 EDT, Height, [...] tablet, 5 Refills, Maintenance, 08/08/23 20:42:00 EST, [facility], 177.8, cm, 12/01/22 8:22:00 EDT, Height [...] 3 Refills, Maintenance, 10/16/23 16:31:00 EST, Tablet, [facility], Partial fill upon patient request if the prescription is for a scheduleII opioid drug., 177.8, cm, 10/16/23 16:14:00 EST,... Start Date: 10/16/23 Status: Ordered Repatha SureClick 140 mg/mL subcutaneous solution = 140 mg, Subcutaneous Infusion, Every 14 days, # 2 each, 11 Refills, Maintenance, 08/25/23 8:59:00EST, [facility], Partial fill upon patient request if the prescription is for a schedule II opioid drug., 177.8, cm, 12/01/22 8:22:00... Start Date: 08/25/23 Status: Ordered terazosin 5 mg oral capsule 1, capsule, By Mouth, Daily at bedtime, # 30 capsule, Refills 5, Maintenance, 10/04/23 8:48:00 EST,Route to Pharmacy Electronically, [facility], 177.8, cm, 12/01/22 8:22:00 EDT, Height [...] Care Nurse Name: Veronica Feng RN Position: [facility] RN Member Role: Primary Care Nurse Name: Radha Hoover NP Position: [facility] PCO Associate Professional Member Role: PCP [facility]: [facility] [address] [place], [place] [address] Name: Jonathan Ramos RN Position: S RN Member Role: Primary Care Nurse Care Team Related Persons Name: LEN RAZO Address: [address] [address]
--- OUTSIDE RECORDS SUMMARY | 2024-04-23 08:18 | XMS_ITS | Continuity of Care Document ---
Author Organization [facility] Address [address] [place] [address]- Care Team Providers Care Receiving Weigher Name Role Phone Sneha APPLICATION SYSTEMS ENGINEER, Radha Sorensen Primary Care Physician [facility]counter [facility] Date(s): 04/15/21 - 05/15/21 [facility] [address] [place] [address]- Allergies, Adverse Reactions, Alerts Substance Reaction Severity [...] to report when received vaccine 2Result Comment: [facility] [id number] 3Result Comment: [05/25/2018] [facility]: [id number] 4Admin Note: [facility] 5Admin Note: vis 03/31/09 6Result Comment: [08/11/2015] [...] 3 Refills, Maintenance, 04/19/21 10:21:00 EDT, Tablet, [facility], 177.8, cm, 03/11/21 9:04:00 EDT, Height, [...] 3 Refills, Maintenance, 01/06/21 15:26:00 EDT, Tablet, [facility], 177.8, cm, 12/18/20 11:27:00 EDT, Height, 92.3, kg, 12/18/20 11:27:00 EDT, Dry Weight Start Date: 01/06/21 Stop Date: 05/06/21 Status: Ordered fenofibrate 54 mg oral tablet 1 tablet, By Mouth, Daily, # 30 tablet, 5 Refills, Maintenance, 12/14/20 9:58:00 EDT, [facility], 178, cm, 11/06/20 13:18:00 EDT, Height, 90.1, kg, 10/06/20 6:33:00 EST, Dry Weight Start Date: 12/14/20 Status: Ordered fenofibrate 54 mg oral tablet 1 tablet = 54 mg, By Mouth, Daily, # 90 tablet, 1 Refills, Maintenance, 01/05/21 9:14:00 EDT, [facility], 177.8, cm, 12/18/20 11:27:00 EDT, Height, [...] Replace Required Details, Route to Pharmacy Electronically, [facility], 177.8, cm, .. Start Date: 01/07/21 Status: Ordered mercaptopurine 50 mg oral tablet 1 tablet = 50 mg, By Mouth, Daily at bedtime, 0 Refills, Maintenance, 07/20/17 8:35:35 EST, Tablet Start Date: 07/20/17 Status: Ordered metoprolol 25 mg oral tablet, extended release 25 mg, By Mouth, Daily at bedtime, # 30 each, Refills 5, Tot. Refills 5, Maintenance, 12/11/20 21:05:00 EDT, Route to Pharmacy Electronically, [facility], 178, cm, 11/06/20 13:18:00 EDT, Height,90.1, [...] 0 Refills, Maintenance, 09/28/20 17:00:00 EST, Tablet, [facility], Partial fill up... Start Date: 09/28/20 Status: Ordered terazosin 5 mg oral capsule 5 mg, 1, capsule, By Mouth, Daily at bedtime, # 30 capsule, Refills 11, Tot. Refills 11, Soft Stop,03/16/21 15:03:00 EDT, Route to Pharmacy Electronically, [facility], 177.8, cm, 03/11/21 9:04:00 EDT, Height, 92.3, kg, 12/18/20 11:27:00 EDT, Dry... Start Date: 03/16/21 Stop Date: 03/11/22 Status: Ordered Problem List Condition Effective Dates [...]
--- OUTSIDE RECORDS SUMMARY | 2024-04-23 08:18 | XMS_ITS | Continuity of Care Document ---
Author Organization [facility] Address [address] [place] [address]- Care Team Providers Care Property Claim Rep Name Role Phone Sneha PREDICTIVE MAINTENANCE TECHNICIAN, Radha Sorensen Primary Care Physician [facility] Date(s): 12/11/20 - 01/10/21 [facility] [address] [place] [address]- Allergies, Adverse Reactions, Alerts Substance Reaction Severity [...] report when received vaccine 2Result Comment: [facility] [id number] 3Result Comment: [05/25/2018] [facility]: [id number] 4Admin Note: [facility] 5Admin Note: vis 03/31/09 [...] 3 Refills, Maintenance, 12/02/20 15:26:00 EDT, Tablet, [facility], 178, cm, 11/06/20 13:18:00 EDT, Height, [...] 3 Refills, Maintenance, 01/06/21 15:26:00 EDT, Tablet, [facility], 177.8, cm, 12/18/20 11:27:00 EDT, Height, 92.3, kg, 12/18/20 11:27:00 EDT, Dry Weight Start Date: 01/06/21 Stop Date: 05/06/21 Status: Ordered fenofibrate 54 mg oral tablet 1 tablet, By Mouth, Daily, # 30 tablet, 5 Refills, Maintenance, 12/14/20 9:58:00 EDT, [facility], 178, cm, 11/06/20 13:18:00 EDT, Height, 90.1, kg, 10/06/20 6:33:00 EST, Dry Weight Start Date: 12/14/20 Status: Ordered fenofibrate 54 mg oral tablet 1 tablet = 54 mg, By Mouth, Daily, # 90 tablet, 1 Refills, Maintenance, 01/05/21 9:14:00 EDT, [facility], 177.8, cm, 12/18/20 11:27:00 EDT, Height, [...] Replace Required Details, Route to Pharmacy Electronically, [facility], 177.8, cm, ... Start Date: 01/07/21 [...] 12/11/20 21:05:00 EDT, Route to Pharmacy Electronically, [facility], 178, cm, 11/06/20 13:18:00 EDT, Height,90.1, [...] 0 Refills, Maintenance, 09/28/20 17:00:00 EST, Tablet, [facility], Partial fill up... Start Date: 09/28/20 [...] Stop,05/08/20 16:25:00 EDT, Route to Pharmacy Electronically, [facility], 175.4, cm, 10/21/19 8:06:00 EST, Height [...]
--- OUTSIDE RECORDS SUMMARY | 2024-04-23 08:18 | XMS_ITS | Continuity of Care Document ---
Author Organization [facility] Address [address] [place] [address]- Care Team Providers Care Cutter Banana Room Name Role Phone Sneha GORDON, Radha Sorensen Primary Care Physician [facility]counter [facility] Date(s): 11/14/19 - 11/24/19 [facility] [address] [place] [address] [facility] Attending Physician: Julia Allen Admitting Physician: AdmtrJulia [...] Given tetanus/diphtheria/pertussis, acel(Tdap) 06/08/11 Given 1Result Comment: [facility] [id number] 2Result Comment: [05/25/2018] [facility]: [id number] 3Admin Note: [facility] 4Admin Note: vis 03/31/09 [...] 3 Refills, Maintenance, 10/21/19 17:07:00 EST, Tablet, [facility], 175.4, cm, 10/21/19 8:06:00 EST, Height Start Date: 10/21/19 Status: Ordered azelastine nasal 0.15% spray 2 sprays, Nares, Both, 2 times a day, PRN for allergy symptoms, # 30 mL, 0 Refills, Maintenance, 10/21/19 8:40:00 EST, Sims, [facility], 2 sprays Nares, Both 2 times [...] 07/30/19 9:11:06 EST, Route to Pharmacy Electronically, [id number], [facility], 175.4, cm, 07/29/19 8:33:52 EST, Height Start Date: 07/30/19 Status: Ordered oxyCODONE 5 mg oral tablet 5 mg, 1, tablet, By Mouth, 2 times a day, PRN, for 28 days, # 56 tablet, Refills 0, Tot. Refills 0,Acute 11/26/19 12:55:00 EDT, Pain , Severe, 10/29/19 12:55:00 EDT, Route to Pharmacy Electronically, [facility], Partial fill upon patient request... Start [...] 11/05/19 10:51:00 EDT, Route to Pharmacy Electronically, [facility], 175.4, cm, 10/21/19 8:06:00 EST, Height [...]
--- OUTSIDE RECORDS SUMMARY | 2024-04-23 08:18 | XMS_ITS | Continuity of Care Document ---
Author Organization [facility] Address [address] [facility], [address] d Floor, [address] [place] [address]- Care Team Providers Care Distribution Engineering Technologist Name Role Phone Sneha [facility] NURSING DIRECTOR, Radha Sorensen Primary Care Physician Encounter [facility] Date(s): 07/22/22 - 08/21/22 [facility] [address], 3rd Floor, [address] [place] [address]- Allergies, Adverse Reactions, Alerts Substance Reaction Severity [...] tetanus/diphtheria/pertussis, acel(Tdap) 06/08/11 Given 1Result Comment: [facility] [id number] 2Result Comment: [05/25/2018] [facility]: [id number] 3Admin Note: Codi 4Admin Note: vis 03/31/09 [...] tablet, 5 Refills, Maintenance, 03/25/22 14:14:00 EDT, [facility], 177.8, cm, 02/14/22 8:18:00 EDT, Height, [...] 0 Refills, Maintenance, 11/22/21 16:22:00 EDT, Syrup, [facility], Partial fill upon patient request if the prescription is for a scheduleII opioid drug., 10 mL By Mouth Every 6 hours,PRN:f... Start Date: 11/22/21 Status: Ordered indomethacin 25 mg oral capsule 1 capsule = 25 mg, By Mouth, 3 times a day, PRN Headache, # 30 capsule, 2 Refills, Maintenance, 05/20/22 8:07:00 EDT, Capsule, [facility], 30 caps / month, 177.8, cm, [...] at bedtime, # 30 tablet, 5 Refills, [facility], 177.8, cm, 11/22/21 14:53:00 EDT, Height, 96.8, kg, 08/05/21 8:57:00 EST, Dry Weight Start Date: 12/23/21 Status: Ordered nitroglycerin 0.4 mg sublingual tablet 1 tablet = 0.4 mg, Sublingual, Every 5 minutes, PRN as needed for chest pain, not to exceed 3 doses/15 min--if pain persists, seek medical attention, # 100 tablet, 0 Refills, Maintenance, 09/28/20 17:00:00 EST, Tablet, [facility], Partial fill up... Start Date: 09/28/20 Status: Ordered rizatriptan 5 mg oral tablet 1 tablet = 5 mg, By Mouth, Once, PRN for migraine headache, may repeat dose once in 2 hours max 2 tabs in 24hrs ., # 12 tablet, 2 Refills, Soft Stop, 05/20/22 7:59:00 EDT, Tablet, [facility], Partial fill upon patient request if the prescript... Start Date: 05/20/22 Status: Ordered SUMAtriptan 4 mg/0.5 mL subcutaneous solution 0.5 mL = 4 mg, Subcutaneous Injection, Once, PRN as needed for migraine headache, may repeat once in 1 hour if needed, # 1 kit, 0 Refills, Soft Stop, 03/21/22 14:40:00 EDT, Solution, [facility],Partial fill upon patient request if the prescripti... Start Date: 03/21/22 Status: Ordered terazosin 5 mg oral capsule 1, capsule, By Mouth, Daily at bedtime, # 30 capsule, Refills 5, Maintenance, 08/04/22 11:10:00 EST, Route to Pharmacy Electronically, [facility], 177.8, cm, 08/03/22 15:31:00 EST, Height, [...] Nurse Name: Sneha GORDON, Radha Sorensen Position: [facility] PCO Associate Professional Member Role: PCP Address: Address: [address] [place] [address] [address]rd [place] [address]- Name: Jonathan Ramos RN Position: S RN Member Role: Primary Care Nurse Care Team Related Persons Name: LEN RAZO Address: home [address] [place] [id number]
--- OUTSIDE RECORDS SUMMARY | 2024-04-23 08:18 | XMS_ITS | Continuity of Care Document ---
Author Organization [facility] Address [address] [place] [address]- Care Team Providers Care Pet Walker Name Role Phone Sneha GORDON, Radha Sorensen Primary Care Physician Encounter [facility] Date(s): 05/06/20 - 06/05/20 [facility] [address] [place] [address]- [facility] Allergies, Adverse Reactions, Alerts Substance Reaction [...] tetanus/diphtheria/pertussis, acel(Tdap) 06/08/11 Given 1Result Comment: [facility] [id number] 2Result Comment: [05/25/2018] [facility]: [id number] 3Admin Note: Codi 4Admin Note: vis 03/31/09 5Result Comment: [08/11/2015] [facility] Ambien 10 mg oral tablet 1 tablet = 10 mg, By Mouth, Daily at bedtime, PRN for sleep, # 30 tablet, 3 Refills, Maintenance, 05/08/20 9:35:00 EDT, Tablet, [facility], 175.4, cm, 10/21/19 8:06:00 EST, Height [...] 3 Refills, Maintenance, 10/21/19 17:07:00 EST, Tablet, [facility], 175.4, cm, 10/21/19 8:06:00 EST, Height Start Date: 10/21/19 Status: Ordered azelastine nasal 0.15% spray 2 sprays, Nares, Both, 2 times a day, PRN for allergy symptoms, # 30 mL, 0 Refills, Maintenance, 10/21/19 8:40:00 EST, [place], [facility], 2 sprays Nares, Both 2 times a day,PRN:for allergy symptoms, 175.4, cm, 10/21/19 8:06:00 EST, Height Start Date: 10/21/19 Status: Ordered fenofibrate 54 mg oral tablet 1 tablet = 54 mg, By Mouth, Daily, # 30 tablet, 5 Refills, Maintenance, 12/31/19 10:02:00 EDT, [facility], 175.4, cm, 10/21/19 8:06:00 EST, Height [...] Replace Required Details, Route to Pharmacy Electronically, [facility], 175.4, cm, ... Start Date: 02/26/20 Status: Ordered mercaptopurine 50 mg oral tablet = 100 mg, By Mouth, Daily at bedtime, 0 Refills, Maintenance, 07/20/17 8:35:35, Tablet Start Date: 07/20/17 Status: Ordered metoprolol 25 mg oral tablet, extended release 25 mg, By Mouth, Daily at bedtime, # 30 each, Refills 0, Tot. Refills 0, Maintenance, 03/02/20 14:36:00 EDT, Route to Pharmacy Electronically, [facility], 175.4, cm, 10/21/19 8:06:00 EST, Height Start Date: 03/02/20 Stop Date: 04/01/20 Status: Ordered oxyCODONE 5 mg oral tablet 5 mg, 1, tablet, By Mouth, 2 times a day, PRN, for 28 days, # 56 tablet, Refills 0, Tot. Refills 0,Acute 06/09/20 12:17:00 EDT, Pain , Severe, 05/12/20 12:17:00 EDT, Route to Pharmacy Electronically, [facility], Partial fill upon patient request... Start [...] Stop,05/08/20 16:25:00 EDT, Route to Pharmacy Electronically, [facility], 175.4, cm, 10/21/19 8:06:00 EST, Height Start Date: 05/08/20 Stop Date: 05/03/21 Status: Ordered tiZANidine 2 mg oral tablet 1/2 tablet, By Mouth, Every 8 hours, PRN, # 45 tablet, Refills 0, Tot. Refills 0, Maintenance, as needed for muscle spasm, 11/05/19 10:51:00 EDT, Route to Pharmacy Electronically, [facility], 175.4, cm, 10/21/19 8:06:00 EST, Height [...]
--- OUTSIDE RECORDS SUMMARY | 2024-04-23 08:18 | XMS_ITS | Continuity of Care Document ---
Author Organization [facility] Address [address] [facility], [address] d Floor, [address] [place] [address]- Care Team Providers Care Fixed Capital Clerk Name Role Phone Sneha GORDON, Radha Sorensen Primary Care Physician [id number] Date(s): 02/09/22 - 04/22/22 [facility] [address], [address], [address] [place] [address]- Attending Physician: Albertina Fong Admitting Physician: Albertina Fong Referring Physician: Radha Hoover NP Allergies, Adverse [...] Given tetanus/diphtheria/pertussis, acel(Tdap) 06/08/11 Given 1Result Comment: [facility] [id number] 2Result Comment: [05/25/2018] [facility]: [id number] 3Admin Note: Codi 4Admin Note: vis 03/31/09 [...] 0 Refills, Maintenance, 03/09/22 10:00:00 EDT, Tablet, [facility], 177.8, cm, 02/14/22 8:18:00 EDT, Height, [...] tablet, 5 Refills, Maintenance, 03/25/22 14:14:00 EDT, [facility], 177.8, cm, 02/14/22 8:18:00 EDT, Height, [...] Replace Required Details, Route to Pharmacy Electronically, [facility], 177.8, cm, 02/14/22 8:18:00... Start Date: 03/24/22 Status: Ordered Guaiatussin AC 10 mg-100 mg/5 ml oral syrup 10 mL, By Mouth, Every 6 hours, PRN for cough, # 240 mL, 0 Refills, Maintenance, 11/22/21 16:22:00 EDT, Syrup, [facility], Partial fill upon patient request [...] at bedtime, # 30 tablet, 5 Refills, [facility], 177.8, cm, 11/22/21 14:53:00 EDT, Height, 96.8, kg, 08/05/21 8:57:00 EST, Dry Weight Start Date: 12/23/21 Status: Ordered nitroglycerin 0.4 mg sublingual tablet 1 tablet = 0.4 mg, Sublingual, Every 5 minutes, PRN as needed for chest pain, not to exceed 3 doses/15 min--if pain persists, seek medical attention, # 100 tablet, 0 Refills, Maintenance, 09/28/20 17:00:00 EST, Tablet, [facility], Partial fill up... Start Date: 09/28/20 Status: Ordered SUMAtriptan 4 mg/0.5 mL subcutaneous solution 0.5 mL = 4 mg, Subcutaneous Injection, Once, PRN as needed for migraine headache, may repeat once in 1 hour if needed, # 1 kit, 0 Refills, Soft Stop, 03/21/22 14:40:00 EDT, Solution, [facility],Partial fill upon patient request if the prescripti... Start Date: 03/21/22 Status: Ordered terazosin 5 mg oral capsule See Instructions, TAKE 1 CAPSULE BY MOUTH DAILY AT BEDTIME, # 30 capsule, Refills 5, Instructions Replace Required Details, Route to Pharmacy Electronically, [facility], 177.8, cm, 02/14/22 8:18:00 EDT, Height, [...] Personnel Name: Sneha GORDON, Radha Sorensen Address: [address] [place] [address] [address] [place], [place] [address]
--- OUTSIDE RECORDS SUMMARY | 2024-04-23 08:18 | XMS_ITS | Continuity of Care Document ---
Author Organization [facility] Address [address] [place] [address]- Care Team Providers Care Automatic Beading Lathe Operator Name Role Phone Sneha GORDON, Radha Sorensen Primary Care Physician Encounter [facility] Date(s): 01/20/20 - 04/25/20 [facility] [address] [place] [address]- [facility] Attending Physician: Kimo Queen MD Admitting Physician: [...] Given 1Result Comment: [facility] [id number] 2Result Comment: [05/25/2018] [facility]: [id number] 3Admin Note: Codi 4Admin Note: vis 03/31/09 [...] 3 Refills, Maintenance, 10/21/19 17:07:00 EST, Tablet, [facility], 175.4, cm, 10/21/19 8:06:00 EST, Height Start Date: 10/21/19 Status: Ordered azelastine nasal 0.15% spray 2 sprays, Nares, Both, 2 times a day, PRN for allergy symptoms, # 30 mL, 0 Refills, Maintenance, 10/21/19 8:40:00 EST, [facility], 2 sprays Nares, Both 2 times [...] Replace Required Details, Route to Pharmacy Electronically, [facility], 175.4, cm, ... Start Date: 02/26/20 Status: Ordered mercaptopurine 50 mg oral tablet = 100 mg, By Mouth, Daily at bedtime, 0 Refills, Maintenance, 07/20/17 8:35:35, Tablet Start Date: 07/20/17 Status: Ordered metoprolol 25 mg oral tablet, extended release 25 mg, By Mouth, Daily at bedtime, # 30 each, Refills 0, Tot. Refills 0, Maintenance, 03/02/20 14:36:00 EDT, Route to Pharmacy Electronically, [facility], 175.4, cm, 10/21/19 8:06:00 EST, Height Start Date: 03/02/20 Stop Date: 04/01/20 Status: Ordered oxyCODONE 5 mg oral tablet 5 mg, 1, tablet, By Mouth, 2 times a day, PRN, for 28 days, # 56 tablet, Refills 0, Tot. Refills 0,Acute 05/13/20 10:08:00 EDT, Pain , Severe, 04/15/20 10:08:00 EDT, Route to Pharmacy Electronically, [facility], Partial fill upon patient request... Start Date: 04/15/20 Stop Date: 05/13/20 Status: Ordered Shingrix intramuscular injection 0.5 mL, Intramuscular, Once, # 0.5 mL, 1 Refills, Soft Stop, 06/28/19 13:15:54 EST, 0.5 mL Intramuscular Once Start Date: 06/28/19 Status: Ordered terazosin 5 mg oral capsule See Instructions, # 30 capsule, Refills 11 Tot. Refills 11, TAKE 1 CAPSULE BY MOUTH DAILY AT BEDTIME, [facility] Start Date: 05/02/19 Status: Ordered tiZANidine 2 mg oral tablet 1/2 tablet, By Mouth, Every 8 hours, PRN, # 45 tablet, Refills 0, Tot. Refills 0, Maintenance, as needed for muscle spasm, 11/05/19 10:51:00 EDT, Route to Pharmacy Electronically, [facility], 175.4, cm, 10/21/19 8:06:00 EST, Height [...]
--- OUTSIDE RECORDS SUMMARY | 2024-04-23 08:18 | XMS_ITS | Continuity of Care Document ---
Author Organization [facility] Address [address] [place] [address] [address] [place] [address]- Care Team Providers Care Waste Machine Tender Name Role Phone Sneha GORDON, Radha Sorensen Primary Care Physician [place] [facility] Date[place]s): 11/21/22 - 11/28/22 [facility] [address] [place] [address]- Attending Physician: Raj Borja MD Referring Physician: Kimo Queen MD Allergies, Adverse Reactions, Alerts Substance Reaction Severity Status nonsteroidal anti-inflammatory agents diarrhea Active Crestor ck 400's and myalgia Active statins myalgia Active Levaquin itch Moderate Active Immunizations Given and Recorded Vaccine Date [...] 6 06/10/15 Recor ded pneumococcal 23-valent vaccine 11/9/14 Given FluLaval (oldterm) 06/13/12 Given tetanus/diphtheria/pertussis, acel(Tdap) 06/08/11 Given 1Result Comment: [facility] [id number] 2Result Comment: [05/25/2018] [facility]: [id number] 3Admin Note: Codi 4Admin Note: vis 03/31/09 [...] 3 Refills, Maintenance, 09/16/22 8:46:00 EST, Tablet, [facility], 177.8, cm, 08/03/22 15:31:00 EST, Height, 96.8, kg, 08/05/21 8:57:00 EST, Dry Weight Start Date: 09/16/22 Stop Date: 01/14/23 Status: Ordered amitriptyline 50 mg oral tablet 2 tablet = 100 mg, By Mouth, Daily at bedtime, 1 tab dailyx 1 week then increase to 2 tabs, # 60 tablet, 5 Refills, Maintenance, 05/20/22 7:56:00 EDT, [facility], Partial fill upon patient request if [...] Instructions Replace RequiredDetails, Route to Pharmacy Electronically, [facility] Start Date: 06/23/22 Status: Ordered Guaiatussin AC 10 mg-100 mg/5 ml oral syrup 10 mL, By Mouth, Every 6 hours, PRN for cough, # 240 mL, 0 Refills, Maintenance, 11/22/21 16:22:00 EDT, Syrup, [facility], Partial fill upon patient request if the prescription is for a scheduleII opioid drug., 10 mL By Mouth Every 6 hours,PRN:f... Start Date: 11/22/21 Status: Ordered indomethacin 25 mg oral capsule 1 capsule = 25 mg, By Mouth, 3 times a day, PRN Headache, # 30 capsule, 5 Refills, Maintenance, 08/24/22 13:53:00 EST, Capsule, [facility], 30 caps / month, 177.8, cm, [...] at bedtime, # 30 tablet, 5 Refills, [facility], 177.8, cm, 11/22/21 14:53:00 EDT, Height, 96.8, kg, 08/05/21 8:57:00 EST, Dry Weight Start Date: 12/23/21 Status: Ordered nitroglycerin 0.4 mg sublingual tablet 1 tablet = 0.4 mg, Sublingual, Every 5 minutes, PRN as needed for chest pain, not to exceed 3 doses/15 min--if pain persists, seek medical attention, # 100 tablet, 0 Refills, Maintenance, 09/28/20 17:00:00 EST, Tablet, [facility], Partial fill up... Start Date: 09/28/20 Status: Ordered rizatriptan 5 mg oral tablet 1 tablet = 5 mg, By Mouth, Once, PRN for migraine headache, may repeat dose once in 2 hours max 2 tabs in 24hrs ., # 12 tablet, 2 Refills, Soft Stop, 05/20/22 7:59:00 EDT, Tablet, [facility], Partial fill upon patient request if [...] 08/04/22 11:10:00 EST, Route to Pharmacy Electronically, [facility], 177.8, cm, 08/03/22 15:31:00 EST, Height, [...] Confirmed Active Ulcerative colitis Confirmed 10/14/13 Active Vital Signs Most recent to oldest [Reference Range]: 1 Height 177.8 cm (11/21/22 11:18 AM) Social History Social History Type Response Smoking Status Former smoker; Tobac co user in household: No; Other: quit smoking in 2007; entered on: 07/16/14 Sex Patient Care team information Care Team Personnel Name: Kya Marina RN Position: S RN Member Role: Primary Care Nurse Name: Veronica Feng RN Position: S RN Member Role: Primary Care Nurse Name: Radha Hoover NP Position: [facility] PCO Associate Professional Member Role: PCP Address: Address: [address] [place] [address] [address] [place] [address]- Name: Jonathan Ramos RN Position: S RN Member Role: Primary Care Nurse Care Team Related Persons Name: LEN RAZO Address: home [address] [place] [id number]
--- OUTSIDE RECORDS SUMMARY | 2024-04-23 08:18 | XMS_ITS | Continuity of Care Document ---
Author Organization [facility] Address [address] [place] [address]- Care Team Providers Care Poultry Slaughterer Name Role Phone Sneha GORDON, Radha Sorensen Primary Care Physician Encounter [facility] Date(s): 05/11/23 - 06/10/23 [facility] [address] [place] [address]- Allergies, Adverse Reactions, Alerts Substance Reaction Severity Status Levaquin itch Moderate Active nonsteroidal anti-inflammatory agents diarrhea Active Crestor ck 400's and myalgia Active statins myalgia Active Immunizations Given and Recorded Vaccine Date Status Refusal Reason [id number] 12y+ bivalent booster vax 05/19/22 Recorded SARS-CoV-2 [...] Given tetanus/diphtheria/pertussis, acel(Tdap) 06/08/11 Given 1Result Comment: [facility] [id number] 2Result Comment: [05/25/2018] [facility]: [id number] 3Admin Note: Codi 4Admin Note: vis 03/31/09 [...] 3 Refills, Maintenance, 05/12/23 16:48:00 EDT, Tablet, [facility], 177.8, cm, 12/01/22 8:22:00 EDT, Height, 96.8, kg, 08/05/21 8:57:00 EST, Dry Weight Start Date: 05/12/23 Stop Date: 09/09/23 Status: Ordered amitriptyline 50 mg oral tablet 2 tablet = 100 mg, By Mouth, Daily at bedtime, # 60 tablet, 0 Refills, Maintenance, 12/15/22 13:40:00 EDT, [facility], Partial fill upon patient request if [...] 5 Refills, Maintenance, 05/11/23 14:18:00 EDT, Tablet, [facility], 177.8, cm, 12/01/22 8:22:00 EDT, Height, 96.8, kg, 08/05/21 8:57:00 EST, Dry Weight Start Date: 05/11/23 Stop Date: 11/07/23 Status: Ordered cyclobenzaprine 10 mg oral tablet 10 mg, 1, tablet, By Mouth, Daily at supper, # 30 tablet, Refills 2, Tot. Refills 2, Maintenance, 10/24/22 15:13:00 EST, Route to Pharmacy Electronically, [facility], Partial fill upon patient request if the prescription is for a schedule II opio... Start Date: 10/24/22 Status: Ordered evolocumab 140 mg/mL subcutaneous solution = 140 mg, Subcutaneous Infusion, Every 14 days, # 1 kit, 6 Refills, Maintenance, 01/30/23 14:16:00 EDT, [facility], Partial fill upon patient request if the prescription is for a schedule II opioid drug., 177.8, cm, 12/01/22 8:22:00 E... Start Date: 01/30/23 Status: Ordered fenofibrate 54 mg oral tablet 1 tablet, By Mouth, Daily, # 30 tablet, 5 Refills, Maintenance, 05/11/23 13:30:00 EDT, [facility], 177.8, cm, 12/01/22 8:22:00 EDT, Height, [...] capsule, 5 Refills, Maintenance, 02/09/23 18:32:00 EDT, [facility], 177.8, cm, 12/01/22 8:22:00 EDT, Height, [...] 30 tablet, 5 Refills, 03/07/23 10:21:00 EDT, [facility], 177.8, cm, 12/01/22 8:22:00 EDT, Height, 96.8, kg, 08/05/21 8:57:00 EST, Dry Weight Start Date: 03/07/23 Status: Ordered nitroglycerin 0.4 mg sublingual tablet 1 tablet = 0.4 mg, Sublingual, Every 5 minutes, PRN as needed for chest pain, not to exceed 3 doses/15 min--if pain persists, seek medical attention, # 100 tablet, 0 Refills, Maintenance, 09/28/20 17:00:00 EST, Tablet, [facility], Partial fill up... Start Date: 09/28/20 Status: Ordered Praluent Pen 75 mg/mL subcutaneous solution See Instructions, INJECT 75MG SUBCUTANEOUSLY EVERY 2 WEEKS, # 2 mL, 10 Refills, Maintenance, 05/25/23 10:56:00 EDT, [facility], 177.8, cm, 12/01/22 8:22:00 EDT, Height, 96.8, kg, 08/05/21 8:57:00 EST, Dry Weight Start Date: 05/25/23 Status: Ordered rizatriptan 5 mg oral tablet 1 tablet = 5 mg, By Mouth, Once, PRN for migraine headache, may repeat dose once in 2 hours max 2 tabs in 24hrs ., # 12 tablet, 2 Refills, Soft Stop, 05/20/22 7:59:00 EDT, Tablet, [facility], Partial fill upon patient request if the prescript... Start Date: 05/20/22 Status: Ordered SUMAtriptan 4 mg/0.5 mL subcutaneous solution 0.5 mL = 4 mg, Subcutaneous Injection, Once, PRN as needed for migraine headache, may repeat once in 1 hour if needed, # 1 kit, 0 Refills, Soft Stop, 03/21/22 14:40:00 EDT, Solution, [facility],Partial fill upon patient request if the prescripti... Start Date: 03/21/22 Status: Ordered terazosin 5 mg oral capsule See Instructions, TAKE 1 CAPSULE BY MOUTH DAILY AT BEDTIME, # 90 capsule, Refills 1, Tot. Refills 1, Maintenance, 03/13/23 8:21:00 EDT, Instructions Replace Required Details, Route to Pharmacy Electronically, [facility], 177.8, cm, 12/01/22 8:22:... Start Date: [...] Team Personnel Name: Kya Marina RN Position: [facility] RN Member Role: Primary Care Nurse Name: Veronica Feng RN Position: S RN Member Role: Primary Care Nurse Name: Radha Hoover NP Position: [facility] PCO Associate Professional Member Role: PCP Address: Address: [address] [place] [address] [address]rd [place] [address]- Name: Jonathan Ramos RN Position: S RN Member Role: Primary Care Nurse Care Team Related Persons Name: LEN RAZO Address: home [address] [place] [id number]
--- OUTSIDE RECORDS SUMMARY | 2024-04-23 08:18 | XMS_ITS | Continuity of Care Document ---
Author Organization [facility] Adult Address [address] [place] [address]- Care Team Providers Care Racing Board Marker Name Role Phone Sneha MECHANICAL OXIDIZER, Radha Sorensen Primary Care Physician [facility] Date[facility]): 08/[facility]/20 - 09/08/20 [facility] Adult [address] [place] [phone]- Allergies, Adverse Reactions, Alerts Substance Reaction Severity [...] Comment: [facility] [id number] 3Result Comment: [05/25/2018] [facility]: [id number] 4Admin Note: Codi 5Admin Note: vis 03/31/09 6Result Comment: [08/11/2015] [facility] Ambien 10 mg oral tablet 1 tablet = 10 mg, By Mouth, Daily at bedtime, PRN for sleep, # 30 tablet, 3 Refills, Maintenance, 05/08/20 9:35:00 EDT, Tablet, [facility], 175.4, cm, 10/21/19 8:06:00 EST, Height [...] 3 Refills, Maintenance, 06/11/20 17:06:00 EDT, Tablet, [facility], 175.4, cm, 10/21/19 8:06:00 EST, Height Start Date: 06/11/20 Stop Date: 10/09/20 Status: Ordered azelastine nasal 0.15% spray 2 sprays, Nares, Both, 2 times a day, PRN for allergy symptoms, # 30 mL, 0 Refills, Maintenance, 10/21/19 8:40:00 EST, [place], [facility], 2 sprays Nares, Both 2 times a day,PRN:for allergy symptoms, 175.4, cm, 10/21/19 8:06:00 EST, Height Start Date: 10/21/19 Status: Ordered fenofibrate 54 mg oral tablet 1 tablet = 54 mg, By Mouth, Daily, # 30 tablet, 5 Refills, Maintenance, 06/11/20 11:29:00 EDT, [facility], 175.4, cm, 10/21/19 8:06:00 EST, Height [...] Replace Required Details, Route to Pharmacy Electronically, [facility], 175.4, cm, 03... Start Date: 02/26/20 Status: Ordered mercaptopurine 50 mg oral tablet = 100 mg, By Mouth, Daily at bedtime, 0 Refills, Maintenance, 07/20/17 8:35:35, Tablet Start Date: 07/20/17 Status: Ordered metoprolol 25 mg oral tablet, extended release 25 mg, By Mouth, Daily at bedtime, # 30 each, Refills 2, Tot. Refills 2, Maintenance, 08/09/20 21:59:00 EST, Route to Pharmacy Electronically, [facility], 175.4, cm, 10/21/19 8:06:00 EST, Height Start Date: 08/09/20 Stop Date: 11/07/20 Status: Ordered oxyCODONE 5 mg oral tablet 5 mg, 1, tablet, By Mouth, 2 times a day, PRN, for 28 days, # 56 tablet, Refills 0, Tot. Refills 0,Acute 09/17/20 8:19:00 EST, Pain , Severe, 08/20/20 8:19:00 EST, Route to Pharmacy Electronically, [facility], Partial fill upon patient request,... Start Date: 08/20/20 Stop Date: 09/17/20 Status: Ordered Shingrix intramuscular injection 0.5 mL, Intramuscular, Once, # 0.5 mL, 1 Refills, Soft Stop, 06/28/19 13:15:54 EST, 0.5 mL Intramuscular Once Start Date: 06/28/19 Status: Ordered terazosin 5 mg oral capsule 5 mg, 1, capsule, By Mouth, Daily at bedtime, # 30 capsule, Refills 11, Tot. Refills 11, Soft Stop,05/08/20 16:25:00 EDT, Route to Pharmacy Electronically, [facility], 175.4, cm, 10/21/19 8:06:00 EST, Height Start Date: 05/08/20 Stop Date: 05/03/21 Status: Ordered tiZANidine 2 mg oral tablet 1/2 tablet, By Mouth, Every 8 hours, PRN, # 45 tablet, Refills 0, Tot. Refills 0, Maintenance, as needed for muscle spasm, 11/05/19 10:51:00 EDT, Route to Pharmacy Electronically, [facility], 175.4, cm, 10/21/19 8:06:00 EST, Height [...]
--- OUTSIDE RECORDS SUMMARY | 2024-04-23 08:18 | XMS_ITS | Continuity of Care Document ---
Author Organization [facility] Adult Address [address] [place] [address]- Care Team Providers Care Iuss Acoustic Analyst Name Role Phone Sneha PERFORMANCE TESTER, Radha Sorensen Primary Care Physician [facility]): 12/03/20 - 01/02/21 [facility] Adult [address] [place] [address]- Allergies, Adverse Reactions, Alerts Substance Reaction Severity [...] report when received vaccine 2Result Comment: [facility] [id number] 3Result Comment: [05/25/2018] [facility]: [id number] 4Admin Note: [facility] 5Admin Note: vis 03/31/09 [...] 3 Refills, Maintenance, 12/02/20 15:26:00 EDT, Tablet, [facility], 178, cm, 11/06/20 13:18:00 EDT, Height, [...] 3 Refills, Maintenance, 06/11/20 17:06:00 EDT, Tablet, [facility], 175.4, cm, 10/21/19 8:06:00 EST, Height Start Date: 06/11/20 Stop Date: 10/09/20 Status: Ordered fenofibrate 54 mg oral tablet 1 tablet, By Mouth, Daily, # 30 tablet, 5 Refills, Maintenance, 12/14/20 9:58:00 EDT, [facility], 178, cm, 11/06/20 13:18:00 EDT, Height, [...] 12/11/20 21:05:00 EDT, Route to Pharmacy Electronically, [facility], 178, cm, 11/06/20 13:18:00 EDT, Height,90.1, [...] 0 Refills, Maintenance, 09/28/20 17:00:00 EST, Tablet, [facility], Partial fill up... Start Date: 09/28/20 Status: Ordered terazosin 5 mg oral capsule 5 mg, 1, capsule, By Mouth, Daily at bedtime, # 30 capsule, Refills 11, Tot. Refills 11, Soft Stop,05/08/20 16:25:00 EDT, Route to Pharmacy Electronically, [facility], 175.4, cm, 10/21/19 8:06:00 EST, Height [...]
--- OUTSIDE RECORDS SUMMARY | 2024-04-23 08:18 | XMS_ITS | Continuity of Care Document ---
Author Organization [facility] Address [address] [place] [address] [address] [place] [address]- Care Team Providers Care Bioassayist Name Role Phone Sneha LINTER TENDER, Radha Sorensen Primary Care Physician [facility] Date(s): 09/10/21 - 10/10/21 [facility] [address] [place], [place] [address] Attending Physician: Admtr, [id number] Admitting Physician: Admtr, Ar8 Referring Physician: Admtr, Ar8 Allergies, Adverse Reactions, [...] tetanus/diphtheria/pertussis, acel(Tdap) 06/08/11 Given 1Result Comment: [facility] [id number] 2Result Comment: [05/25/2018] [facility]: [id number] 3Admin Note: Codi 4Admin Note: vis 03/31/09 [...] 3 Refills, Maintenance, 08/18/21 8:58:00 EST, Tablet, [facility], 177.8, cm, 08/10/21 10:04:00 EST, Height, [...] anxiety, # 90 tablet, 0 Refills, Maintenance, 09/17/21 11:09:00 EST, Tablet, [facility], 177.8, cm, 09/07/21 13:03:00 EST, Height, 96.8, kg, 08/05/21 8:57:00 EST, Dry Weight Start Date: 09/17/21 Stop Date: 10/17/21 Status: Ordered fenofibrate 54 mg oral tablet 1 tablet = 54 mg, By Mouth, Daily at bedtime, # 90 tablet, 1 Refills, Maintenance, 01/05/21 9:14:00EDT, [facility], 177.8, cm, 12/18/20 11:27:00 EDT, [...] Replace Required Details, Route to Pharmacy Electronically, [facility], 177.8, cm, 09/07/21 13:03:0... Start Date: 09/17/21 Status: Ordered mercaptopurine 50 mg oral tablet 1 tablet = 50 mg, By Mouth, Daily at bedtime, 0 Refills, Maintenance, 07/20/17 8:35:35 EST, Tablet Start Date: 07/20/17 Status: Ordered Metoprolol Succinate ER 25 mg oral tablet, extended release See Instructions, TAKE 1 TABLET BY MOUTH DAILY AT BEDTIME, # 30 tablet, 5 Refills, [facility],177.8, cm, 06/18/21 9:52:00 EDT, Height, 92.3, kg, 12/18/20 11:27:00 EDT, Dry Weight Start Date: 07/16/21 Status: Ordered nitroglycerin 0.4 mg sublingual tablet 1 tablet = 0.4 mg, Sublingual, Every 5 minutes, PRN as needed for chest pain, not to exceed 3 doses/15 min--if pain persists, seek medical attention, # 100 tablet, 0 Refills, Maintenance, 09/28/20 17:00:00 EST, Tablet, [facility], Partial fill up... Start Date: 09/28/20 Status: Ordered terazosin 5 mg oral capsule 5 mg, 1, capsule, By Mouth, Daily at bedtime, # 30 capsule, Refills 8, Tot. Refills 8, Soft Stop, 03/11/22 15:03:00 EDT, Route to Pharmacy Electronically, [facility], 177.8, cm, 04/22/21 14:54:00 EDT, Height, [...]
--- OUTSIDE RECORDS SUMMARY | 2024-04-23 08:18 | XMS_ITS | Continuity of Care Document ---
Author Organization [facility] Adult Address [address] [place] [address]- Care Team Providers Care Battery Checker Name Role Phone Sneha GORDON, Radha Sorensen Primary Care Physician Encounter [facility] Date(s): 10/25/21 - 11/01/21 [facility] Adult [address] [place] [address]- Encounter Diagnosis Physical exam(Discharge Diagnosis) - 10/25/21 Anxiety disorder(Discharge Diagnosis) - 10/25/21 BPH (benign prostatic hyperplasia)(Discharge Diagnosis) - 10/25/21 CAD (coronary artery disease)(Discharge Diagnosis) - 10/25/21 Heart failure, diastolic, chronic(Discharge Diagnosis) - 10/25/21 Ulcerative colitis(Discharge Diagnosis) - 10/25/21 Prediabetes(Discharge Diagnosis) - 10/25/21 Obese class I(Discharge Diagnosis) - 10/25/21 Hypercholesterolemia(Discharge Diagnosis) - 10/25/21 Chronic headaches(Discharge Diagnosis) - 10/25/21 Attending Physician: Radha Hoover NP Allergies, Adverse Reactions, [...] tetanus/diphtheria/pertussis, acel(Tdap) 06/08/11 Given 1Result Comment: [facility] [id number] 2Result Comment: [05/25/2018] [facility]: [id number] 3Admin Note: Codi 4Admin Note: vis 03/31/09 [...] 3 Refills, Maintenance, 08/18/21 8:58:00 EST, Tablet, [facility], 177.8, cm, 08/10/21 10:04:00 EST, Height, [...] anxiety, # 90 tablet, 0 Refills, Maintenance, 10/18/21 16:31:00 EST, Tablet, [facility], 177.8, cm, 10/12/21 8:38:00 EST, Height, 96.8, kg, 08/05/21 8:57:00 EST, Dry Weight Start Date: 10/18/21 Stop Date: 11/17/21 Status: Ordered CeleBREX 200 mg oral capsule [...] 90 tablet, 1 Refills, Maintenance, 01/05/21 9:14:00EDT, [facility], 177.8, cm, 12/18/20 11:27:00 EDT, Height, [...] Replace Required Details, Route to Pharmacy Electronically, [facility], 177.8, cm, 09/07/21 13:03:0... Start Date: 09/17/21 Status: Ordered mercaptopurine 50 mg oral tablet 1 tablet = 50 mg, By Mouth, Daily at bedtime, 0 Refills, Maintenance, 07/20/17 8:35:35 EST, Tablet Start Date: 07/20/17 Status: Ordered Metoprolol Succinate ER 25 mg oral tablet, extended release See Instructions, TAKE 1 TABLET BY MOUTH DAILY AT BEDTIME, # 30 tablet, 5 Refills, [facility],177.8, cm, 06/18/21 9:52:00 EDT, Height, 92.3, kg, 12/18/20 11:27:00 EDT, Dry Weight Start Date: 07/16/21 Status: Ordered nitroglycerin 0.4 mg sublingual tablet 1 tablet = 0.4 mg, Sublingual, Every 5 minutes, PRN as needed for chest pain, not to exceed 3 doses/15 min--if pain persists, seek medical attention, # 100 tablet, 0 Refills, Maintenance, 09/28/20 17:00:00 EST, Tablet, [facility], Partial fill up... Start Date: 09/28/20 Status: Ordered terazosin 5 mg oral capsule 5 mg, 1, capsule, By Mouth, Daily at bedtime, # 30 capsule, Refills 8, Tot. Refills 8, Soft Stop, 03/11/22 15:03:00 EDT, Route to Pharmacy Electronically, [facility], 177.8, cm, 04/22/21 14:54:00 EDT, Height, [...] Diagnosis Diagnosis Type Effective Dates Health Status Clinical Service Informant Physical exam Discharge Diagnosis 10/25/21 Anxiety disorder Discharge Diagnosis 10/25/21 BPH (benign prostatic hyperplasia) Discharge Diagnosis 10/25/21 CAD (coronary artery disease) Discharge Diagnosis 10/25/21 Heart failure, diastolic, chronic Discharge Diagnosis 10/25/21 Ulcerative colitis Discharge Diagnosis 10/25/21 Prediabetes Discharge Diagnosis 10/25/21 Obese class I Discharge Diagnosis 10/25/21 Hypercholesterolemia Discharge Diagnosis 10/25/21 Chronic headaches Discharge Diagnosis 10/25/21 Vital Signs Most recent to oldest [Reference Range]: 1 2 Height 177.8 cm (10/25/21 12:06 PM) 177.8 cm (10/25/21 11:29 AM) Weight 95.7 kg (10/25/21 11:29 AM) Oxygen Saturation [94-100 %] 95 % (10/25/21 11:29 AM) Pulse Rate [55-90 bpm] 63 bpm (10/25/21 11:29 AM) Body Mass Index [18.5-24.99] 30.27 *>HHI* (10/25/21 11:29 AM) Blood Pressure [90-138/55-84 mm Hg] 130/ 82mm Hg (10/25/21 12:06 PM) 123/78mm Hg (10/25/21 11:29 AM) Temperature [96.8-100.4 DegF] 98.1 DegF (10/25/21 11:29 AM) Mode of Delivery (Oxygen) Room air (10/25/21 11:29 AM) Blood pressure sites Arm, left (10/25/21 12:06 PM) Arm, right (10/25/21 11:29 AM) Temperature Route Temporal (10/25/21 11:29 AM) Weight Obtained Via Standing scale (10/25/21 11:29 AM) Social History Social History Type Response Smoking Status Former smoker; Tobac co user in household: No; Other: quit smoking in 2007; entered on: 07/16/14 Sex
--- OUTSIDE RECORDS SUMMARY | 2024-04-23 08:18 | XMS_ITS | Continuity of Care Document ---
Author Organization [facility] Adult Address [address] [place] [address]- Care Team Providers Care Email Designer Name Role Phone Sneha COUNSELOR AT LAW, Radha Sorensen Primary Care Physician [facility] Date[facility]s): 01/25/24 - 02/24/24 [facility] Adult [address] [place] [phone]- Allergies, Adverse Reactions, Alerts Substance Reaction Severity [...] vaccine, inactivated 4 05/08/09 Gi shane SARS-CoV-2(COVID-19)mRNA-LNP vac(ete966) 05/29/23 Recorded [id number] 12y+ bivalent booster vax 05/19/22 Recorded SARS-CoV-2 (COVID-19) mRNA-1273 vaccine 06/19/21 R ecorded zoster vaccine, inactivated 05/25/21 Recorded zoster vaccine, inactivated 07/02/20 Recorded SARS-CoV-2 (COVID-19) mRNA BNT-162b2 vac 5/3/21 Recorded SARS-CoV-2 (COVID-19) mRNA BNT-162b2 vac 11/28/20 Recorded Influenza Virus Vaccine (oldterm) 5 05/12/20 Recor ded Influenza Inactive (IM) (oldterm) 6 06/10/15 Recor ded pneumococcal 23-valent vaccine 06/29/14 Given FluLaval (oldterm) 06/13/12 Given tetanus/diphtheria/pertussis, acel(Tdap) 06/08/11 Given 1Result Comment: [facility][note 3] [id number] 2Result Comment: [05/25/2018] [facility]: [id number] 3Admin Note: Codi 4Admin Note: vis 03/31/09 [...] 3 Refills, Maintenance, 11/30/23 12:32:00 EDT, Tablet, [facility], 177.8, cm, 11/23/23 15:37:00 EDT, Height Start Date: 11/30/23 Status: Ordered amLODIPine 5 mg oral tablet See Instructions, TAKE 1 TABLET BY MOUTH DAILY, # 30 tablet, 11 Refills, Maintenance, 10/02/23 17:04:00 EST, [facility], 177.8, cm, 12/01/22 8:22:00 EDT, Height [...] 5 Refills, Maintenance, 10/04/23 9:00:00 EST, Tablet, [facility], 177.8, cm, 12/01/22 8:22:00 EDT, Height Start Date: 10/04/23 Stop Date: 04/01/24 Status: Ordered cyclobenzaprine 10 mg oral tablet 10 mg, 1, tablet, By Mouth, Daily at supper, # 30 tablet, Refills 2, Tot. Refills 2, Maintenance, 10/24/22 15:13:00 EST, Route to Pharmacy Electronically, [facility], Partial fill upon patient request if the prescription is for a schedule II opio... Start Date: 10/24/22 Status: Ordered fenofibrate 54 mg oral tablet 1 tablet, By Mouth, Daily, # 30 tablet, 5 Refills, Maintenance, 10/04/23 8:48:00 EST, [facility], 177.8, cm, 12/01/22 8:22:00 EDT, Height Start Date: 10/04/23 Status: Ordered finasteride 5 mg oral tablet 1 tablet, By Mouth, Daily at bedtime, # 30 tablet, 5 Refills, Maintenance, 01/25/24 7:43:00 EDT, [facility], 177.8, cm, 12/25/23 9:41:00 EDT, Height Start Date: 01/25/24 Status: Ordered indomethacin 25 mg oral capsule 1 capsule, By Mouth, 3 times a day, PRN NEEDED FOR HEADACHE, # 30 capsule, 5 Refills, Maintenance, 02/09/23 18:32:00 EDT, [facility], 177.8, cm, 12/01/22 8:22:00 EDT, Height, [...] tablet, 5 Refills, Maintenance, 01/25/24 7:43:00 EDT, [facility], 177.8, cm, 12/25/23 9:41:00 EDT, Height Start Date: 01/25/24 Status: Ordered nitroglycerin 0.4 mg sublingual tablet 1 tablet = 0.4 mg, Sublingual, Every 5 minutes, PRN as needed for chest pain, not to exceed 3 doses/15 min--if pain persists, seek medical attention, # 100 tablet, 0 Refills, Maintenance, 09/28/20 17:00:00 EST, Tablet, [facility], Partial fill up... Start Date: 09/28/20 Status: Ordered Pepcid 20 mg oral tablet 1 tablet = 20 mg, By Mouth, 2 times a day, # 60 tablet, 3 Refills, Maintenance, 10/16/23 16:31:00 EST, Tablet, [facility], Partial fill upon patient request if the prescription is for a scheduleII opioid drug., 177.8, cm, 10/16/23 16:14:00 EST,... Start Date: 10/16/23 Status: Ordered Repatha SureClick 140 mg/mL subcutaneous solution = 140 mg, Subcutaneous Infusion, Every 14 days, # 2 each, 11 Refills, Maintenance, 08/25/23 8:59:00EST, [facility], Partial fill upon patient request if the prescription is for a schedule II opioid drug., 177.8, cm, 12/01/22 8:22:00... Start Date: 08/25/23 Status: Ordered terazosin 5 mg oral capsule 1, capsule, By Mouth, Daily at bedtime, # 30 capsule, Refills 5, Maintenance, 10/04/23 8:48:00 EST,Route to Pharmacy Electronically, [facility], 177.8, cm, 12/01/22 8:22:00 EDT, Height [...] Care Nurse Name: Radha Hoover NP Position: [facility] PCO Associate Professional Member Role: PCP Address: Address: [address] [place] [phone]- Name: Jonathan Ramos RN Position: [facility] RN Member Role: Primary Care Nurse Care Team Related Persons Name: LEN RAZO Address: [address] [address]
--- OUTSIDE RECORDS SUMMARY | 2024-04-23 08:19 | XMS_ITS | Continuity of Care Document ---
Author Organization [facility] Adult Address [address] [place] [address]- Care Team Providers Care Shingle Cutter Name Role Phone Sneha BLOWER INSTALLER, Radha Sorensen Primary Care Physician [facility] 12/02/20 - 01/01/[address] [facility] [address] [place] [phone]- Allergies, Adverse Reactions, Alerts Substance Reaction Severity [...] to report when received vaccine 2Result Comment: [facility] [id number] 3Result Comment: [05/25/2018] [facility]: [id number] 4Admin Note: [facility] 5Admin Note: vis 03/31/09 [...] 3 Refills, Maintenance, 12/02/20 15:26:00 EDT, Tablet, [facility], 178, cm, 11/06/20 13:18:00 EDT, Height, [...] 3 Refills, Maintenance, 06/11/20 17:06:00 EDT, Tablet, [facility], 175.4, cm, 10/21/19 8:06:00 EST, Height Start Date: 06/11/20 Stop Date: 10/09/20 Status: Ordered fenofibrate 54 mg oral tablet 1 tablet, By Mouth, Daily, # 30 tablet, 5 Refills, Maintenance, 12/14/20 9:58:00 EDT, [facility], 178, cm, 11/06/20 13:18:00 EDT, Height, [...] 12/11/20 21:05:00 EDT, Route to Pharmacy Electronically, [facility], 178, cm, 11/06/20 13:18:00 EDT, Height,90.1, [...] 0 Refills, Maintenance, 09/28/20 17:00:00 EST, Tablet, [facility], Partial fill up... Start Date: 09/28/20 Status: Ordered terazosin 5 mg oral capsule 5 mg, 1, capsule, By Mouth, Daily at bedtime, # 30 capsule, Refills 11, Tot. Refills 11, Soft Stop,05/08/20 16:25:00 EDT, Route to Pharmacy Electronically, [facility], 175.4, cm, 10/21/19 8:06:00 EST, Height [...]
--- OUTSIDE RECORDS SUMMARY | 2024-04-23 08:19 | XMS_ITS | Continuity of Care Document ---
Author Organization [facility] Address [address] [place] [address]- Care Team Providers Care Dowel Sticker Operator Name Role Phone Sneha TRANSACTION COORDINATOR, Radha Sorensen Primary Care Physician [facility]): 09[facility]20[facility]21 - 10/20/21 [facility] [address] [place] [id number] Allergies, Adverse Reactions, Alerts Substance Reaction Severity [...] 06/08/11 Given 1Result Comment: [facility] [id number] 2Result Comment: [05/25/2018] [facility]: [id number] 3Admin Note: Codi 4Admin Note: vis 03/31/09 [...] 3 Refills, Maintenance, 08/18/21 8:58:00 EST, Tablet, [facility], 177.8, cm, 08/10/21 10:04:00 EST, Height, [...] 0 Refills, Maintenance, 10/18/21 16:31:00 EST, Tablet, [facility], 177.8, cm, 10/12/21 8:38:00 EST, Height, 96.8, kg, 08/05/21 8:57:00 EST, Dry Weight Start Date: 10/18/21 Stop Date: 11/17/21 Status: Ordered fenofibrate 54 mg oral tablet 1 tablet = 54 mg, By Mouth, Daily at bedtime, # 90 tablet, 1 Refills, Maintenance, 01/05/21 9:14:00EDT, [facility], 177.8, cm, 12/18/20 11:27:00 EDT, Height, [...] Replace Required Details, Route to Pharmacy Electronically, [facility], 177.8, cm, 09/07/21 13:03:0... Start Date: 09/17/21 Status: Ordered mercaptopurine 50 mg oral tablet 1 tablet = 50 mg, By Mouth, Daily at bedtime, 0 Refills, Maintenance, 07/20/17 8:35:35 EST, Tablet Start Date: 07/20/17 Status: Ordered Metoprolol Succinate ER 25 mg oral tablet, extended release See Instructions, TAKE 1 TABLET BY MOUTH DAILY AT BEDTIME, # 30 tablet, 5 Refills, [facility],177.8, cm, 06/18/21 9:52:00 EDT, Height, 92.3, kg, 12/18/20 11:27:00 EDT, Dry Weight Start Date: 07/16/21 Status: Ordered nitroglycerin 0.4 mg sublingual tablet 1 tablet = 0.4 mg, Sublingual, Every 5 minutes, PRN as needed for chest pain, not to exceed 3 doses/15 min--if pain persists, seek medical attention, # 100 tablet, 0 Refills, Maintenance, 09/28/20 17:00:00 EST, Tablet, [facility], Partial fill up... Start Date: 09/28/20 Status: Ordered terazosin 5 mg oral capsule 5 mg, 1, capsule, By Mouth, Daily at bedtime, # 30 capsule, Refills 8, Tot. Refills 8, Soft Stop, 03/11/22 15:03:00 EDT, Route to Pharmacy Electronically, [facility], 177.8, cm, 04/22/21 14:54:00 EDT, Height, [...]
--- OUTSIDE RECORDS SUMMARY | 2024-04-23 08:19 | XMS_ITS | Continuity of Care Document ---
Author Organization [facility] Adult Address [address] [place] [id number]- Care Team Providers Care Java Developer With Security Clearance Name Role Phone Radha Hoover NP Primary Care Physician [facility]counter [facility] Date(s): 12/14/21 - 01/13/22 [facility] [address] [place] [address]- Allergies, Adverse Reactions, Alerts Substance Reaction Severity [...] tetanus/diphtheria/pertussis, acel(Tdap) 06/08/11 Given 1Result Comment: [facility] [id number] 2Result Comment: [05/25/2018] [facility]: [id number] 3Admin Note: Codi 4Admin Note: gabbie 03/31/09 [...] 3 Refills, Maintenance, 08/18/21 8:58:00 EST, Tablet, [facility], 177.8, cm, 08/10/21 10:04:00 EST, Height, [...] 0 Refills, Maintenance, 12/24/21 12:45:00 EDT, Tablet, [facility], 177.8, cm, 11/22/21 14:53:00 EDT, Height, [...] Mouth, Daily, # 30 tablet, 3 Refills, [facility], 177.8, cm, 11/22/21 14:53:00 EDT, Height, [...] Replace Required Details, Route to Pharmacy Electronically, [facility], 177.8, cm, 09/07/21 13:03:0... Start Date: 09/17/21 Status: Ordered Guaiatussin AC 10 mg-100 mg/5 ml oral syrup 10 mL, By Mouth, Every 6 hours, PRN for cough, # 240 mL, 0 Refills, Maintenance, 11/22/21 16:22:00 EDT, Syrup, [facility], Partial fill upon patient request if [...] at bedtime, # 30 tablet, 5 Refills, [facility], 177.8, cm, 11/22/21 14:53:00 EDT, Height, 96.8, kg, 08/05/21 8:57:00 EST, Dry Weight Start Date: 12/23/21 Status: Ordered nitroglycerin 0.4 mg sublingual tablet 1 tablet = 0.4 mg, Sublingual, Every 5 minutes, PRN as needed for chest pain, not to exceed 3 doses/15 min--if pain persists, seek medical attention, # 100 tablet, 0 Refills, Maintenance, 09/28/20 17:00:00 EST, Tablet, [facility], Partial fill up... Start Date: 09/28/20 Status: Ordered terazosin 5 mg oral capsule 5 mg, 1, capsule, By Mouth, Daily at bedtime, # 30 capsule, Refills 8, Tot. Refills 8, Soft Stop, 03/11/22 15:03:00 EDT, Route to Pharmacy Electronically, [facility], 177.8, cm, 04/22/21 14:54:00 EDT, Height, [...]
--- OUTSIDE RECORDS SUMMARY | 2024-04-23 08:19 | XMS_ITS | Continuity of Care Document ---
Author Organization [facility] Address [address] [place] [address]- Care Team Providers Care Hand Cloth Examiner Name Role Phone Sneha CADD INSTRUCTOR, Radha Sorensen Primary Care Physician [facility] Date(s): 01/05/21 - 02/04/21 [facility] [address] [place] [address]- Allergies, Adverse Reactions, Alerts Substance Reaction Severity [...] to report when received vaccine 2Result Comment: [facility] [id number] 3Result Comment: [05/25/2018] [facility]: [id number] 4Admin Note: [facility] 5Admin Note: vis 03/31/09 [...] 3 Refills, Maintenance, 12/02/20 15:26:00 EDT, Tablet, [facility], 178, cm, 11/06/20 13:18:00 EDT, Height, [...] 3 Refills, Maintenance, 01/06/21 15:26:00 EDT, Tablet, [facility], 177.8, cm, 12/18/20 11:27:00 EDT, Height, 92.3, kg, 12/18/20 11:27:00 EDT, Dry Weight Start Date: 01/06/21 Stop Date: 05/06/21 Status: Ordered fenofibrate 54 mg oral tablet 1 tablet, By Mouth, Daily, # 30 tablet, 5 Refills, Maintenance, 12/14/20 9:58:00 EDT, [facility], 178, cm, 11/06/20 13:18:00 EDT, Height, 90.1, kg, 10/06/20 6:33:00 EST, Dry Weight Start Date: 12/14/20 Status: Ordered fenofibrate 54 mg oral tablet 1 tablet = 54 mg, By Mouth, Daily, # 90 tablet, 1 Refills, Maintenance, 01/05/21 9:14:00 EDT, [facility], 177.8, cm, 12/18/20 11:27:00 EDT, Height, [...] Replace Required Details, Route to Pharmacy Electronically, [facility], 177.8, cm, ... Start Date: 01/07/21 [...] 12/11/20 21:05:00 EDT, Route to Pharmacy Electronically, [facility], 178, cm, 11/06/20 13:18:00 EDT, Height,90.1, [...] 0 Refills, Maintenance, 09/28/20 17:00:00 EST, Tablet, [facility], Partial fill up... Start Date: 09/28/20 [...]
--- OUTSIDE RECORDS SUMMARY | 2024-04-23 08:19 | XMS_ITS | Continuity of Care Document ---
Author Organization [facility] Address [address] [place] [address] [address] [place] [address]- Care Team Providers Care Drawing Instructor Name Role Phone Sneha GORDON, Radha Sorensen Primary Care Physician [facility] Date[facility]s): 07/23/21 - 07/30/21 [facility] [address] [place] [address] Drive [address] [place], [place] [address] Attending Physician: Raj Borja MD Referring Physician: Radha Hoover NP Allergies, Adverse Reactions, Alerts Substance Reaction Severity Status nonsteroidal anti-inflammatory agents diarrhea Active statins myalgia Active Levaquin itch Moderate Active Crestor ck 400's [...] 06/08/11 Given 1Result Comment: [facility] [id number] 2Result Comment: [05/25/2018] [facility]: [id number] 3Admin Note: [facility] 4Admin Note: vis 03/31/09 [...] 3 Refills, Maintenance, 04/19/21 10:21:00 EDT, Tablet, [facility], 177.8, cm, 03/11/21 9:04:00 EDT, Height, [...] 0 Refills, Maintenance, 07/16/21 12:39:00 EST, Tablet, [facility], 177.8, cm, 06/18/21 9:52:00 EDT, Height, 92.3, kg, 12/18/20 11:27:00 EDT, Dry Weight Start Date: 07/16/21 Stop Date: 08/15/21 Status: Ordered fenofibrate 54 mg oral tablet 1 tablet = 54 mg, By Mouth, Daily at bedtime, # 90 tablet, 1 Refills, Maintenance, 01/05/21 9:14:00EDT, [facility], 177.8, cm, 12/18/20 11:27:00 EDT, Height, [...] AT BEDTIME, # 30 tablet, 5 Refills, [facility],177.8, cm, 06/18/21 9:52:00 EDT, Height, 92.3, kg, 12/18/20 11:27:00 EDT, Dry Weight Start Date: 07/16/21 Status: Ordered nitroglycerin 0.4 mg sublingual tablet 1 tablet = 0.4 mg, Sublingual, Every 5 minutes, PRN as needed for chest pain, not to exceed 3 doses/15 min--if pain persists, seek medical attention, # 100 tablet, 0 Refills, Maintenance, 09/28/20 17:00:00 EST, Tablet, [facility], Partial fill up... Start Date: 09/28/20 Status: Ordered terazosin 5 mg oral capsule 5 mg, 1, capsule, By Mouth, Daily at bedtime, # 30 capsule, Refills 8, Tot. Refills 8, Soft Stop, 03/11/22 15:03:00 EDT, Route to Pharmacy Electronically, [facility], 177.8, cm, 04/22/21 14:54:00 EDT, Height, [...] recent to oldest [Reference Range]: 1 Height 177.80 cm (07/23/21 9:38 AM) Weight 96.36 kg (07/23/21 9:38 AM) Body Mass Index [18.5-24.99] 30.48 *>HHI* (07/23/21 9:38 AM) Temperature [96.8-100.4 DegF] 98.6 DegF (07/23/21 9:38 AM) Temperature Route Temporal (07/23/21 9:38 AM) Weight Obtained Via Standing scale (07/23/21 9:38 AM) Social History Social History Type Response Smoking Status Former smoker; Tobac co user in household: No; Other: quit smoking in 2007; entered on: 07/16/14 Sex
--- OUTSIDE RECORDS SUMMARY | 2024-04-23 08:19 | XMS_ITS | Continuity of Care Document ---
Author Organization [facility] Address [address] [place] [address] [address] [place] [address]- Care Team Providers Care Tanker Driver Name Role Phone Sneha GORDON, Radha Sorensen Primary Care Physician [facility] Date[facility]s): 09/10/21 - 09/17/21 [facility] [address] [place], [place] [address] Attending Physician: Raj Borja MD Referring Physician: Radha Hoover NP Allergies, Adverse Reactions, Alerts Substance Reaction Severity Status Crestor ck 400's and myalgia Active statins myalgia Active Levaquin itch Moderate Active nonsteroidal anti-inflammatory agents diarrhea Active Immunizations [...] 06/08/11 Given 1Result Comment: [facility] [id number] 2Result Comment: [05/25/2018] [facility]: [id number] 3Admin Note: [facility] 4Admin Note: vis 03/31/09 [...] 3 Refills, Maintenance, 08/18/21 8:58:00 EST, Tablet, [facility], 177.8, cm, 08/10/21 10:04:00 EST, Height, [...] 0 Refills, Maintenance, 09/17/21 11:09:00 EST, Tablet, [facility], 177.8, cm, 09/07/21 13:03:00 EST, Height, 96.8, kg, 08/05/21 8:57:00 EST, Dry Weight Start Date: 09/17/21 Stop Date: 10/17/21 Status: Ordered fenofibrate 54 mg oral tablet 1 tablet = 54 mg, By Mouth, Daily at bedtime, # 90 tablet, 1 Refills, Maintenance, 01/05/21 9:14:00EDT, [facility], 177.8, cm, 12/18/20 11:27:00 EDT, Height, [...] Replace Required Details, Route to Pharmacy Electronically, [facility], 177.8, cm, 09/07/21 13:03:0... Start Date: 09/17/21 Status: Ordered mercaptopurine 50 mg oral tablet 1 tablet = 50 mg, By Mouth, Daily at bedtime, 0 Refills, Maintenance, 07/20/17 8:35:35 EST, Tablet Start Date: 07/20/17 Status: Ordered Metoprolol Succinate ER 25 mg oral tablet, extended release See Instructions, TAKE 1 TABLET BY MOUTH DAILY AT BEDTIME, # 30 tablet, 5 Refills, [facility],177.8, cm, 06/18/21 9:52:00 EDT, Height, 92.3, [...]
--- OUTSIDE RECORDS SUMMARY | 2024-04-23 08:19 | XMS_ITS | Continuity of Care Document ---
Author Organization [facility] Address [address] [place] [address]- Care Team Providers Care Conference Specialist Name Role Phone Sneha GORDON, Radha Sorensen Primary Care Physician Encounter [facility] Date(s): 07/26/19 - 08/05/19 [facility] [address] [place] [address]- [facility] Attending Physician: Julia Allen Admitting Physician: [...] Given tetanus/diphtheria/pertussis, acel(Tdap) 06/08/11 Given 1Result Comment: [facility] [phone] 2Result Comment: [05/25/2018] [facility]: [id number] 3Admin Note: [facility] 4Admin Note: vis 03/31/09 [...] EST, Height Start Date: 08/01/19 Status: Ordered fenofibrate 54 mg oral tablet [...] 07/30/19 9:11:06 EST, Route to Pharmacy Electronically, [id number], [facility], 175.4, cm, 07/29/19 8:33:52 EST, Height Start Date: 07/30/19 Status: Ordered oxyCODONE 5 mg oral tablet 5 mg, 1, tablet, By Mouth, 2 times a day, PRN, for 28 days, opiate agreement, # 56 tablet, Refills 0, Tot. Refills 0, Acute 08/06/19 12:48:00 EST, Pain , Severe, 07/09/19 12:48:00 EST, Route to Pharmacy Electronically, [id number]... Start Date: 07/09/19 Stop Date: 08/06/19 Status: Ordered Shingrix intramuscular injection 0.5 mL, [...]
--- OUTSIDE RECORDS SUMMARY | 2024-04-23 08:19 | XMS_ITS | Continuity of Care Document ---
Author Organization [facility] Address [address] [place] [address]- Care Team Providers Care Showroom Consultant Name Role Phone Sneha ARCHITECTURAL SALES CONSULTANT, Radha Sorensen Primary Care Physician [facility] Date(s): 10/18/21 - 11/17/[address] [address]- Allergies, Adverse Reactions, Alerts Substance Reaction Severity [...] Given tetanus/diphtheria/pertussis, acel(Tdap) 06/08/11 Given 1Result Comment: [facility] [id number] 2Result Comment: [05/25/2018] [facility]: [id number] 3Admin Note: Danielitochrismilagrosradha 4Admin Note: gabbie 03/31/09 5Result Comment: per [...] 3 Refills, Maintenance, 08/18/21 8:58:00 EST, Tablet, [facility], 177.8, cm, 08/10/21 10:04:00 EST, Height, [...] 0 Refills, Maintenance, 10/18/21 16:31:00 EST, Tablet, [facility], 177.8, cm, 10/12/21 8:38:00 EST, Height, [...] 90 tablet, 1 Refills, Maintenance, 01/05/21 9:14:00EDT, [facility], 177.8, cm, 12/18/20 11:27:00 EDT, Height, [...] Replace Required Details, Route to Pharmacy Electronically, [facility], 177.8, cm, 09/07/21 13:03:0... Start Date: 09/17/21 Status: Ordered mercaptopurine 50 mg oral tablet 1 tablet = 50 mg, By Mouth, Daily at bedtime, 0 Refills, Maintenance, 07/20/17 8:35:35 EST, Tablet Start Date: 07/20/17 Status: Ordered Metoprolol Succinate ER 25 mg oral tablet, extended release See Instructions, TAKE 1 TABLET BY MOUTH DAILY AT BEDTIME, # 30 tablet, 5 Refills, [facility],177.8, cm, 06/18/21 9:52:00 EDT, Height, 92.3, kg, 12/18/20 11:27:00 EDT, Dry Weight Start Date: 07/16/21 Status: Ordered nitroglycerin 0.4 mg sublingual tablet 1 tablet = 0.4 mg, Sublingual, Every 5 minutes, PRN as needed for chest pain, not to exceed 3 doses/15 min--if pain persists, seek medical attention, # 100 tablet, 0 Refills, Maintenance, 09/28/20 17:00:00 EST, Tablet, [facility], Partial fill up... Start Date: 09/28/20 Status: Ordered terazosin 5 mg oral capsule 5 mg, 1, capsule, By Mouth, Daily at bedtime, # 30 capsule, Refills 8, Tot. Refills 8, Soft Stop, 03/11/22 15:03:00 EDT, Route to Pharmacy Electronically, [facility], 177.8, cm, 04/22/21 14:54:00 EDT, Height, [...]
--- OUTSIDE RECORDS SUMMARY | 2024-04-23 08:19 | XMS_ITS | Continuity of Care Document ---
Author Organization [facility] Address [address] [place] [address]- Care Team Providers Care Rn Licensed Practical Name Role Phone Sneha GORDON, Radha Sorensen Primary Care Physician Encounter [facility] Date(s): 09/08/21 - 11/13/21 [facility] [address] [address]- Attending Physician: Kimo Queen MD Admitting Physician: [...] Given 1Result Comment: [facility] [id number] 2Result Comment: [05/25/2018] [facility]: [id number] 3Admin Note: [facility] 4Admin Note: vis 03/31/09 [...] 3 Refills, Maintenance, 08/18/21 8:58:00 EST, Tablet, [facility], 177.8, cm, 08/10/21 10:04:00 EST, Height, [...] 0 Refills, Maintenance, 10/18/21 16:31:00 EST, Tablet, [facility], 177.8, cm, 10/12/21 8:38:00 EST, Height, [...] 90 tablet, 1 Refills, Maintenance, 01/05/21 9:14:00EDT, [facility], 177.8, cm, 12/18/20 11:27:00 EDT, Height, [...] Replace Required Details, Route to Pharmacy Electronically, [facility], 177.8, cm, 09/07/21 13:03:0... Start Date: 09/17/21 Status: Ordered mercaptopurine 50 mg oral tablet 1 tablet = 50 mg, By Mouth, Daily at bedtime, 0 Refills, Maintenance, 07/20/17 8:35:35 EST, Tablet Start Date: 07/20/17 Status: Ordered Metoprolol Succinate ER 25 mg oral tablet, extended release See Instructions, TAKE 1 TABLET BY MOUTH DAILY AT BEDTIME, # 30 tablet, 5 Refills, [facility],177.8, cm, 06/18/21 9:52:00 EDT, Height, 92.3, [...] 03/11/22 15:03:00 EDT, Route to Pharmacy Electronically, [facility], 177.8, cm, 04/22/21 14:54:00 EDT, Height, [...]
--- OUTSIDE RECORDS SUMMARY | 2024-04-23 08:19 | XMS_ITS | Continuity of Care Document ---
Author Organization [facility] Address [address] [place] [address]- Care Team Providers Care Mix Mill Tender Name Role Phone Sneha GORDON, Radha Sorensen Primary Care Physician [facility] Date[facility]s): 10/31/19 - 02/28/20 [facility] [address] [place] [address]- [facility] Attending Physician: Radha Hoover NP Allergies, Adverse [...] [facility] [phone] 2Result Comment: [05/25/2018] [facility]: [id number] 3Admin Note: [facility] 4Admin Note: vis 03/31/09 [...] 3 Refills, Maintenance, 10/21/19 17:07:00 EST, Tablet, [facility], 175.4, cm, 10/21/19 8:06:00 EST, Height Start Date: 10/21/19 Status: Ordered azelastine nasal 0.15% spray 2 sprays, Nares, Both, 2 times a day, PRN for allergy symptoms, # 30 mL, 0 Refills, Maintenance, 10/21/19 8:40:00 EST, [place], [facility], 2 sprays Nares, Both 2 times a day,PRN:for allergy symptoms, 175.4, cm, 10/21/19 8:06:00 EST, Height Start Date: 10/21/19 Status: Ordered fenofibrate 54 mg oral tablet 1 tablet = 54 mg, By Mouth, Daily, # 30 tablet, 5 Refills, Maintenance, 12/31/19 10:02:00 EDT, [facility], 175.4, cm, 10/21/19 8:06:00 EST, Height [...] Replace Required Details, Route to Pharmacy Electronically, [facility], 175.4, cm, 03/... Start Date: 02/26/20 Status: Ordered mercaptopurine 50 mg oral tablet = 100 mg, By Mouth, Daily at bedtime, 0 Refills, Maintenance, 07/20/17 8:35:35, Tablet Start Date: 07/20/17 Status: Ordered metoprolol 25 mg oral tablet, extended release 25 mg, By Mouth, Daily at bedtime, # 30 tablet, Refills 5, Tot. Refills 5, Maintenance, 02/27/20 14:03:00 EDT, Route to Pharmacy Electronically, [facility], 175.4, cm, 10/21/19 8:06:00 EST, Height Start Date: 02/27/20 Status: Ordered oxyCODONE 5 mg oral tablet 5 mg, 1, tablet, By Mouth, 2 times a day, PRN, for 28 days, # 56 tablet, Refills 0, Tot. Refills 0,Acute 03/17/20 11:39:00 EDT, Pain , Severe, 02/18/20 11:39:00 EDT, Route to Pharmacy Electronically, [facility], Partial fill upon patient request... Start Date: 02/18/20 Stop Date: 03/17/20 Status: Ordered Shingrix intramuscular injection 0.5 mL, Intramuscular, Once, # 0.5 mL, 1 Refills, Soft Stop, 06/28/19 13:15:54 EST, 0.5 mL Intramuscular Once Start Date: 06/28/19 Status: Ordered terazosin 5 mg oral capsule See Instructions, # 30 capsule, Refills 11 Tot. Refills 11, TAKE 1 CAPSULE BY MOUTH DAILY AT BEDTIME, [facility] Start Date: 05/02/19 Status: Ordered tiZANidine 2 mg oral tablet 1/2 tablet, By Mouth, Every 8 hours, PRN, # 45 tablet, Refills 0, Tot. Refills 0, Maintenance, as needed for muscle spasm, 11/05/19 10:51:00 EDT, Route to Pharmacy Electronically, [facility], 175.4, cm, 10/21/19 8:06:00 EST, Height [...]
--- OUTSIDE RECORDS SUMMARY | 2024-04-23 08:19 | XMS_ITS | Continuity of Care Document ---
Author Organization [facility] Address [address] [place] [address]- Care Team Providers Care Waiter/Waitress Tourist Class Name Role Phone Sneha GORDON, Radha Sorensen Primary Care Physician [facility] Date(s): 05/11/23 - 06/10/23 [facility] [address] [place] [address]- Allergies, Adverse Reactions, Alerts Substance Reaction Severity Status Levaquin itch Moderate Active nonsteroidal anti-inflammatory agents diarrhea Active Crestor ck 400's and myalgia Active statins myalgia Active Immunizations Given and Recorded Vaccine Date Status Refusal Reason [id number] 12y+ bivalent booster vax 05/19/22 Recorded SARS-CoV-2 [...] Comment: [facility] [id number] 2Result Comment: [05/25/2018] [facility]: [id number] 3Admin Note: [facility] 4Admin Note: vis 03/31/09 [...] 3 Refills, Maintenance, 05/12/23 16:48:00 EDT, Tablet, [facility], 177.8, cm, 12/01/22 8:22:00 EDT, Height, 96.8, kg, 08/05/21 8:57:00 EST, Dry Weight Start Date: 05/12/23 Stop Date: 09/09/23 Status: Ordered amitriptyline 50 mg oral tablet 2 tablet = 100 mg, By Mouth, Daily at bedtime, # 60 tablet, 0 Refills, Maintenance, 12/15/22 13:40:00 EDT, [facility], Partial fill upon patient request if [...] 5 Refills, Maintenance, 05/11/23 14:18:00 EDT, Tablet, [facility], 177.8, cm, 12/01/22 8:22:00 EDT, Height, 96.8, kg, 08/05/21 8:57:00 EST, Dry Weight Start Date: 05/11/23 Stop Date: 11/07/23 Status: Ordered cyclobenzaprine 10 mg oral tablet 10 mg, 1, tablet, By Mouth, Daily at supper, # 30 tablet, Refills 2, Tot. Refills 2, Maintenance, 10/24/22 15:13:00 EST, Route to Pharmacy Electronically, [facility], Partial fill upon patient request if the prescription is for a schedule II opio... Start Date: 10/24/22 Status: Ordered evolocumab 140 mg/mL subcutaneous solution = 140 mg, Subcutaneous Infusion, Every 14 days, # 1 kit, 6 Refills, Maintenance, 01/30/23 14:16:00 EDT, [facility], Partial fill upon patient request if the prescription is for a schedule II opioid drug., 177.8, cm, 12/01/22 8:22:00 E... Start Date: 01/30/23 Status: Ordered fenofibrate 54 mg oral tablet 1 tablet, By Mouth, Daily, # 30 tablet, 5 Refills, Maintenance, 05/11/23 13:30:00 EDT, [facility], 177.8, cm, 12/01/22 8:22:00 EDT, Height, [...] capsule, 5 Refills, Maintenance, 02/09/23 18:32:00 EDT, [facility], 177.8, cm, 12/01/22 8:22:00 EDT, Height, [...] 30 tablet, 5 Refills, 03/07/23 10:21:00 EDT, [facility], 177.8, cm, 12/01/22 8:22:00 EDT, Height, 96.8, kg, 08/05/21 8:57:00 EST, Dry Weight Start Date: 03/07/23 Status: Ordered nitroglycerin 0.4 mg sublingual tablet 1 tablet = 0.4 mg, Sublingual, Every 5 minutes, PRN as needed for chest pain, not to exceed 3 doses/15 min--if pain persists, seek medical attention, # 100 tablet, 0 Refills, Maintenance, 09/28/20 17:00:00 EST, Tablet, [facility], Partial fill up... Start Date: 09/28/20 Status: Ordered Praluent Pen 75 mg/mL subcutaneous solution See Instructions, INJECT 75MG SUBCUTANEOUSLY EVERY 2 WEEKS, # 2 mL, 10 Refills, Maintenance, 05/25/23 10:56:00 EDT, [facility], 177.8, cm, 12/01/22 8:22:00 EDT, Height, 96.8, kg, 08/05/21 8:57:00 EST, Dry Weight Start Date: 05/25/23 Status: Ordered rizatriptan 5 mg oral tablet 1 tablet = 5 mg, By Mouth, Once, PRN for migraine headache, may repeat dose once in 2 hours max 2 tabs in 24hrs ., # 12 tablet, 2 Refills, Soft Stop, 05/20/22 7:59:00 EDT, Tablet, [facility], Partial fill upon patient request if the prescript... Start Date: 05/20/22 Status: Ordered SUMAtriptan 4 mg/0.5 mL subcutaneous solution 0.5 mL = 4 mg, Subcutaneous Injection, Once, PRN as needed for migraine headache, may repeat once in 1 hour if needed, # 1 kit, 0 Refills, Soft Stop, 03/21/22 14:40:00 EDT, Solution, [facility],Partial fill upon patient request if the prescripti... Start Date: 03/21/22 Status: Ordered terazosin 5 mg oral capsule See Instructions, TAKE 1 CAPSULE BY MOUTH DAILY AT BEDTIME, # 90 capsule, Refills 1, Tot. Refills 1, Maintenance, 03/13/23 8:21:00 EDT, Instructions Replace Required Details, Route to Pharmacy Electronically, [facility], 177.8, cm, 12/01/22 8:22:... Start Date: [...] Associate Professional Member Role: PCP Address: Address: [address] [place] [address] [address] [place] [address]- Name: Jonathan Ramos RN Position: [facility] RN Member Role: Primary Care Nurse Care Team Related Persons Name: LEN RAZO Address: home [address] [place] [address]
--- OUTSIDE RECORDS SUMMARY | 2024-04-23 08:19 | XMS_ITS | Continuity of Care Document ---
Author Organization [facility] Address [address] [place] [address]- Care Team Providers Care Survey Research Associate Name Role Phone Sneha GORDON, Radha Sorensen Primary Care Physician [place] [facility] [place]s): 09/28/20 - 10/05/20 [facility] [address] [place] [address]- Attending Physician: Radha Hoover NP Allergies, Adverse [...] to report when received vaccine 2Result Comment: [facility] [id number] 3Result Comment: [05/25/2018] [facility]: [id number] 4Admin Note: [facility] 5Admin Note: vis 03/31/09 6Result Comment: [08/11/2015] [facility] Ambien 10 mg oral tablet 1 tablet = 10 mg, By Mouth, Daily at bedtime, PRN for sleep, # 30 tablet, 3 Refills, Maintenance, 05/08/20 9:35:00 EDT, Tablet, [facility], 175.4, cm, 10/21/19 8:06:00 EST, Height [...] 3 Refills, Maintenance, 06/11/20 17:06:00 EDT, Tablet, [facility], 175.4, cm, 10/21/19 8:06:00 EST, Height Start Date: 06/11/20 Stop Date: 10/09/20 Status: Ordered fenofibrate 54 mg oral tablet 1 tablet = 54 mg, By Mouth, Daily, # 30 tablet, 5 Refills, Maintenance, 06/11/20 11:29:00 EDT, [facility], 175.4, cm, 10/21/19 8:06:00 EST, Height [...] Electronically, [facility]... Start Date: 09/11/20 Status: Ordered Guaiatussin AC 10 mg-100 mg/5 ml oral syrup 5 mL, By Mouth, Every 4 hours, PRN for cough, # 240 mL, 0 Refills, Maintenance, 10/05/20 10:37:00 EST, Syrup, [facility], Partial fill upon patient request if the prescription is for a schedule II opioid drug., 5 mL By Mouth Every 4 hours,PRN:for... Start Date: 10/05/20 Status: Ordered mercaptopurine 50 mg oral tablet = 100 mg, By Mouth, Daily at bedtime, 0 Refills, Maintenance, 07/20/17 8:35:35, Tablet Start Date: 07/20/17 Status: Ordered metoprolol 25 mg oral tablet, extended release 25 mg, By Mouth, Daily at bedtime, # 30 each, Refills 2, Tot. Refills 2, Maintenance, 08/09/20 21:59:00 EST, Route to Pharmacy Electronically, [facility], 175.4, cm, 10/21/19 8:06:00 EST, Height Start Date: 08/09/20 Stop Date: 11/07/20 Status: Ordered nitroglycerin 0.4 mg sublingual tablet 1 tablet = 0.4 mg, Sublingual, Every 5 minutes, PRN as needed for chest pain, not to exceed 3 doses/15 min--if pain persists, seek medical attention, # 100 tablet, 0 Refills, Maintenance, 09/28/20 17:00:00 EST, Tablet, [facility], Partial fill up... Start Date: 09/28/20 Status: Ordered oxyCODONE 5 mg oral tablet 5 mg, 1, tablet, By Mouth, Every 6 hours, PRN, # 56 tablet, Refills 0, Tot. Refills 0, Acute 10/06/20 10:13:00 EST, as needed for pain, 10/05/20 10:15:00 EST, [facility], Partial fill upon patient request if the... Start Date: 10/05/20 Stop Date: 10/06/20 Status: Ordered terazosin 5 mg oral capsule 5 mg, 1, capsule, By Mouth, Daily at bedtime, # 30 capsule, Refills 11, Tot. Refills 11, Soft Stop,05/08/20 16:25:00 EDT, Route to Pharmacy Electronically, [facility], 175.4, cm, 10/21/19 8:06:00 EST, Height Start Date: 05/08/20 Stop Date: 05/03/21 Status: Ordered Zetia 10 mg oral tablet 1 tablet = 10 mg, By Mouth, Daily, # 90 tablet, 3 Refills, Maintenance, 09/14/20 9:19:00 EST, Tablet, [facility], Partial fill upon patient request if the prescription is for a schedule II opioid drug., 175.4, cm, 10/21/19 8:06:00 EST, Height Start Date: 09/14/20 Status: Ordered Problem List [...] recent to oldest [Reference Range]: 1 Height 175.4 cm (09/28/20 11:57 AM) Social History Social History Type Response Smoking Status Former smoker; Tobac co user in household: No; Other: quit smoking in 2007; entered on: 07/16/14 Sex
--- OUTSIDE RECORDS SUMMARY | 2024-04-23 08:19 | XMS_ITS | Continuity of Care Document ---
Author Organization [facility] Adult Address [address] [place] [id number]- Care Team Providers Care Warehouse Driver Name Role Phone Sneha GORDON, Radha Sorensen Primary Care Physician [place] [facility] [place]23 - 12/26/23 [facility] Adult [address] [place] [id number]- Encounter Diagnosis Physical exam(Discharge Diagnosis) - 12/19/23 Anxiety disorder(Discharge Diagnosis) - 12/19/23 BPH (benign prostatic hyperplasia)(Discharge Diagnosis) - 12/19/23 CAD (coronary artery disease)(Discharge Diagnosis) - 12/19/23 Cervical myofascial pain syndrome(Discharge Diagnosis) - 12/19/23 Chronic headaches(Discharge Diagnosis) - 12/19/23 Colonic polyp(Discharge Diagnosis) - 12/19/23 Diverticulosis(Discharge Diagnosis) - 12/19/23 Heart failure, diastolic, chronic(Discharge Diagnosis) - 12/19/23 History of DVT in adulthood(Discharge Diagnosis) - 12/19/23 History of GI bleed(Discharge Diagnosis) - 12/19/23 Hypercholesterolemia(Discharge Diagnosis) - 12/19/23 ALICE (obstructive sleep apnea)(Discharge Diagnosis) - 12/19/23 Obese class I(Discharge Diagnosis) - 12/19/23 Prediabetes(Discharge Diagnosis) - 12/19/23 Ulcerative colitis(Discharge Diagnosis) - 12/19/23 Statin intolerance(Discharge Diagnosis) - 12/19/23 Attending Physician: Radha Hoover NP Allergies, Adverse [...] vaccine, inactivated 4 05/08/09 Gi shane SARS-CoV-2(COVID-19)mRNA-LNP vac([id number]) 05/29/23 Recorded [id number] 12y+ bivalent booster vax 05/19/22 Recorded SARS-CoV-2 [...] acel(Tdap) 06/08/11 Given 1Result Comment: [facility] [id number] 2Result Comment: [05/25/2018] [facility]: [id number] 3Admin Note: Codi 4Admin Note: vis 03/31/09 [...] 3 Refills, Maintenance, 11/30/23 12:32:00 EDT, Tablet, [facility], 177.8, cm, 11/23/23 15:37:00 EDT, Height Start Date: 11/30/23 Status: Ordered amLODIPine 5 mg oral tablet See Instructions, TAKE 1 TABLET BY MOUTH DAILY, # 30 tablet, 11 Refills, Maintenance, 10/02/23 17:04:00 EST, [facility], 177.8, cm, 12/01/22 8:22:00 EDT, Height [...] 5 Refills, Maintenance, 10/04/23 9:00:00 EST, Tablet, [facility], 177.8, cm, 12/01/22 8:22:00 EDT, Height Start Date: 10/04/23 Stop Date: 04/01/24 Status: Ordered cyclobenzaprine 10 mg oral tablet 10 mg, 1, tablet, By Mouth, Daily at supper, # 30 tablet, Refills 2, Tot. Refills 2, Maintenance, 10/24/22 15:13:00 EST, Route to Pharmacy Electronically, [facility], Partial fill upon patient request if the prescription is for a schedule II opio... Start Date: 10/24/22 Status: Ordered fenofibrate 54 mg oral tablet 1 tablet, By Mouth, Daily, # 30 tablet, 5 Refills, Maintenance, 10/04/23 8:48:00 EST, [facility], 177.8, cm, 12/01/22 8:22:00 EDT, Height Start Date: 10/04/23 Status: Ordered finasteride 5 mg oral tablet 1 tablet = 5 mg, By Mouth, Daily at bedtime, # 90 tablet, 0 Refills, Maintenance, 11/30/23 12:31:00EDT, Tablet, [facility], Partial fill upon patient request if the prescription is for a schedule II opioid drug., 177.8, cm, 11/23/23 15:37:00 EDT... Start Date: 11/30/23 Stop Date: 02/28/24 Status: Ordered indomethacin 25 mg oral capsule 1 capsule, By Mouth, 3 times a day, PRN NEEDED FOR HEADACHE, # 30 capsule, 5 Refills, Maintenance, 02/09/23 18:32:00 EDT, [facility], 177.8, cm, 12/01/22 8:22:00 EDT, Height, [...] tablet, 5 Refills, Maintenance, 08/08/23 20:42:00 EST, [facility], 177.8, cm, 12/01/22 8:22:00 EDT, Height [...] 2 each, 11 Refills, Maintenance, 08/25/23 8:59:00EST, [facility], Partial fill upon patient request if the prescription is for a schedule II opioid drug., 177.8, cm, 12/01/22 8:22:00... Start Date: 08/25/23 Status: Ordered terazosin 5 mg oral capsule 1, capsule, By Mouth, Daily at bedtime, # 30 capsule, Refills 5, Maintenance, 10/04/23 8:48:00 EST,Route to Pharmacy Electronically, [facility], 177.8, cm, 12/01/22 8:22:00 EDT, Height [...] Confirmed Active Ulcerative colitis Confirmed 10/14/13 Active Diagnosis Diagnosis Type Effective Dates Health Status Clinical Service Informant Physical exam Discharge Diagnosis 12/19/23 Anxiety disorder Discharge Diagnosis 12/19/23 BPH (benign prostatic hyperplasia) Discharge Diagnosis 12/19/23 CAD (coronary artery disease) Discharge Diagnosis 12/19/23 Cervical myofascial pain syndrome Discharge Diagnosis 12/19/23 Chronic headaches Discharge Diagnosis 12/19/23 Colonic polyp Discharge Diagnosis 12/19/23 Diverticulosis Discharge Diagnosis 12/19/23 Heart failure, diastolic, chronic Discharge Diagnosis 12/19/23 History of DVT in adulthood Discharge Diagnosis 12/19/23 History of GI bleed Discharge Diagnosis 12/19/23 Hypercholesterolemia Discharge Diagnosis 12/19/23 ALICE (obstructive sleep apnea) Discharge Diagnosis 12/19/23 Obese class I Discharge Diagnosis 12/19/23 Prediabetes Discharge Diagnosis 12/19/23 Ulcerative colitis Discharge Diagnosis 12/19/23 Statin intolerance Discharge Diagnosis 12/19/23 Vital Signs Most recent to oldest [Reference Range]: 1 2 Height 177.8 cm (12/19/23 8:24 AM) 177.8 cm (12/19/23 7:51 AM) Weight 95.2 kg (12/19/23 7:51 AM) Oxygen Saturation [94-100 %] 96 % (12/19/23 7:51 AM) Pulse Rate [55-90 bpm] 56 bpm (12/19/23 7:51 AM) Body Mass Index [18.5-24.99 kg/m2] 30.11 kg/m2 *>HHI* (12/19/23 7:51 AM) Blood Pressure [90-138/55-84 mm Hg] 112/ 72mm Hg (12/19/23 8:24 AM) 111/66mm Hg (12/19/23 7:51 AM) Mode of Delivery (Oxygen) Room air (12/19/23 7:51 AM) Blood pressure sites Arm, left (12/19/23 8:24 AM) Arm, left (12/19/23 7:51 AM) Weight Obtained Via Standing scale (12/19/23 7:51 AM) Social History Social History Type Response Smoking Status Former smoker; Tobac co user in household: No; Other: quit smoking in 2007; entered on: 07/16/14 Sex Note * Fidelia Lombardo: VERIFY, PERFORM, SIGN Event Display: Patient Education/Instruction Authored Date: [id number] [facility] *[facility] Clinical Summary Name ANTHONY RAZO Age 63 Years 1960 PCP Sneha OCEAN IMPORT REPRESENTATIVE, Radha [id number] Visit Date 12/19/2023 07:40:00 Additional Instructions: Physical in one year Scheduled Appointments?? Future Appointments ?*[facility] ?[address] ?[place],??[place],??[address] ?Phone:??[phone]?Fax:??-- ?Appt. Date:??12/25/2023?9:30 AM ?Scheduled Provider:??Rebel ANTONIO , Ruby Kyle ?*[facility] ?[address] ?[place] ?[place],??[place],??[address] ?Phone:??[phone]?Fax:??-- ?Appt. Date:??02/12/2024?8:00 AM ?Scheduled Provider:??Yang ANTONIO, Caleb Malin Follow-Up Instructions ?? Diagnosis Atherosclerotic heart disease of [place] coronary artery without angina pectoris; Prediabetes; Ulcerative colitis, unspecified, without complications; Encounter for general adult medical examination without abnormal findings; Cervicalgia; Pure hypercholesterolemia, unspecified; Body mass index [BMI]30.0-30.9, adult; Diverticulosis of intestine, part unspecified, without perforation or abscess without bleeding; Chronic diastolic (congestive) heart failure; Obstructive sleep apnea (adult) (pediatric); Benign prostatic hyperplasia without lower urinary tract symptoms; Polyp of colon; Encounter for screening for malignant neoplasm of prostate; Headache, unspecified; Other specified health status; Anxiety disorder, unspecified; Personal history of other venous thrombosis and embolism; Personalhistory of other diseases of the digestive system Medications: Please continue your medications until treatment is completed or stopped by your provider. Discuss any questions related to medications with your provider. Medications to Continue Taking That Have Changed These medications were not printed or sent to your pharmacy - evolocumab (Repatha SureClick 140 mg/mL subcutaneous solution) 140 Milligram Subcutaneous Infusion Every 14 days. Refills: 11. Next Dose: Medications to Continue with No Changes These medications were not printed or sent to your pharmacy Acetaminophen (acetaminophen 325 mg oral tablet) 650 Milligram Oral every 6 hours. may take OTC, not to exceed 3000 mg/day. Next Dose: Amlodipine (amLODIPine 5 mg oral tablet) TAKE 1 TABLET BY MOUTH DAILY. Refills: 11. Next Dose: Aspirin (aspirin 81 mg oral delayed release tablet) 1 tab(s) Oral Daily. Next Dose: Cyclobenzaprine (cyclobenzaprine 10 mg oral tablet) 1 tab(s) Oral Daily at supper. Refills: 2. Next Dose: Famotidine (Pepcid 20 mg oral tablet) 1 tab(s) Oral twice a day. Refills: 3. Next Dose: Fenofibrate (fenofibrate 54 mg oral tablet) 1 tab(s) Oral Daily. Refills: 5. Next Dose: Finasteride (finasteride 5 mg oral tablet) 1 tab(s) Oral Daily at Bedtime for 90 Days. Refills: 0. Next Dose: Indomethacin (indomethacin 25 mg oral capsule) 1 capsule Oral 3 times a day as needed NEEDED FORHEADACHE. Refills: 5. Next Dose: Lorazepam (Ativan 0.5 mg oral tablet) 1 tab(s) Oral every 8 hours as needed as needed for anxiety for 30 Days. Refills: 5. Next Dose: Mercaptopurine (mercaptopurine 50 mg oral tablet) 1 tab(s) Oral Daily at Bedtime. Next Dose: Metoprolol (Metoprolol Succinate ER 25 mg oral tablet, extended release) TAKE 1 TABLET BY MOUTH DAILY AT BEDTIME. Refills: 5. Next Dose: Nitroglycerin (nitroglycerin 0.4 mg sublingual tablet) 1 tab(s) Sublingual every 5 minutes as needed as needed for chest pain. not to exceed 3 doses/15 min--if pain persists, seek medical attention. Refills: 0. Next Dose: Terazosin (terazosin 5 mg oral capsule) 1 capsule Oral Daily at Bedtime. Refills: 5. Next Dose: Zolpidem (Ambien 10 mg oral tablet) 1 tab(s) Oral Daily at Bedtime as needed for sleep. Refills: 3. Next Dose: Allergy Info:?? statins; Crestor; nonsteroidal anti-inflammatory agents; Levaquin Medications Given This Visit Future Orders ?Chest 2 Views Frontal and Lat? Order Date:12/19/23?- Complete on or after?12/19/23 Future Orders ?Chest 2 Views Frontal and Lat? Order Date:12/19/23?- Complete on or after?12/19/23 ?CBC w/ Differential? Order Date:12/19/23?- Complete within?Comprehensive Metabolic Panel? Order Date:12/19/23?- Complete within?TSH with T4 Reflex (Adults Only)? Order Date:12/19/23?- Complete within?Complete Urinalysis? Order Date:12/19/23?- Complete within?Hemoglobin A1C (Monitoring)? Order Date:12/19/23?- Complete within? Vital Signs Height 177.8 cm Weight 95.2 kg BMI 30.11 kg/m2 Blood Pressure 112 mm Hg/72 mm Hg Temperature Pulse Rate 56 bpm Respiratory Rate 02 Sat Mode of Delivery 96 %/Room air You can now view a summary of your hospital visit from the comfort of your home through a free online portal called [employer]. [employer] is a website that allows you to securely view your medical information including discharge summary, medications and follow-up visits. ??You can alsosend a secure electronic message to your doctor???s office to request appointments, renew medications or just ask a question. You can enroll at [email or web address] or register during your next office visit. Disclaimer:?? The information provided is of a general nature and is intended to be used in conjunction with the recommendations and advice of your health care practitioner. ??Every effort has been made to ensure that the information provided is accurate and complete at the time it is provided to you however, as your needs change, or, as new ??information becomes available, different or additional instructions may be required. If you have questions, please consult with your primary care provider or pharmacist, as appropriate. ??This information is not intended to serve as substitution for assessment and evaluation by a qualified health care provider. If you do not have a primary care provider, you may find a [facility] provider by calling [facility] at [phone]. [facility], in keeping with [facility] guidance, no longer requires face masks for staff, patientsor visitors in most situations. Similar to time spent indoors at other locations, there is the chance that you were exposed to respiratory viruses during your time with us (such as flu or COVID-19).? If you develop symptoms concerning for a viral respiratory infection, please seek testing (and treatment if indicated) from your medical provider or home test kit. For information about the plan of care including goals and instructions for your diagnosis, please see the patient education orders section of this document. Patient Education Materials?? The content of this educational material or handout may have been modified, supplemented, or adapted from its original content and format to support your individualized medical care. * Sneha GORDON, Radha Sorensen: PERFORM, SIGN, VERIFY Event Display: Patient Education/Instruction Authored Date: [id number] [facility] *[facility] Clinical Summary Name ANTHONY RAZO Age 63 Years 1960 PCP Sneha GORDON, Radha Sorensen PCP Visit Date 12/19/2023 07:40:00 Additional Instructions: Physical in one year Scheduled Appointments?? Future Appointments ?*[facility] ?[address] ?[place] ?[place],??[place],??[address] ?Phone:??[phone]?Fax:??-- ?Appt. Date:??12/25/2023?9:30 AM ?Scheduled Provider:??Rebel ANTONIO , Ruby Kyle ?*[facility] ?[address] ?[place],??[place],??[address] ?Phone:??[phone]?Fax:??-- ?Appt. Date:??02/12/2024?8:00 AM ?Scheduled Provider:??Yang ATNONIO, Caleb Malin Follow-Up Instructions ?? Diagnosis Atherosclerotic heart disease of [place] coronary artery without angina pectoris; Prediabetes; Ulcerative colitis, unspecified, without complications; Encounter for general adult medical examination without abnormal findings; Cervicalgia; Pure hypercholesterolemia, unspecified; Body mass index [BMI]30.0-30.9, adult; Diverticulosis of intestine, part unspecified, without perforation or abscess without bleeding; Chronic diastolic (congestive) heart failure; Obstructive sleep apnea (adult) (pediatric); Benign prostatic hyperplasia without lower urinary tract symptoms; Polyp of colon; Encounter for screening for malignant neoplasm of prostate; Headache, unspecified; Other specified health status; Anxiety disorder, unspecified; Personal history of other venous thrombosis and embolism; Personalhistory of other diseases of the digestive system Medications: Please continue your medications until treatment is completed or stopped by your provider. Discuss any questions related to medications with your provider. Medications to Continue Taking That Have Changed These medications were not printed or sent to your pharmacy - evolocumab (Repatha SureClick 140 mg/mL subcutaneous solution) 140 Milligram Subcutaneous Infusion Every 14 days. Refills: 11. Next Dose: Medications to Continue with No Changes These medications were not printed or sent to your pharmacy Acetaminophen (acetaminophen 325 mg oral tablet) 650 Milligram Oral every 6 hours. may take OTC, not to exceed 3000 mg/day. Next Dose: Amlodipine (amLODIPine 5 mg oral tablet) TAKE 1 TABLET BY MOUTH DAILY. Refills: 11. Next Dose: Aspirin (aspirin 81 mg oral delayed release tablet) 1 tab(s) Oral Daily. Next Dose: Cyclobenzaprine (cyclobenzaprine 10 mg oral tablet) 1 tab(s) Oral Daily at supper. Refills: 2. Next Dose: Famotidine (Pepcid 20 mg oral tablet) 1 tab(s) Oral twice a day. Refills: 3. Next Dose: Fenofibrate (fenofibrate 54 mg oral tablet) 1 tab(s) Oral Daily. Refills: 5. Next Dose: Finasteride (finasteride 5 mg oral tablet) 1 tab(s) Oral Daily at Bedtime for 90 Days. Refills: 0. Next Dose: Indomethacin (indomethacin 25 mg oral capsule) 1 capsule Oral 3 times a day as needed NEEDED FORHEADACHE. Refills: 5. Next Dose: Lorazepam (Ativan 0.5 mg oral tablet) 1 tab(s) Oral every 8 hours as needed as needed for anxiety for 30 Days. Refills: 5. Next Dose: Mercaptopurine (mercaptopurine 50 mg oral tablet) 1 tab(s) Oral Daily at Bedtime. Next Dose: Metoprolol (Metoprolol Succinate ER 25 mg oral tablet, extended release) TAKE 1 TABLET BY MOUTH DAILY AT BEDTIME. Refills: 5. Next Dose: Nitroglycerin (nitroglycerin 0.4 mg sublingual tablet) 1 tab(s) Sublingual every 5 minutes as needed as needed for chest pain. not to exceed 3 doses/15 min--if pain persists, seek medical attention. Refills: 0. Next Dose: Terazosin (terazosin 5 mg oral capsule) 1 capsule Oral Daily at Bedtime. Refills: 5. Next Dose: Zolpidem (Ambien 10 mg oral tablet) 1 tab(s) Oral Daily at Bedtime as needed for sleep. Refills: 3. Next Dose: Allergy Info:?? statins; Crestor; nonsteroidal anti-inflammatory agents; Levaquin Medications Given This Visit Future Orders ?Chest 2 Views Frontal and Lat? Order Date:12/19/23?- Complete on or after?12/19/23 Future Orders ?Chest 2 Views Frontal and Lat? Order Date:12/19/23?- Complete on or after?12/19/23 ?CBC w/ Differential? Order Date:12/19/23?- Complete within?Comprehensive Metabolic Panel? Order Date:12/19/23?- Complete within?TSH with T4 Reflex (Adults Only)? Order Date:12/19/23?- Complete within?Complete Urinalysis? Order Date:12/19/23?- Complete within?Hemoglobin A1C (Monitoring)? Order Date:12/19/23?- Complete within? Vital Signs Height 177.8 cm Weight 95.2 kg BMI 30.11 kg/m2 Blood Pressure 111 mm Hg/66 mm Hg Temperature Pulse Rate 56 bpm Respiratory Rate 02 Sat Mode of Delivery 96 %/Room air You can now view a summary of your hospital visit from the comfort of your home through a free online portal called [employer]. [employer] is a website that allows you to securely view your medical information including discharge summary, medications and follow-up visits. ??You can alsosend a secure electronic message to your doctor???s office to request appointments, renew medications or just ask a question. You can enroll at [email or web address] or register during your next office visit. Disclaimer:?? The information provided is of a general nature and is intended to be used in conjunction with the recommendations and advice of your health care practitioner. ??Every effort has been made to ensure that the information provided is accurate and complete at the time it is provided to you however, as your needs change, or, as new ??information becomes available, different or additional instructions may be required. If you have questions, please consult with your primary care provider or pharmacist, as appropriate. ??This information is not intended to serve as substitution for assessment and evaluation by a qualified health care provider. If you do not have a primary care provider, you may find a [facility] provider by calling [employer] [facility] at [phone]. [facility], in keeping with [facility] guidance, no longer requires face masks for staff, patientsor visitors in most situations. Similar to time spent indoors at other locations, there is the chance that you were exposed to respiratory viruses during your time with us (such as flu or COVID-19).? If you develop symptoms concerning for a viral respiratory infection, please seek testing (and treatment if indicated) from your medical provider or home test kit. For information about the plan of care including goals and instructions for your diagnosis, please see the patient education orders section of this document. Patient Education Materials?? The content of this educational material or handout may have been modified, supplemented, or adapted from its original content and format to support your individualized medical care. Patient Care team information Care Team Personnel Name: Kya Marina RN Position: [facility] RN Member Role: Primary Care Nurse Name: Veronica Feng RN Position: [facility] RN Member Role: Primary Care Nurse Name: Radha Hoover NP Position: [facility] PCO Associate Professional Member Role: PCP Address: Address: [address] [place] [address] [place] [address]- Name: Jonathan Ramos RN Position: [facility] RN Member Role: Primary Care Nurse Care Team Related Persons Name: DUNGLEN Address: home [address] [place] [id number]
--- OUTSIDE RECORDS SUMMARY | 2024-04-23 08:19 | XMS_ITS | Continuity of Care Document ---
Author Organization [facility] Adult Address [address] [place] [address]- Care Team Providers Care Lacquer Shader Name Role Phone Sneha GORDON, Radha Sorensen Primary Care Physician [facility] - 03/19/20 [facility] [address] [place] [address]- [facility] Allergies, Adverse Reactions, Alerts Substance Reaction [...] Given 1Result Comment: [facility] [id number] 2Result Comment: [05/25/2018] [facility]: [id number] 3Admin Note: Codi 4Admin Note: vis 03/31/09 [...] 3 Refills, Maintenance, 10/21/19 17:07:00 EST, Tablet, [facility], 175.4, cm, 10/21/19 8:06:00 EST, Height Start Date: 10/21/19 Status: Ordered azelastine nasal 0.15% spray 2 sprays, Nares, Both, 2 times a day, PRN for allergy symptoms, # 30 mL, 0 Refills, Maintenance, 10/21/19 8:40:00 EST, [place], [facility], 2 sprays Nares, Both 2 times a day,PRN:for allergy symptoms, 175.4, cm, 10/21/19 8:06:00 EST, Height Start Date: 10/21/19 Status: Ordered fenofibrate 54 mg oral tablet 1 tablet = 54 mg, By Mouth, Daily, # 30 tablet, 5 Refills, Maintenance, 12/31/19 10:02:00 EDT, [facility], 175.4, cm, 10/21/19 8:06:00 EST, Height [...] Replace Required Details, Route to Pharmacy Electronically, [facility], 175.4, cm, .. Start Date: 02/26/20 Status: Ordered mercaptopurine 50 mg oral tablet = 100 mg, By Mouth, Daily at bedtime, 0 Refills, Maintenance, 07/20/17 8:35:35, Tablet Start Date: 07/20/17 Status: Ordered metoprolol 25 mg oral tablet, extended release 25 mg, By Mouth, Daily at bedtime, # 30 each, Refills 0, Tot. Refills 0, Maintenance, 03/02/20 14:36:00 EDT, Route to Pharmacy Electronically, [facility], 175.4, cm, 10/21/19 8:06:00 EST, Height Start Date: 03/02/20 Stop Date: 04/01/20 Status: Ordered oxyCODONE 5 mg oral tablet 5 mg, 1, tablet, By Mouth, 2 times a day, PRN, for 28 days, # 56 tablet, Refills 0, Tot. Refills 0,Acute 04/10/20 18:44:00 EDT, Pain , Severe, 03/13/20 18:44:00 EDT, Route to Pharmacy Electronically, [facility], Partial fill upon patient request... Start Date: 03/13/20 Stop Date: 04/10/20 Status: Ordered Shingrix intramuscular injection 0.5 mL, Intramuscular, Once, # 0.5 mL, 1 Refills, Soft Stop, 06/28/19 13:15:54 EST, 0.5 mL Intramuscular Once Start Date: 06/28/19 Status: Ordered terazosin 5 mg oral capsule See Instructions, # 30 capsule, Refills 11 Tot. Refills 11, TAKE 1 CAPSULE BY MOUTH DAILY AT BEDTIME, [facility] Start Date: 05/02/19 Status: Ordered tiZANidine 2 mg oral tablet 1/2 tablet, By Mouth, Every 8 hours, PRN, # 45 tablet, Refills 0, Tot. Refills 0, Maintenance, as needed for muscle spasm, 11/05/19 10:51:00 EDT, Route to Pharmacy Electronically, [facility], 175.4, cm, 10/21/19 8:06:00 EST, Height Start Date: 11/05/19 Stop Date: 12/05/19 Status: Ordered Problem List Condition Effective Dates Status Health Status Inform ant Anxiety disorder(Confirmed) Active BPH (benign prostatic hyperplasia)(Confirmed) Active Cervical myofascial pain syndrome(Confirmed) Active Colonic polyp(Confirmed) 2000 Active CAD (coronary artery disease)(Confirmed) Active Diverticulitis(Confirmed) 2004 Active Facet syndrome of cervical spine(Confirmed) Active Hypercholesterolemia(Confirmed) Active Osteoarthritis of knee(Confirmed) Active 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
--- OUTSIDE RECORDS SUMMARY | 2024-04-23 08:19 | XMS_ITS | Continuity of Care Document ---
Author Organization [facility] Adult Address [address] [place] [address]- Care Team Providers Care Apartment Maintenance Manager Name Role Phone Radha Hoover NP Primary Care Physician [facility] Date[facility]s): 09/17/21 - 10/17/21 [facility] Adult [address] [place] [address]- Allergies, Adverse Reactions, Alerts Substance Reaction Severity [...] 06/08/11 Given 1Result Comment: [facility] [id number] 2Result Comment: [05/25/2018] [facility]: [id number] 3Admin Note: Codi 4Admin Note: vis 03/31/09 [...] 3 Refills, Maintenance, 08/18/21 8:58:00 EST, Tablet, [facility], 177.8, cm, 08/10/21 10:04:00 EST, Height, [...] 0 Refills, Maintenance, 09/17/21 11:09:00 EST, Tablet, [facility], 177.8, cm, 09/07/21 13:03:00 EST, Height, 96.8, kg, 08/05/21 8:57:00 EST, Dry Weight Start Date: 09/17/21 Stop Date: 10/17/21 Status: Ordered fenofibrate 54 mg oral tablet 1 tablet = 54 mg, By Mouth, Daily at bedtime, # 90 tablet, 1 Refills, Maintenance, 01/05/21 9:14:00EDT, [facility], 177.8, cm, 12/18/20 11:27:00 EDT, Height, [...] Replace Required Details, Route to Pharmacy Electronically, [facility], 177.8, cm, 09/07/21 13:03:0... Start Date: 09/17/21 Status: Ordered mercaptopurine 50 mg oral tablet 1 tablet = 50 mg, By Mouth, Daily at bedtime, 0 Refills, Maintenance, 07/20/17 8:35:35 EST, Tablet Start Date: 07/20/17 Status: Ordered Metoprolol Succinate ER 25 mg oral tablet, extended release See Instructions, TAKE 1 TABLET BY MOUTH DAILY AT BEDTIME, # 30 tablet, 5 Refills, [facility],177.8, cm, 06/18/21 9:52:00 EDT, Height, 92.3, [...] 03/11/22 15:03:00 EDT, Route to Pharmacy Electronically, [facility], 177.8, cm, 04/22/21 14:54:00 EDT, Height, [...]
--- OUTSIDE RECORDS SUMMARY | 2024-04-23 08:19 | XMS_ITS | Continuity of Care Document ---
Author Organization [facility] Address [address] [place] [address]- Care Team Providers Care Core Piler Name Role Phone Sneha SCALE ADJUSTER, Radha Sorensen Primary Care Physician [place] [facility] [place] 10/19/20 - 11/25/[address] [address] Discharge Disposition: A-D/C Home Attending Physician: Dany [...] to report when received vaccine 2Result Comment: [facility] [id number] 3Result Comment: [05/25/2018] [facility]: [id number] 4Admin Note: Codi 5Admin Note: gabbie 03/31/09 [...] 3 Refills, Maintenance, 05/08/20 9:35:00 EDT, Tablet, [facility], 175.4, cm, 10/21/19 8:06:00 EST, Height Start Date: 05/08/20 Stop Date: 09/05/20 Status: Ordered apixaban 5 mg oral tablet 1 tablet = 5 mg, By Mouth, 2 times a day, # 60 tablet, 0 Refills, Maintenance, 10/07/20 9:38:00 EST, Tablet, [facility], Partial fill upon patient request if the prescription is for a schedule II opioid drug., 178, cm, 10/07/20 7:43:00 E... Start Date: 10/07/20 Stop Date: 11/06/20 Status: Ordered Ativan 0.5 mg oral tablet 1 tablet = 0.5 mg, By Mouth, Every 8 hours, PRN as needed for anxiety, # 90 tablet, 3 Refills, Maintenance, 06/11/20 17:06:00 EDT, Tablet, [facility], 175.4, cm, 10/21/19 8:06:00 EST, Height Start Date: 06/11/20 Stop Date: 10/09/20 Status: Ordered docusate sodium 100 mg oral capsule 100 mg, 1, capsule, By Mouth, 2 times a day, # 60 capsule, Refills 0, Tot. Refills 0, Maintenance, 10/07/20 9:37:00 EST, Route to Pharmacy Electronically, [facility], Partial fill upon patient request if the prescription is for a schedul... Start Date: 10/07/20 Status: Ordered fenofibrate 54 mg oral tablet 1 tablet = 54 mg, By Mouth, Daily at bedtime, # 30 tablet, 5 Refills, Maintenance, 06/11/20 11:29:00 EDT, [facility], 175.4, cm, 10/21/19 8:06:00 EST, Height [...] Replace Required Details, Route to Pharmacy Electronically, [facility]... Start Date: 09/11/20 Status: Ordered Maalox Plus [...] 08/09/20 21:59:00 EST, Route to Pharmacy Electronically, [facility], 175.4, cm, 10/21/19 8:06:00 EST, Height [...] Stop,05/08/20 16:25:00 EDT, Route to Pharmacy Electronically, [facility], 175.4, cm, 10/21/19 8:06:00 EST, Height [...]
--- OUTSIDE RECORDS SUMMARY | 2024-04-23 08:19 | XMS_ITS | Continuity of Care Document ---
Author Organization [facility] Address [address] [place] [address]- Care Team Providers Care Extension Agent Name Role Phone Sneha REFRIGERATION TECH, Radha Sorensen Primary Care Physician [facility]): 09[facility]/21 - 10/22/21 [facility] [address] [place] [id number] Allergies, Adverse Reactions, Alerts Substance Reaction Severity [...] [facility] [id number] 2Result Comment: [05/25/2018] [facility]: [id number] 3Admin Note: Codi 4Admin Note: vis 03/31/09 [...] 3 Refills, Maintenance, 08/18/21 8:58:00 EST, Tablet, [facility], 177.8, cm, 08/10/21 10:04:00 EST, Height, [...] 0 Refills, Maintenance, 10/18/21 16:31:00 EST, Tablet, [facility], 177.8, cm, 10/12/21 8:38:00 EST, Height, 96.8, kg, 08/05/21 8:57:00 EST, Dry Weight Start Date: 10/18/21 Stop Date: 11/17/21 Status: Ordered fenofibrate 54 mg oral tablet 1 tablet = 54 mg, By Mouth, Daily at bedtime, # 90 tablet, 1 Refills, Maintenance, 01/05/21 9:14:00EDT, [facility], 177.8, cm, 12/18/20 11:27:00 EDT, Height, [...] Replace Required Details, Route to Pharmacy Electronically, [facility], 177.8, cm, 09/07/21 13:03:0... Start Date: 09/17/21 Status: Ordered mercaptopurine 50 mg oral tablet 1 tablet = 50 mg, By Mouth, Daily at bedtime, 0 Refills, Maintenance, 07/20/17 8:35:35 EST, Tablet Start Date: 07/20/17 Status: Ordered Metoprolol Succinate ER 25 mg oral tablet, extended release See Instructions, TAKE 1 TABLET BY MOUTH DAILY AT BEDTIME, # 30 tablet, 5 Refills, [facility],177.8, cm, 06/18/21 9:52:00 EDT, Height, 92.3, kg, 12/18/20 11:27:00 EDT, Dry Weight Start Date: 07/16/21 Status: Ordered nitroglycerin 0.4 mg sublingual tablet 1 tablet = 0.4 mg, Sublingual, Every 5 minutes, PRN as needed for chest pain, not to exceed 3 doses/15 min--if pain persists, seek medical attention, # 100 tablet, 0 Refills, Maintenance, 09/28/20 17:00:00 EST, Tablet, [facility], Partial fill up... Start Date: 09/28/20 Status: Ordered terazosin 5 mg oral capsule 5 mg, 1, capsule, By Mouth, Daily at bedtime, # 30 capsule, Refills 8, Tot. Refills 8, Soft Stop, 03/11/22 15:03:00 EDT, Route to Pharmacy Electronically, [facility], 177.8, cm, 04/22/21 14:54:00 EDT, Height, [...]
--- OUTSIDE RECORDS SUMMARY | 2024-04-23 08:19 | XMS_ITS | Continuity of Care Document ---
Author Organization [facility] Adult Address [address] [place] [address]- Care Team Providers Care Senior Security Engineer Name Role Phone Sneha FLATWORK FINISHER HAND, Radha Sorensen Primary Care Physician [facility]): 01/30/24 - 02/29/24 [facility] [address] [place] [address]- Allergies, Adverse Reactions, Alerts Substance Reaction Severity [...] vaccine, inactivated 4 05/08/09 Gi shane SARS-CoV-2(COVID-19)mRNA-LNP vac([id number]) 05/29/23 Recorded [id number] 12y+ bivalent booster vax 05/19/22 Recorded SARS-CoV-2 [...] 1Result Comment: [facility] [id number] 2Result Comment: [05/25/2018] [facility]: [id number] 3Admin Note: Codi 4Admin Note: vis 03/31/09 [...] 3 Refills, Maintenance, 11/30/23 12:32:00 EDT, Tablet, [facility], 177.8, cm, 11/23/23 15:37:00 EDT, Height Start Date: 11/30/23 Status: Ordered amLODIPine 5 mg oral tablet See Instructions, TAKE 1 TABLET BY MOUTH DAILY, # 30 tablet, 11 Refills, Maintenance, 10/02/23 17:04:00 EST, [facility], 177.8, cm, 12/01/22 8:22:00 EDT, Height [...] 5 Refills, Maintenance, 10/04/23 9:00:00 EST, Tablet, [facility], 177.8, cm, 12/01/22 8:22:00 EDT, Height Start Date: 10/04/23 Stop Date: 04/01/24 Status: Ordered cyclobenzaprine 10 mg oral tablet 10 mg, 1, tablet, By Mouth, Daily at supper, # 30 tablet, Refills 2, Tot. Refills 2, Maintenance, 10/24/22 15:13:00 EST, Route to Pharmacy Electronically, [facility], Partial fill upon patient request if the prescription is for a schedule II opio... Start Date: 10/24/22 Status: Ordered fenofibrate 54 mg oral tablet 1 tablet, By Mouth, Daily, # 30 tablet, 5 Refills, Maintenance, 10/04/23 8:48:00 EST, [facility], 177.8, cm, 12/01/22 8:22:00 EDT, Height Start Date: 10/04/23 Status: Ordered finasteride 5 mg oral tablet 1 tablet, By Mouth, Daily at bedtime, # 30 tablet, 5 Refills, Maintenance, 01/25/24 7:43:00 EDT, [facility], 177.8, cm, 12/25/23 9:41:00 EDT, Height Start Date: 01/25/24 Status: Ordered indomethacin 25 mg oral capsule 1 capsule, By Mouth, 3 times a day, PRN NEEDED FOR HEADACHE, # 30 capsule, 5 Refills, Maintenance, 02/09/23 18:32:00 EDT, [facility], 177.8, cm, 12/01/22 8:22:00 EDT, Height, [...] 0 Refills, Maintenance, 09/28/20 17:00:00 EST, Tablet, [facility], Partial fill up... Start Date: 09/28/20 Status: Ordered Pepcid 20 mg oral tablet 1 tablet = 20 mg, By Mouth, 2 times a day, # 60 tablet, 3 Refills, Maintenance, 10/16/23 16:31:00 EST, Tablet, [facility], Partial fill upon patient request if the prescription is for a scheduleII opioid drug., 177.8, cm, 10/16/23 16:14:00 EST,... Start Date: 10/16/23 Status: Ordered Repatha SureClick 140 mg/mL subcutaneous solution = 140 mg, Subcutaneous Infusion, Every 14 days, # 2 each, 11 Refills, Maintenance, 08/25/23 8:59:00EST, [facility], Partial fill upon patient request if the prescription is for a schedule II opioid drug., 177.8, cm, 12/01/22 8:22:00... Start Date: 08/25/23 Status: Ordered terazosin 5 mg oral capsule 1, capsule, By Mouth, Daily at bedtime, # 30 capsule, Refills 5, Maintenance, 10/04/23 8:48:00 EST,Route to Pharmacy Electronically, [facility], 177.8, cm, 12/01/22 8:22:00 EDT, Height [...] Team Personnel Name: Kya Marina RN Position: [facility] RN Member Role: Primary Care Nurse Name: Veronica Feng RN Position: [facility] SN RN Member Role: Primary Care Nurse Name: Radha Hoover NP Position: [facility] PCO Associate Professional Member Role: PCP Address: Address: [address] [place] [address]- Name: Jonathan Ramos RN Position: [facility] RN Member Role: Primary Care Nurse Care Team Related Persons Name: LEN RAZO Address: [address] [address]
--- OUTSIDE RECORDS SUMMARY | 2024-04-23 08:19 | XMS_ITS | Continuity of Care Document ---
Author Organization [facility] Adult Address [address] [place] [address]- Care Team Providers Care Loading Dock Helper Name Role Phone Radha Hoover NP Primary Care Physician [facility]21 - 01/20/22 [facility] [address] [place] [address]- Allergies, Adverse Reactions, Alerts Substance Reaction Severity [...] 06/08/11 Given 1Result Comment: [facility] [id number] 2Result Comment: [05/25/2018] [facility]: [id number] 3Admin Note: Codi 4Admin Note: gabbie 03/31/09 [...] 3 Refills, Maintenance, 08/18/21 8:58:00 EST, Tablet, [facility], 177.8, cm, 08/10/21 10:04:00 EST, Height, [...] 0 Refills, Maintenance, 12/24/21 12:45:00 EDT, Tablet, [facility], 177.8, cm, 11/22/21 14:53:00 EDT, Height, [...] Mouth, Daily, # 30 tablet, 3 Refills, [facility], 177.8, cm, 11/22/21 14:53:00 EDT, Height, [...] Replace Required Details, Route to Pharmacy Electronically, [facility], 177.8, cm, 09/07/21 13:03:0... Start Date: 09/17/21 Status: Ordered Guaiatussin AC 10 mg-100 mg/5 ml oral syrup 10 mL, By Mouth, Every 6 hours, PRN for cough, # 240 mL, 0 Refills, Maintenance, 11/22/21 16:22:00 EDT, Syrup, [facility], Partial fill upon patient request if [...] at bedtime, # 30 tablet, 5 Refills, [facility], 177.8, cm, 11/22/21 14:53:00 EDT, Height, 96.8, kg, 08/05/21 8:57:00 EST, Dry Weight Start Date: 12/23/21 Status: Ordered nitroglycerin 0.4 mg sublingual tablet 1 tablet = 0.4 mg, Sublingual, Every 5 minutes, PRN as needed for chest pain, not to exceed 3 doses/15 min--if pain persists, seek medical attention, # 100 tablet, 0 Refills, Maintenance, 09/28/20 17:00:00 EST, Tablet, [facility], Partial fill up... Start Date: 09/28/20 Status: Ordered terazosin 5 mg oral capsule 5 mg, 1, capsule, By Mouth, Daily at bedtime, # 30 capsule, Refills 8, Tot. Refills 8, Soft Stop, 03/11/22 15:03:00 EDT, Route to Pharmacy Electronically, [facility], 177.8, cm, 04/22/21 14:54:00 EDT, Height, [...]
--- OUTSIDE RECORDS SUMMARY | 2024-04-23 08:19 | XMS_ITS | Continuity of Care Document ---
Author Organization [facility] Address [address] [place] [address]- Care Team Providers Care Antique Furniture Repairer Name Role Phone Radha Hoover NP Primary Care Physician Encounter [facility] Date(s): 11/30/23 - 12/30/23 [facility] [address] [place] [address]- Allergies, Adverse Reactions, Alerts Substance Reaction Severity [...] vaccine, inactivated 4 05/08/09 Gi shane SARS-CoV-2(COVID-19)mRNA-LNP vac([id number]) 05/29/23 Recorded [id number] 12y+ bivalent booster vax 05/19/22 Recorded SARS-CoV-2 [...] Given tetanus/diphtheria/pertussis, acel(Tdap) 06/08/11 Given 1Result Comment: [facility] [id number] 2Result Comment: [05/25/2018] [facility]: [id number] 3Admin Note: [facility] 4Admin Note: vis 03/31/09 [...] 3 Refills, Maintenance, 11/30/23 12:32:00 EDT, Tablet, [facility], 177.8, cm, 11/23/23 15:37:00 EDT, Height Start Date: 11/30/23 Status: Ordered amLODIPine 5 mg oral tablet See Instructions, TAKE 1 TABLET BY MOUTH DAILY, # 30 tablet, 11 Refills, Maintenance, 10/02/23 17:04:00 EST, [facility], 177.8, cm, 12/01/22 8:22:00 EDT, Height [...] 5 Refills, Maintenance, 10/04/23 9:00:00 EST, Tablet, [facility], 177.8, cm, 12/01/22 8:22:00 EDT, Height Start Date: 10/04/23 Stop Date: 04/01/24 Status: Ordered cyclobenzaprine 10 mg oral tablet 10 mg, 1, tablet, By Mouth, Daily at supper, # 30 tablet, Refills 2, Tot. Refills 2, Maintenance, 10/24/22 15:13:00 EST, Route to Pharmacy Electronically, [facility], Partial fill upon patient request if the prescription is for a schedule II opio... Start Date: 10/24/22 Status: Ordered fenofibrate 54 mg oral tablet 1 tablet, By Mouth, Daily, # 30 tablet, 5 Refills, Maintenance, 10/04/23 8:48:00 EST, [facility], 177.8, cm, 12/01/22 8:22:00 EDT, Height Start Date: 10/04/23 Status: Ordered finasteride 5 mg oral tablet 1 tablet = 5 mg, By Mouth, Daily at bedtime, # 90 tablet, 0 Refills, Maintenance, 11/30/23 12:31:00EDT, Tablet, [facility], Partial fill upon patient request if the prescription is for a schedule II opioid drug., 177.8, cm, 11/23/23 15:37:00 EDT... Start Date: 11/30/23 Stop Date: 02/28/24 Status: Ordered indomethacin 25 mg oral capsule 1 capsule, By Mouth, 3 times a day, PRN NEEDED FOR HEADACHE, # 30 capsule, 5 Refills, Maintenance, 02/09/23 18:32:00 EDT, [facility], 177.8, cm, 12/01/22 8:22:00 EDT, Height, [...] tablet, 5 Refills, Maintenance, 08/08/23 20:42:00 EST, [facility], 177.8, cm, 12/01/22 8:22:00 EDT, Height Start Date: 08/08/23 Status: Ordered nitroglycerin 0.4 mg sublingual tablet 1 tablet = 0.4 mg, Sublingual, Every 5 minutes, PRN as needed for chest pain, not to exceed 3 doses/15 min--if pain persists, seek medical attention, # 100 tablet, 0 Refills, Maintenance, 09/28/20 17:00:00 EST, Tablet, [facility], Partial fill up... Start Date: 09/28/20 Status: Ordered Pepcid 20 mg oral tablet 1 tablet = 20 mg, By Mouth, 2 times a day, # 60 tablet, 3 Refills, Maintenance, 10/16/23 16:31:00 EST, Tablet, [facility], Partial fill upon patient request if the prescription is for a scheduleII opioid drug., 177.8, cm, 10/16/23 16:14:00 EST,... Start Date: 10/16/23 Status: Ordered Repatha SureClick 140 mg/mL subcutaneous solution = 140 mg, Subcutaneous Infusion, Every 14 days, # 2 each, 11 Refills, Maintenance, 08/25/23 8:59:00EST, [facility], Partial fill upon patient request if the prescription is for a schedule II opioid drug., 177.8, cm, 12/01/22 8:22:00... Start Date: 08/25/23 Status: Ordered terazosin 5 mg oral capsule 1, capsule, By Mouth, Daily at bedtime, # 30 capsule, Refills 5, Maintenance, 10/04/23 8:48:00 EST,Route to Pharmacy Electronically, [facility], 177.8, cm, 12/01/22 8:22:00 EDT, Height [...] Care Nurse Name: Veronica Feng RN Position: [facility] SN RN Member Role: Primary Care Nurse Name: Radha Hoover NP Position: [facility] PCO Associate Professional Member Role: PCP Address: Address: [address] [place] [address] [address] [place] [address]- Name: Jonathan Ramos RN Position: S RN Member Role: Primary Care Nurse Care Team Related Persons Name: LEN RAZO Address: [address] [address]
--- OUTSIDE RECORDS SUMMARY | 2024-04-23 08:19 | XMS_ITS | Continuity of Care Document ---
Author Organization [facility] Address [address] [place] [address]- Care Team Providers Care Carpentry Instructor Name Role Phone Sneha GORDON, Radha Sorensen Primary Care Physician [place] [facility] [place] 11/22/21 - 11/29/[address] [facility] [address] [place] [address]- Encounter Diagnosis Cough(Discharge Diagnosis) - 11/22/21 Attending Physician: Radha Hoover NP Allergies, Adverse [...] Given tetanus/diphtheria/pertussis, acel(Tdap) 06/08/11 Given 1Result Comment: [facility] [id number] 2Result Comment: [05/25/2018] [facility]: [id number] 3Admin Note: Codi 4Admin Note: vis 03/31/09 [...] 3 Refills, Maintenance, 08/18/21 8:58:00 EST, Tablet, [facility], 177.8, cm, 08/10/21 10:04:00 EST, Height, [...] 0 Refills, Maintenance, 11/22/21 12:48:00 EDT, Tablet, [facility], 177.8, cm, 11/15/21 9:37:00 EDT, Height, [...] 90 tablet, 1 Refills, Maintenance, 01/05/21 9:14:00EDT, [facility], 177.8, cm, 12/18/20 11:27:00 EDT, Height, [...] Replace Required Details, Route to Pharmacy Electronically, [facility], 177.8, cm, 09/07/21 13:03:0... Start Date: [...] AT BEDTIME, # 30 tablet, 5 Refills, [facility],177.8, cm, 06/18/21 9:52:00 EDT, Height, 92.3, [...] 03/11/22 15:03:00 EDT, Route to Pharmacy Electronically, [facility], 177.8, cm, 04/22/21 14:54:00 EDT, Height, [...] Diagnosis Diagnosis Type Effective Dates Health Status [facility] Service Informant Cough Discharge Diagnosis 11/22/21 Vital Signs Most recent to oldest [Reference Range]: 1 Height 177.8 cm (11/22/21 2:53 PM) Social History Social History Type Response Smoking Status Former smoker; Tobac co user in household: No; Other: quit smoking in 2007; entered on: 07/16/14 Sex
--- OUTSIDE RECORDS SUMMARY | 2024-04-23 08:19 | XMS_ITS | Continuity of Care Document ---
Author Organization [facility] Adult Address [address] [place] [address]- Care Team Providers Care Business Process Lead Name Role Phone Sneha GORDON, Radha Sorensen Primary Care Physician Encounter [facility] Date(s): 01/10/23 - 02/09/[address] [facility] Adult [address] [place] [address]- Allergies, Adverse Reactions, Alerts Substance Reaction Severity Status Levaquin itch Moderate Active nonsteroidal anti-inflammatory agents diarrhea Active Crestor ck 400's and myalgia Active statins myalgia Active Immunizations Given and Recorded Vaccine Date Status Refusal Reason [id number] 12y+ bivalent booster vax 05/19/22 Recorded SARS-CoV-2 [...] acel(Tdap) 06/08/11 Given 1Result Comment: [facility] [id number] 2Result Comment: [05/25/2018] [facility]: [id number] 3Admin Note: Codi 4Admin Note: vis 03/31/09 [...] 3 Refills, Maintenance, 01/10/23 16:19:00 EDT, Tablet, [facility], 177.8, cm, 12/01/22 8:22:00 EDT, Height, 96.8, kg, 08/05/21 8:57:00 EST, Dry Weight Start Date: 01/10/23 Stop Date: 05/10/23 Status: Ordered amitriptyline 50 mg oral tablet 2 tablet = 100 mg, By Mouth, Daily at bedtime, # 60 tablet, 0 Refills, Maintenance, 12/15/22 13:40:00 EDT, [facility], Partial fill upon patient request if [...] 5 Refills, Maintenance, 11/11/22 12:40:00 EDT, Tablet, [facility], 177.8, cm, 10/24/22 8:53:00 EST, Height, 96.8, kg, 08/05/21 8:57:00 EST, Dry Weight Start Date: 11/11/22 Stop Date: 05/10/23 Status: Ordered cyclobenzaprine 10 mg oral tablet 10 mg, 1, tablet, By Mouth, Daily at supper, # 30 tablet, Refills 2, Tot. Refills 2, Maintenance, 10/24/22 15:13:00 EST, Route to Pharmacy Electronically, [facility], Partial fill upon patient request if the prescription is for a schedule II opio... Start Date: 10/24/22 Status: Ordered evolocumab 140 mg/mL subcutaneous solution = 140 mg, Subcutaneous Infusion, Every 14 days, # 1 kit, 6 Refills, Maintenance, 01/30/23 14:16:00 EDT, [facility], Partial fill upon patient request if the prescription is for a schedule II opioid drug., 177.8, cm, 12/01/22 8:22:00 E... Start Date: 01/30/23 Status: Ordered fenofibrate 54 mg oral tablet 1 tablet, By Mouth, Daily, # 30 tablet, 5 Refills, Maintenance, 11/09/22 6:38:00 EDT, [facility], 177.8, cm, 10/24/22 8:53:00 EST, Height, [...] capsule, 5 Refills, Maintenance, 02/09/23 18:32:00 EDT, [facility], 177.8, cm, 12/01/22 8:22:00 EDT, Height, [...] at bedtime, # 30 tablet, 5 Refills, [facility], 177.8, cm, 11/22/21 14:53:00 EDT, Height, 96.8, kg, 08/05/21 8:57:00 EST, Dry Weight Start Date: 12/23/21 Status: Ordered nitroglycerin 0.4 mg sublingual tablet 1 tablet = 0.4 mg, Sublingual, Every 5 minutes, PRN as needed for chest pain, not to exceed 3 doses/15 min--if pain persists, seek medical attention, # 100 tablet, 0 Refills, Maintenance, 09/28/20 17:00:00 EST, Tablet, [facility], Partial fill up... Start Date: 09/28/20 Status: Ordered Praluent Pen 75 mg/mL subcutaneous solution See Instructions, 75 mg Subcutaneous Infusion every 2 weeks, # 3 kit, 0 Refills, Maintenance, 02/01/23 16:53:00 EDT, [facility], Partial fill upon patient request [...] Refills, Soft Stop, 05/20/22 7:59:00 EDT, Tablet, [facility], Partial fill upon patient request if the prescript... Start Date: 05/20/22 Status: Ordered SUMAtriptan 4 mg/0.5 mL subcutaneous solution 0.5 mL = 4 mg, Subcutaneous Injection, Once, PRN as needed for migraine headache, may repeat once in 1 hour if needed, # 1 kit, 0 Refills, Soft Stop, 03/21/22 14:40:00 EDT, Solution, [facility],Partial fill upon patient request if the prescripti... Start Date: 03/21/22 Status: Ordered terazosin 5 mg oral capsule See Instructions, TAKE 1 CAPSULE BY MOUTH DAILY AT BEDTIME, # 30 capsule, Refills 5, Maintenance, 02/09/23 19:59:00 EDT, Instructions Replace Required Details, Route to Pharmacy Electronically, [facility], 177.8, cm, 12/01/22 8:22:00 EDT, Height,... [...] Care Nurse Name: Veronica Feng RN Position: [facility] RN Member Role: Primary Care Nurse Name: Sneha GORDON, Radha Sorensen Position: [facility] PCO Associate Professional Member Role: PCP Address: Address: [address] [place] [address]- Name: Jonathan Ramos RN Position: [facility] RN Member Role: Primary Care Nurse Care Team Related Persons Name: LEN RAZO Address: [address] [address]
--- OUTSIDE RECORDS SUMMARY | 2024-04-23 08:19 | XMS_ITS | Continuity of Care Document ---
Author Organization [facility] Adult Address [address] [place] [address]- Care Team Providers Care Electroencephalographic Technologist Name Role Phone Sneha TECHNICAL SERVICES COORDINATOR, Radha Sorensen Primary Care Physician Encounter [facility] Date(s): 08/19/20 - 09/18/20 [facility] Adult [address] [place] [address]- Allergies, Adverse Reactions, Alerts Substance Reaction Severity [...] received vaccine 2Result Comment: [facility] [id number] 3Result Comment: [05/25/2018] [facility]: [id number] 4Admin Note: [facility] 5Admin Note: vis 03/31/09 6Result Comment: [08/11/2015] [facility] Ambien 10 mg oral tablet 1 tablet = 10 mg, By Mouth, Daily at bedtime, PRN for sleep, # 30 tablet, 3 Refills, Maintenance, 05/08/20 9:35:00 EDT, Tablet, [facility], 175.4, cm, 10/21/19 8:06:00 EST, Height [...] 3 Refills, Maintenance, 06/11/20 17:06:00 EDT, Tablet, [facility], 175.4, cm, 10/21/19 8:06:00 EST, Height Start Date: 06/11/20 Stop Date: 10/09/20 Status: Ordered azelastine nasal 0.15% spray 2 sprays, Nares, Both, 2 times a day, PRN for allergy symptoms, # 30 mL, 0 Refills, Maintenance, 10/21/19 8:40:00 EST, [place], [facility], 2 sprays Nares, Both 2 times a day,PRN:for allergy symptoms, 175.4, cm, 10/21/19 8:06:00 EST, Height Start Date: 10/21/19 Status: Ordered fenofibrate 54 mg oral tablet 1 tablet = 54 mg, By Mouth, Daily, # 30 tablet, 5 Refills, Maintenance, 06/11/20 11:29:00 EDT, [facility], 175.4, cm, 10/21/19 8:06:00 EST, Height [...] Replace Required Details, Route to Pharmacy Electronically, [facility]... Start Date: 09/11/20 Status: Ordered mercaptopurine 50 mg oral tablet = 100 mg, By Mouth, Daily at bedtime, 0 Refills, Maintenance, 07/20/17 8:35:35, Tablet Start Date: 07/20/17 Status: Ordered metoprolol 25 mg oral tablet, extended release 25 mg, By Mouth, Daily at bedtime, # 30 each, Refills 2, Tot. Refills 2, Maintenance, 08/09/20 21:59:00 EST, Route to Pharmacy Electronically, [facility], 175.4, cm, 10/21/19 8:06:00 EST, Height Start Date: 08/09/20 Stop Date: 11/07/20 Status: Ordered Shingrix intramuscular injection 0.5 mL, Intramuscular, Once, # 0.5 mL, 1 Refills, Soft Stop, 06/28/19 13:15:54 EST, 0.5 mL Intramuscular Once Start Date: 06/28/19 Status: Ordered terazosin 5 mg oral capsule 5 mg, 1, capsule, By Mouth, Daily at bedtime, # 30 capsule, Refills 11, Tot. Refills 11, Soft Stop,05/08/20 16:25:00 EDT, Route to Pharmacy Electronically, [facility], 175.4, cm, 10/21/19 8:06:00 EST, Height Start Date: 05/08/20 Stop Date: 05/03/21 Status: Ordered tiZANidine 2 mg oral tablet 1/2 tablet, By Mouth, Every 8 hours, PRN, # 45 tablet, Refills 0, Tot. Refills 0, Maintenance, as needed for muscle spasm, 11/05/19 10:51:00 EDT, Route to Pharmacy Electronically, [facility], 175.4, cm, 10/21/19 8:06:00 EST, Height Start Date: 11/05/19 Stop Date: 12/05/19 Status: Ordered Zetia 10 mg oral tablet [...]
--- OUTSIDE RECORDS SUMMARY | 2024-04-23 08:20 | XMS_ITS | Continuity of Care Document ---
Author Organization [facility] Address [address] [place] [address]- Care Team Providers Care Wool Washer Feeder Name Role Phone Sneha GORDON, Radha Sorensen Primary Care Physician Encounter [facility] Date(s): 10/06/20 - 10/07/[address] [address]- Discharge Disposition: A-Transfer VNA/Home Health Attending Physician: Dany Molina MD Admitting Physician: [...] received vaccine 2Result Comment: [facility] [id number] 3Result Comment: [05/25/2018] [facility]: [id number] 4Admin Note: Codi 5Admin Note: gabbie 03/31/09 6Result Comment: [08/11/2015] [facility] acetaminophen 325 mg oral tablet 650 mg, By Mouth, Every 6 hours, may take OTC, not to exceed 3000 mg/day, Refills 0, Maintenance, 10/07/20 9:39:00 EST, Partial fill upon patient request if the prescription is for a schedule II opioid drug. Start Date: 10/07/20 Status: Ordered Acetaminophen Tablet 650 mg, Tablet, By Mouth, 10/07/20 4:00:00 EST Start Date: 10/07/20 Stop Date: 10/07/20 Status: Completed Ambien 10 mg oral tablet 1 tablet = 10 mg, By Mouth, Daily at bedtime, PRN for sleep, # 30 tablet, 3 Refills, Maintenance, 05/08/20 9:35:00 EDT, Tablet, [facility], 175.4, cm, 10/21/19 8:06:00 EST, Height Start Date: 05/08/20 Stop Date: 09/05/20 Status: Ordered apixaban 5 mg oral tablet 1 tablet = 5 mg, By Mouth, 2 times a day, # 60 tablet, 0 Refills, Maintenance, 10/07/20 9:38:00 EST, Tablet, [facility], Partial fill upon patient request if the prescription is for a schedule II opioid drug., 178, cm, 10/07/20 7:43:00 E... Start Date: 10/07/20 Stop Date: 11/06/20 Status: Ordered Ativan 0.5 mg oral tablet 1 tablet = 0.5 mg, By Mouth, Every 8 hours, PRN as needed for anxiety, # 90 tablet, 3 Refills, Maintenance, 06/11/20 17:06:00 EDT, Tablet, [facility], 175.4, cm, 10/21/19 8:06:00 EST, Height Start Date: 06/11/20 Stop Date: 10/09/20 Status: Ordered Dilaudid Tablet 4 mg, Tablet, By Mouth, Every 4 hours, PRN for Pain , Moderate, Routine, 10/06/20 9:23:00 EST Start Date: 10/06/20 Stop Date: 10/07/20 Status: Discontinued docusate sodium 100 mg oral capsule 100 mg, 1, capsule, By Mouth, 2 times a day, # 60 capsule, Refills 0, Tot. Refills 0, Maintenance, 10/07/20 9:37:00 EST, Route to Pharmacy Electronically, [facility], Partial fill upon patient request if the prescription is for a schedul... Start Date: 10/07/20 Status: Ordered fenofibrate 54 mg oral tablet 1 tablet = 54 mg, By Mouth, Daily at bedtime, # 30 tablet, 5 Refills, Maintenance, 06/11/20 11:29:00 EDT, [facility], 175.4, cm, 10/21/19 8:06:00 EST, Height [...] Electronically, [facility]... Start Date: 09/11/20 Status: Ordered HYDROmorphone 2 mg oral tablet See Instructions, PRN Pain , Moderate, Take 1-2 tablets every 4 hours as needed for pain x 7 days.,# 84 tablet, 0 Refills, Acute 10/14/20 8:00:00 EST, 10/07/20 9:35:00 EST, Tablet, [facility], Partial fill upon patient request if [...] 08/09/20 21:59:00 EST, Route to Pharmacy Electronically, [facility], 175.4, [...] 16:25:00 EDT, Route to Pharmacy Electronically, [facility], 175.4, cm, 10/21/19 8:06:00 EST, Height [...] Statin intolerance(Confirmed) Active Ulcerative colitis(Confirmed) 10/14/13 Active Results Radiology Reports * Exam Date Time Procedure Performing Provider Status 10/06/20 10:32 PM Knee 1 or 2 Views Right Nubia Ash; Auth (Verified) Notes: (Knee 1 or 2 Views Right) Reason For Exam: Postop RESULT: Knee 1 or 2 Views Right Knee 1 or 2 Views Right Reason: Postop; Clinical Question(s): Other:; Implant Position; Special Instructions: Do today at 2200, No flexed knee in the lateral position. Keep leg straight; 2 Views COMPARISON: None. FINDINGS: Status post constrained total right knee arthroplasty. Distal femoral and proximal tibial components are well positioned without complication. A drain terminates in the suprapatellar region. Post surgical soft tissue changes. 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 WSN: [id number] Ordering Physician: Chico Foy V Dictated By: Kenrick Simms DO Dictated Date/Time: 10/06/20 10:36 p Reviewed By: Kenrick Simms DO Signed By: Kenrick Simms DO Signed Date/Time: 10/06/20 10:36 pm Transcribed By: FRANCY Transcribed Date/Time: 10/06/20 10:35 pm Vital Signs Most recent to oldest [Reference Range]: 1 2 3 4 Height 178 cm (10/07/20 7:43 AM) 178 cm (10/07/20 4:49 AM) 178 cm (10/06/20 11:43 PM) Weight 90.1 kg (10/06/20 7:54 AM) 90.1 kg (10/06/20 6:33 AM) Oxygen Saturation [94-100 %] 96 % (10/07/20 7:43 AM) 97 % (10/07/20 4:49 AM) 96 % (10/06/20 11:43 PM) Pulse Rate [55-90 bpm] 86 bpm (10/07/20 7:43 AM) 77 bpm (10/07/20 4:49 AM) 80 bpm (10/06/20 11:43 PM) Body Mass Index [18.5-24.99] 28.44 *H* (10/06/20 7:54 AM) 28.44 *H* (10/06/20 6:33 AM) Blood Pressure [90-138/55-84 mm Hg] 125/78mm Hg (10/07/20 7:43 AM) 127/75mm Hg (10/07/20 4:49 AM) 117/59mm Hg (10/06/20 11:43 PM) Respiratory Rate [16-30 br/min] 18 br/min (10/07/20 10:09 AM) 18 br/min (10/07/20 7:43 AM) 17 br/min (10/07/20 7:13 AM) 18 br/min (10/07/20 7:13 AM) Temperature [96.8-100.4 DegF] 98.7 DegF (10/07/20 7:43 AM) 97.9 DegF (10/07/20 4:49 AM) 98.4 DegF (10/06/20 11:43 PM) Liters per Minute 6 L/min (10/06/20 10:45 AM) 3 L/min (10/06/20 8:25 AM) 3 L/min (10/06/20 8:20 AM) Mode of Delivery (Oxygen) Room air (10/07/20 7:43 AM) Room air (10/07/20 4:49 AM) Room air (10/06/20 11:43 PM) Blood pressure sites Arm, right (10/07/20 7:43 AM) Arm, right (10/07/20 4:49 AM) Arm, right (10/06/20 11:43 PM) Temperature Route Oral (10/07/20 7:43 AM) Oral (10/07/20 4:49 AM) Oral (10/06/20 11:43 PM) Dry Weight 90.1 kg (10/06/20 6:33 AM) Social History Social History Type Response Smoking Status Former smoker; Tobac co user in household: No; Other: quit smoking in 2007; entered on: 07/16/14 Sex
--- OUTSIDE RECORDS SUMMARY | 2024-04-23 08:20 | XMS_ITS | Continuity of Care Document ---
Author Organization [facility] Adult Address [address] [place] [phone]- Care Team Providers Care Java Front End Web Developer Name Role Phone Radha Hoover NP Primary Care Physician Encounter [facility] Date(s): 08/17/21 - 09/16/21 [facility] [address] [place] [phone]- Allergies, Adverse Reactions, Alerts Substance Reaction Severity Status Levaquin itch Moderate Active statins myalgia Active nonsteroidal anti-inflammatory agents diarrhea Active Crestor [...] Given 1Result Comment: [facility] [id number] 2Result Comment: [05/25/2018] [facility]: [address]-64 3Admin Note: Codi 4Admin Note: vis 03/31/09 [...] 3 Refills, Maintenance, 08/18/21 8:58:00 EST, Tablet, [facility], 177.8, cm, 08/10/21 10:04:00 EST, Height, [...] anxiety, # 90 tablet, 0 Refills, Maintenance, 08/18/21 8:58:00 EST, Tablet, [facility], 177.8, cm, 08/10/21 10:04:00 EST, Height, 96.8, kg, 08/05/21 8:57:00 EST, Dry Weight Start Date: 08/18/21 Stop Date: 09/17/21 Status: Ordered fenofibrate 54 mg oral tablet 1 tablet = 54 mg, By Mouth, Daily at bedtime, # 90 tablet, 1 Refills, Maintenance, 01/05/21 9:14:00EDT, [facility], 177.8, cm, 12/18/20 11:27:00 EDT, Height, [...] AT BEDTIME, # 30 tablet, 5 Refills, [facility],177.8, cm, 06/18/21 9:52:00 EDT, Height, 92.3, kg, 12/18/20 11:27:00 EDT, Dry Weight Start Date: 07/16/21 Status: Ordered nitroglycerin 0.4 mg sublingual tablet 1 tablet = 0.4 mg, Sublingual, Every 5 minutes, PRN as needed for chest pain, not to exceed 3 doses/15 min--if pain persists, seek medical attention, # 100 tablet, 0 Refills, Maintenance, 09/28/20 17:00:00 EST, Tablet, [facility], Partial fill up... Start Date: 09/28/20 [...]
--- OUTSIDE RECORDS SUMMARY | 2024-04-23 08:20 | XMS_ITS | Continuity of Care Document ---
Author Organization [facility] Address [address] [place] [phone]- Care Team Providers Care Supervisor Mapping Name Role Phone Sneha GORDON, Radha Sorensen Primary Care Physician [place] [facility] [place] 11/23/23 - 12/23/23 [facility] [address] [place] [address]- Attending Physician: Julia Allen Admitting Physician: AdmtrJulia Referring Physician: Admtr, Ar8 [...] vaccine, inactivated 4 05/08/09 Gi shane SARS-CoV-2(COVID-19)mRNA-LNP vac([id number]) 05/29/23 Recorded [id number] 12y+ bivalent booster vax 05/19/22 Recorded SARS-CoV-2 [...] tetanus/diphtheria/pertussis, acel(Tdap) 06/08/11 Given 1Result Comment: [facility] [id number] 2Result Comment: [05/25/2018] [facility]: [id number] 3Admin Note: Codi 4Admin Note: vis 03/31/09 [...] 3 Refills, Maintenance, 11/30/23 12:32:00 EDT, Tablet, [facility], 177.8, cm, 11/23/23 15:37:00 EDT, Height Start Date: 11/30/23 Status: Ordered amLODIPine 5 mg oral tablet See Instructions, TAKE 1 TABLET BY MOUTH DAILY, # 30 tablet, 11 Refills, Maintenance, 10/02/23 17:04:00 EST, [facility], 177.8, cm, 12/01/22 8:22:00 EDT, Height [...] 5 Refills, Maintenance, 10/04/23 9:00:00 EST, Tablet, [facility], 177.8, cm, 12/01/22 8:22:00 EDT, Height Start Date: 10/04/23 Stop Date: 04/01/24 Status: Ordered cyclobenzaprine 10 mg oral tablet 10 mg, 1, tablet, By Mouth, Daily at supper, # 30 tablet, Refills 2, Tot. Refills 2, Maintenance, 10/24/22 15:13:00 EST, Route to Pharmacy Electronically, [facility], Partial fill upon patient request if the prescription is for a schedule II opio... Start Date: 10/24/22 Status: Ordered fenofibrate 54 mg oral tablet 1 tablet, By Mouth, Daily, # 30 tablet, 5 Refills, Maintenance, 10/04/23 8:48:00 EST, [facility], 177.8, cm, 12/01/22 8:22:00 EDT, Height Start Date: 10/04/23 Status: Ordered finasteride 5 mg oral tablet 1 tablet = 5 mg, By Mouth, Daily at bedtime, # 90 tablet, 0 Refills, Maintenance, 11/30/23 12:31:00EDT, Tablet, [facility], Partial fill upon patient request if the prescription is for a schedule II opioid drug., 177.8, cm, 11/23/23 15:37:00 EDT... Start Date: 11/30/23 Stop Date: 02/28/24 Status: Ordered indomethacin 25 mg oral capsule 1 capsule, By Mouth, 3 times a day, PRN NEEDED FOR HEADACHE, # 30 capsule, 5 Refills, Maintenance, 02/09/23 18:32:00 EDT, [facility], 177.8, cm, 12/01/22 8:22:00 EDT, Height, [...] tablet, 5 Refills, Maintenance, 08/08/23 20:42:00 EST, [facility], 177.8 cm, 12/01/22 8:22:00 EDT, Height Start Date: 08/08/23 Status: Ordered nitroglycerin 0.4 mg sublingual tablet 1 tablet = 0.4 mg, Sublingual, Every 5 minutes, PRN as needed for chest pain, not to exceed 3 doses/15 min--if pain persists, seek medical attention, # 100 tablet, 0 Refills, Maintenance, 09/28/20 17:00:00 EST, Tablet, [facility], Partial fill up... Start Date: 09/28/20 Status: Ordered Pepcid 20 mg oral tablet 1 tablet = 20 mg, By Mouth, 2 times a day, # 60 tablet, 3 Refills, Maintenance, 10/16/23 16:31:00 EST, Tablet, [facility], Partial fill upon patient request if the prescription is for a scheduleII opioid drug., 177.8, cm, 10/16/23 16:14:00 EST,... Start Date: 10/16/23 Status: Ordered Repatha SureClick 140 mg/mL subcutaneous solution = 140 mg, Subcutaneous Infusion, Every 14 days, # 2 each, 11 Refills, Maintenance, 08/25/23 8:59:00EST, [facility], Partial fill upon patient request if the prescription is for a schedule II opioid drug., 177.8, cm, 12/01/22 8:22:00... Start Date: 08/25/23 Status: Ordered terazosin 5 mg oral capsule 1, capsule, By Mouth, Daily at bedtime, # 30 capsule, Refills 5, Maintenance, 10/04/23 8:48:00 EST,Route to Pharmacy Electronically, [facility], 177.8, cm, 12/01/22 8:22:00 EDT, Height [...] Confirmed Active Obese class I Confirmed Active ALIEC (obstructive sleep apnea) Confirmed Active Osteoarthritis of [...] Professional Member Role: PCP Address: Address: [address] [place] [address] [address] [place] [address]- Name: Jonathan Ramos RN Position: S RN Member Role: Primary Care Nurse Care Team Related Persons Name: LEN RAZO Address: home [address] [place] [address]
--- OUTSIDE RECORDS SUMMARY | 2024-04-23 08:20 | XMS_ITS | Continuity of Care Document ---
Author Organization [facility] Adult Address [address] [place] [address]- Care Team Providers Care Optimization Engineer Name Role Phone Sneha GORDON, Radha Sorensen Primary Care Physician Encounter [facility] Date(s): 05/08/20 - 06/07/20 [facility] [address] [place] [id number]- [facility] Allergies, Adverse Reactions, Alerts Substance Reaction Severity [...] tetanus/diphtheria/pertussis, acel(Tdap) 06/08/11 Given 1Result Comment: [facility] [id number] 2Result Comment: [05/25/2018] [facility]: [id number] 3Admin Note: Codi 4Admin Note: vis 03/31/09 5Result Comment: [08/11/2015] [facility] Ambien 10 mg oral tablet 1 tablet = 10 mg, By Mouth, Daily at bedtime, PRN for sleep, # 30 tablet, 3 Refills, Maintenance, 05/08/20 9:35:00 EDT, Tablet, [facility], 175.4, cm, 10/21/19 8:06:00 EST, Height [...] 3 Refills, Maintenance, 10/21/19 17:07:00 EST, Tablet, [facility], 175.4, cm, 10/21/19 8:06:00 EST, Height Start Date: 10/21/19 Status: Ordered azelastine nasal 0.15% spray 2 sprays, Nares, Both, 2 times a day, PRN for allergy symptoms, # 30 mL, 0 Refills, Maintenance, 10/21/19 8:40:00 EST, [place], [facility], 2 sprays Nares, Both 2 times a day,PRN:for allergy symptoms, 175.4, cm, 10/21/19 8:06:00 EST, Height Start Date: 10/21/19 Status: Ordered fenofibrate 54 mg oral tablet 1 tablet = 54 mg, By Mouth, Daily, # 30 tablet, 5 Refills, Maintenance, 12/31/19 10:02:00 EDT, [facility], 175.4, cm, 10/21/19 8:06:00 EST, Height [...] Replace Required Details, Route to Pharmacy Electronically, [facility], 175.4, cm, ... Start Date: 02/26/20 Status: Ordered mercaptopurine 50 mg oral tablet = 100 mg, By Mouth, Daily at bedtime, 0 Refills, Maintenance, 07/20/17 8:35:35, Tablet Start Date: 07/20/17 Status: Ordered metoprolol 25 mg oral tablet, extended release 25 mg, By Mouth, Daily at bedtime, # 30 each, Refills 0, Tot. Refills 0, Maintenance, 03/02/20 14:36:00 EDT, Route to Pharmacy Electronically, [facility], 175.4, cm, 10/21/19 8:06:00 EST, Height Start Date: 03/02/20 Stop Date: 04/01/20 Status: Ordered oxyCODONE 5 mg oral tablet 5 mg, 1, tablet, By Mouth, 2 times a day, PRN, for 28 days, # 56 tablet, Refills 0, Tot. Refills 0,Acute 06/09/20 12:17:00 EDT, Pain , Severe, 05/12/20 12:17:00 EDT, Route to Pharmacy Electronically, [facility], Partial fill upon patient request... Start [...] Stop,05/08/20 16:25:00 EDT, Route to Pharmacy Electronically, [facility], 175.4, cm, 10/21/19 8:06:00 EST, Height Start Date: 05/08/20 Stop Date: 05/03/21 Status: Ordered tiZANidine 2 mg oral tablet 1/2 tablet, By Mouth, Every 8 hours, PRN, # 45 tablet, Refills 0, Tot. Refills 0, Maintenance, as needed for muscle spasm, 11/05/19 10:51:00 EDT, Route to Pharmacy Electronically, [facility], 175.4, cm, 10/21/19 8:06:00 EST, Height [...]
--- OUTSIDE RECORDS SUMMARY | 2024-04-23 08:20 | XMS_ITS | Continuity of Care Document ---
Author Organization [facility] Address [address] [place] [id number]- Care Team Providers Care Track Hoe Operator Name Role Phone Sneha GORDON, Radha Sorensen Primary Care Physician Encounter [facility] Date(s): 10/21/20 - 10/28/20 [facility] [address] [place] [address]- Encounter Diagnosis Physical exam(Discharge Diagnosis) - 10/21/20 Anxiety disorder(Discharge Diagnosis) - 10/21/20 BPH (benign prostatic hyperplasia)(Discharge Diagnosis) - 10/21/20 CAD (coronary artery disease)(Discharge Diagnosis) - 10/21/20 Cervical myofascial pain syndrome(Discharge Diagnosis) - 10/21/20 Heart failure, diastolic, chronic(Discharge Diagnosis) - 10/21/20 History of DVT in adulthood(Discharge Diagnosis) - 10/21/20 ALICE (obstructive sleep apnea)(Discharge Diagnosis) - 10/21/20 Osteoarthritis of knee(Discharge Diagnosis) - 10/21/20 Ulcerative colitis(Discharge Diagnosis) - 10/21/20 Prediabetes(Discharge Diagnosis) - 10/21/20 Attending Physician: Radha Hoover NP Allergies, Adverse [...] 2Result Comment: [facility] [id number] 3Result Comment: [05/25/2018] [facility]: [id number] 4Admin Note: Codi 5Admin Note: vis 03/31/09 [...] 3 Refills, Maintenance, 05/08/20 9:35:00 EDT, Tablet, [facility], 175.4, cm, 10/21/19 8:06:00 EST, Height Start Date: 05/08/20 Stop Date: 09/05/20 Status: Ordered apixaban 5 mg oral tablet 1 tablet = 5 mg, By Mouth, 2 times a day, # 60 tablet, 0 Refills, Maintenance, 10/07/20 9:38:00 EST, Tablet, [facility], Partial fill upon patient request if the prescription is for a schedule II opioid drug., 178, cm, 10/07/20 7:43:00 E... Start Date: 10/07/20 Stop Date: 11/06/20 Status: Ordered Ativan 0.5 mg oral tablet 1 tablet = 0.5 mg, By Mouth, Every 8 hours, PRN as needed for anxiety, # 90 tablet, 3 Refills, Maintenance, 06/11/20 17:06:00 EDT, Tablet, [facility], 175.4, cm, 10/21/19 8:06:00 EST, Height Start Date: 06/11/20 Stop Date: 10/09/20 Status: Ordered docusate sodium 100 mg oral capsule 100 mg, 1, capsule, By Mouth, 2 times a day, # 60 capsule, Refills 0, Tot. Refills 0, Maintenance, 10/07/20 9:37:00 EST, Route to Pharmacy Electronically, [facility], Partial fill upon patient request if the prescription is for a schedul... Start Date: 10/07/20 Status: Ordered fenofibrate 54 mg oral tablet 1 tablet = 54 mg, By Mouth, Daily at bedtime, # 30 tablet, 5 Refills, Maintenance, 06/11/20 11:29:00 EDT, [facility], 175.4, cm, 10/21/19 8:06:00 EST, Height [...] Electronically, Varinder... Start Date: 09/11/20 Status: Ordered Maalox Plus [...] Stop,05/08/20 16:25:00 EDT, Route to Pharmacy Electronically, [facility], 175.4, cm, 10/21/19 8:06:00 EST, Height Start Date: 05/08/20 Stop Date: 05/03/21 Status: Ordered Zetia 10 mg oral tablet 1 tablet = 10 mg, By Mouth, Daily at bedtime, # 90 tablet, 3 Refills, Maintenance, 09/14/20 9:19:00EST, Tablet, [facility], Partial fill upon patient request [...] Clinical Service Informant Physical exam Discharge Diagnosis 10/21/20 Anxiety disorder Discharge Diagnosis 10/21/20 BPH (benign prostatic hyperplasia) Discharge Diagnosis 10/21/20 CAD (coronary artery disease) Discharge Diagnosis 10/21/20 Cervical myofascial pain syndrome Discharge Diagnosis 10/21/20 Heart failure, diastolic, chronic Discharge Diagnosis 10/21/20 History of DVT in adulthood Discharge Diagnosis 10/21/20 ALICE (obstructive sleep apnea) Discharge Diagnosis 10/21/20 Osteoarthritis of knee Discharge Diagnosis 10/21/20 Ulcerative colitis Discharge Diagnosis 10/21/20 Prediabetes Discharge Diagnosis 10/21/20 Vital Signs Most recent to oldest [Reference Range]: 1 2 Height 178 cm (10/21/20 11:07 AM) 178 cm (10/21/20 10:36 AM) Weight 90.7 kg (10/21/20 10:36 AM) Oxygen Saturation [94-100 %] 97 % (10/21/20 10:36 AM) Pulse Rate [55-90 bpm] 90 bpm (10/21/20 10:36 AM) Body Mass Index [18.5-24.99] 28.63 *H* (10/21/20 10:36 AM) Blood Pressure [90-138/55-84 mm Hg] 118/ 78mm Hg (10/21/20 11:07 AM) 123/84mm Hg (10/21/20 10:36 AM) Mode of Delivery (Oxygen) Room air (10/21/20 10:36 AM) Blood pressure sites Arm, left (10/21/20 11:07 AM) Arm, left (10/21/20 10:36 AM) Weight Obtained Via Standing scale (10/21/20 10:36 AM) Social History Social History Type Response Smoking Status Former smoker; Tobac co user in household: No; Other: quit smoking in 2007; entered on: 07/16/14 Sex
--- OUTSIDE RECORDS SUMMARY | 2024-04-23 08:20 | XMS_ITS | Continuity of Care Document ---
Author Organization [facility] Address [address] [place] [address]- Care Team Providers Care Surgical Specialist Name Role Phone Sneha GORDON, Radha Sorensen Primary Care Physician Encounter [facility] Date(s): 10/31/23 - 11/30/23 [facility] [address] [place] [address]- [place] Allergies, Adverse Reactions, Alerts Substance Reaction Severity Status statins myalgia Active Levaquin itch Moderate Active nonsteroidal anti-inflammatory agents diarrhea Active Crestor ck 400's and myalgia Active Immunizations Given and Recorded Vaccine Date Status Refusal Reason [id number] 12y+ bivalent booster vax 05/19/22 Recorded SARS-CoV-2 (COVID-19) mRNA-1273 vaccine 06/19/21 R ecorded zoster vaccine, inactivated 05/25/21 Recorded zoster vaccine, inactivated 07/02/20 Recorded influenza virus vaccine, inactivated 05/25/21 Domneico rded influenza virus vaccine, inactivated 1 06/12/19 [...] [facility] [id number] 2Result Comment: [05/25/2018] [facility]: [id number] 3Admin Note: Codi 4Admin Note: vis 03/31/09 [...] 3 Refills, Maintenance, 11/30/23 12:32:00 EDT, Tablet, [facility], 177.8, cm, 11/23/23 15:37:00 EDT, Height Start Date: 11/30/23 Status: Ordered amLODIPine 5 mg oral tablet See Instructions, TAKE 1 TABLET BY MOUTH DAILY, # 30 tablet, 11 Refills, Maintenance, 10/02/23 17:04:00 EST, [facility], 177.8, cm, 12/01/22 8:22:00 EDT, Height [...] 5 Refills, Maintenance, 10/04/23 9:00:00 EST, Tablet, [facility], 177.8, cm, 12/01/22 8:22:00 EDT, Height Start Date: 10/04/23 Stop Date: 8/12/24 Status: Ordered cyclobenzaprine 10 mg oral tablet 10 mg, 1, tablet, By Mouth, Daily at supper, # 30 tablet, Refills 2, Tot. Refills 2, Maintenance, 10/24/22 15:13:00 EST, Route to Pharmacy Electronically, [facility], Partial fill upon patient request if the prescription is for a schedule II opio... Start Date: 10/24/22 Status: Ordered fenofibrate 54 mg oral tablet 1 tablet, By Mouth, Daily, # 30 tablet, 5 Refills, Maintenance, 10/04/23 8:48:00 EST, [facility], 177.8, cm, 12/01/22 8:22:00 EDT, Height Start Date: 10/04/23 Status: Ordered finasteride 5 mg oral tablet 1 tablet = 5 mg, By Mouth, Daily at bedtime, # 90 tablet, 0 Refills, Maintenance, 11/30/23 12:31:00EDT, Tablet, [facility], Partial fill upon patient request if the prescription is for a schedule II opioid drug., 177.8, cm, 11/23/23 15:37:00 EDT... Start Date: 11/30/23 Stop Date: 02/28/24 Status: Ordered indomethacin 25 mg oral capsule 1 capsule, By Mouth, 3 times a day, PRN NEEDED FOR HEADACHE, # 30 capsule, 5 Refills, Maintenance, 02/09/23 18:32:00 EDT, [facility], 177.8, cm, 12/01/22 8:22:00 EDT, Height, [...] tablet, 5 Refills, Maintenance, 08/08/23 20:42:00 EST, [facility], 177.8, cm, 12/01/22 8:22:00 EDT, Height [...] 2 each, 11 Refills, Maintenance, 08/25/23 8:59:00EST, [facility], Partial fill upon patient request if the prescription is for a schedule II opioid drug., 177.8, cm, 12/01/22 8:22:00... Start Date: 08/25/23 Status: Ordered terazosin 5 mg oral capsule 1, capsule, By Mouth, Daily at bedtime, # 30 capsule, Refills 5, Maintenance, 10/04/23 8:48:00 EST,Route to Pharmacy Electronically, [facility], 177.8, cm, 12/01/22 8:22:00 EDT, Height [...] Team Personnel Name: Kya Marina RN Position: [facility] RN Member Role: Primary Care Nurse Name: Veronica Feng RN Position: [facility] SN RN Member Role: Primary Care Nurse Name: Radha Hoover NP Position: [facility] PCO Associate Professional Member Role: PCP Address: Address: [address] [place] [address] [address] [place] [address]- Name: Jonathan Ramos RN Position: [facility] RN Member Role: Primary Care Nurse Care Team Related Persons Name: LEN RAZO Address: [address] [address]
--- OUTSIDE RECORDS SUMMARY | 2024-04-23 08:20 | XMS_ITS | Continuity of Care Document ---
Author Organization [facility] Address [address] [place] [address]- Care Team Providers Care Airplane Pilot Supervisor Name Role Phone Sneha CATERING SALES MANAGER, Radha Sorensen Primary Care Physician [facility]counter [facility] Date(s): 04/16/21 - 05/16/21 [facility] [address] [place] [address]- Allergies, Adverse Reactions, Alerts Substance Reaction Severity [...] to report when received vaccine 2Result Comment: [facility] [id number] 3Result Comment: [05/25/2018] [facility]: [id number] 4Admin Note: [place] 5Admin Note: vis 03/31/09 [...] 3 Refills, Maintenance, 04/19/21 10:21:00 EDT, Tablet, [facility], 177.8, cm, 03/11/21 9:04:00 EDT, Height, [...] 3 Refills, Maintenance, 01/06/21 15:26:00 EDT, Tablet, [facility], 177.8, cm, 12/18/20 11:27:00 EDT, Height, 92.3, kg, 12/18/20 11:27:00 EDT, Dry Weight Start Date: 01/06/21 Stop Date: 05/06/21 Status: Ordered fenofibrate 54 mg oral tablet 1 tablet, By Mouth, Daily, # 30 tablet, 5 Refills, Maintenance, 12/14/20 9:58:00 EDT, [facility], 178, cm, 11/06/20 13:18:00 EDT, Height, 90.1, kg, 10/06/20 6:33:00 EST, Dry Weight Start Date: 12/14/20 Status: Ordered fenofibrate 54 mg oral tablet 1 tablet = 54 mg, By Mouth, Daily, # 90 tablet, 1 Refills, Maintenance, 01/05/21 9:14:00 EDT, [facility], 177.8, cm, 12/18/20 11:27:00 EDT, Height, [...] Replace Required Details, Route to Pharmacy Electronically, [facility], 177.8, cm, .. Start Date: 01/07/21 [...] 12/11/20 21:05:00 EDT, Route to Pharmacy Electronically, [facility], 178, cm, 11/06/20 13:18:00 EDT, Height,90.1, [...] 0 Refills, Maintenance, 09/28/20 17:00:00 EST, Tablet, [facility], Partial fill up... Start Date: 09/28/20 Status: Ordered terazosin 5 mg oral capsule 5 mg, 1, capsule, By Mouth, Daily at bedtime, # 30 capsule, Refills 11, Tot. Refills 11, Soft Stop,03/16/21 15:03:00 EDT, Route to Pharmacy Electronically, [facility], 177.8, cm, 03/11/21 9:04:00 EDT, Height, [...]
--- OUTSIDE RECORDS SUMMARY | 2024-04-23 08:20 | XMS_ITS | Continuity of Care Document ---
Author Organization [facility] Address [address] [place] [address]- Care Team Providers Care Snuff Container Inspector Name Role Phone Sneha GORDON, Radha Sorensen Primary Care Physician [facility]counter [facility] Date(s): 03/11/21 - 04/10/21 [facility] [address] [place], [place] [id number]- Attending Physician: Julia Allen Admitting Physician: AdmJulia metz Referring Physician: Admtr, Ar8 Allergies, Adverse Reactions, [...] to report when received vaccine 2Result Comment: [facility] [id number] 3Result Comment: [05/25/2018] [facility]: [id number] 4Admin Note: [facility] 5Admin Note: vis 03/31/09 [...] 3 Refills, Maintenance, 12/02/20 15:26:00 EDT, Tablet, [facility], 178, cm, 11/06/20 13:18:00 EDT, Height, [...] 3 Refills, Maintenance, 01/06/21 15:26:00 EDT, Tablet, [facility], 177.8, cm, 12/18/20 11:27:00 EDT, Height, 92.3, kg, 12/18/20 11:27:00 EDT, Dry Weight Start Date: 01/06/21 Stop Date: 05/06/21 Status: Ordered fenofibrate 54 mg oral tablet 1 tablet, By Mouth, Daily, # 30 tablet, 5 Refills, Maintenance, 12/14/20 9:58:00 EDT, [facility], 178, cm, 11/06/20 13:18:00 EDT, Height, 90.1, kg, 10/06/20 6:33:00 EST, Dry Weight Start Date: 12/14/20 Status: Ordered fenofibrate 54 mg oral tablet 1 tablet = 54 mg, By Mouth, Daily, # 90 tablet, 1 Refills, Maintenance, 01/05/21 9:14:00 EDT, [facility], 177.8, cm, 12/18/20 11:27:00 EDT, Height, [...] Replace Required Details, Route to Pharmacy Electronically, [facility], 177.8, cm, .. Start Date: 01/07/21 [...] 12/11/20 21:05:00 EDT, Route to Pharmacy Electronically, [facility], 178, cm, 11/06/20 13:18:00 EDT, Height,90.1, [...] Stop,03/16/21 15:03:00 EDT, Route to Pharmacy Electronically, [facility], 177.8, cm, 03/11/21 9:04:00 EDT, Height, [...]
--- OUTSIDE RECORDS SUMMARY | 2024-04-23 08:20 | XMS_ITS | Continuity of Care Document ---
Author Organization [facility] Address [address] [place] [address]- Care Team Providers Care Sports Psychologist Name Role Phone Sneha FREELANCE PATTERNMAKER, Radha Sorensen Primary Care Physician Encounter [facility] Date(s): 08/09/20 - 09/08/20 [facility] [address] [place] [address]- Allergies, Adverse Reactions, Alerts Substance Reaction Severity [...] vaccine 2Result Comment: [facility] [id number] 3Result Comment: [05/25/2018] [facility]: [id number] 4Admin Note: Codi 5Admin Note: vis 03/31/09 6Result Comment: [08/11/2015] [facility] Ambien 10 mg oral tablet 1 tablet = 10 mg, By Mouth, Daily at bedtime, PRN for sleep, # 30 tablet, 3 Refills, Maintenance, 05/08/20 9:35:00 EDT, Tablet, [facility], 175.4, cm, 10/21/19 8:06:00 EST, Height [...] 3 Refills, Maintenance, 06/11/20 17:06:00 EDT, Tablet, [facility], 175.4, cm, 10/21/19 8:06:00 EST, Height Start Date: 06/11/20 Stop Date: 10/09/20 Status: Ordered azelastine nasal 0.15% spray 2 sprays, Nares, Both, 2 times a day, PRN for allergy symptoms, # 30 mL, 0 Refills, Maintenance, 10/21/19 8:40:00 EST, [place], [facility], 2 sprays Nares, Both 2 times a day,PRN:for allergy symptoms, 175.4, cm, 10/21/19 8:06:00 EST, Height Start Date: 10/21/19 Status: Ordered fenofibrate 54 mg oral tablet 1 tablet = 54 mg, By Mouth, Daily, # 30 tablet, 5 Refills, Maintenance, 06/11/20 11:29:00 EDT, [facility], 175.4, cm, 10/21/19 8:06:00 EST, Height [...] Details, Route to Pharmacy Electronically, [facility], 175.4, cm, 03... Start Date: 02/26/20 Status: Ordered mercaptopurine 50 mg oral tablet = 100 mg, By Mouth, Daily at bedtime, 0 Refills, Maintenance, 07/20/17 8:35:35, Tablet Start Date: 07/20/17 Status: Ordered metoprolol 25 mg oral tablet, extended release 25 mg, By Mouth, Daily at bedtime, # 30 each, Refills 2, Tot. Refills 2, Maintenance, 08/09/20 21:59:00 EST, Route to Pharmacy Electronically, [facility], 175.4, cm, 10/21/19 8:06:00 EST, Height Start Date: 08/09/20 Stop Date: 11/07/20 Status: Ordered oxyCODONE 5 mg oral tablet 5 mg, 1, tablet, By Mouth, 2 times a day, PRN, for 28 days, # 56 tablet, Refills 0, Tot. Refills 0,Acute 09/17/20 8:19:00 EST, Pain , Severe, 08/20/20 8:19:00 EST, Route to Pharmacy Electronically, [facility], Partial fill upon patient request,... Start [...] Stop,05/08/20 16:25:00 EDT, Route to Pharmacy Electronically, [facility], 175.4, cm, 10/21/19 8:06:00 EST, Height [...]
--- OUTSIDE RECORDS SUMMARY | 2024-04-23 08:20 | XMS_ITS | Continuity of Care Document ---
Author Organization [facility] Address [address] [place] [address]- Care Team Providers Care Secretary Specialist Name Role Phone Sneha GORDON, Radha Sorensen Primary Care Physician [facility] [facility] [place] 11/18/21 - 11/25/21 [facility] [address] [place] [address]- Attending Physician: Allison Carmona DO Referring Physician: Radha Hoover NP Allergies, Adverse [...] Given tetanus/diphtheria/pertussis, acel(Tdap) 06/08/11 Given 1Result Comment: [facility] [id number] 2Result Comment: [05/25/2018] [facility]: [id number] 3Admin Note: Nikitayadi 4Admin Note: vis 03/31/09 5Result Comment: per [...] 0 Refills, Maintenance, 11/22/21 12:48:00 EDT, Tablet, [facility], 177.8, cm, 11/15/21 9:37:00 EDT, Height, [...] 90 tablet, 1 Refills, Maintenance, 01/05/21 9:14:00EDT, [facility], 177.8, cm, 12/18/20 11:27:00 EDT, Height, [...] Replace Required Details, Route to Pharmacy Electronically, [facility], 177.8, cm, 09/07/21 13:03:0... Start Date: 09/17/21 Status: Ordered Guaiatussin AC 10 mg-100 mg/5 ml oral syrup 10 mL, By Mouth, Every 6 hours, PRN for cough, # 240 mL, 0 Refills, Maintenance, 11/22/21 16:22:00 EDT, Syrup, [facility], Partial fill upon patient request if [...] AT BEDTIME, # 30 tablet, 5 Refills, [facility],177.8, cm, 06/18/21 9:52:00 EDT, Height, 92.3, kg, 12/18/20 11:27:00 EDT, Dry Weight Start Date: 07/16/21 Status: Ordered nitroglycerin 0.4 mg sublingual tablet 1 tablet = 0.4 mg, Sublingual, Every 5 minutes, PRN as needed for chest pain, not to exceed 3 doses/15 min--if pain persists, seek medical attention, # 100 tablet, 0 Refills, Maintenance, 09/28/20 17:00:00 EST, Tablet, [facility], Partial fill up... Start Date: 09/28/20 Status: Ordered predniSONE 20 mg oral tablet 2 tablet = 40 mg, By Mouth, Daily, for 5 days, # 10 tablet, 0 Refills, Acute 11/27/21 15:12:00 EDT,11/22/21 15:12:00 EDT, [facility], Partial fill upon patient request if the prescription is for a schedule II opioid drug., 177.8, cm, 11/22/21 14... Start Date: 11/22/21 Stop Date: 11/27/21 Status: Ordered terazosin 5 mg oral capsule 5 mg, 1, capsule, By Mouth, Daily at bedtime, # 30 capsule, Refills 8, Tot. Refills 8, Soft Stop, 03/11/22 15:03:00 EDT, Route to Pharmacy Electronically, [facility], 177.8, cm, 04/22/21 14:54:00 EDT, Height, [...]
--- OUTSIDE RECORDS SUMMARY | 2024-04-23 08:20 | XMS_ITS | Continuity of Care Document ---
Author Organization [facility] Address [address] [place] [address]- Care Team Providers Care Hatch Supervisor Name Role Phone Radha Hoover NP Primary Care Physician Encounter [facility] Date(s): 11/19/21 - 12/19/21 [facility] [address] [place] [address]- Allergies, Adverse Reactions, Alerts Substance Reaction Severity [...] Given 1Result Comment: [facility] [id number] 2Result Comment: [05/25/2018] [facility]: [id number] 3Admin Note: Codi 4Admin Note: gabbie 03/31/09 [...] 3 Refills, Maintenance, 08/18/21 8:58:00 EST, Tablet, [facility], 177.8, cm, 08/10/21 10:04:00 EST, Height, [...] 0 Refills, Maintenance, 11/22/21 12:48:00 EDT, Tablet, [facility], 177.8, cm, 11/15/21 9:37:00 EDT, Height, [...] 90 tablet, 1 Refills, Maintenance, 01/05/21 9:14:00EDT, [facility], 177.8, cm, 12/18/20 11:27:00 EDT, Height, [...] Replace Required Details, Route to Pharmacy Electronically, [facility], 177.8, cm, 09/07/21 13:03:0... Start Date: 09/17/21 Status: Ordered Guaiatussin AC 10 mg-100 mg/5 ml oral syrup 10 mL, By Mouth, Every 6 hours, PRN for cough, # 240 mL, 0 Refills, Maintenance, 11/22/21 16:22:00 EDT, Syrup, [facility], Partial fill upon patient request if [...] AT BEDTIME, # 30 tablet, 5 Refills, [facility],177.8, cm, 06/18/21 9:52:00 EDT, Height, 92.3, kg, 12/18/20 11:27:00 EDT, Dry Weight Start Date: 07/16/21 Status: Ordered nitroglycerin 0.4 mg sublingual tablet 1 tablet = 0.4 mg, Sublingual, Every 5 minutes, PRN as needed for chest pain, not to exceed 3 doses/15 min--if pain persists, seek medical attention, # 100 tablet, 0 Refills, Maintenance, 09/28/20 17:00:00 EST, Tablet, [facility], Partial fill up... Start Date: 09/28/20 Status: Ordered terazosin 5 mg oral capsule 5 mg, 1, capsule, By Mouth, Daily at bedtime, # 30 capsule, Refills 8, Tot. Refills 8, Soft Stop, 03/11/22 15:03:00 EDT, Route to Pharmacy Electronically, [facility], 177.8, cm, 04/22/21 14:54:00 EDT, Height, [...]
--- OUTSIDE RECORDS SUMMARY | 2024-04-23 08:20 | XMS_ITS | Continuity of Care Document ---
Author Organization [facility] Address [address] [place] [address]- Care Team Providers Care Public Safety Director Name Role Phone Sneha DIRECTOR FINANCIAL PLANNING, Radha Sorensen Primary Care Physician [facility]counter [facility] Date(s): 01/20/22 - 02/19/22 [facility] [address] [place] [address]- Allergies, Adverse Reactions, Alerts Substance Reaction Severity [...] acel(Tdap) 06/08/11 Given 1Result Comment: [facility] [id number] 2Result Comment: [05/25/2018] [facility]: [id number] 3Admin Note: Codi 4Admin Note: vis 03/31/09 [...] anxiety, # 90 tablet, 0 Refills, Maintenance, 01/21/22 11:10:00 EDT, Tablet, [facility], 01/23/22, 177.8, cm, 11/22/21 14:53:00 EDT,Height, 96.8, kg, 08/05/21 8:57:00 EST, Dry Weight Start Date: 01/21/22 Stop Date: 02/20/22 Status: Ordered CeleBREX 200 mg oral capsule 1 capsule = 200 mg, By Mouth, 2 times a day, 0 Refills, Maintenance, 10/25/21 11:54:00 EST, Capsule, Partial fill upon patient request if the prescription is for a schedule II opioid drug. Start Date: 10/25/21 Status: Ordered fenofibrate 54 mg oral tablet 1 tablet, By Mouth, Daily, # 30 tablet, 3 Refills, [facility], 177.8, cm, 11/22/21 14:53:00 EDT, Height, [...] Replace Required Details, Route to Pharmacy Electronically, [facility], 177.8, cm, 09/07/21 13:03:0... Start Date: 09/17/21 Status: Ordered Guaiatussin AC 10 mg-100 mg/5 ml oral syrup 10 mL, By Mouth, Every 6 hours, PRN for cough, # 240 mL, 0 Refills, Maintenance, 11/22/21 16:22:00 EDT, Syrup, [facility], Partial fill upon patient request if [...] at bedtime, # 30 tablet, 5 Refills, [facility], 177.8, cm, 11/22/21 14:53:00 EDT, Height, 96.8, kg, 08/05/21 8:57:00 EST, Dry Weight Start Date: 12/23/21 Status: Ordered nitroglycerin 0.4 mg sublingual tablet 1 tablet = 0.4 mg, Sublingual, Every 5 minutes, PRN as needed for chest pain, not to exceed 3 doses/15 min--if pain persists, seek medical attention, # 100 tablet, 0 Refills, Maintenance, 09/28/20 17:00:00 EST, Tablet, [facility], Partial fill up... Start Date: 09/28/20 Status: Ordered terazosin 5 mg oral capsule See Instructions, TAKE 1 CAPSULE BY MOUTH DAILY AT BEDTIME, # 30 capsule, Refills 5, Instructions Replace Required Details, Route to Pharmacy Electronically, [facility], 177.8, cm, 02/14/22 8:18:00 EDT, Height, [...]
--- OUTSIDE RECORDS SUMMARY | 2024-04-23 08:20 | XMS_ITS | Continuity of Care Document ---
Author Organization [facility] Adult Address [address] [place] [phone]- Care Team Providers Care Senior Radiation Protection Technician Name Role Phone Radha Hoover NP Primary Care Physician Encounter [facility] [place] Date(s): 05/12/22 - 06/11/22 [facility] Adult [address] [place] [phone]- Allergies, Adverse Reactions, Alerts Substance Reaction Severity [...] [facility][note 3] [id number] 2Result Comment: [05/25/2018] [facility]: [id number] 3Admin Note: Cameronradha 4Admin Note: gabbie 03/31/09 5Result Comment: per [...] 3 Refills, Maintenance, 02/17/22 12:36:00 EDT, Tablet, [facility], 177.8, cm, 02/14/22 8:18:00 EDT, Height, [...] 5 Refills, Maintenance, 04/27/22 12:46:00 EDT, Tablet, [facility], 177.8, cm, 04/19/22 9:41:00 EDT, Height, [...] tablet, 5 Refills, Maintenance, 03/25/22 14:14:00 EDT, [facility], 177.8, cm, 02/14/22 8:18:00 EDT, Height, [...] Replace Required Details, Route to Pharmacy Electronically, [facility], 177.8, cm, 02/14/22 8:18:00... Start Date: 03/24/22 Status: Ordered Guaiatussin AC 10 mg-100 mg/5 ml oral syrup 10 mL, By Mouth, Every 6 hours, PRN for cough, # 240 mL, 0 Refills, Maintenance, 11/22/21 16:22:00 EDT, Syrup, [facility], Partial fill upon patient request if the prescription is for a scheduleII opioid drug., 10 mL By Mouth Every 6 hours,PRN:f... Start Date: 11/22/21 Status: Ordered indomethacin 25 mg oral capsule 1 capsule = 25 mg, By Mouth, 3 times a day, PRN Headache, # 30 capsule, 2 Refills, Maintenance, 05/20/22 8:07:00 EDT, Capsule, [facility], 30 caps / month, 177.8, cm, [...] at bedtime, # 30 tablet, 5 Refills, [facility], 177.8, cm, 11/22/21 14:53:00 EDT, Height, 96.8, kg, 08/05/21 8:57:00 EST, Dry Weight Start Date: 12/23/21 Status: Ordered nitroglycerin 0.4 mg sublingual tablet 1 tablet = 0.4 mg, Sublingual, Every 5 minutes, PRN as needed for chest pain, not to exceed 3 doses/15 min--if pain persists, seek medical attention, # 100 tablet, 0 Refills, Maintenance, 09/28/20 17:00:00 EST, Tablet, [facility], Partial fill up... Start Date: 09/28/20 Status: Ordered rizatriptan 5 mg oral tablet 1 tablet = 5 mg, By Mouth, Once, PRN for migraine headache, may repeat dose once in 2 hours max 2 tabs in 24hrs ., # 12 tablet, 2 Refills, Soft Stop, 05/20/22 7:59:00 EDT, Tablet, [facility], Partial fill upon patient request if the prescript... Start Date: 05/20/22 Status: Ordered SUMAtriptan 4 mg/0.5 mL subcutaneous solution 0.5 mL = 4 mg, Subcutaneous Injection, Once, PRN as needed for migraine headache, may repeat once in 1 hour if needed, # 1 kit, 0 Refills, Soft Stop, 03/21/22 14:40:00 EDT, Solution, [facility],Partial fill upon patient request if the prescripti... Start Date: 03/21/22 Status: Ordered terazosin 5 mg oral capsule See Instructions, TAKE 1 CAPSULE BY MOUTH DAILY AT BEDTIME, # 30 capsule, Refills 5, Instructions Replace Required Details, Route to Pharmacy Electronically, [facility], 177.8, cm, 02/14/22 8:18:00 EDT, Height, [...] Sex Patient Care team information Personnel Name: Sneha GORDON, Radha Sorensen Address: Address: [address] [place], [place] [address]
--- OUTSIDE RECORDS SUMMARY | 2024-04-23 08:20 | XMS_ITS | Continuity of Care Document ---
Author Organization [facility] Address [address] [place] [phone]- Care Team Providers Care Lead Warehouse Associate Name Role Phone Sneha GORDON, Radha Sorensen Primary Care Physician Encounter [facility] [place] Date(s): 01/20/23 - 02/19/23 [facility] [address] [place] [address]- [place] Allergies, Adverse Reactions, Alerts Substance Reaction Severity Status Levaquin itch Moderate Active nonsteroidal anti-inflammatory agents diarrhea Active Crestor ck 400's and myalgia Active statins myalgia Active Immunizations Given and Recorded Vaccine Date Status Refusal Reason [id number] 12y+ bivalent booster vax 05/19/22 Recorded SARS-CoV-2 [...] tetanus/diphtheria/pertussis, acel(Tdap) 06/08/11 Given 1Result Comment: [facility] [id number] 2Result Comment: [05/25/2018] [facility]: [id number] 3Admin Note: Danielitomatt 4Admin Note: vis 03/31/09 5Result Comment: per [...] 3 Refills, Maintenance, 01/10/23 16:19:00 EDT, Tablet, [facility], 177.8, cm, 12/01/22 8:22:00 EDT, Height, 96.8, kg, 08/05/21 8:57:00 EST, Dry Weight Start Date: 01/10/23 Stop Date: 05/10/23 Status: Ordered amitriptyline 50 mg oral tablet 2 tablet = 100 mg, By Mouth, Daily at bedtime, # 60 tablet, 0 Refills, Maintenance, 12/15/22 13:40:00 EDT, [facility], Partial fill upon patient request if the prescription is for a schedule II opioid drug., 177.8, cm, 12/01/22 8:22:00 EDT, Heigh... Start Date: 12/15/22 Stop Date: 01/14/23 Status: Ordered amLODIPine 5 mg oral tablet 5 mg, 1, tablet, By Mouth, Daily, # 90 tablet, Refills 3, Tot. Refills 3, Maintenance, 09/29/22 9:48:00 EST, Route to Pharmacy Electronically, [facility], Partial fill upon patient request if [...] 5 Refills, Maintenance, 11/11/22 12:40:00 EDT, Tablet, [facility], 177.8, cm, 10/24/22 8:53:00 EST, Height, 96.8, kg, 08/05/21 8:57:00 EST, Dry Weight Start Date: 11/11/22 Stop Date: 05/10/23 Status: Ordered cyclobenzaprine 10 mg oral tablet 10 mg, 1, tablet, By Mouth, Daily at supper, # 30 tablet, Refills 2, Tot. Refills 2, Maintenance, 10/24/22 15:13:00 EST, Route to Pharmacy Electronically, [facility], Partial fill upon patient request if the prescription is for a schedule II opio... Start Date: 10/24/22 Status: Ordered evolocumab 140 mg/mL subcutaneous solution = 140 mg, Subcutaneous Infusion, Every 14 days, # 1 kit, 6 Refills, Maintenance, 01/30/23 14:16:00 EDT, [facility], Partial fill upon patient request if the prescription is for a schedule II opioid drug., 177.8, cm, 12/01/22 8:22:00 E... Start Date: 01/30/23 Status: Ordered fenofibrate 54 mg oral tablet 1 tablet, By Mouth, Daily, # 30 tablet, 5 Refills, Maintenance, 11/09/22 6:38:00 EDT, [facility], 177.8, cm, 10/24/22 8:53:00 EST, Height, [...] capsule, 5 Refills, Maintenance, 02/09/23 18:32:00 EDT, [facility], 177.8, cm, 12/01/22 8:22:00 EDT, Height, [...] at bedtime, # 30 tablet, 5 Refills, [facility], 177.8, cm, 11/22/21 14:53:00 EDT, Height, [...] kit, 0 Refills, Maintenance, 02/01/23 16:53:00 EDT, [facility], Partial fill upon [...] Refills, Soft Stop, 05/20/22 7:59:00 EDT, Tablet, [facility], Partial fill upon patient request if the prescript... Start Date: 05/20/22 Status: Ordered SUMAtriptan 4 mg/0.5 mL subcutaneous solution 0.5 mL = 4 mg, Subcutaneous Injection, Once, PRN as needed for migraine headache, may repeat once in 1 hour if needed, # 1 kit, 0 Refills, Soft Stop, 03/21/22 14:40:00 EDT, Solution, [facility],Partial fill upon patient request if the prescripti... Start Date: 03/21/22 Status: Ordered terazosin 5 mg oral capsule See Instructions, TAKE 1 CAPSULE BY MOUTH DAILY AT BEDTIME, # 30 capsule, Refills 5, Maintenance, 02/09/23 19:59:00 EDT, Instructions Replace Required Details, Route to Pharmacy Electronically, [facility], 177.8, cm, 12/01/22 8:22:00 EDT, Height,... [...] Member Role: Primary Care Nurse Name: Sneha RELATIONS MANAGER, Radha Sorensen Position: [facility] PCO Associate Professional Member Role: PCP Address: Address: [address] [place] [address]- Name: Jonathan Ramos RN Position: S RN Member Role: Primary Care Nurse Care Team Related Persons Name: LEN RAZO Address: [address] [address]
--- OUTSIDE RECORDS SUMMARY | 2024-04-23 08:20 | XMS_ITS | Continuity of Care Document ---
Author Organization [facility] Adult Address [address] [place] [address]- Care Team Providers Care Quality Manager Name Role Phone Radha Hoover NP Primary Care Physician Encounter [facility] Date(s): 11/30/23 - 12/30/23 [facility] [address] [place] [address]- Allergies, Adverse Reactions, Alerts Substance Reaction Severity [...] vaccine, inactivated 4 05/08/09 Gi shane SARS-CoV-2(COVID-19)mRNA-LNP vac(eti860) 05/29/23 Recorded [id number] 12y+ bivalent booster vax 05/19/22 Recorded SARS-CoV-2 [...] Comment: [facility] [id number] 2Result Comment: [05/25/2018] [facility]: [id number] 3Admin Note: [facility] 4Admin Note: vis 03/31/09 [...] 3 Refills, Maintenance, 11/30/23 12:32:00 EDT, Tablet, [facility], 177.8, cm, 11/23/23 15:37:00 EDT, Height Start Date: 11/30/23 Status: Ordered amLODIPine 5 mg oral tablet See Instructions, TAKE 1 TABLET BY MOUTH DAILY, # 30 tablet, 11 Refills, Maintenance, 10/02/23 17:04:00 EST, [facility], 177.8, cm, 12/01/22 8:22:00 EDT, Height [...] 5 Refills, Maintenance, 10/04/23 9:00:00 EST, Tablet, [facility], 177.8, cm, 12/01/22 8:22:00 EDT, Height Start Date: 10/04/23 Stop Date: 04/01/24 Status: Ordered cyclobenzaprine 10 mg oral tablet 10 mg, 1, tablet, By Mouth, Daily at supper, # 30 tablet, Refills 2, Tot. Refills 2, Maintenance, 10/24/22 15:13:00 EST, Route to Pharmacy Electronically, [facility], Partial fill upon patient request if the prescription is for a schedule II opio... Start Date: 10/24/22 Status: Ordered fenofibrate 54 mg oral tablet 1 tablet, By Mouth, Daily, # 30 tablet, 5 Refills, Maintenance, 10/04/23 8:48:00 EST, [facility], 177.8, cm, 12/01/22 8:22:00 EDT, Height Start Date: 10/04/23 Status: Ordered finasteride 5 mg oral tablet 1 tablet = 5 mg, By Mouth, Daily at bedtime, # 90 tablet, 0 Refills, Maintenance, 11/30/23 12:31:00EDT, Tablet, [facility], Partial fill upon patient request if the prescription is for a schedule II opioid drug., 177.8, cm, 11/23/23 15:37:00 EDT... Start Date: 11/30/23 Stop Date: 02/28/24 Status: Ordered indomethacin 25 mg oral capsule 1 capsule, By Mouth, 3 times a day, PRN NEEDED FOR HEADACHE, # 30 capsule, 5 Refills, Maintenance, 02/09/23 18:32:00 EDT, [facility], 177.8, cm, 12/01/22 8:22:00 EDT, Height, [...] tablet, 5 Refills, Maintenance, 08/08/23 20:42:00 EST, [facility], 177.8, cm, 12/01/22 8:22:00 EDT, Height Start Date: 08/08/23 Status: Ordered nitroglycerin 0.4 mg sublingual tablet 1 tablet = 0.4 mg, Sublingual, Every 5 minutes, PRN as needed for chest pain, not to exceed 3 doses/15 min--if pain persists, seek medical attention, # 100 tablet, 0 Refills, Maintenance, 09/28/20 17:00:00 EST, Tablet, [facility], Partial fill up... Start Date: 09/28/20 Status: Ordered Pepcid 20 mg oral tablet 1 tablet = 20 mg, By Mouth, 2 times a day, # 60 tablet, 3 Refills, Maintenance, 10/16/23 16:31:00 EST, Tablet, [facility], Partial fill upon patient request if the prescription is for a scheduleII opioid drug., 177.8, cm, 10/16/23 16:14:00 EST,... Start Date: 10/16/23 Status: Ordered Repatha SureClick 140 mg/mL subcutaneous solution = 140 mg, Subcutaneous Infusion, Every 14 days, # 2 each, 11 Refills, Maintenance, 08/25/23 8:59:00EST, [facility], Partial fill upon patient request if the prescription is for a schedule II opioid drug., 177.8, cm, 12/01/22 8:22:00... Start Date: 08/25/23 Status: Ordered terazosin 5 mg oral capsule 1, capsule, By Mouth, Daily at bedtime, # 30 capsule, Refills 5, Maintenance, 10/04/23 8:48:00 EST,Route to Pharmacy Electronically, [facility], 177.8, cm, 12/01/22 8:22:00 EDT, Height [...] Care Nurse Name: Veronica Feng RN Position: [facility] SN RN Member Role: Primary Care Nurse Name: Radha Hoover NP Position: [facility] PCO Associate Professional Member Role: PCP Address: Address: [address] [place] [address] [address] [place] [address]- Name: Jonathan Ramos RN Position: S RN Member Role: Primary Care Nurse Care Team Related Persons Name: LEN RAZO Address: [address] [address]
--- OUTSIDE RECORDS SUMMARY | 2024-04-23 08:20 | XMS_ITS | Continuity of Care Document ---
Author Organization [facility] Adult Address [address] [place] [address]- Care Team Providers Care Capacity Planning Engineer Name Role Phone Sneha GORDON, Radha Sorensen Primary Care Physician Encounter [facility] [place] Date(s): 03/10/23 - 04/09/23 [facility] Adult [address] [place] [address]- Allergies, Adverse Reactions, Alerts Substance Reaction Severity Status nonsteroidal anti-inflammatory agents diarrhea Active statins myalgia Active Levaquin itch Moderate Active Crestor ck 400's and myalgia Active Immunizations Given and Recorded Vaccine Date Status Refusal Reason [id number] 12y+ bivalent booster vax 05/19/22 Recorded SARS-CoV-2 [...] 06/08/11 Given 1Result Comment: [facility] [id number] 2Result Comment: [05/25/2018] [facility]: [id number] 3Admin Note: Codi 4Admin Note: vis 03/31/09 [...] 3 Refills, Maintenance, 01/10/23 16:19:00 EDT, Tablet, [facility], 177.8, cm, 12/01/22 8:22:00 EDT, Height, 96.8, kg, 08/05/21 8:57:00 EST, Dry Weight Start Date: 01/10/23 Stop Date: 05/10/23 Status: Ordered amitriptyline 50 mg oral tablet 2 tablet = 100 mg, By Mouth, Daily at bedtime, # 60 tablet, 0 Refills, Maintenance, 12/15/22 13:40:00 EDT, [facility], Partial fill upon patient request if [...] 5 Refills, Maintenance, 11/11/22 12:40:00 EDT, Tablet, [facility], 177.8, cm, 10/24/22 8:53:00 EST, Height, 96.8, kg, 08/05/21 8:57:00 EST, Dry Weight Start Date: 11/11/22 Stop Date: 05/10/23 Status: Ordered cyclobenzaprine 10 mg oral tablet 10 mg, 1, tablet, By Mouth, Daily at supper, # 30 tablet, Refills 2, Tot. Refills 2, Maintenance, 10/24/22 15:13:00 EST, Route to Pharmacy Electronically, [facility], Partial fill upon patient request if the prescription is for a schedule II opio... Start Date: 10/24/22 Status: Ordered evolocumab 140 mg/mL subcutaneous solution = 140 mg, Subcutaneous Infusion, Every 14 days, # 1 kit, 6 Refills, Maintenance, 01/30/23 14:16:00 EDT, [facility], Partial fill upon patient request if the prescription is for a schedule II opioid drug., 177.8, cm, 12/01/22 8:22:00 E... Start Date: 01/30/23 Status: Ordered fenofibrate 54 mg oral tablet 1 tablet, By Mouth, Daily, # 30 tablet, 5 Refills, Maintenance, 11/09/22 6:38:00 EDT, [facility], 177.8, cm, 10/24/22 8:53:00 EST, Height, [...] capsule, 5 Refills, Maintenance, 02/09/23 18:32:00 EDT, [facility], 177.8, cm, 12/01/22 8:22:00 EDT, Height, [...] 30 tablet, 5 Refills, 03/07/23 10:21:00 EDT, [facility], 177.8, cm, 12/01/22 8:22:00 EDT, Height, 96.8, kg, 08/05/21 8:57:00 EST, Dry Weight Start Date: 03/07/23 Status: Ordered nitroglycerin 0.4 mg sublingual tablet 1 tablet = 0.4 mg, Sublingual, Every 5 minutes, PRN as needed for chest pain, not to exceed 3 doses/15 min--if pain persists, seek medical attention, # 100 tablet, 0 Refills, Maintenance, 09/28/20 17:00:00 EST, Tablet, [facility], Partial fill up... Start Date: 09/28/20 Status: Ordered Praluent Pen 75 mg/mL subcutaneous solution See Instructions, 75 mg Subcutaneous Infusion every 2 weeks, # 3 kit, 0 Refills, Maintenance, 02/01/23 16:53:00 EDT, [facility], Partial fill upon patient [...] Refills, Soft Stop, 05/20/22 7:59:00 EDT, Tablet, [facility], Partial fill upon patient request if the prescript... Start Date: 05/20/22 Status: Ordered SUMAtriptan 4 mg/0.5 mL subcutaneous solution 0.5 mL = 4 mg, Subcutaneous Injection, Once, PRN as needed for migraine headache, may repeat once in 1 hour if needed, # 1 kit, 0 Refills, Soft Stop, 03/21/22 14:40:00 EDT, Solution, [facility],Partial fill upon patient request if the prescripti... Start Date: 03/21/22 Status: Ordered terazosin 5 mg oral capsule See Instructions, TAKE 1 CAPSULE BY MOUTH DAILY AT BEDTIME, # 90 capsule, Refills 1, Tot. Refills 1, Maintenance, 03/13/23 8:21:00 EDT, Instructions Replace Required Details, Route to Pharmacy Electronically, [facility], 177.8, cm, 12/01/22 8:22:... Start Date: 03/13/23 Status: Ordered Problem List Condition Confirmation Course [...] Associate Professional Member Role: PCP Address: Address: [address] [place] [address] [address] [place] [address]- Name: Jonathan Ramos RN Position: [facility] RN Member Role: Primary Care Nurse Care Team Related Persons Name: LEN RAZO Address: [address] [address]
--- OUTSIDE RECORDS SUMMARY | 2024-04-23 08:20 | XMS_ITS | Continuity of Care Document ---
Author Organization [facility] Address [address] [place] [address]- Care Team Providers Care Brusher Warp Name Role Phone Sneha GORDON, Radha Sorensen Primary Care Physician Encounter [facility] Date(s): 08/27/20 - 09/26/20 [facility] [address] [place] [address]- Allergies, Adverse Reactions, Alerts Substance Reaction Severity [...] to report when received vaccine 2Result Comment: [facility] [id number] 3Result Comment: [05/25/2018] [facility]: [id number] 4Admin Note: [facility] 5Admin Note: vis 03/31/09 6Result Comment: [08/11/2015] [facility] Ambien 10 mg oral tablet 1 tablet = 10 mg, By Mouth, Daily at bedtime, PRN for sleep, # 30 tablet, 3 Refills, Maintenance, 05/08/20 9:35:00 EDT, Tablet, [facility], 175.4, cm, 10/21/19 8:06:00 EST, Height [...] 3 Refills, Maintenance, 06/11/20 17:06:00 EDT, Tablet, [facility], 175.4, cm, 10/21/19 8:06:00 EST, Height Start Date: 06/11/20 Stop Date: 10/09/20 Status: Ordered fenofibrate 54 mg oral tablet 1 tablet = 54 mg, By Mouth, Daily, # 30 tablet, 5 Refills, Maintenance, 06/11/20 11:29:00 EDT, [facility], 175.4, cm, 10/21/19 8:06:00 EST, Height [...] Replace Required Details, Route to Pharmacy Electronically, [facility] Start Date: 09/11/20 Status: Ordered mercaptopurine 50 [...] tablet, By Mouth, Every 6 hours, PRN, Refills 0, Tot. Refills 0, Maintenance, as needed for pain, 09/25/20 9:44:00 EST, Partial fill upon patient request if the prescription is for a schedule II opioid drug. Start Date: 09/25/20 Status: Ordered terazosin 5 mg oral capsule 5 mg, 1, capsule, By Mouth, Daily at bedtime, # 30 capsule, Refills 11, Tot. Refills 11, Soft Stop,05/08/20 16:25:00 EDT, Route to Pharmacy Electronically, [facility], 175.4, cm, 10/21/19 8:06:00 EST, Height [...]
--- OUTSIDE RECORDS SUMMARY | 2024-04-23 08:20 | XMS_ITS | Continuity of Care Document ---
Author Organization [facility] Address [address] [place] [address]- Care Team Providers Care Clinical Rehabilitation Coordinator Name Role Phone Sneha GORDON, Radha Sorensen Primary Care Physician Encounter [facility] Date(s): 10/10/22 - 11/09/22 [facility] [address] [place] [address]- [place] Allergies, Adverse Reactions, Alerts Substance Reaction [...] Given tetanus/diphtheria/pertussis, acel(Tdap) 06/08/11 Given 1Result Comment: [facility] [id number] 2Result Comment: [05/25/2018] [facility]: [id number] 3Admin Note: C[facility] 4Admin Note: vis 03/31/09 [...] each, 11 Refills, Maintenance, 10/20/22 8:14:00 EST, [facility], Partial fill upon patient request if the prescription is for a schedule II opioid drug., 177.8, cm, 09/29/22 9:19:00 EST, Height,... Start Date: 10/20/22 Stop Date: 10/15/23 Status: Ordered Ambien 10 mg oral tablet 1 tablet = 10 mg, By Mouth, Daily at bedtime, PRN for sleep, # 30 tablet, 3 Refills, Maintenance, 09/16/22 8:46:00 EST, Tablet, [facility], 177.8, cm, 08/03/22 15:31:00 EST, Height, 96.8, kg, 08/05/21 8:57:00 EST, Dry Weight Start Date: 09/16/22 Stop Date: 01/14/23 Status: Ordered amitriptyline 50 mg oral tablet 2 tablet = 100 mg, By Mouth, Daily at bedtime, 1 tab dailyx 1 week then increase to 2 tabs, # 60 tablet, 5 Refills, Maintenance, 05/20/22 7:56:00 EDT, [facility], Partial fill upon patient request if [...] Date: 04/27/22 Stop Date: 10/24/22 Status: Ordered cyclobenzaprine 10 mg oral tablet 10 mg, 1, tablet, By Mouth, Daily at supper, # 30 tablet, Refills 2, Tot. Refills 2, Maintenance, 10/24/22 15:13:00 EST, Route to Pharmacy Electronically, [facility], Partial fill upon patient request if [...] tablet, 5 Refills, Maintenance, 11/09/22 6:38:00 EDT, [facility], 177.8, cm, 10/24/22 8:53:00 EST, Height, [...] 0 Refills, Maintenance, 11/22/21 16:22:00 EDT, Syrup, [facility], Partial fill upon patient request if the prescription is for a scheduleII opioid drug., 10 mL By Mouth Every 6 hours,PRN:f... Start Date: 11/22/21 Status: Ordered indomethacin 25 mg oral capsule 1 capsule = 25 mg, By Mouth, 3 times a day, PRN Headache, # 30 capsule, 5 Refills, Maintenance, 08/24/22 13:53:00 EST, Capsule, [facility], 30 caps / month, 177.8, cm, [...] at bedtime, # 30 tablet, 5 Refills, [facility], 177.8, cm, 11/22/21 14:53:00 EDT, Height, 96.8, kg, 08/05/21 8:57:00 EST, Dry Weight Start Date: 12/23/21 Status: Ordered nitroglycerin 0.4 mg sublingual tablet 1 tablet = 0.4 mg, Sublingual, Every 5 minutes, PRN as needed for chest pain, not to exceed 3 doses/15 min--if pain persists, seek medical attention, # 100 tablet, 0 Refills, Maintenance, 09/28/20 17:00:00 EST, Tablet, [facility], Partial fill up... Start Date: 09/28/20 Status: Ordered rizatriptan 5 mg oral tablet 1 tablet = 5 mg, By Mouth, Once, PRN for migraine headache, may repeat dose once in 2 hours max 2 tabs in 24hrs ., # 12 tablet, 2 Refills, Soft Stop, 05/20/22 7:59:00 EDT, Tablet, [facility], Partial fill upon patient request if the prescript... Start Date: 05/20/22 Status: Ordered SUMAtriptan 4 mg/0.5 mL subcutaneous solution 0.5 mL = 4 mg, Subcutaneous Injection, Once, PRN as needed for migraine headache, may repeat once in 1 hour if needed, # 1 kit, 0 Refills, Soft Stop, 03/21/22 14:40:00 EDT, Solution, [facility],Partial fill upon patient request if the prescripti... Start Date: 03/21/22 Status: Ordered terazosin 5 mg oral capsule 1, capsule, By Mouth, Daily at bedtime, # 30 capsule, Refills 5, Maintenance, 08/04/22 11:10:00 EST, Route to Pharmacy Electronically, [facility], 177.8, cm, 08/03/22 15:31:00 EST, Height, [...] Associate Professional Member Role: PCP Address: Address: [address] [place] [address] [address] [place] [address]- Name: Jonathan Ramos RN Position: S RN Member Role: Primary Care Nurse Care Team Related Persons Name: LEN RAZO Address: home [address] [place] [address]
--- OUTSIDE RECORDS SUMMARY | 2024-04-23 08:20 | XMS_ITS | Continuity of Care Document ---
Author Organization [facility] Address [address] [place] [address]- Care Team Providers Care Oracle Hyperion Consultant Name Role Phone Sneha GORDON, Radha Sorensen Primary Care Physician Encounter [facility] Date(s): 12/08/21 - 01/07/22 [facility] [address] [place] [address]- Attending Physician: Julia Allen Admitting Physician: AdmtrJulia [...] Given tetanus/diphtheria/pertussis, acel(Tdap) 06/08/11 Given 1Result Comment: [facility] [id number] 2Result Comment: [05/25/2018] [facility]: [id number] 3Admin Note: Codi 4Admin Note: vis 03/31/09 [...] 3 Refills, Maintenance, 08/18/21 8:58:00 EST, Tablet, [facility], 177.8, cm, 08/10/21 10:04:00 EST, Height, [...] 0 Refills, Maintenance, 12/24/21 12:45:00 EDT, Tablet, [facility], 177.8, cm, 11/22/21 14:53:00 EDT, Height, [...] Mouth, Daily, # 30 tablet, 3 Refills, [facility], 177.8, cm, 11/22/21 14:53:00 EDT, Height, [...] Replace Required Details, Route to Pharmacy Electronically, [facility], 177.8, cm, 09/07/21 13:03:0... Start Date: 09/17/21 Status: Ordered Guaiatussin AC 10 mg-100 mg/5 ml oral syrup 10 mL, By Mouth, Every 6 hours, PRN for cough, # 240 mL, 0 Refills, Maintenance, 11/22/21 16:22:00 EDT, Syrup, [facility], Partial fill upon patient request if [...] at bedtime, # 30 tablet, 5 Refills, [facility], 177.8, cm, 11/22/21 14:53:00 EDT, Height, 96.8, kg, 08/05/21 8:57:00 EST, Dry Weight Start Date: 12/23/21 Status: Ordered nitroglycerin 0.4 mg sublingual tablet 1 tablet = 0.4 mg, Sublingual, Every 5 minutes, PRN as needed for chest pain, not to exceed 3 doses/15 min--if pain persists, seek medical attention, # 100 tablet, 0 Refills, Maintenance, 09/28/20 17:00:00 EST, Tablet, [facility], Partial fill up... Start Date: 09/28/20 Status: Ordered terazosin 5 mg oral capsule 5 mg, 1, capsule, By Mouth, Daily at bedtime, # 30 capsule, Refills 8, Tot. Refills 8, Soft Stop, 03/11/22 15:03:00 EDT, Route to Pharmacy Electronically, [facility], 177.8, cm, 04/22/21 14:54:00 EDT, Height, [...]
--- OUTSIDE RECORDS SUMMARY | 2024-04-23 08:20 | XMS_ITS | Continuity of Care Document ---
Author Organization [facility] Address [address] [place] [address]- Care Team Providers Care Tare Man Name Role Phone Sneha OIL SPRAYER, Radha Sorensen Primary Care Physician Encounter [facility] Date(s): 05/26/20 - 06/25/[address] [address] Attending Physician: Julia Allen Admitting Physician: Admtr, [id number] Referring Physician: Admtr, [id number] Allergies, Adverse Reactions, [...] 2Result Comment: [facility] [id number] 3Result Comment: [05/25/2018] [facility]: [id number] 4Admin Note: Codi 5Admin Note: vis 03/31/09 6Result Comment: [08/11/2015] [facility] Ambien 10 mg oral tablet 1 tablet = 10 mg, By Mouth, Daily at bedtime, PRN for sleep, # 30 tablet, 3 Refills, Maintenance, 05/08/20 9:35:00 EDT, Tablet, [facility], 175.4, cm, 10/21/19 8:06:00 EST, Height [...] 3 Refills, Maintenance, 06/11/20 17:06:00 EDT, Tablet, [facility], 175.4, cm, 10/21/19 8:06:00 EST, Height Start Date: 06/11/20 Stop Date: 10/09/20 Status: Ordered azelastine nasal 0.15% spray 2 sprays, Nares, Both, 2 times a day, PRN for allergy symptoms, # 30 mL, 0 Refills, Maintenance, 10/21/19 8:40:00 EST, [place], [facility], 2 sprays Nares, Both 2 times a day,PRN:for allergy symptoms, 175.4, cm, 10/21/19 8:06:00 EST, Height Start Date: 10/21/19 Status: Ordered fenofibrate 54 mg oral tablet 1 tablet = 54 mg, By Mouth, Daily, # 30 tablet, 5 Refills, Maintenance, 06/11/20 11:29:00 EDT, [facility], 175.4, cm, 10/21/19 8:06:00 EST, Height [...] Replace Required Details, Route to Pharmacy Electronically, [facility], 175.4, cm, .. Start Date: 02/26/20 Status: Ordered mercaptopurine 50 mg oral tablet = 100 mg, By Mouth, Daily at bedtime, 0 Refills, Maintenance, 07/20/17 8:35:35, Tablet Start Date: 07/20/17 Status: Ordered metoprolol 25 mg oral tablet, extended release 25 mg, By Mouth, Daily at bedtime, # 30 each, Refills 0, Tot. Refills 0, Maintenance, 03/02/20 14:36:00 EDT, Route to Pharmacy Electronically, [facility], 175.4, cm, 10/21/19 8:06:00 EST, Height [...] Stop,05/08/20 16:25:00 EDT, Route to Pharmacy Electronically, [facility], 175.4, cm, 10/21/19 8:06:00 EST, Height Start Date: 05/08/20 Stop Date: 05/03/21 Status: Ordered tiZANidine 2 mg oral tablet 1/2 tablet, By Mouth, Every 8 hours, PRN, # 45 tablet, Refills 0, Tot. Refills 0, Maintenance, as needed for muscle spasm, 11/05/19 10:51:00 EDT, Route to Pharmacy Electronically, [facility], 175.4, cm, 10/21/19 8:06:00 EST, Height [...]
--- OUTSIDE RECORDS SUMMARY | 2024-04-23 08:20 | XMS_ITS | Continuity of Care Document ---
Author Organization [facility] Address [address] [facility], [address], [address] [place] [address]- Care Team Providers Care Die Casting Machine Setter Name Role Phone Sneha GORDON, Radha Sorensen Primary Care Physician Encounter [facility] Date(s): 12/15/22 - 01/14/[address] [facility] [address], [address], [address] [place] [id number] Allergies, Adverse Reactions, Alerts Substance Reaction Severity Status Levaquin itch Moderate Active nonsteroidal anti-inflammatory agents diarrhea Active Crestor ck 400's and myalgia Active statins myalgia Active Immunizations Given and Recorded Vaccine Date Status Refusal Reason [id number] 12y+ bivalent booster vax 05/19/22 Recorded SARS-CoV-2 [...] acel(Tdap) 06/08/11 Given 1Result Comment: [facility] [id number] 2Result Comment: [05/25/2018] [facility]: [id number] 3Admin Note: Codi 4Admin Note: vis 03/31/09 [...] 3 Refills, Maintenance, 01/10/23 16:19:00 EDT, Tablet, [facility], 177.8, cm, 12/01/22 8:22:00 EDT, Height, 96.8, kg, 08/05/21 8:57:00 EST, Dry Weight Start Date: 01/10/23 Stop Date: 05/10/23 Status: Ordered amitriptyline 50 mg oral tablet 2 tablet = 100 mg, By Mouth, Daily at bedtime, # 60 tablet, 0 Refills, Maintenance, 12/15/22 13:40:00 EDT, [facility], Partial fill upon patient request if the prescription is for a schedule II opioid drug., 177.8, cm, 12/01/22 8:22:00 EDT, Heigh... Start Date: 12/15/22 Stop Date: 01/14/23 Status: Ordered amLODIPine 5 mg oral tablet 5 mg, 1, tablet, By Mouth, Daily, # 90 tablet, Refills 3, Tot. Refills 3, Maintenance, 09/29/22 9:48:00 EST, Route to Pharmacy Electronically, [facility], Partial fill upon patient request [...] 5 Refills, Maintenance, 11/11/22 12:40:00 EDT, Tablet, [facility], 177.8, cm, 10/24/22 8:53:00 EST, Height, 96.8, kg, 08/05/21 8:57:00 EST, Dry Weight Start Date: 11/11/22 Stop Date: 05/10/23 Status: Ordered cyclobenzaprine 10 mg oral tablet 10 mg, 1, tablet, By Mouth, Daily at supper, # 30 tablet, Refills 2, Tot. Refills 2, Maintenance, 10/24/22 15:13:00 EST, Route to Pharmacy Electronically, [facility], Partial fill upon patient request [...] tablet, 5 Refills, Maintenance, 11/09/22 6:38:00 EDT, [facility], 177.8, cm, 10/24/22 8:53:00 EST, Height, [...] 5 Refills, Maintenance, 08/24/22 13:53:00 EST, Capsule, [facility], 30 caps / month, 177.8, cm, [...] at bedtime, # 30 tablet, 5 Refills, [facility], 177.8, cm, 11/22/21 14:53:00 EDT, Height, 96.8, kg, 08/05/21 8:57:00 EST, Dry Weight Start Date: 12/23/21 Status: Ordered nitroglycerin 0.4 mg sublingual tablet 1 tablet = 0.4 mg, Sublingual, Every 5 minutes, PRN as needed for chest pain, not to exceed 3 doses/15 min--if pain persists, seek medical attention, # 100 tablet, 0 Refills, Maintenance, 09/28/20 17:00:00 EST, Tablet, [facility], Partial fill up... Start Date: 09/28/20 Status: Ordered rizatriptan 5 mg oral tablet 1 tablet = 5 mg, By Mouth, Once, PRN for migraine headache, may repeat dose once in 2 hours max 2 tabs in 24hrs ., # 12 tablet, 2 Refills, Soft Stop, 05/20/22 7:59:00 EDT, Tablet, [facility], Partial fill upon patient request if the prescript... Start Date: 05/20/22 Status: Ordered SUMAtriptan 4 mg/0.5 mL subcutaneous solution 0.5 mL = 4 mg, Subcutaneous Injection, Once, PRN as needed for migraine headache, may repeat once in 1 hour if needed, # 1 kit, 0 Refills, Soft Stop, 03/21/22 14:40:00 EDT, Solution, [facility],Partial fill upon patient request if the prescripti... Start Date: 03/21/22 Status: Ordered terazosin 5 mg oral capsule 1, capsule, By Mouth, Daily at bedtime, # 30 capsule, Refills 5, Maintenance, 08/04/22 11:10:00 EST, Route to Pharmacy Electronically, [facility], 177.8, cm, 08/03/22 15:31:00 EST, Height, [...] Team Personnel Name: Kya Marina RN Position: [facility] RN Member Role: Primary Care Nurse Name: Veronica Feng RN Position: [facility] RN Member Role: Primary Care Nurse Name: Radha Hoover NP Position: [facility] PCO Associate Professional Member Role: PCP Address: Address: [address] [place] [address] [address]rd [place] [address]- Name: Jonathan Ramos RN Position: [facility] RN Member Role: Primary Care Nurse Care Team Related Persons Name: LEN RAZO Address: home [address] [place] [address]
--- OUTSIDE RECORDS SUMMARY | 2024-04-23 08:20 | XMS_ITS | Continuity of Care Document ---
Author Organization [facility] Address [address] [place] [address]- Care Team Providers Care Afternoon Nanny Name Role Phone Sneha DENTAL EQUIPMENT MECHANIC, Radha Sorensen Primary Care Physician Encounter [facility] Date(s): 03/24/22 - 04/23/22 [facility] [address] [place] [id number] Allergies, Adverse Reactions, Alerts Substance Reaction Severity [...] 1Result Comment: [facility] [id number] 2Result Comment: [05/25/2018] [facility]: [id number] 3Admin Note: Codi 4Admin Note: vis 03/31/09 [...] tablet, 5 Refills, Maintenance, 03/25/22 14:14:00 EDT, [facility], 177.8, cm, 02/14/22 8:18:00 EDT, Height, [...] Replace Required Details, Route to Pharmacy Electronically, [facility], 177.8, cm, 02/14/22 8:18:00... Start Date: 03/24/22 Status: Ordered Guaiatussin AC 10 mg-100 mg/5 ml oral syrup 10 mL, By Mouth, Every 6 hours, PRN for cough, # 240 mL, 0 Refills, Maintenance, 11/22/21 16:22:00 EDT, Syrup, [facility], Partial fill upon patient request if [...] at bedtime, # 30 tablet, 5 Refills, [facility], 177.8, cm, 11/22/21 14:53:00 EDT, Height, 96.8, kg, 08/05/21 8:57:00 EST, Dry Weight Start Date: 12/23/21 Status: Ordered nitroglycerin 0.4 mg sublingual tablet 1 tablet = 0.4 mg, Sublingual, Every 5 minutes, PRN as needed for chest pain, not to exceed 3 doses/15 min--if pain persists, seek medical attention, # 100 tablet, 0 Refills, Maintenance, 09/28/20 17:00:00 EST, Tablet, [facility], Partial fill up... Start Date: 09/28/20 Status: Ordered SUMAtriptan 4 mg/0.5 mL subcutaneous solution 0.5 mL = 4 mg, Subcutaneous Injection, Once, PRN as needed for migraine headache, may repeat once in 1 hour if needed, # 1 kit, 0 Refills, Soft Stop, 03/21/22 14:40:00 EDT, Solution, [facility],Partial fill upon patient request if the prescripti... Start Date: 03/21/22 Status: Ordered terazosin 5 mg oral capsule See Instructions, TAKE 1 CAPSULE BY MOUTH DAILY AT BEDTIME, # 30 capsule, Refills 5, Instructions Replace Required Details, Route to Pharmacy Electronically, [facility], 177.8, cm, 02/14/22 8:18:00 EDT, Height, [...] on: 07/16/14 Sex Care Team Personnel Name: Radha Hoover NP Address: [address] [place] [address] [address]rd [address] [place], [place] [address]
--- OUTSIDE RECORDS SUMMARY | 2024-04-23 08:21 | XMS_ITS | Continuity of Care Document ---
Author Organization [facility] Address [address] [place] [address]- Care Team Providers Care Buyer Name Role Phone Sneha LAYER OUT PLATE GLASS, Radha Sorensen Primary Care Physician [facility] Date(s): 12/01/20 - 12/31/20 [facility] [address] [place] [address]- Allergies, Adverse Reactions, Alerts Substance Reaction Severity [...] report when received vaccine 2Result Comment: [facility] [id number] 3Result Comment: [05/25/2018] [facility]: [id number] 4Admin Note: [facility] 5Admin Note: vis 03/31/09 [...] 3 Refills, Maintenance, 12/02/20 15:26:00 EDT, Tablet, [facility], 178, cm, 11/06/20 13:18:00 EDT, Height, [...] 3 Refills, Maintenance, 06/11/20 17:06:00 EDT, Tablet, [facility], 175.4, cm, 10/21/19 8:06:00 EST, Height Start Date: 06/11/20 Stop Date: 10/09/20 Status: Ordered fenofibrate 54 mg oral tablet 1 tablet, By Mouth, Daily, # 30 tablet, 5 Refills, Maintenance, 12/14/20 9:58:00 EDT, [facility], 178, cm, 11/06/20 13:18:00 EDT, Height, [...] 12/11/20 21:05:00 EDT, Route to Pharmacy Electronically, [facility], 178, cm, 11/06/20 13:18:00 EDT, Height,90.1, [...] 0 Refills, Maintenance, 09/28/20 17:00:00 EST, Tablet, [facility], Partial fill up... Start Date: 09/28/20 Status: Ordered terazosin 5 mg oral capsule 5 mg, 1, capsule, By Mouth, Daily at bedtime, # 30 capsule, Refills 11, Tot. Refills 11, Soft Stop,05/08/20 16:25:00 EDT, Route to Pharmacy Electronically, [facility], 175.4, cm, 10/21/19 8:06:00 EST, Height [...]
--- OUTSIDE RECORDS SUMMARY | 2024-04-23 08:21 | XMS_ITS | Continuity of Care Document ---
Author Organization [facility] alicia Address [address] [place] [address] [address] [place] [address]- Care Team Providers Care Roaster Supervisor Name Role Phone Sneha GORDON, Radha Sorensen Primary Care Physician [facility]counter [facility] Date(s): 11/06/20 - 12/06/20 [facility] [address] [place] [address]- Attending Physician: AdmJulia metz Admitting Physician: AdmtrJulia [...] to report when received vaccine 2Result Comment: [facility] [id number] 3Result Comment: [05/25/2018] [facility]: [id number] 4Admin Note: Codi 5Admin Note: vis 03/31/09 [...] 3 Refills, Maintenance, 12/02/20 15:26:00 EDT, Tablet, [facility], 178, cm, 11/06/20 13:18:00 EDT, Height, 90.1, kg, 10/06/20 6:33:00 EST, Dry Weight Start Date: 12/02/20 Stop Date: 04/01/21 Status: Ordered apixaban 5 mg oral tablet 1 tablet = 5 mg, By Mouth, 2 times a day, # 60 tablet, 0 Refills, Maintenance, 10/07/20 9:38:00 EST, Tablet, [facility], Partial fill upon patient request if the prescription is for a schedule II opioid drug., 178, cm, 10/07/20 7:43:00 E... Start Date: 10/07/20 Stop Date: 11/06/20 Status: Ordered Ativan 0.5 mg oral tablet 1 tablet = 0.5 mg, By Mouth, Every 8 hours, PRN as needed for anxiety, # 90 tablet, 3 Refills, Maintenance, 06/11/20 17:06:00 EDT, Tablet, [facility], 175.4, cm, 10/21/19 8:06:00 EST, Height Start Date: 06/11/20 Stop Date: 10/09/20 Status: Ordered docusate sodium 100 mg oral capsule 100 mg, 1, capsule, By Mouth, 2 times a day, # 60 capsule, Refills 0, Tot. Refills 0, Maintenance, 10/07/20 9:37:00 EST, Route to Pharmacy Electronically, [facility], Partial fill upon patient request if the prescription is for a schedul... Start Date: 10/07/20 Status: Ordered fenofibrate 54 mg oral tablet 1 tablet = 54 mg, By Mouth, Daily at bedtime, # 30 tablet, 5 Refills, Maintenance, 06/11/20 11:29:00 EDT, [facility], 175.4, cm, 10/21/19 8:06:00 EST, Height [...] Replace Required Details, Route to Pharmacy Electronically, [facility] Start Date: 09/11/20 Status: Ordered Maalox Plus [...] 08/09/20 21:59:00 EST, Route to Pharmacy Electronically, [facility], 175.4, cm, 10/21/19 8:06:00 EST, Height [...] Stop,05/08/20 16:25:00 EDT, Route to Pharmacy Electronically, [facility], 175.4, cm, 10/21/19 8:06:00 EST, Height [...]
--- OUTSIDE RECORDS SUMMARY | 2024-04-23 08:21 | XMS_ITS | Continuity of Care Document ---
Author Organization [facility] Address [address] [place] [address]- Care Team Providers Care Poultry Feed Supervisor Name Role Phone Radha Hoover NP Primary Care Physician [facility] Date(s): 11/22/21 - 12/22/21 [facility] [address] [place] [address]- Allergies, Adverse Reactions, Alerts Substance Reaction Severity [...] Given tetanus/diphtheria/pertussis, acel(Tdap) 06/08/11 Given 1Result Comment: [facility] [id number] 2Result Comment: [05/25/2018] [facility]: [id number] 3Admin Note: Codi 4Admin Note: vis 03/31/09 [...] 3 Refills, Maintenance, 08/18/21 8:58:00 EST, Tablet, [facility], 177.8, cm, 08/10/21 10:04:00 EST, Height, [...] 0 Refills, Maintenance, 11/22/21 12:48:00 EDT, Tablet, [facility], 177.8, cm, 11/15/21 9:37:00 EDT, Height, [...] 90 tablet, 1 Refills, Maintenance, 01/05/21 9:14:00EDT, [facility], 177.8, cm, 12/18/20 11:27:00 EDT, Height, [...] Replace Required Details, Route to Pharmacy Electronically, [facility], 177.8, cm, 09/07/21 13:03:0... Start Date: 09/17/21 Status: Ordered Guaiatussin AC 10 mg-100 mg/5 ml oral syrup 10 mL, By Mouth, Every 6 hours, PRN for cough, # 240 mL, 0 Refills, Maintenance, 11/22/21 16:22:00 EDT, Syrup, [facility], Partial fill upon patient request if [...] AT BEDTIME, # 30 tablet, 5 Refills, [facility],177.8, cm, 06/18/21 9:52:00 EDT, Height, 92.3, kg, 12/18/20 11:27:00 EDT, Dry Weight Start Date: 07/16/21 Status: Ordered nitroglycerin 0.4 mg sublingual tablet 1 tablet = 0.4 mg, Sublingual, Every 5 minutes, PRN as needed for chest pain, not to exceed 3 doses/15 min--if pain persists, seek medical attention, # 100 tablet, 0 Refills, Maintenance, 09/28/20 17:00:00 EST, Tablet, [facility], Partial fill up... Start Date: 09/28/20 Status: Ordered terazosin 5 mg oral capsule 5 mg, 1, capsule, By Mouth, Daily at bedtime, # 30 capsule, Refills 8, Tot. Refills 8, Soft Stop, 03/11/22 15:03:00 EDT, Route to Pharmacy Electronically, [facility], 177.8, cm, 04/22/21 14:54:00 EDT, Height, [...]
--- OUTSIDE RECORDS SUMMARY | 2024-04-23 08:21 | XMS_ITS | Continuity of Care Document ---
Author Organization [facility] Address [address] [place] [address]- Care Team Providers Care Platen Grinder Name Role Phone Radha Hoover NP Primary Care Physician [facility] Date(s): 12/22/21 - 01/21/22 [facility] [address] [place] [address]- Allergies, Adverse Reactions, Alerts Substance Reaction Severity [...] Given 1Result Comment: [facility] [id number] 2Result Comment: [05/25/2018] [facility]: [id number] 3Admin Note: Codi 4Admin Note: gabbie 03/31/09 [...] 3 Refills, Maintenance, 08/18/21 8:58:00 EST, Tablet, [facility], 177.8, cm, 08/10/21 10:04:00 EST, Height, [...] 0 Refills, Maintenance, 01/21/22 11:10:00 EDT, Tablet, [facility], 01/23/22, 177.8, cm, 11/22/21 14:53:00 EDT,Height, [...] Mouth, Daily, # 30 tablet, 3 Refills, [facility], 177.8, cm, 11/22/21 14:53:00 EDT, Height, [...] Replace Required Details, Route to Pharmacy Electronically, [facility], 177.8, cm, 09/07/21 13:03:0... Start Date: 09/17/21 Status: Ordered Guaiatussin AC 10 mg-100 mg/5 ml oral syrup 10 mL, By Mouth, Every 6 hours, PRN for cough, # 240 mL, 0 Refills, Maintenance, 11/22/21 16:22:00 EDT, Syrup, [facility], Partial fill upon patient request if [...] bedtime, # 30 tablet, 5 Refills, [facility], 177.8, cm, 11/22/21 14:53:00 EDT, Height, 96.8, kg, 08/05/21 8:57:00 EST, Dry Weight Start Date: 12/23/21 Status: Ordered nitroglycerin 0.4 mg sublingual tablet 1 tablet = 0.4 mg, Sublingual, Every 5 minutes, PRN as needed for chest pain, not to exceed 3 doses/15 min--if pain persists, seek medical attention, # 100 tablet, 0 Refills, Maintenance, 09/28/20 17:00:00 EST, Tablet, [facility], Partial fill up... Start Date: 09/28/20 Status: Ordered terazosin 5 mg oral capsule 5 mg, 1, capsule, By Mouth, Daily at bedtime, # 30 capsule, Refills 8, Tot. Refills 8, Soft Stop, 03/11/22 15:03:00 EDT, Route to Pharmacy Electronically, [facility], 177.8, cm, 04/22/21 14:54:00 EDT, Height, [...]
--- OUTSIDE RECORDS SUMMARY | 2024-04-23 08:21 | XMS_ITS | Continuity of Care Document ---
Author Organization [facility] Address [address] [place] [address]- Care Team Providers Care Insurance Specialist Name Role Phone Sneha SYSTEM OPERATOR, Radha Sorensen Primary Care Physician [facility] Date(s): 03/16/21 - 04/15/21 [facility] [address] [place] [address]- Allergies, Adverse Reactions, Alerts Substance Reaction Severity [...] to report when received vaccine 2Result Comment: [facility] [id number] 3Result Comment: [05/25/2018] [facility]: [id number] 4Admin Note: [facility] 5Admin Note: vis 03/31/09 [...] 3 Refills, Maintenance, 12/02/20 15:26:00 EDT, Tablet, [facility], 178, cm, 11/06/20 13:18:00 EDT, Height, [...] 3 Refills, Maintenance, 01/06/21 15:26:00 EDT, Tablet, [facility], 177.8, cm, 12/18/20 11:27:00 EDT, Height, 92.3, kg, 12/18/20 11:27:00 EDT, Dry Weight Start Date: 01/06/21 Stop Date: 05/06/21 Status: Ordered fenofibrate 54 mg oral tablet 1 tablet, By Mouth, Daily, # 30 tablet, 5 Refills, Maintenance, 12/14/20 9:58:00 EDT, [facility], 178, cm, 11/06/20 13:18:00 EDT, Height, 90.1, kg, 10/06/20 6:33:00 EST, Dry Weight Start Date: 12/14/20 Status: Ordered fenofibrate 54 mg oral tablet 1 tablet = 54 mg, By Mouth, Daily, # 90 tablet, 1 Refills, Maintenance, 01/05/21 9:14:00 EDT, [facility], 177.8, cm, 12/18/20 11:27:00 EDT, Height, [...] Replace Required Details, Route to Pharmacy Electronically, [facility], 177.8, cm, ... Start Date: 01/07/21 [...] 12/11/20 21:05:00 EDT, Route to Pharmacy Electronically, [facility], 178, cm, 11/06/20 13:18:00 EDT, Height,90.1, [...] Stop,03/16/21 15:03:00 EDT, Route to Pharmacy Electronically, [facility], 177.8, cm, 03/11/21 9:04:00 EDT, [...]
--- OUTSIDE RECORDS SUMMARY | 2024-04-23 08:21 | XMS_ITS | Continuity of Care Document ---
Author Organization [facility] Address [address] [place] [address]- Care Team Providers Care Principal Consultant Name Role Phone Radha Hoover NP Primary Care Physician Encounter [facility] Date(s): 06/18/21 - 06/25/21 [facility] [address] [place] [address]- Encounter Diagnosis Anxiety disorder(Discharge Diagnosis) - 06/18/21 BPH (benign prostatic hyperplasia)(Discharge Diagnosis) - 06/18/21 CAD (coronary artery disease)(Discharge Diagnosis) - 06/18/21 Heart failure, diastolic, chronic(Discharge Diagnosis) - 06/18/21 Osteoarthritis of knee(Discharge Diagnosis) - 06/18/21 Prediabetes(Discharge Diagnosis) - 06/18/21 Cervical myofascial pain syndrome(Discharge Diagnosis) - 06/18/21 ALICE (obstructive sleep apnea)(Discharge Diagnosis) - 06/18/21 Statin intolerance(Discharge Diagnosis) - 06/18/21 Ulcerative colitis(Discharge Diagnosis) - 06/18/21 Attending Physician: Radha Hoover NP Allergies, Adverse [...] 03/03/17 Gi shane influenza virus vaccine, inactivated 9/28/16 Domenico rded influenza virus vaccine, inactivated 06/05/14 [...] acel(Tdap) 06/08/11 Given 1Result Comment: [facility] [id number] 2Result Comment: [05/25/2018] [facility]: [id number] 3Admin Note: Codi 4Admin Note: vis 03/31/09 [...] 3 Refills, Maintenance, 04/19/21 10:21:00 EDT, Tablet, [facility], 177.8, cm, 03/11/21 9:04:00 EDT, Height, [...] 3 Refills, Maintenance, 01/06/21 15:26:00 EDT, Tablet, [facility], 177.8, cm, 12/18/20 11:27:00 EDT, Height, 92.3, kg, 12/18/20 11:27:00 EDT, Dry Weight Start Date: 01/06/21 Stop Date: 05/06/21 Status: Ordered fenofibrate 54 mg oral tablet 1 tablet, By Mouth, Daily, # 30 tablet, 5 Refills, Maintenance, 12/14/20 9:58:00 EDT, [facility], 178, cm, 11/06/20 13:18:00 EDT, Height, 90.1, kg, 10/06/20 6:33:00 EST, Dry Weight Start Date: 12/14/20 Status: Ordered fenofibrate 54 mg oral tablet 1 tablet = 54 mg, By Mouth, Daily, # 90 tablet, 1 Refills, Maintenance, 01/05/21 9:14:00 EDT, [facility], 177.8, cm, 12/18/20 11:27:00 EDT, Height, [...] Replace Required Details, Route to Pharmacy Electronically, [facility], 177.8, cm, ... Start Date: 01/07/21 [...] 12/11/20 21:05:00 EDT, Route to Pharmacy Electronically, [facility], 178, cm, 11/06/20 13:18:00 EDT, Height,90.1, [...] 0 Refills, Maintenance, 09/28/20 17:00:00 EST, Tablet, [facility], Partial fill up... Start Date: 09/28/20 Status: Ordered oxyCODONE 5 mg oral tablet 5 mg, 1, tablet, By Mouth, Every 6 hours, PRN, for 30 days, # 56 tablet, Refills 0, Tot. Refills 0,Acute 07/18/21 9:57:00 EST, as needed for pain, 06/18/21 9:57:00 EDT, Route to Pharmacy Electronically, [facility], Partial fill upon patient requ... Start Date: 06/18/21 Stop Date: 07/18/21 Status: Ordered terazosin 5 mg oral capsule 5 mg, 1, capsule, By Mouth, Daily at bedtime, for 30 days, # 30 capsule, Refills 11, Tot. Refills 11, Hard Stop 03/11/22 15:03:00 EDT, 03/16/21 15:03:00 EDT, Route to Pharmacy Electronically, [facility], 177.8, cm, 03/11/21 9:04:00 EDT, Height, 9... Start Date: 03/16/21 Stop Date: 03/11/22 Status: Ordered terazosin 5 mg oral capsule 5 mg, 1, capsule, By Mouth, Daily at bedtime, # 30 capsule, Refills 8, Tot. Refills 8, Soft Stop, 03/11/22 15:03:00 EDT, Route to Pharmacy Electronically, [facility], 177.8, cm, 04/22/21 14:54:00 EDT, Height, [...] Effective Dates Health Status Clinical Service Informant Anxiety disorder Discharge Diagnosis 06/18/21 BPH (benign prostatic hyperplasia) Discharge Diagnosis 06/18/21 CAD (coronary artery disease) Discharge Diagnosis 06/18/21 Heart failure, diastolic, chronic Discharge Diagnosis 06/18/21 Osteoarthritis of knee Discharge Diagnosis 06/18/21 Prediabetes Discharge Diagnosis 06/18/21 Cervical myofascial pain syndrome Discharge Diagnosis 06/18/21 ALICE (obstructive sleep apnea) Discharge Diagnosis 06/18/21 Statin intolerance Discharge Diagnosis 06/18/21 Ulcerative colitis Discharge Diagnosis 06/18/21 Vital Signs Most recent to oldest [Reference Range]: 1 2 Height 177.80 cm (06/18/21 9:52 AM) 177.80 cm (06/18/21 9:20 AM) Weight 96.2 kg (06/18/21 9:20 AM) Oxygen Saturation [94-100 %] 97 % (06/18/21 9:20 AM) Pulse Rate [55-90 bpm] 62 bpm (06/18/21 9:20 AM) Body Mass Index [18.5-24.99] 30.43 *>HHI* (06/18/21 9:20 AM) Blood Pressure [90-138/55-84 mm Hg] 126/ 72mm Hg (06/18/21 9:52 AM) 120/75mm Hg (06/18/21 9:20 AM) Mode of Delivery (Oxygen) Room air (06/18/21 9:20 AM) Blood pressure sites Arm, left (06/18/21 9:52 AM) Arm, right (06/18/21 9:20 AM) Weight Obtained Via Standing scale (06/18/21 9:20 AM) Social History Social History Type Response Smoking Status Former smoker; Tobac co user in household: No; Other: quit smoking in 2007; entered on: 07/16/14 Sex
--- OUTSIDE RECORDS SUMMARY | 2024-04-23 08:21 | XMS_ITS | Continuity of Care Document ---
Author Organization [facility] Address [address] [place] [address]- Care Team Providers Care Explosives Operator Name Role Phone Sneha GORDON, Radha Sorensen Primary Care Physician Encounter [facility] Date(s): 07/21/21 - 07/21/[address] [id number] Attending Physician: Abraham Alva Allergies, Adverse Reactions, Alerts Substance Reaction Severity [...] acel(Tdap) 06/08/11 Given 1Result Comment: [facility] [id number] 2Result Comment: [05/25/2018] [facility]: [id number] 3Admin Note: Codi 4Admin Note: vis 03/31/09 [...] 3 Refills, Maintenance, 04/19/21 10:21:00 EDT, Tablet, [facility], 177.8, cm, 03/11/21 9:04:00 EDT, Height, [...] 0 Refills, Maintenance, 07/16/21 12:39:00 EST, Tablet, [facility], 177.8, cm, 06/18/21 9:52:00 EDT, Height, 92.3, kg, 12/18/20 11:27:00 EDT, Dry Weight Start Date: 07/16/21 Stop Date: 08/15/21 Status: Ordered fenofibrate 54 mg oral tablet 1 tablet, By Mouth, Daily, # 30 tablet, 5 Refills, Maintenance, 12/14/20 9:58:00 EDT, [facility], 178, cm, 11/06/20 13:18:00 EDT, Height, 90.1, kg, 10/06/20 6:33:00 EST, Dry Weight Start Date: 12/14/20 Status: Ordered fenofibrate 54 mg oral tablet 1 tablet = 54 mg, By Mouth, Daily, # 90 tablet, 1 Refills, Maintenance, 01/05/21 9:14:00 EDT, [facility], 177.8, cm, 12/18/20 11:27:00 EDT, Height, [...] AT BEDTIME, # 30 tablet, 5 Refills, [facility],177.8, cm, 06/18/21 9:52:00 EDT, Height, 92.3, [...] 03/16/21 15:03:00 EDT, Route to Pharmacy Electronically, [facility], 177.8, cm, 03/11/21 9:04:00 EDT, Height, 9... Start Date: 03/16/21 Stop Date: 03/11/22 Status: Ordered terazosin 5 mg oral capsule 5 mg, 1, capsule, By Mouth, Daily at bedtime, # 30 capsule, Refills 8, Tot. Refills 8, Soft Stop, 03/11/22 15:03:00 EDT, Route to Pharmacy Electronically, [facility], 177.8, cm, 04/22/21 14:54:00 EDT, Height, [...]
--- OUTSIDE RECORDS SUMMARY | 2024-04-23 08:21 | XMS_ITS | Continuity of Care Document ---
Author Organization [facility] Address [address] [place] [address]- Care Team Providers Care Export Sales Assistant Name Role Phone Sneha FARM MANAGEMENT ADVISER, Radha Sorensen Primary Care Physician Encounter [facility] Date(s): 09/22/20 - 10/22/20 [facility] [address] [place] [address] Allergies, Adverse Reactions, Alerts Substance Reaction [...] to report when received vaccine 2Result Comment: [facility] [id number] 3Result Comment: [05/25/2018] [facility]: [id number] 4Admin Note: [place] 5Admin Note: vis 03/31/09 [...] 3 Refills, Maintenance, 05/08/20 9:35:00 EDT, Tablet, [facility], 175.4, cm, 10/21/19 8:06:00 EST, Height Start Date: 05/08/20 Stop Date: 09/05/20 Status: Ordered apixaban 5 mg oral tablet 1 tablet = 5 mg, By Mouth, 2 times a day, # 60 tablet, 0 Refills, Maintenance, 10/07/20 9:38:00 EST, Tablet, [facility], Partial fill upon patient request if the prescription is for a schedule II opioid drug., 178, cm, 10/07/20 7:43:00 E... Start Date: 10/07/20 Stop Date: 11/06/20 Status: Ordered Ativan 0.5 mg oral tablet 1 tablet = 0.5 mg, By Mouth, Every 8 hours, PRN as needed for anxiety, # 90 tablet, 3 Refills, Maintenance, 06/11/20 17:06:00 EDT, Tablet, [facility], 175.4, cm, 10/21/19 8:06:00 EST, Height Start Date: 06/11/20 Stop Date: 10/09/20 Status: Ordered docusate sodium 100 mg oral capsule 100 mg, 1, capsule, By Mouth, 2 times a day, # 60 capsule, Refills 0, Tot. Refills 0, Maintenance, 10/07/20 9:37:00 EST, Route to Pharmacy Electronically, [facility], Partial fill upon patient request if the prescription is for a schedul... Start Date: 10/07/20 Status: Ordered fenofibrate 54 mg oral tablet 1 tablet = 54 mg, By Mouth, Daily at bedtime, # 30 tablet, 5 Refills, Maintenance, 06/11/20 11:29:00 EDT, [facility], 175.4, cm, 10/21/19 8:06:00 EST, Height [...] Replace Required Details, Route to Pharmacy Electronically, [facility] Start Date: 09/11/20 Status: Ordered Maalox Plus [...] 08/09/20 21:59:00 EST, Route to Pharmacy Electronically, [facility], 175.4, cm, 10/21/19 8:06:00 EST, Height [...] 0 Refills, Maintenance, 09/28/20 17:00:00 EST, Tablet, [facility], Partial fill up... Start Date: 09/28/20 [...] Stop,05/08/20 16:25:00 EDT, Route to Pharmacy Electronically, [facility], 175.4, cm, 10/21/19 8:06:00 EST, Height [...]
--- OUTSIDE RECORDS SUMMARY | 2024-04-23 08:21 | XMS_ITS | Continuity of Care Document ---
Author Organization [facility] Address [address] [place] [address]- Care Team Providers Care Chief Lock Tender Operator Name Role Phone Sneha METER SETTER, Radha Sorensen Primary Care Physician Encounter [facility] Date(s): 02/12/24 - 03/13/24 [facility] [address] [place] [address]- Attending Physician: Julia Allen Admitting Physician: Julia [...] vaccine, inactivated 4 05/08/09 Gi shane SARS-CoV-2(COVID-19)mRNA-LNP vac([id number]) 05/29/23 Recorded [id number] 12y+ bivalent booster vax 05/19/22 Recorded SARS-CoV-2 [...] Given tetanus/diphtheria/pertussis, acel(Tdap) 06/08/11 Given 1Result Comment: [facility] [id number] 2Result Comment: [05/25/2018] [facility]: [id number] 3Admin Note: Codi 4Admin Note: vis 03/31/09 [...] 3 Refills, Maintenance, 11/30/23 12:32:00 EDT, Tablet, [facility], 177.8, cm, 11/23/23 15:37:00 EDT, Height Start Date: 11/30/23 Status: Ordered amLODIPine 5 mg oral tablet See Instructions, TAKE 1 TABLET BY MOUTH DAILY, # 30 tablet, 11 Refills, Maintenance, 10/02/23 17:04:00 EST, [facility], 177.8, cm, 12/01/22 8:22:00 EDT, Height [...] 5 Refills, Maintenance, 10/04/23 9:00:00 EST, Tablet, [facility], 177.8, cm, 12/01/22 8:22:00 EDT, Height Start Date: 10/04/23 Stop Date: 04/01/24 Status: Ordered cyclobenzaprine 10 mg oral tablet 10 mg, 1, tablet, By Mouth, Daily at supper, # 30 tablet, Refills 2, Tot. Refills 2, Maintenance, 10/24/22 15:13:00 EST, Route to Pharmacy Electronically, [facility], Partial fill upon patient request if the prescription is for a schedule II opio... Start Date: 10/24/22 Status: Ordered fenofibrate 54 mg oral tablet 1 tablet, By Mouth, Daily, # 30 tablet, 5 Refills, Maintenance, 10/04/23 8:48:00 EST, [facility], 177.8, cm, 12/01/22 8:22:00 EDT, Height Start Date: 10/04/23 Status: Ordered finasteride 5 mg oral tablet 1 tablet, By Mouth, Daily at bedtime, # 30 tablet, 5 Refills, Maintenance, 01/25/24 7:43:00 EDT, [facility], 177.8, cm, 12/25/23 9:41:00 EDT, Height Start Date: 01/25/24 Status: Ordered indomethacin 25 mg oral capsule 1 capsule, By Mouth, 3 times a day, PRN NEEDED FOR HEADACHE, # 30 capsule, 5 Refills, Maintenance, 02/09/23 18:32:00 EDT, [facility], 177.8, cm, 12/01/22 8:22:00 EDT, Height, [...] tablet, 5 Refills, Maintenance, 01/25/24 7:43:00 EDT, [facility], 177.8, cm, 12/25/23 9:41:00 EDT, Height Start Date: 01/25/24 Status: Ordered nitroglycerin 0.4 mg sublingual tablet 1 tablet = 0.4 mg, Sublingual, Every 5 minutes, PRN as needed for chest pain, not to exceed 3 doses/15 min--if pain persists, seek medical attention, # 100 tablet, 0 Refills, Maintenance, 09/28/20 17:00:00 EST, Tablet, [facility], Partial fill up... Start Date: 09/28/20 Status: Ordered Pepcid 20 mg oral tablet 1 tablet = 20 mg, By Mouth, 2 times a day, # 60 tablet, 3 Refills, Maintenance, 10/16/23 16:31:00 EST, Tablet, [facility], Partial fill upon patient request if the prescription is for a scheduleII opioid drug., 177.8, cm, 10/16/23 16:14:00 EST,... Start Date: 10/16/23 Status: Ordered Repatha SureClick 140 mg/mL subcutaneous solution = 140 mg, Subcutaneous Infusion, Every 14 days, # 2 each, 11 Refills, Maintenance, 08/25/23 8:59:00EST, [facility], Partial fill upon patient request if the prescription is for a schedule II opioid drug., 177.8, cm, 12/01/22 8:22:00... Start Date: 08/25/23 Status: Ordered terazosin 5 mg oral capsule 1, capsule, By Mouth, Daily at bedtime, # 30 capsule, Refills 5, Maintenance, 10/04/23 8:48:00 EST,Route to Pharmacy Electronically, [facility], 177.8, cm, 12/01/22 8:22:00 EDT, Height [...] Team Personnel Name: Kya Marina RN Position: [facility] RN Member Role: Primary Care Nurse Name: Veronica Feng RN Position: [facility] SN RN Member Role: Primary Care Nurse Name: Radha Hoover NP Position: [facility] PCO Associate Professional Member Role: PCP Address: Address: [address] [place] [address] [address] [place] [address]- Name: Jonathan Ramos RN Position: [facility] RN Member Role: Primary Care Nurse Care Team Related Persons Name: LEN RAZO Address: home [address] [place] [address]
--- OUTSIDE RECORDS SUMMARY | 2024-04-23 08:21 | XMS_ITS | Continuity of Care Document ---
Author Organization [facility] Address [address] [place] [address]- Care Team Providers Care Gm Name Role Phone Sneha GORDON, Radha Sorensen Primary Care Physician Encounter [facility] Date(s): 08/16/19 - 12/14/19 [facility] [address] [place] [address]- [facility] Attending Physician: Jaylen Zamora MD Admitting Physician: Jaylen Zamora MD Allergies, Adverse Reactions, Alerts Substance Reaction [...] Given 1Result Comment: [facility] [id number] 2Result Comment: [05/25/2018] [facility]: [id number] 3Admin Note: Codi 4Admin Note: vis 03/31/09 [...] 3 Refills, Maintenance, 10/21/19 17:07:00 EST, Tablet, [facility], 175.4, cm, 10/21/19 8:06:00 EST, Height Start Date: 10/21/19 Status: Ordered azelastine nasal 0.15% spray 2 sprays, Nares, Both, 2 times a day, PRN for allergy symptoms, # 30 mL, 0 Refills, Maintenance, 10/21/19 8:40:00 EST, [place], [facility], 2 sprays Nares, Both 2 times [...] Replace Required Details, Route to Pharmacy Electronically, [facility], 175.4, cm, ... Start Date: 11/26/19 Status: Ordered mercaptopurine 50 mg oral tablet = 100 mg, By Mouth, Daily at bedtime, 0 Refills, Maintenance, 07/20/17 8:35:35, Tablet Start Date: 07/20/17 Status: Ordered metoprolol 25 mg oral tablet, extended release 25 mg, By Mouth, Daily at bedtime, # 30 tablet, Refills 5, Tot. Refills 5, Maintenance, 07/30/19 9:11:06 EST, Route to Pharmacy Electronically, [id number], [facility], 175.4, cm, 07/29/19 8:33:52 EST, Height Start Date: 07/30/19 Status: Ordered oxyCODONE 5 mg oral tablet 5 mg, 1, tablet, By Mouth, 2 times a day, PRN, for 28 days, # 56 tablet, Refills 0, Tot. Refills 0,Acute 12/24/19 14:59:00 EDT, Pain , Severe, 11/26/19 14:59:00 EDT, Route to Pharmacy Electronically, [facility], Partial fill upon patient request... Start Date: 11/26/19 Stop Date: 12/24/19 Status: Ordered Shingrix intramuscular injection 0.5 mL, Intramuscular, Once, # 0.5 mL, 1 Refills, Soft Stop, 06/28/19 13:15:54 EST, 0.5 mL Intramuscular Once Start Date: 06/28/19 Status: Ordered terazosin 5 mg oral capsule See Instructions, # 30 capsule, Refills 11 Tot. Refills 11, TAKE 1 CAPSULE BY MOUTH DAILY AT BEDTIME, [facility] Start Date: 05/02/19 Status: Ordered tiZANidine 2 mg oral tablet 1/2 tablet, By Mouth, Every 8 hours, PRN, # 45 tablet, Refills 0, Tot. Refills 0, Maintenance, as needed for muscle spasm, 11/05/19 10:51:00 EDT, Route to Pharmacy Electronically, [facility], 175.4, cm, 10/21/19 8:06:00 EST, Height [...]
--- OUTSIDE RECORDS SUMMARY | 2024-04-23 08:21 | XMS_ITS | Continuity of Care Document ---
Author Organization [facility] Address [address] [place] [address]- Care Team Providers Care Oracle Adf Developer Name Role Phone Sneha GORDON, Radha Sorensen Primary Care Physician Encounter [facility] [place] [facility] R [id number] Date(s): 08/20/22 - 12/18/[address] [address]- Attending Physician: Ruby Luque MD Admitting Physician: Ruby Luque MD Referring Physician: Radha Hoover NP Allergies, Adverse Reactions, Alerts Substance Reaction Severity Status Levaquin itch Moderate Active nonsteroidal anti-inflammatory agents diarrhea Active Crestor ck 400's and myalgia Active statins myalgia Active Immunizations Given and Recorded Vaccine Date Status Refusal Reason [id number] 12y+ bivalent booster vax 05/19/22 Recorded SARS-CoV-2 [...] acel(Tdap) 06/08/11 Given 1Result Comment: [facility] [id number] 2Result Comment: [05/25/2018] [facility]: [id number] 3Admin Note: Codi 4Admin Note: vis 03/31/09 [...] 3 Refills, Maintenance, 09/16/22 8:46:00 EST, Tablet, [facility], 177.8, cm, 08/03/22 15:31:00 EST, Height, 96.8, kg, 08/05/21 8:57:00 EST, Dry Weight Start Date: 09/16/22 Stop Date: 01/14/23 Status: Ordered amitriptyline 50 mg oral tablet 2 tablet = 100 mg, By Mouth, Daily at bedtime, # 60 tablet, 0 Refills, Maintenance, 12/15/22 13:40:00 EDT, [facility], Partial fill upon patient request if [...] 5 Refills, Maintenance, 11/11/22 12:40:00 EDT, Tablet, [facility], 177.8, cm, 10/24/22 8:53:00 EST, Height, [...] 5 Refills, Maintenance, 08/24/22 13:53:00 EST, Capsule, [facility], 30 caps / month, 177.8, cm, [...] at bedtime, # 30 tablet, 5 Refills, [facility], 177.8, cm, 11/22/21 14:53:00 EDT, Height, [...] Refills, Soft Stop, 03/21/22 14:40:00 EDT, Solution, [facility],Partial fill upon patient request if the prescripti... Start Date: 03/21/22 Status: Ordered terazosin 5 mg oral capsule 1, capsule, By Mouth, Daily at bedtime, # 30 capsule, Refills 5, Maintenance, 08/04/22 11:10:00 EST, Route to Pharmacy Electronically, [facility], 177.8, cm, 08/03/22 15:31:00 EST, Height, [...] Care Nurse Name: Radha Hoover NP Position: [facility] PCO Associate Professional Member Role: PCP Address: Address: [address] [place] [address] [address] [place] [address]- Name: Jonathan Ramos RN Position: S RN Member Role: Primary Care Nurse Care Team Related Persons Name: LEN RAZO Address: [address] [address]
--- OUTSIDE RECORDS SUMMARY | 2024-04-23 08:21 | XMS_ITS | Continuity of Care Document ---
Author Organization [facility] Address [address] [place] [address]- Care Team Providers Care Personalized Living Manager Name Role Phone Sneha GORDON, Radha Sorensen Primary Care Physician Encounter [facility] Date(s): 04/22/21 - 04/29/21 [facility] [address] [place] [address]- Encounter Diagnosis Numbness and tingling(Discharge Diagnosis) - 04/22/21 Skin lesion of back(Discharge Diagnosis) - 04/22/21 Skin lesion of neck(Discharge Diagnosis) - 04/22/21 Attending Physician: Radha Hoover NP Allergies, Adverse [...] report when received vaccine 2Result Comment: [facility] [id number] 3Result Comment: [05/25/2018] [facility]: [id number] 4Admin Note: Codi 5Admin Note: gabbie 03/31/09 [...] 3 Refills, Maintenance, 04/19/21 10:21:00 EDT, Tablet, [facility], 177.8, cm, 03/11/21 9:04:00 EDT, Height, [...] 3 Refills, Maintenance, 01/06/21 15:26:00 EDT, Tablet, [facility], 177.8, cm, 12/18/20 11:27:00 EDT, Height, [...] tablet, 1 Refills, Maintenance, 01/05/21 9:14:00 EDT, [facility], 177.8, cm, 12/18/20 11:27:00 EDT, Height, [...] Replace Required Details, Route to Pharmacy Electronically, [facility], 177.8, cm, ... Start Date: 01/07/21 [...] 12/11/20 21:05:00 EDT, Route to Pharmacy Electronically, [facility], 178, cm, 11/06/20 13:18:00 EDT, Height,90.1, [...] Refills, Maintenance, 09/28/20 17:00:00 EST, Tablet, [facility], Partial fill up... Start Date: 09/28/20 Status: Ordered terazosin 5 mg oral capsule 5 mg, 1, capsule, By Mouth, Daily at bedtime, # 30 capsule, Refills 11, Tot. Refills 11, Soft Stop,03/16/21 15:03:00 EDT, Route to Pharmacy Electronically, [facility], 177.8, cm, 03/11/21 9:04:00 EDT, Height, [...] Dates Health Status Cl inical Service Informant Numbness and tingling Discharge Diagnosis 04/22/21 Skin lesion of back Discharge Diagnosis 04/22/21 Skin lesion of neck Discharge Diagnosis 04/22/21 Vital Signs Most recent to oldest [Reference Range]: 1 2 Height 177.80 cm (04/22/21 2:54 PM) 177.80 cm (04/22/21 2:27 PM) Weight 95.6 kg (04/22/21 2:27 PM) Oxygen Saturation [94-100 %] 96 % (04/22/21 2:27 PM) Pulse Rate [55-90 bpm] 68 bpm (04/22/21 2:27 PM) Body Mass Index [18.5-24.99] 30.24 *>HHI* (04/22/21 2:27 PM) Blood Pressure [90-138/55-84 mm Hg] 132/ 78mm Hg (04/22/21 2:54 PM) 126/78mm Hg (04/22/21 2:27 PM) Mode of Delivery (Oxygen) Room air (04/22/21 2:27 PM) Blood pressure sites Arm, left (04/22/21 2:54 PM) Arm, left (04/22/21 2:27 PM) Weight Obtained Via Standing scale (04/22/21 2:27 PM) Social History Social History Type Response Smoking Status Former smoker; Tobac co user in household: No; Other: quit smoking in 2007; entered on: 07/16/14 Sex
--- OUTSIDE RECORDS SUMMARY | 2024-04-23 08:21 | XMS_ITS | Continuity of Care Document ---
Author Organization [facility] Address [address] [facility], [address] d Floor, [address] [place] [address]- Care Team Providers Care Electrical Foreman Name Role Phone Sneha LINOLEUM LAYER, Radha Sorensen Primary Care Physician [facility]counter [facility] Date[facility]s): 09/12/23 - 10/12/23 [facility] [address], [address], [address] [place] [address]- Allergies, Adverse Reactions, Alerts Substance Reaction Severity Status Levaquin itch Moderate Active nonsteroidal anti-inflammatory agents diarrhea Active Crestor ck 400's and myalgia Active statins myalgia Active Immunizations Given and Recorded Vaccine Date Status Refusal Reason [id number] 12y+ bivalent booster vax 05/19/22 Recorded SARS-CoV-2 [...] Given tetanus/diphtheria/pertussis, acel(Tdap) 06/08/11 Given 1Result Comment: [facility] [id number] 2Result Comment: [05/25/2018] [facility] [place]NOTE 2]: [id number] 3Admin Note: Codi 4Admin Note: vis 03/31/09 [...] 3 Refills, Maintenance, 05/12/23 16:48:00 EDT, Tablet, [facility], 177.8, cm, 12/01/22 8:22:00 EDT, Height, 96.8, kg, 08/05/21 8:57:00 EST, Dry Weight Start Date: 05/12/23 Stop Date: 09/09/23 Status: Ordered amitriptyline 50 mg oral tablet 2 tablet = 100 mg, By Mouth, Daily at bedtime, # 60 tablet, 0 Refills, Maintenance, 12/15/22 13:40:00 EDT, [facility], Partial fill upon patient request if the prescription is for a schedule II opioid drug., 177.8, cm, 12/01/22 8:22:00 EDT, Heigh... Start Date: 12/15/22 Stop Date: 01/14/23 Status: Ordered amLODIPine 5 mg oral tablet See Instructions, TAKE 1 TABLET BY MOUTH DAILY, # 30 tablet, 11 Refills, Maintenance, 10/02/23 17:04:00 EST, [facility], 177.8, cm, 12/01/22 8:22:00 EDT, Height Start Date: 10/02/23 Status: Ordered amLODIPine 5 mg oral tablet [...] 5 Refills, Maintenance, 10/04/23 9:00:00 EST, Tablet, [facility], 177.8, cm, 12/01/22 8:22:00 EDT, Height Start Date: 10/04/23 Stop Date: 04/01/24 Status: Ordered cyclobenzaprine 10 mg oral tablet 10 mg, 1, tablet, By Mouth, Daily at supper, # 30 tablet, Refills 2, Tot. Refills 2, Maintenance, 10/24/22 15:13:00 EST, Route to Pharmacy Electronically, [facility], Partial fill upon patient request if the prescription is for a schedule II opio... Start Date: 10/24/22 Status: Ordered fenofibrate 54 mg oral tablet 1 tablet, By Mouth, Daily, # 30 tablet, 5 Refills, Maintenance, 10/04/23 8:48:00 EST, [facility], 177.8, cm, 12/01/22 8:22:00 EDT, Height [...] capsule, 5 Refills, Maintenance, 02/09/23 18:32:00 EDT, [facility], 177.8, cm, 12/01/22 8:22:00 EDT, Height, [...] tablet, 5 Refills, Maintenance, 08/08/23 20:42:00 EST, [facility], 177.8, cm, 12/01/22 8:22:00 EDT, Height Start Date: 08/08/23 Status: Ordered nitroglycerin 0.4 mg sublingual tablet 1 tablet = 0.4 mg, Sublingual, Every 5 minutes, PRN as needed for chest pain, not to exceed 3 doses/15 min--if pain persists, seek medical attention, # 100 tablet, 0 Refills, Maintenance, 09/28/20 17:00:00 EST, Tablet, [facility], Partial fill up... Start Date: 09/28/20 Status: Ordered Praluent Pen 75 mg/mL subcutaneous solution See Instructions, INJECT 75MG SUBCUTANEOUSLY EVERY 2 WEEKS, # 2 mL, 10 Refills, Maintenance, 05/25/23 10:56:00 EDT, [facility], 177.8, cm, 12/01/22 8:22:00 EDT, Height, 96.8, kg, 08/05/21 8:57:00 EST, Dry Weight Start Date: 05/25/23 Status: Ordered Repatha SureClick 140 mg/mL subcutaneous solution = 140 mg, Subcutaneous Infusion, Every 14 days, # 2 each, 11 Refills, Maintenance, 08/25/23 8:59:00EST, [facility], Partial fill upon patient request if the prescription is for a schedule II opioid drug., 177.8, cm, 12/01/22 8:22:00... Start Date: 08/25/23 Status: Ordered rizatriptan 5 mg oral tablet 1 tablet = 5 mg, By Mouth, Once, PRN for migraine headache, may repeat dose once in 2 hours max 2 tabs in 24hrs ., # 12 tablet, 2 Refills, Soft Stop, 05/20/22 7:59:00 EDT, Tablet, [facility], Partial fill upon patient request if the prescript... Start Date: 05/20/22 Status: Ordered SUMAtriptan 4 mg/0.5 mL subcutaneous solution 0.5 mL = 4 mg, Subcutaneous Injection, Once, PRN as needed for migraine headache, may repeat once in 1 hour if needed, # 1 kit, 0 Refills, Soft Stop, 03/21/22 14:40:00 EDT, Solution, [facility],Partial fill upon patient request if the prescripti... Start Date: 03/21/22 Status: Ordered terazosin 5 mg oral capsule 1, capsule, By Mouth, Daily at bedtime, # 30 capsule, Refills 5, Maintenance, 10/04/23 8:48:00 EST,Route to Pharmacy Electronically, [facility], 177.8, cm, 12/01/22 8:22:00 EDT, Height Start Date: 10/04/23 Status: Ordered zolpidem 10 mg oral tablet 1 tablet = 10 mg, By Mouth, Daily at bedtime, PRN as needed for insomnia, # 15 tablet, 0 Refills, Maintenance, 05/12/23 7:19:00 EDT, Tablet, [facility], Partial fill [...] Name: Kya Marina RN Position: [facility] RN Member Role: Primary Care Nurse Name: Veronica Feng RN Position: [facility] RN Member Role: Primary Care Nurse Name: Radha Hoover NP Position: [facility] PCO Associate Professional Member Role: PCP Address: Address: [address] [place] [address] 3rd [place] [address]- Name: Jonathan Ramos RN Position: S RN Member Role: Primary Care Nurse Care Team Related Persons Name: DUNGLEN Address: home [address] [place] [address]
--- OUTSIDE RECORDS SUMMARY | 2024-04-23 08:21 | XMS_ITS | Continuity of Care Document ---
Author Organization [facility] Address [address] [place] [address]- Care Team Providers Care Center Manager Name Role Phone Sneha GORDON, Radha Sorensen Primary Care Physician [place] [facility] [place]): [place] 12/05/19 [facility] [address] [place] [address]- [facility] Attending Physician: Ashley ANTONIO, Petr Marcus Referring [...] affairs [facility] [id number] 2Result Comment: [05/25/2018] [facility]: [id number] 3Admin Note: [facility] 4Admin Note: vis 03/31/09 [...] 3 Refills, Maintenance, 10/21/19 17:07:00 EST, Tablet, [facility], 175.4, cm, 10/21/19 8:06:00 EST, Height Start Date: 10/21/19 Status: Ordered azelastine nasal 0.15% spray 2 sprays, Nares, Both, 2 times a day, PRN for allergy symptoms, # 30 mL, 0 Refills, Maintenance, 10/21/19 8:40:00 EST, [place], [facility], 2 sprays Nares, Both 2 times [...] Replace Required Details, Route to Pharmacy Electronically, [facility], 175.4, cm, .. Start Date: 11/26/19 Status: Ordered mercaptopurine 50 mg oral tablet = 100 mg, By Mouth, Daily at bedtime, 0 Refills, Maintenance, 07/20/17 8:35:35, Tablet Start Date: 07/20/17 Status: Ordered metoprolol 25 mg oral tablet, extended release 25 mg, By Mouth, Daily at bedtime, # 30 tablet, Refills 5, Tot. Refills 5, Maintenance, 07/30/19 9:11:06 EST, Route to Pharmacy Electronically, [id number], [facility], 175.4, cm, 07/29/19 8:33:52 EST, Height Start Date: 07/30/19 Status: Ordered oxyCODONE 5 mg oral tablet 5 mg, 1, tablet, By Mouth, 2 times a day, PRN, for 28 days, # 56 tablet, Refills 0, Tot. Refills 0,Acute 12/24/19 14:59:00 EDT, Pain , Severe, 11/26/19 14:59:00 EDT, Route to Pharmacy Electronically, [facility], Partial fill upon patient request... Start Date: 11/26/19 Stop Date: 12/24/19 Status: Ordered Shingrix intramuscular injection 0.5 mL, Intramuscular, Once, # 0.5 mL, 1 Refills, Soft Stop, 06/28/19 13:15:54 EST, 0.5 mL Intramuscular Once Start Date: 06/28/19 Status: Ordered terazosin 5 mg oral capsule See Instructions, # 30 capsule, Refills 11 Tot. Refills 11, TAKE 1 CAPSULE BY MOUTH DAILY AT BEDTIME, [facility] Start Date: 05/02/19 Status: Ordered tiZANidine 2 mg oral tablet 1/2 tablet, By Mouth, Every 8 hours, PRN, # 45 tablet, Refills 0, Tot. Refills 0, Maintenance, as needed for muscle spasm, 11/05/19 10:51:00 EDT, Route to Pharmacy Electronically, [facility], 175.4, cm, 10/21/19 8:06:00 EST, Height [...]
--- OUTSIDE RECORDS SUMMARY | 2024-04-23 08:21 | XMS_ITS | Continuity of Care Document ---
Author Organization [facility] Address [address] [place] [address]- Care Team Providers Care Napper Fixer Name Role Phone Sneha SURVEY INTERVIEWER, Radha Sorensen Primary Care Physician [place] [facility] [place]20 [facility] [address] [place] [address]- [facility] Attending Physician: Julia Allen Admitting Physician: AdmtrJulia Referring Physician: Admtr ArFabi Allergies, Adverse Reactions, Alerts Substance Reaction Severity [...] Given tetanus/diphtheria/pertussis, acel(Tdap) 06/08/11 Given 1Result Comment: [facility] [id number] 2Result Comment: [05/25/2018] [facility]: [id number] 3Admin Note: [facility] 4Admin Note: vis 03/31/09 [...] 3 Refills, Maintenance, 10/21/19 17:07:00 EST, Tablet, [facility], 175.4, cm, 10/21/19 8:06:00 EST, Height Start Date: 10/21/19 Status: Ordered azelastine nasal 0.15% spray 2 sprays, Nares, Both, 2 times a day, PRN for allergy symptoms, # 30 mL, 0 Refills, Maintenance, 10/21/19 8:40:00 EST, [place], [facility], 2 sprays Nares, Both 2 times a day,PRN:for allergy symptoms, 175.4, cm, 10/21/19 8:06:00 EST, Height Start Date: 10/21/19 Status: Ordered fenofibrate 54 mg oral tablet 1 tablet = 54 mg, By Mouth, Daily, # 30 tablet, 5 Refills, Maintenance, 12/31/19 10:02:00 EDT, [facility], 175.4, cm, 10/21/19 8:06:00 EST, Height [...] Replace Required Details, Route to Pharmacy Electronically, [facility], 175.4, cm, ... Start Date: 02/26/20 Status: Ordered mercaptopurine 50 mg oral tablet = 100 mg, By Mouth, Daily at bedtime, 0 Refills, Maintenance, 07/20/17 8:35:35, Tablet Start Date: 07/20/17 Status: Ordered metoprolol 25 mg oral tablet, extended release 25 mg, By Mouth, Daily at bedtime, # 30 each, Refills 0, Tot. Refills 0, Maintenance, 03/02/20 14:36:00 EDT, Route to Pharmacy Electronically, [facility], 175.4, cm, 10/21/19 8:06:00 EST, Height Start Date: 03/02/20 Stop Date: 04/01/20 Status: Ordered oxyCODONE 5 mg oral tablet 5 mg, 1, tablet, By Mouth, 2 times a day, PRN, for 28 days, # 56 tablet, Refills 0, Tot. Refills 0,Acute 05/13/20 10:08:00 EDT, Pain , Severe, 04/15/20 10:08:00 EDT, Route to Pharmacy Electronically, [facility], Partial fill upon patient request... Start Date: 04/15/20 Stop Date: 05/13/20 Status: Ordered Shingrix intramuscular injection 0.5 mL, Intramuscular, Once, # 0.5 mL, 1 Refills, Soft Stop, 06/28/19 13:15:54 EST, 0.5 mL Intramuscular Once Start Date: 06/28/19 Status: Ordered terazosin 5 mg oral capsule See Instructions, # 30 capsule, Refills 11 Tot. Refills 11, TAKE 1 CAPSULE BY MOUTH DAILY AT BEDTIME, [facility] Start Date: 05/02/19 Status: Ordered tiZANidine 2 mg oral tablet 1/2 tablet, By Mouth, Every 8 hours, PRN, # 45 tablet, Refills 0, Tot. Refills 0, Maintenance, as needed for muscle spasm, 11/05/19 10:51:00 EDT, Route to Pharmacy Electronically, [facility], 175.4, cm, 10/21/19 8:06:00 EST, Height [...]
--- OUTSIDE RECORDS SUMMARY | 2024-04-23 08:21 | XMS_ITS | Continuity of Care Document ---
Author Organization [facility] Address [address] [place] [address]- Care Team Providers Care Nuclear Plant Operator Name Role Phone Sneha GORDON, Radha Sorensen Primary Care Physician [facility] Date[facility]s): 03/09/20 - 04/08/20 [facility] [address] [place] [address]- [facility] Allergies, Adverse Reactions, Alerts Substance Reaction Severity [...] 06/08/11 Given 1Result Comment: [facility] [place] [id number] 2Result Comment: [05/25/2018] [facility]: [id number] 3Admin Note: Codi 4Admin Note: vis 03/31/09 [...] 3 Refills, Maintenance, 10/21/19 17:07:00 EST, Tablet, [facility], 175.4, cm, 10/21/19 8:06:00 EST, Height Start Date: 10/21/19 Status: Ordered azelastine nasal 0.15% spray 2 sprays, Nares, Both, 2 times a day, PRN for allergy symptoms, # 30 mL, 0 Refills, Maintenance, 10/21/19 8:40:00 EST, [place], [facility], 2 sprays Nares, Both 2 times a day,PRN:for allergy symptoms, 175.4, cm, 10/21/19 8:06:00 EST, Height Start Date: 10/21/19 Status: Ordered fenofibrate 54 mg oral tablet 1 tablet = 54 mg, By Mouth, Daily, # 30 tablet, 5 Refills, Maintenance, 12/31/19 10:02:00 EDT, [facility], 175.4, cm, 10/21/19 8:06:00 EST, Height [...] Replace Required Details, Route to Pharmacy Electronically, [facility], 175.4, cm, ... Start Date: 02/26/20 Status: Ordered mercaptopurine 50 mg oral tablet = 100 mg, By Mouth, Daily at bedtime, 0 Refills, Maintenance, 07/20/17 8:35:35, Tablet Start Date: 07/20/17 Status: Ordered metoprolol 25 mg oral tablet, extended release 25 mg, By Mouth, Daily at bedtime, # 30 each, Refills 0, Tot. Refills 0, Maintenance, 03/02/20 14:36:00 EDT, Route to Pharmacy Electronically, [facility], 175.4, cm, 10/21/19 8:06:00 EST, Height Start Date: 03/02/20 Stop Date: 04/01/20 Status: Ordered oxyCODONE 5 mg oral tablet 5 mg, 1, tablet, By Mouth, 2 times a day, PRN, for 28 days, # 56 tablet, Refills 0, Tot. Refills 0,Acute 04/10/20 18:44:00 EDT, Pain , Severe, 03/13/20 18:44:00 EDT, Route to Pharmacy Electronically, [facility], Partial fill upon patient request... Start Date: 03/13/20 Stop Date: 04/10/20 Status: Ordered Shingrix intramuscular injection 0.5 mL, Intramuscular, Once, # 0.5 mL, 1 Refills, Soft Stop, 06/28/19 13:15:54 EST, 0.5 mL Intramuscular Once Start Date: 06/28/19 Status: Ordered terazosin 5 mg oral capsule See Instructions, # 30 capsule, Refills 11 Tot. Refills 11, TAKE 1 CAPSULE BY MOUTH DAILY AT BEDTIME, [facility] Start Date: 05/02/19 Status: Ordered tiZANidine 2 mg oral tablet 1/2 tablet, By Mouth, Every 8 hours, PRN, # 45 tablet, Refills 0, Tot. Refills 0, Maintenance, as needed for muscle spasm, 11/05/19 10:51:00 EDT, Route to Pharmacy Electronically, [facility], 175.4, cm, 10/21/19 8:06:00 EST, Height [...]
--- OUTSIDE RECORDS SUMMARY | 2024-04-23 08:21 | XMS_ITS | Continuity of Care Document ---
Author Organization [facility] Ricky alicia Address [address] [place] [address] [address] [place] [address]- Care Team Providers Care Squeegee Tender Name Role Phone Sneha DRY BOX TENDER, Radha Sorensen Primary Care Physician [facility] Date[facility]s): 02/09/21 - 03/11/21 [facility] [address] [place] [address]- Allergies, Adverse Reactions, Alerts Substance Reaction Severity [...] report when received vaccine 2Result Comment: [facility] [id number] 3Result Comment: [05/25/2018] [facility]: [id number] 4Admin Note: Codi 5Admin Note: vis 03/31/09 [...] 3 Refills, Maintenance, 12/02/20 15:26:00 EDT, Tablet, [facility], 178, cm, 11/06/20 13:18:00 EDT, Height, [...] 3 Refills, Maintenance, 01/06/21 15:26:00 EDT, Tablet, [facility], 177.8, cm, 12/18/20 11:27:00 EDT, Height, 92.3, kg, 12/18/20 11:27:00 EDT, Dry Weight Start Date: 01/06/21 Stop Date: 05/06/21 Status: Ordered fenofibrate 54 mg oral tablet 1 tablet, By Mouth, Daily, # 30 tablet, 5 Refills, Maintenance, 12/14/20 9:58:00 EDT, [facility], 178, cm, 11/06/20 13:18:00 EDT, Height, 90.1, kg, 10/06/20 6:33:00 EST, Dry Weight Start Date: 12/14/20 Status: Ordered fenofibrate 54 mg oral tablet 1 tablet = 54 mg, By Mouth, Daily, # 90 tablet, 1 Refills, Maintenance, 01/05/21 9:14:00 EDT, [facility], 177.8, cm, 12/18/20 11:27:00 EDT, Height, [...] Replace Required Details, Route to Pharmacy Electronically, [facility], 177.8, cm, ... Start Date: 01/07/21 [...] 12/11/20 21:05:00 EDT, Route to Pharmacy Electronically, [facility], 178, cm, 11/06/20 13:18:00 EDT, Height,90.1, [...] Stop,05/08/20 16:25:00 EDT, Route to Pharmacy Electronically, [facility], 175.4, cm, 10/21/19 8:06:00 EST, [...]
--- OUTSIDE RECORDS SUMMARY | 2024-04-23 08:21 | XMS_ITS | Continuity of Care Document ---
Author Organization [facility] Address [address] [place] [address]- Care Team Providers Care Inseamer Name Role Phone Sneha GORDON, Radha Sorensen Primary Care Physician Encounter [facility] [place] Date(s): 07/29/19 - 08/05/[address] [address]- [facility] Encounter Diagnosis Anxiety disorder(Discharge Diagnosis) - 07/29/19 BPH (benign prostatic hyperplasia)(Discharge Diagnosis) - 07/29/19 CAD (coronary artery disease)(Discharge Diagnosis) - 07/29/19 Osteoarthritis of knee(Discharge Diagnosis) - 07/29/19 Sleep apnea(Discharge Diagnosis) - 07/29/19 Ulcerative colitis(Discharge Diagnosis) - 07/29/19 Hypercholesterolemia(Discharge Diagnosis) - 07/29/19 Attending Physician: Radha Hoover NP Referring Physician: Kota ANTONIO [facility] Allergies, Adverse Reactions, Alerts Substance Reaction [...] 06/08/11 Given 1Result Comment: [facility] [id number] 2Result Comment: [05/25/2018] [facility] [place]: [id number] 3Admin Note: Cameronradha 4Admin Note: vis 03/31/09 5Result Comment: [08/11/2015] [...] 07/30/19 9:11:06 EST, Route to Pharmacy Electronically, [id number], [facility], 175.4, cm, 07/29/19 8:33:52 EST, Height Start Date: 07/30/19 Status: Ordered oxyCODONE 5 mg oral tablet 5 mg, 1, tablet, By Mouth, 2 times a day, PRN, for 28 days, opiate agreement, # 56 tablet, Refills 0, Tot. Refills 0, Acute 08/06/19 12:48:00 EST, Pain , Severe, 07/09/19 12:48:00 EST, Route to Pharmacy Electronically, [id number]... Start Date: 07/09/19 Stop Date: 08/06/19 Status: [...] myofascial strain(Confirmed) Active Ulcerative colitis(Confirmed) 10/14/13 Active Diagnosis Diagnosis Type Effective Dates Health Status Clinical Service Informant Anxiety disorder Discharge Diagnosis 07/29/19 BPH (benign prostatic hyperplasia) Discharge Diagnosis 07/29/19 CAD (coronary artery disease) Discharge Diagnosis 07/29/19 Osteoarthritis of knee Discharge Diagnosis 07/29/19 Sleep apnea Discharge Diagnosis 07/29/19 Ulcerative colitis Discharge Diagnosis 07/29/19 Hypercholesterolemia Discharge Diagnosis 07/29/19 Vital Signs Most recent to oldest [Reference Range]: 1 2 Height 175.4 cm (07/29/19 8:33 AM) 175.4 cm (07/29/19 7:58 AM) Weight 90.0 kg (07/29/19 7:58 AM) Oxygen Saturation [94-100 %] 93 % *L* (07/29/19 7:58 AM) Pulse Rate [55-90 bpm] 66 bpm (07/29/19 7:58 AM) Body Mass Index [18.5-24.99] 29.25 *H* (07/29/19 7:58 AM) Blood Pressure [90-138/55-84 mm Hg] 128/ 76mm Hg (07/29/19 8:33 AM) 118/72mm Hg (07/29/19 7:58 AM) Temperature [96.8-100.4 DegF] 98.3 DegF (07/29/19 7:58 AM) Mode of Delivery (Oxygen) Room air (07/29/19 7:58 AM) Blood pressure sites Arm, left (07/29/19 8:33 AM) Arm, left (07/29/19 7:58 AM) Temperature Route Oral (07/29/19 7:58 AM) Weight Obtained Via Standing scale (07/29/19 7:58 AM) Social History Social History Type Response Smoking Status Former smoker; Tobac co user in household: No; Other: quit smoking in 2007; entered on: 07/16/14 Sex
--- OUTSIDE RECORDS SUMMARY | 2024-04-23 08:21 | XMS_ITS | Continuity of Care Document ---
Author Organization [facility] alicia Address [address] [place] [address] [address] [place] [address]- Care Team Providers Care Deportation Officer Name Role Phone Sneha GORDON, Radha Sorensen Primary Care Physician [facility] Date[facility]s): 11/[facility]/22 - 12/21/22 [facility] [address] [place], [place] [address] Attending Physician: Admlashay, Julia Admitting Physician: Admtr, Ar8 Referring Physician: Admtr, Ar8 Allergies, Adverse Reactions, Alerts Substance Reaction Severity Status Levaquin itch Moderate Active nonsteroidal anti-inflammatory agents diarrhea Active Crestor ck 400's and myalgia Active statins myalgia Active Immunizations Given and Recorded Vaccine Date Status Refusal Reason [id number] 12y+ bivalent booster vax 05/19/22 Recorded SARS-CoV-2 [...] 1Result Comment: [facility] [id number] 2Result Comment: [05/25/2018] [facility]: [id number] 3Admin Note: [facility] 4Admin Note: vis 03/31/09 [...] 3 Refills, Maintenance, 09/16/22 8:46:00 EST, Tablet, [facility], 177.8, cm, 08/03/22 15:31:00 EST, Height, 96.8, kg, 08/05/21 8:57:00 EST, Dry Weight Start Date: 09/16/22 Stop Date: 01/14/23 Status: Ordered amitriptyline 50 mg oral tablet 2 tablet = 100 mg, By Mouth, Daily at bedtime, # 60 tablet, 0 Refills, Maintenance, 12/15/22 13:40:00 EDT, [facility], Partial fill upon patient request if [...] 5 Refills, Maintenance, 11/11/22 12:40:00 EDT, Tablet, [facility], 177.8, cm, 10/24/22 8:53:00 EST, Height, [...] tablet, 5 Refills, Maintenance, 11/09/22 6:38:00 EDT, [facility], 177.8, cm, 10/24/22 8:53:00 EST, Height, [...] 5 Refills, Maintenance, 08/24/22 13:53:00 EST, Capsule, [facility], 30 caps / month, 177.8, cm, [...] at bedtime, # 30 tablet, 5 Refills, [facility], 177.8, cm, 11/22/21 14:53:00 EDT, Height, 96.8, kg, 08/05/21 8:57:00 EST, Dry Weight Start Date: 12/23/21 Status: Ordered nitroglycerin 0.4 mg sublingual tablet 1 tablet = 0.4 mg, Sublingual, Every 5 minutes, PRN as needed for chest pain, not to exceed 3 doses/15 min--if pain persists, seek medical attention, # 100 tablet, 0 Refills, Maintenance, 09/28/20 17:00:00 EST, Tablet, [facility], Partial fill up... Start Date: 09/28/20 Status: Ordered rizatriptan 5 mg oral tablet 1 tablet = 5 mg, By Mouth, Once, PRN for migraine headache, may repeat dose once in 2 hours max 2 tabs in 24hrs ., # 12 tablet, 2 Refills, Soft Stop, 05/20/22 7:59:00 EDT, Tablet, [facility], Partial fill upon patient request if the prescript... Start Date: 05/20/22 Status: Ordered SUMAtriptan 4 mg/0.5 mL subcutaneous solution 0.5 mL = 4 mg, Subcutaneous Injection, Once, PRN as needed for migraine headache, may repeat once in 1 hour if needed, # 1 kit, 0 Refills, Soft Stop, 03/21/22 14:40:00 EDT, Solution, [facility],Partial fill upon patient request if the prescripti... Start Date: 03/21/22 Status: Ordered terazosin 5 mg oral capsule 1, capsule, By Mouth, Daily at bedtime, # 30 capsule, Refills 5, Maintenance, 08/04/22 11:10:00 EST, Route to Pharmacy Electronically, [facility], 177.8, cm, 08/03/22 15:31:00 EST, Height, [...] Member Role: Primary Care Nurse Name: Sneha GORODN, Radha Sorensen Position: [facility] Associate Professional Member Role: PCP Address: Address: [address] [place] [address] [address] [place], [place] [address] Name: Jonathan Ramos RN Position: S RN Member Role: Primary Care Nurse Care Team Related Persons Name: LEN RAZO Address: [address] [address]
--- OUTSIDE RECORDS SUMMARY | 2024-04-23 08:21 | XMS_ITS | Continuity of Care Document ---
Author Organization [facility] Address [address] [place] [address]- Care Team Providers Care Pattern Keeper Name Role Phone Sneha INSTRUCTIONAL SYSTEMS DESIGNER, Radha Sorensen Primary Care Physician [facility] 10[facility]21 - 11/17/21 [facility] [address] [place] [phone]- Allergies, Adverse Reactions, Alerts Substance Reaction Severity [...] pneumococcal 23-valent vaccine 06/29/14 Given FluLaval (oldterm) 10/24/12 Given tetanus/diphtheria/pertussis, acel(Tdap) 06/08/11 Given 1Result Comment: [facility] [id number] 2Result Comment: [05/25/2018] [facility] [place]NOTE 2]: [id number] 3Admin Note: Codi 4Admin Note: vis 03/31/09 [...] Refills, Maintenance, 08/18/21 8:58:00 EST, Tablet, [facility], 177.8, cm, 08/10/21 10:04:00 EST, Height, [...] 0 Refills, Maintenance, 10/18/21 16:31:00 EST, Tablet, [facility], 177.8, cm, 10/12/21 8:38:00 EST, Height, [...] 90 tablet, 1 Refills, Maintenance, 01/05/21 9:14:00EDT, [facility], 177.8, cm, 12/18/20 11:27:00 EDT, Height, [...] Replace Required Details, Route to Pharmacy Electronically, [facility], 177.8, cm, 09/07/21 13:03:0... Start Date: 09/17/21 Status: Ordered mercaptopurine 50 mg oral tablet 1 tablet = 50 mg, By Mouth, Daily at bedtime, 0 Refills, Maintenance, 07/20/17 8:35:35 EST, Tablet Start Date: 07/20/17 Status: Ordered Metoprolol Succinate ER 25 mg oral tablet, extended release See Instructions, TAKE 1 TABLET BY MOUTH DAILY AT BEDTIME, # 30 tablet, 5 Refills, [facility],177.8, cm, 06/18/21 9:52:00 EDT, Height, 92.3, kg, 12/18/20 11:27:00 EDT, Dry Weight Start Date: 07/16/21 Status: Ordered nitroglycerin 0.4 mg sublingual tablet 1 tablet = 0.4 mg, Sublingual, Every 5 minutes, PRN as needed for chest pain, not to exceed 3 doses/15 min--if pain persists, seek medical attention, # 100 tablet, 0 Refills, Maintenance, 09/28/20 17:00:00 EST, Tablet, [facility], Partial fill up... Start Date: 09/28/20 Status: Ordered terazosin 5 mg oral capsule 5 mg, 1, capsule, By Mouth, Daily at bedtime, # 30 capsule, Refills 8, Tot. Refills 8, Soft Stop, 03/11/22 15:03:00 EDT, Route to Pharmacy Electronically, [facility], 177.8, cm, 04/22/21 14:54:00 EDT, Height, [...]
--- OUTSIDE RECORDS SUMMARY | 2024-04-23 08:21 | XMS_ITS | Continuity of Care Document ---
Author Organization [facility] Address [address] [place] [address]- Care Team Providers Care Wood Engraver Name Role Phone Sneha GORDON, Radha Sorensen Primary Care Physician Encounter [facility] [place] Date(s): 11/19/19 - 11/26/19 [facility] [address] [place] [address]- [facility] Encounter Diagnosis Cervical myofascial pain syndrome(Discharge Diagnosis) - 11/19/19 Facet syndrome of cervical spine(Discharge Diagnosis) - 11/19/19 Attending Physician: Petr Ramirez MD Referring Physician: nSeha GORDON, Radha Sorensen Allergies, Adverse Reactions, Alerts [...] Given tetanus/diphtheria/pertussis, acel(Tdap) 06/08/11 Given 1Result Comment: [facility] [id number] 2Result Comment: [05/25/2018] [facility]: [id number] 3Admin Note: Codi 4Admin Note: vis 03/31/09 [...] 3 Refills, Maintenance, 10/21/19 17:07:00 EST, Tablet, [facility], 175.4, cm, 10/21/19 8:06:00 EST, Height Start Date: 10/21/19 Status: Ordered azelastine nasal 0.15% spray 2 sprays, Nares, Both, 2 times a day, PRN for allergy symptoms, # 30 mL, 0 Refills, Maintenance, 10/21/19 8:40:00 EST, [place], 2 sprays Nares, Both 2 [...] Replace Required Details, Route to Pharmacy Electronically, [facility], 175.4, cm, ... Start Date: 11/26/19 Status: Ordered mercaptopurine 50 mg oral tablet = 100 mg, By Mouth, Daily at bedtime, 0 Refills, Maintenance, 07/20/17 8:35:35, Tablet Start Date: 07/20/17 Status: Ordered metoprolol 25 mg oral tablet, extended release 25 mg, By Mouth, Daily at bedtime, # 30 tablet, Refills 5, Tot. Refills 5, Maintenance, 07/30/19 9:11:06 EST, Route to Pharmacy Electronically, [id number], [facility], 175.4, cm, 07/29/19 8:33:52 EST, Height Start Date: 07/30/19 Status: Ordered oxyCODONE 5 mg oral tablet 5 mg, 1, tablet, By Mouth, 2 times a day, PRN, for 28 days, # 56 tablet, Refills 0, Tot. Refills 0,Acute 12/24/19 14:59:00 EDT, Pain , Severe, 11/26/19 14:59:00 EDT, Route to Pharmacy Electronically, [facility], Partial fill upon patient request... Start Date: 11/26/19 Stop Date: 12/24/19 Status: Ordered Shingrix intramuscular injection 0.5 mL, Intramuscular, Once, # 0.5 mL, 1 Refills, Soft Stop, 06/28/19 13:15:54 EST, 0.5 mL Intramuscular Once Start Date: 06/28/19 Status: Ordered terazosin 5 mg oral capsule See Instructions, # 30 capsule, Refills 11 Tot. Refills 11, TAKE 1 CAPSULE BY MOUTH DAILY AT BEDTIME, [facility] Start Date: 05/02/19 Status: Ordered tiZANidine 2 mg oral tablet 1/2 tablet, By Mouth, Every 8 hours, PRN, # 45 tablet, Refills 0, Tot. Refills 0, Maintenance, as needed for muscle spasm, 11/05/19 10:51:00 EDT, Route to Pharmacy Electronically, [facility], 175.4, cm, 10/21/19 8:06:00 EST, Height [...] Effective Dates Health Status Clinical Service Informant Cervical myofascial pain syndrome Discharge Diagnosis 11/19/19 Facet syndrome of cervical spine Discharge Diagnosis 11/19/19 Social History Social History Type Response Smoking Status Former smoker; Tobac co user in household: No; Other: quit smoking in 2007; entered on: 07/16/14 Sex
--- OUTSIDE RECORDS SUMMARY | 2024-04-23 08:21 | XMS_ITS | Continuity of Care Document ---
Author Organization [facility] Address [address] [place] [address]- Care Team Providers Care Children'S Service Worker Name Role Phone Sneha TOOL DESIGN DRAFTER, Radha Sorensen Primary Care Physician [facility] Date[facility]s): 12/12/20 - 01/11/21 [facility] [address] [place] [address]- Allergies, Adverse Reactions, Alerts Substance Reaction Severity [...] vaccine 2Result Comment: [facility] [id number] 3Result Comment: [05/25/2018] [facility]: [id number] 4Admin Note: [facility] 5Admin Note: vis 03/31/09 [...] 3 Refills, Maintenance, 12/02/20 15:26:00 EDT, Tablet, [facility], 178, cm, 11/06/20 13:18:00 EDT, Height, [...] 3 Refills, Maintenance, 01/06/21 15:26:00 EDT, Tablet, [facility], 177.8, cm, 12/18/20 11:27:00 EDT, Height, 92.3, kg, 12/18/20 11:27:00 EDT, Dry Weight Start Date: 01/06/21 Stop Date: 05/06/21 Status: Ordered fenofibrate 54 mg oral tablet 1 tablet, By Mouth, Daily, # 30 tablet, 5 Refills, Maintenance, 12/14/20 9:58:00 EDT, [facility], 178, cm, 11/06/20 13:18:00 EDT, Height, 90.1, kg, 10/06/20 6:33:00 EST, Dry Weight Start Date: 12/14/20 Status: Ordered fenofibrate 54 mg oral tablet 1 tablet = 54 mg, By Mouth, Daily, # 90 tablet, 1 Refills, Maintenance, 01/05/21 9:14:00 EDT, [facility], 177.8, cm, 12/18/20 11:27:00 EDT, Height, [...] Replace Required Details, Route to Pharmacy Electronically, [facility], 177.8, cm, ... Start Date: 01/07/21 [...] 12/11/20 21:05:00 EDT, Route to Pharmacy Electronically, [facility], 178, cm, 11/06/20 13:18:00 EDT, Height,90.1, [...] 0 Refills, Maintenance, 09/28/20 17:00:00 EST, Tablet, [facility], Partial fill up... Start Date: 09/28/20 [...] Stop,05/08/20 16:25:00 EDT, Route to Pharmacy Electronically, [facility], 175.4, cm, 10/21/19 8:06:00 EST, Height [...]
--- OUTSIDE RECORDS SUMMARY | 2024-04-23 08:21 | XMS_ITS | Continuity of Care Document ---
Author Organization [facility] Address [address], [address], [address] [place] [address]- Care Team Providers Care Channel Machine Operator Name Role Phone Sneha CAMPUS SAFETY OFFICER, Radha Sorensen Primary Care Physician [facility] Date[facility]s): 05/11/22 - 06/10/22 [facility] [address], [address], [address] [place] [id number] Allergies, Adverse Reactions, Alerts Substance Reaction [...] 1Result Comment: [facility] [id number] 2Result Comment: [05/25/2018] [facility]: [id number] 3Admin Note: Codi 4Admin Note: vis 03/31/09 [...] tablet, 5 Refills, Maintenance, 03/25/22 14:14:00 EDT, [facility], 177.8, cm, 02/14/22 8:18:00 EDT, Height, [...] Replace Required Details, Route to Pharmacy Electronically, [facility], 177.8, cm, 02/14/22 8:18:00... Start Date: 03/24/22 Status: Ordered Guaiatussin AC 10 mg-100 mg/5 ml oral syrup 10 mL, By Mouth, Every 6 hours, PRN for cough, # 240 mL, 0 Refills, Maintenance, 11/22/21 16:22:00 EDT, Syrup, [facility], Partial fill upon patient request if the prescription is for a scheduleII opioid drug., 10 mL By Mouth Every 6 hours,PRN:f... Start Date: 11/22/21 Status: Ordered indomethacin 25 mg oral capsule 1 capsule = 25 mg, By Mouth, 3 times a day, PRN Headache, # 30 capsule, 2 Refills, Maintenance, 05/20/22 8:07:00 EDT, Capsule, [facility], 30 caps / month, 177.8, cm, [...] at bedtime, # 30 tablet, 5 Refills, [facility], 177.8, cm, 11/22/21 14:53:00 EDT, Height, 96.8, kg, 08/05/21 8:57:00 EST, Dry Weight Start Date: 12/23/21 Status: Ordered nitroglycerin 0.4 mg sublingual tablet 1 tablet = 0.4 mg, Sublingual, Every 5 minutes, PRN as needed for chest pain, not to exceed 3 doses/15 min--if pain persists, seek medical attention, # 100 tablet, 0 Refills, Maintenance, 09/28/20 17:00:00 EST, Tablet, [facility], Partial fill up... Start Date: 09/28/20 Status: Ordered rizatriptan 5 mg oral tablet 1 tablet = 5 mg, By Mouth, Once, PRN for migraine headache, may repeat dose once in 2 hours max 2 tabs in 24hrs ., # 12 tablet, 2 Refills, Soft Stop, 05/20/22 7:59:00 EDT, Tablet, [facility], Partial fill upon patient request if the prescript... Start Date: 05/20/22 Status: Ordered SUMAtriptan 4 mg/0.5 mL subcutaneous solution 0.5 mL = 4 mg, Subcutaneous Injection, Once, PRN as needed for migraine headache, may repeat once in 1 hour if needed, # 1 kit, 0 Refills, Soft Stop, 03/21/22 14:40:00 EDT, Solution, [facility],Partial fill upon patient request if the prescripti... Start Date: 03/21/22 Status: Ordered terazosin 5 mg oral capsule See Instructions, TAKE 1 CAPSULE BY MOUTH DAILY AT BEDTIME, # 30 capsule, Refills 5, Instructions Replace Required Details, Route to Pharmacy Electronically, [facility], 177.8, cm, 02/14/22 8:18:00 EDT, Height, [...] Name: Sneha GORDON, Radha Sorensen Address: Address: [address] [place] [address] [address] [place], [place] [address]
--- OUTSIDE RECORDS SUMMARY | 2024-04-23 08:21 | XMS_ITS | Continuity of Care Document ---
Author Organization [facility] Address [address] [place] [address] [address] [place] [address]- Care Team Providers Care Registered Respiratory Technician Name Role Phone Sneha CLIP AND HANGER ATTACHER, Radha Sorensen Primary Care Physician [facility] Date(s): 10/02/23 - 11/01/23 [facility] [address] [place] [address]- Allergies, Adverse Reactions, Alerts Substance Reaction Severity Status Crestor ck 400's and myalgia Active statins myalgia Active nonsteroidal anti-inflammatory agents diarrhea Active Levaquin itch Moderate Active Immunizations Given and Recorded Vaccine Date Status Refusal Reason [id number] 12y+ bivalent booster vax 05/19/22 Recorded SARS-CoV-2 [...] 06/08/11 Given 1Result Comment: [facility] [id number] 2Result Comment: [05/25/2018] [facility]: [address]-68 3Admin Note: C[facility] 4Admin Note: vis 03/31/09 [...] 3 Refills, Maintenance, 05/12/23 16:48:00 EDT, Tablet, [facility], 177.8, cm, 12/01/22 8:22:00 EDT, Height, 96.8, kg, 08/05/21 8:57:00 EST, Dry Weight Start Date: 05/12/23 Stop Date: 09/09/23 Status: Ordered amLODIPine 5 mg oral tablet See Instructions, TAKE 1 TABLET BY MOUTH DAILY, # 30 tablet, 11 Refills, Maintenance, 10/02/23 17:04:00 EST, [facility], 177.8, cm, 12/01/22 8:22:00 EDT, Height [...] 5 Refills, Maintenance, 10/04/23 9:00:00 EST, Tablet, [facility], 177.8, cm, 12/01/22 8:22:00 EDT, Height Start Date: 10/04/23 Stop Date: 04/01/24 Status: Ordered cyclobenzaprine 10 mg oral tablet 10 mg, 1, tablet, By Mouth, Daily at supper, # 30 tablet, Refills 2, Tot. Refills 2, Maintenance, 10/24/22 15:13:00 EST, Route to Pharmacy Electronically, [facility], Partial fill upon patient request if the prescription is for a schedule II opio... Start Date: 10/24/22 Status: Ordered fenofibrate 54 mg oral tablet 1 tablet, By Mouth, Daily, # 30 tablet, 5 Refills, Maintenance, 10/04/23 8:48:00 EST, [facility], 177.8, cm, 12/01/22 8:22:00 EDT, Height [...] capsule, 5 Refills, Maintenance, 02/09/23 18:32:00 EDT, [facility], 177.8, cm, 12/01/22 8:22:00 EDT, Height, [...] tablet, 5 Refills, Maintenance, 08/08/23 20:42:00 EST, [facility], 177.8, cm, 12/01/22 8:22:00 EDT, Height [...] 2 each, 11 Refills, Maintenance, 08/25/23 8:59:00EST, [facility], Partial fill upon patient request if the prescription is for a schedule II opioid drug., 177.8, cm, 12/01/22 8:22:00... Start Date: 08/25/23 Status: Ordered terazosin 5 mg oral capsule 1, capsule, By Mouth, Daily at bedtime, # 30 capsule, Refills 5, Maintenance, 10/04/23 8:48:00 EST,Route to Pharmacy Electronically, [facility], 177.8, cm, 12/01/22 8:22:00 EDT, Height [...] Name: Kya Marina RN Position: [facility] RN Member Role: Primary Care Nurse Name: Veronica Feng RN Position: [facility] SN RN Member Role: Primary Care Nurse Name: Radha Hoover NP Position: [facility] PCO Associate Professional Member Role: PCP Address: Address: [address] [place] [address] [address] [place] [address]- Name: Jonathan Ramos RN Position: [facility] RN Member Role: Primary Care Nurse Care Team Related Persons Name: LEN RAZO Address: [address] [address]
--- OUTSIDE RECORDS SUMMARY | 2024-04-23 08:21 | XMS_ITS | Continuity of Care Document ---
Author Organization [facility] Address [address] [place] [address]- Care Team Providers Care Senior Qa Analyst Name Role Phone Sneha COMBAT SYSTEMS ENGINEER, Radha Sorensen Primary Care Physician [facility]s): 03/16/21 - 04/15/21 [facility] [address] [place] [address]- Allergies, Adverse Reactions, Alerts Substance Reaction Severity [...] to report when received vaccine 2Result Comment: [facility] [id number] 3Result Comment: [05/25/2018] [facility]: [id number] 4Admin Note: [facility] 5Admin Note: vis 03/31/09 [...] 3 Refills, Maintenance, 12/02/20 15:26:00 EDT, Tablet, [facility], 178, cm, 11/06/20 13:18:00 EDT, Height, [...] 3 Refills, Maintenance, 01/06/21 15:26:00 EDT, Tablet, [facility], 177.8, cm, 12/18/20 11:27:00 EDT, Height, 92.3, kg, 12/18/20 11:27:00 EDT, Dry Weight Start Date: 01/06/21 Stop Date: 05/06/21 Status: Ordered fenofibrate 54 mg oral tablet 1 tablet, By Mouth, Daily, # 30 tablet, 5 Refills, Maintenance, 12/14/20 9:58:00 EDT, [facility], 178, cm, 11/06/20 13:18:00 EDT, Height, 90.1, kg, 10/06/20 6:33:00 EST, Dry Weight Start Date: 12/14/20 Status: Ordered fenofibrate 54 mg oral tablet 1 tablet = 54 mg, By Mouth, Daily, # 90 tablet, 1 Refills, Maintenance, 01/05/21 9:14:00 EDT, [facility], 177.8, cm, 12/18/20 11:27:00 EDT, Height, [...] Required Details, Route to Pharmacy Electronically, [facility], 177.8, cm, ... Start Date: 01/07/21 [...] 12/11/20 21:05:00 EDT, Route to Pharmacy Electronically, [facility], 178, cm, 11/06/20 13:18:00 EDT, Height,90.1, [...] 0 Refills, Maintenance, 09/28/20 17:00:00 EST, Tablet, [facility], Partial fill up... Start Date: 09/28/20 [...]
--- OUTSIDE RECORDS SUMMARY | 2024-04-23 08:22 | XMS_ITS | Continuity of Care Document ---
Author Organization [facility] Address [address] [place] [address]- Care Team Providers Care High Energy Forming Equipment Operator Name Role Phone Sneha GORDON, Radha Sorensen Primary Care Physician [facility]): 03/06/23 - 04/05/23 [facility] [address] [place] [address]- Allergies, Adverse Reactions, Alerts Substance Reaction Severity Status statins myalgia Active Levaquin itch Moderate Active nonsteroidal anti-inflammatory agents diarrhea Active Crestor ck 400's and myalgia Active Immunizations Given and Recorded Vaccine Date Status Refusal Reason [id number] 12y+ bivalent booster vax 05/19/22 Recorded SARS-CoV-2 [...] Given 1Result Comment: [facility] [id number] 2Result Comment: [05/25/2018] [facility]: [id number] 3Admin Note: [facility] 4Admin Note: vis 03/31/09 [...] 3 Refills, Maintenance, 01/10/23 16:19:00 EDT, Tablet, [facility], 177.8, cm, 12/01/22 8:22:00 EDT, Height, 96.8, kg, 08/05/21 8:57:00 EST, Dry Weight Start Date: 01/10/23 Stop Date: 05/10/23 Status: Ordered amitriptyline 50 mg oral tablet 2 tablet = 100 mg, By Mouth, Daily at bedtime, # 60 tablet, 0 Refills, Maintenance, 12/15/22 13:40:00 EDT, [facility], Partial fill upon patient request if the prescription is for a schedule II opioid drug., 177.8, cm, 12/01/22 8:22:00 EDT, [place]... Start Date: 12/15/22 Stop Date: 01/14/23 Status: [...] 5 Refills, Maintenance, 11/11/22 12:40:00 EDT, Tablet, [facility], 177.8, cm, 10/24/22 8:53:00 EST, Height, 96.8, kg, 08/05/21 8:57:00 EST, Dry Weight Start Date: 11/11/22 Stop Date: 05/10/23 Status: Ordered cyclobenzaprine 10 mg oral tablet 10 mg, 1, tablet, By Mouth, Daily at supper, # 30 tablet, Refills 2, Tot. Refills 2, Maintenance, 10/24/22 15:13:00 EST, Route to Pharmacy Electronically, [facility], Partial fill upon patient request if the prescription is for a schedule II opio... Start Date: 10/24/22 Status: Ordered evolocumab 140 mg/mL subcutaneous solution = 140 mg, Subcutaneous Infusion, Every 14 days, # 1 kit, 6 Refills, Maintenance, 01/30/23 14:16:00 EDT, [facility], Partial fill upon patient request if the prescription is for a schedule II opioid drug., 177.8, cm, 12/01/22 8:22:00 E... Start Date: 01/30/23 Status: Ordered fenofibrate 54 mg oral tablet 1 tablet, By Mouth, Daily, # 30 tablet, 5 Refills, Maintenance, 11/09/22 6:38:00 EDT, [facility], 177.8, cm, 10/24/22 8:53:00 EST, Height, [...] capsule, 5 Refills, Maintenance, 02/09/23 18:32:00 EDT, [facility], 177.8, cm, 12/01/22 8:22:00 EDT, Height, [...] 30 tablet, 5 Refills, 03/07/23 10:21:00 EDT, [facility], 177.8, cm, 12/01/22 8:22:00 EDT, Height, 96.8, kg, 08/05/21 8:57:00 EST, Dry Weight Start Date: 03/07/23 Status: Ordered nitroglycerin 0.4 mg sublingual tablet 1 tablet = 0.4 mg, Sublingual, Every 5 minutes, PRN as needed for chest pain, not to exceed 3 doses/15 min--if pain persists, seek medical attention, # 100 tablet, 0 Refills, Maintenance, 09/28/20 17:00:00 EST, Tablet, [facility], Partial fill up... Start Date: 09/28/20 Status: Ordered Praluent Pen 75 mg/mL subcutaneous solution See Instructions, 75 mg Subcutaneous Infusion every 2 weeks, # 3 kit, 0 Refills, Maintenance, 02/01/23 16:53:00 EDT, [facility], Partial fill upon patient [...] Refills, Soft Stop, 05/20/22 7:59:00 EDT, Tablet, [facility], Partial fill upon patient request if the prescript... Start Date: 05/20/22 Status: Ordered SUMAtriptan 4 mg/0.5 mL subcutaneous solution 0.5 mL = 4 mg, Subcutaneous Injection, Once, PRN as needed for migraine headache, may repeat once in 1 hour if needed, # 1 kit, 0 Refills, Soft Stop, 03/21/22 14:40:00 EDT, Solution, [facility],Partial fill upon patient request if the prescripti... Start Date: 03/21/22 Status: Ordered terazosin 5 mg oral capsule See Instructions, TAKE 1 CAPSULE BY MOUTH DAILY AT BEDTIME, # 90 capsule, Refills 1, Tot. Refills 1, Maintenance, 03/13/23 8:21:00 EDT, Instructions Replace Required Details, Route to Pharmacy Electronically, [facility], 177.8, cm, 12/01/22 8:22:... Start Date: [...] Care Nurse Name: Veronica Feng RN Position: [facility] RN Member Role: Primary Care Nurse Name: Radha Hoover NP Position: [facility] PCO Associate Professional Member Role: PCP Address: Address: [address] [place] [address] [address] [place] [address]- Name: Jonathan Ramos RN Position: [facility] RN Member Role: Primary Care Nurse Care Team Related Persons Name: LEN RAZO Address: [address] [address]
--- OUTSIDE RECORDS SUMMARY | 2024-04-23 08:22 | XMS_ITS | Continuity of Care Document ---
Author Organization [facility] Address [address] [place] [address]- Care Team Providers Care Scroll Assembler Name Role Phone Radha Hoover NP Primary Care Physician Encounter [facility] [place] [place] [facility] [id number] Date(s): 09/13/19 - 09/23/19 [facility] [address] [place] [address]- Antoine States Attending Physician: AdmJulia metz Admitting Physician: AdmtrJulia [...] Given tetanus/diphtheria/pertussis, acel(Tdap) 06/08/11 Given 1Result Comment: [facility] [id number] 2Result Comment: [05/25/2018] [facility]: [id number] 3Admin Note: [facility] 4Admin Note: vis 03/31/09 [...] 09/10/19 9:37:00 EST, Route to Pharmacy Electronically, [facility], 175.4, cm, 09/10/19 9:16:00 EST, Height [...] 07/30/19 9:11:06 EST, Route to Pharmacy Electronically, [id number], [facility], 175.4, cm, 07/29/19 8:33:52 EST, Height Start Date: 07/30/19 Status: Ordered oxyCODONE 5 mg oral tablet 5 mg, 1, tablet, By Mouth, 2 times a day, PRN, for 28 days, # 56 tablet, Refills 0, Tot. Refills 0,Acute 10/01/19 16:55:00 EST, Pain , Severe, 09/03/19 16:55:00 EST, Route to Pharmacy Electronically, [facility], Partial fill upon patient request... Start Date: 09/03/19 Stop Date: 10/01/19 Status: Ordered Shingrix intramuscular injection 0.5 mL, [...]
--- OUTSIDE RECORDS SUMMARY | 2024-04-23 08:22 | XMS_ITS | Continuity of Care Document ---
Author Organization [facility] Address [address] [place] [address]- Care Team Providers Care Calker Name Role Phone Sneha GORDON, Radha Sorensen Primary Care Physician [place] [facility] [place]21 - 07/[place]/21 [facility] [address] [place] [id number] Allergies, Adverse Reactions, Alerts Substance Reaction [...] tetanus/diphtheria/pertussis, acel(Tdap) 06/08/11 Given 1Result Comment: [facility] [id number] 2Result Comment: [05/25/2018] [facility]: [id number] 3Admin Note: Codi 4Admin Note: vis 03/31/09 [...] 3 Refills, Maintenance, 04/19/21 10:21:00 EDT, Tablet, [facility], 177.8, cm, 03/11/21 9:04:00 EDT, Height, [...] 0 Refills, Maintenance, 07/16/21 12:39:00 EST, Tablet, [facility], 177.8, cm, 06/18/21 9:52:00 EDT, Height, 92.3, kg, 12/18/20 11:27:00 EDT, Dry Weight Start Date: 07/16/21 Stop Date: 08/15/21 Status: Ordered fenofibrate 54 mg oral tablet 1 tablet, By Mouth, Daily, # 30 tablet, 5 Refills, Maintenance, 12/14/20 9:58:00 EDT, [facility], 178, cm, 11/06/20 13:18:00 EDT, Height, 90.1, kg, 10/06/20 6:33:00 EST, Dry Weight Start Date: 12/14/20 Status: Ordered fenofibrate 54 mg oral tablet 1 tablet = 54 mg, By Mouth, Daily, # 90 tablet, 1 Refills, Maintenance, 01/05/21 9:14:00 EDT, [facility], 177.8, cm, 12/18/20 11:27:00 EDT, Height, [...] Replace Required Details, Route to Pharmacy Electronically, [facility], 177.8, cm, ... Start Date: 01/07/21 Status: Ordered mercaptopurine 50 mg oral tablet 1 tablet = 50 mg, By Mouth, Daily at bedtime, 0 Refills, Maintenance, 07/20/17 8:35:35 EST, Tablet Start Date: 07/20/17 Status: Ordered Metoprolol Succinate ER 25 mg oral tablet, extended release See Instructions, TAKE 1 TABLET BY MOUTH DAILY AT BEDTIME, # 30 tablet, 5 Refills, [facility],177.8, cm, 06/18/21 9:52:00 EDT, Height, 92.3, [...] 03/16/21 15:03:00 EDT, Route to Pharmacy Electronically, [facility], 177.8, cm, 03/11/21 9:04:00 EDT, Height, 9... Start Date: 03/16/21 Stop Date: 03/11/22 Status: Ordered terazosin 5 mg oral capsule 5 mg, 1, capsule, By Mouth, Daily at bedtime, # 30 capsule, Refills 8, Tot. Refills 8, Soft Stop, 03/11/22 15:03:00 EDT, Route to Pharmacy Electronically, [facility], 177.8, cm, 04/22/21 14:54:00 EDT, Height, [...]
--- OUTSIDE RECORDS SUMMARY | 2024-04-23 08:22 | XMS_ITS | Continuity of Care Document ---
Author Organization [facility] Address [address] [place] [address]- Care Team Providers Care Nuclear Technician Name Role Phone Sneha GORDON, Radha Sorensen Primary Care Physician [facility] Date[facility]s): 05[facility]20 - 06/07/20 [facility] [address] [place] [phone]- [facility] Allergies, Adverse Reactions, Alerts Substance [...] 06/08/11 Given 1Result Comment: [facility] [id number] 2Result Comment: [05/25/2018] [facility]: [id number] 3Admin Note: Codi 4Admin Note: vis 03/31/09 5Result Comment: [08/11/2015] [facility] Ambien 10 mg oral tablet 1 tablet = 10 mg, By Mouth, Daily at bedtime, PRN for sleep, # 30 tablet, 3 Refills, Maintenance, 05/08/20 9:35:00 EDT, Tablet, [facility], 175.4, cm, 10/21/19 8:06:00 EST, Height [...] 3 Refills, Maintenance, 10/21/19 17:07:00 EST, Tablet, [facility], 175.4, cm, 10/21/19 8:06:00 EST, Height Start Date: 10/21/19 Status: Ordered azelastine nasal 0.15% spray 2 sprays, Nares, Both, 2 times a day, PRN for allergy symptoms, # 30 mL, 0 Refills, Maintenance, 10/21/19 8:40:00 EST, [place], [facility], 2 sprays Nares, Both 2 times a day,PRN:for allergy symptoms, 175.4, cm, 10/21/19 8:06:00 EST, Height Start Date: 10/21/19 Status: Ordered fenofibrate 54 mg oral tablet 1 tablet = 54 mg, By Mouth, Daily, # 30 tablet, 5 Refills, Maintenance, 12/31/19 10:02:00 EDT, [facility], 175.4, cm, 10/21/19 8:06:00 EST, Height [...] Replace Required Details, Route to Pharmacy Electronically, [facility], 175.4, cm, ... Start Date: 02/26/20 Status: Ordered mercaptopurine 50 mg oral tablet = 100 mg, By Mouth, Daily at bedtime, 0 Refills, Maintenance, 07/20/17 8:35:35, Tablet Start Date: 07/20/17 Status: Ordered metoprolol 25 mg oral tablet, extended release 25 mg, By Mouth, Daily at bedtime, # 30 each, Refills 0, Tot. Refills 0, Maintenance, 03/02/20 14:36:00 EDT, Route to Pharmacy Electronically, [facility], 175.4, cm, 10/21/19 8:06:00 EST, Height Start Date: 03/02/20 Stop Date: 04/01/20 Status: Ordered oxyCODONE 5 mg oral tablet 5 mg, 1, tablet, By Mouth, 2 times a day, PRN, for 28 days, # 56 tablet, Refills 0, Tot. Refills 0,Acute 06/09/20 12:17:00 EDT, Pain , Severe, 05/12/20 12:17:00 EDT, Route to Pharmacy Electronically, [facility], Partial fill upon patient request... Start [...] Stop,05/08/20 16:25:00 EDT, Route to Pharmacy Electronically, [facility], 175.4, cm, 10/21/19 8:06:00 EST, Height Start Date: 05/08/20 Stop Date: 05/03/21 Status: Ordered tiZANidine 2 mg oral tablet 1/2 tablet, By Mouth, Every 8 hours, PRN, # 45 tablet, Refills 0, Tot. Refills 0, Maintenance, as needed for muscle spasm, 11/05/19 10:51:00 EDT, Route to Pharmacy Electronically, [facility], 175.4, cm, 10/21/19 8:06:00 EST, Height [...]
--- OUTSIDE RECORDS SUMMARY | 2024-04-23 08:22 | XMS_ITS | Continuity of Care Document ---
Author Organization [facility] Address [address] [place] [phone]- Care Team Providers Care Insulation Inspector Name Role Phone Radha Hoover NP Primary Care Physician [facility] Date(s): 05/16/22 - 06/15/22 [facility] [address] [place] [phone]- Allergies, Adverse Reactions, Alerts Substance Reaction Severity [...] Given tetanus/diphtheria/pertussis, acel(Tdap) 06/08/11 Given 1Result Comment: [facility] [id number] 2Result Comment: [05/25/2018] [facility]: [id number] 3Admin Note: Codi 4Admin Note: vis 03/31/09 [...] 3 Refills, Maintenance, 02/17/22 12:36:00 EDT, Tablet, [facility], 177.8, cm, 02/14/22 8:18:00 EDT, Height, [...] 5 Refills, Maintenance, 04/27/22 12:46:00 EDT, Tablet, [facility], 177.8, cm, 04/19/22 9:41:00 EDT, Height, [...] tablet, 5 Refills, Maintenance, 03/25/22 14:14:00 EDT, [facility], 177.8, cm, 02/14/22 8:18:00 EDT, Height, [...] Replace Required Details, Route to Pharmacy Electronically, [facility], 177.8, cm, 02/14/22 8:18:00... Start Date: 03/24/22 Status: Ordered Guaiatussin AC 10 mg-100 mg/5 ml oral syrup 10 mL, By Mouth, Every 6 hours, PRN for cough, # 240 mL, 0 Refills, Maintenance, 11/22/21 16:22:00 EDT, Syrup, [facility], Partial fill upon patient request if the prescription is for a scheduleII opioid drug., 10 mL By Mouth Every 6 hours,PRN:f... Start Date: 11/22/21 Status: Ordered indomethacin 25 mg oral capsule 1 capsule = 25 mg, By Mouth, 3 times a day, PRN Headache, # 30 capsule, 2 Refills, Maintenance, 05/20/22 8:07:00 EDT, Capsule, [facility], 30 caps / month, 177.8, cm, [...] at bedtime, # 30 tablet, 5 Refills, [facility], 177.8, cm, 11/22/21 14:53:00 EDT, Height, 96.8, kg, 08/05/21 8:57:00 EST, Dry Weight Start Date: 12/23/21 Status: Ordered nitroglycerin 0.4 mg sublingual tablet 1 tablet = 0.4 mg, Sublingual, Every 5 minutes, PRN as needed for chest pain, not to exceed 3 doses/15 min--if pain persists, seek medical attention, # 100 tablet, 0 Refills, Maintenance, 09/28/20 17:00:00 EST, Tablet, [facility], Partial fill up... Start Date: 09/28/20 Status: Ordered rizatriptan 5 mg oral tablet 1 tablet = 5 mg, By Mouth, Once, PRN for migraine headache, may repeat dose once in 2 hours max 2 tabs in 24hrs ., # 12 tablet, 2 Refills, Soft Stop, 05/20/22 7:59:00 EDT, Tablet, [facility], Partial fill upon patient request if the prescript... Start Date: 05/20/22 Status: Ordered SUMAtriptan 4 mg/0.5 mL subcutaneous solution 0.5 mL = 4 mg, Subcutaneous Injection, Once, PRN as needed for migraine headache, may repeat once in 1 hour if needed, # 1 kit, 0 Refills, Soft Stop, 03/21/22 14:40:00 EDT, Solution, [facility],Partial fill upon patient request if the prescripti... Start Date: 03/21/22 Status: Ordered terazosin 5 mg oral capsule See Instructions, TAKE 1 CAPSULE BY MOUTH DAILY AT BEDTIME, # 30 capsule, Refills 5, Instructions Replace Required Details, Route to Pharmacy Electronically, [facility], 177.8, cm, 02/14/22 8:18:00 EDT, Height, [...] Sneha GORDON, Radha Sorensen Address: Address: [address] [facility] [address]rd Floor [place], [place] [address]
--- OUTSIDE RECORDS SUMMARY | 2024-04-23 08:22 | XMS_ITS | Continuity of Care Document ---
Author Organization [facility] Address [address] [facility], [address] Floor, [address] [place] [phone]- Care Team Providers Care Educational Institution President Name Role Phone Sneha SCHOOL CROSSING GUARD SUPERVISOR, Radha Sorensen Primary Care Physician [facility]counter [facility] Date[facility]s): 05/20/22 - 06/19/22 [facility] [address], [address], [address] [place] [address]- Attending Physician: Julia Allen Admitting Physician: AdmtrJulia [...] tetanus/diphtheria/pertussis, acel(Tdap) 06/08/11 Given 1Result Comment: [facility] [id number] 2Result Comment: [05/25/2018] [facility]: [id number] 3Admin Note: Codi 4Admin Note: vis 03/31/09 [...] 5 Refills, Maintenance, 04/27/22 12:46:00 EDT, Tablet, [facility], 177.8, cm, 04/19/22 9:41:00 EDT, Height, [...] tablet, 5 Refills, Maintenance, 03/25/22 14:14:00 EDT, [facility], 177.8, cm, 02/14/22 8:18:00 EDT, Height, [...] Replace Required Details, Route to Pharmacy Electronically, [facility], 177.8, cm, 02/14/22 8:18:00... Start Date: 03/24/22 Status: Ordered Guaiatussin AC 10 mg-100 mg/5 ml oral syrup 10 mL, By Mouth, Every 6 hours, PRN for cough, # 240 mL, 0 Refills, Maintenance, 11/22/21 16:22:00 EDT, Syrup, [facility], Partial fill upon patient request if the prescription is for a scheduleII opioid drug., 10 mL By Mouth Every 6 hours,PRN:f... Start Date: 11/22/21 Status: Ordered indomethacin 25 mg oral capsule 1 capsule = 25 mg, By Mouth, 3 times a day, PRN Headache, # 30 capsule, 2 Refills, Maintenance, 05/20/22 8:07:00 EDT, Capsule, [facility], 30 caps / month, 177.8, cm, [...] at bedtime, # 30 tablet, 5 Refills, [facility], 177.8, cm, 11/22/21 14:53:00 EDT, Height, 96.8, kg, 08/05/21 8:57:00 EST, Dry Weight Start Date: 12/23/21 Status: Ordered nitroglycerin 0.4 mg sublingual tablet 1 tablet = 0.4 mg, Sublingual, Every 5 minutes, PRN as needed for chest pain, not to exceed 3 doses/15 min--if pain persists, seek medical attention, # 100 tablet, 0 Refills, Maintenance, 09/28/20 17:00:00 EST, Tablet, [facility], Partial fill up... Start Date: 09/28/20 [...] Refills, Soft Stop, 03/21/22 14:40:00 EDT, Solution, [facility],Partial fill upon patient request if the prescripti... Start Date: 03/21/22 Status: Ordered terazosin 5 mg oral capsule See Instructions, TAKE 1 CAPSULE BY MOUTH DAILY AT BEDTIME, # 30 capsule, Refills 5, Instructions Replace Required Details, Route to Pharmacy Electronically, [facility], 177.8, cm, 02/14/22 8:18:00 EDT, Height, [...] Name: Radha Hoover NP Address: Address: [address] [place], [place] [address]
--- OUTSIDE RECORDS SUMMARY | 2024-04-23 08:22 | XMS_ITS | Continuity of Care Document ---
Author Organization [facility] Address [address] [facility], [address] d Floor, [address] [place] [address]- Care Team Providers Care Regional Tanker Truck Driver Name Role Phone Senha AUTOMOTIVE QUALITY MANAGER, Radha Sorensen Primary Care Physician Encounter [facility] Date(s): 08/24/22 - 09/23/22 [facility] [address], [address], [address] [place] [address]- Allergies, Adverse Reactions, Alerts Substance Reaction Severity [...] Given tetanus/diphtheria/pertussis, acel(Tdap) 06/08/11 Given 1Result Comment: [facility] [id number] 2Result Comment: [05/25/2018] [facility]: [id number] 3Admin Note: Codi 4Admin Note: vis 03/31/09 [...] tablet, 5 Refills, Maintenance, 03/25/22 14:14:00 EDT, [facility], 177.8, cm, 02/14/22 8:18:00 EDT, Height, [...] 0 Refills, Maintenance, 11/22/21 16:22:00 EDT, Syrup, [facility], Partial fill upon patient request if the prescription is for a scheduleII opioid drug., 10 mL By Mouth Every 6 hours,PRN:f... Start Date: 11/22/21 Status: Ordered indomethacin 25 mg oral capsule 1 capsule = 25 mg, By Mouth, 3 times a day, PRN Headache, # 30 capsule, 5 Refills, Maintenance, 08/24/22 13:53:00 EST, Capsule, [facility], 30 caps / month, 177.8, cm, [...] at bedtime, # 30 tablet, 5 Refills, [facility], 177.8, cm, 11/22/21 14:53:00 EDT, Height, 96.8, kg, 08/05/21 8:57:00 EST, Dry Weight Start Date: 12/23/21 Status: Ordered nitroglycerin 0.4 mg sublingual tablet 1 tablet = 0.4 mg, Sublingual, Every 5 minutes, PRN as needed for chest pain, not to exceed 3 doses/15 min--if pain persists, seek medical attention, # 100 tablet, 0 Refills, Maintenance, 09/28/20 17:00:00 EST, Tablet, [facility], Partial fill up... Start Date: 09/28/20 Status: Ordered rizatriptan 5 mg oral tablet 1 tablet = 5 mg, By Mouth, Once, PRN for migraine headache, may repeat dose once in 2 hours max 2 tabs in 24hrs ., # 12 tablet, 2 Refills, Soft Stop, 05/20/22 7:59:00 EDT, Tablet, [facility], Partial fill upon patient request if the prescript... Start Date: 05/20/22 Status: Ordered SUMAtriptan 4 mg/0.5 mL subcutaneous solution 0.5 mL = 4 mg, Subcutaneous Injection, Once, PRN as needed for migraine headache, may repeat once in 1 hour if needed, # 1 kit, 0 Refills, Soft Stop, 03/21/22 14:40:00 EDT, Solution, [facility],Partial fill upon patient request if the prescripti... Start Date: 03/21/22 Status: Ordered terazosin 5 mg oral capsule 1, capsule, By Mouth, Daily at bedtime, # 30 capsule, Refills 5, Maintenance, 08/04/22 11:10:00 EST, Route to Pharmacy Electronically, [facility], 177.8, cm, 08/03/22 15:31:00 EST, Height, [...] Care Nurse Name: Radha Hoover NP Position: [facility] Associate Professional Member Role: PCP Address: Address: [address] [place] [address] 3rd [place] [address]- Name: Jonathan Ramos RN Position: S RN Member Role: Primary Care Nurse Care Team Related Persons Name: LEN RAZO Address: home [address] [place] [address]
--- OUTSIDE RECORDS SUMMARY | 2024-04-23 08:22 | XMS_ITS | Continuity of Care Document ---
Author Organization [facility] Address [address] [place] [address]- Care Team Providers Care Supervisory Historian Name Role Phone Sneha GORDON, Radha Sorensen Primary Care Physician Encounter [facility] Date(s): 08/05/21 - 08/05/[address] [address] Discharge Disposition: A-D/C Home Attending Physician: Raj Borja MD Admitting Physician: Raj Borja MD Referring Physician: Raj Borja MD Allergies, Adverse Reactions, Alerts Substance Reaction [...] Recor ded Influenza Inactive (IM) (oldterm) 6 10/21/15 Recor ded pneumococcal 23-valent vaccine 06/29/14 Given FluLaval (oldterm) 06/13/12 Given tetanus/diphtheria/pertussis, acel(Tdap) 06/08/11 Given 1Result Comment: [facility] [id number] 2Result Comment: [05/25/2018] [facility]: [id number] 3Admin Note: Codi 4Admin Note: vis 03/31/09 [...] opioid drug. Start Date: 10/07/20 Status: Ordered Actamin 325 mg oral tablet 2 tablet = 650 mg, By Mouth, Every 6 hours, for 7 days, # 56 tablet, 0 Refills, Acute 08/12/21 12:21:00 EST, 08/05/21 12:21:00 EST, [facility], Partial fill upon patient request if the prescription is for a schedule II opioid drug., 177.8, cm, 12... Start Date: 08/05/21 Stop Date: 08/12/21 Status: Ordered Ambien 10 mg oral tablet [...] 0 Refills, Maintenance, 07/16/21 12:39:00 EST, Tablet, [facility], 177.8, cm, 06/18/21 9:52:00 EDT, Height, 92.3, kg, 12/18/20 11:27:00 EDT, Dry Weight Start Date: 07/16/21 Stop Date: 08/15/21 Status: Ordered Augmentin 500 mg-125 mg oral tablet 1 tablet, By Mouth, Every 8 hours, for 7 days, # 21 tablet, 0 Refills, Acute 08/12/21 12:17:00 EST,08/05/21 12:17:00 EST, Tablet, [facility], Partial fill upon patient request if the prescription is for a schedule II opioid drug., 177.8, cm, ... Start Date: 08/05/21 Stop Date: 08/12/21 Status: Ordered fenofibrate 54 mg oral tablet 1 tablet = 54 mg, By Mouth, Daily at bedtime, # 90 tablet, 1 Refills, Maintenance, 01/05/21 9:14:00EDT, [facility], 177.8, cm, 12/18/20 11:27:00 EDT, Height, [...] Dry Weight Start Date: 06/21/21 Status: Ordered ibuprofen 600 mg oral tablet 600 mg, 1, tablet, By Mouth, Every 6 hours, for 7 days, You may take this as needed for pain starting on 08/07/21, # 28 tablet, Refills 0, Tot. Refills 0, Acute 08/12/21 12:18:00 EST, 08/05/21 12:18:00 EST, Route to Pharmacy Electronically, [facility]... Start Date: 08/05/21 Stop Date: 08/12/21 Status: Ordered mercaptopurine 50 mg oral tablet 1 tablet = 50 mg, By Mouth, Daily at bedtime, 0 Refills, Maintenance, 07/20/17 8:35:35 EST, Tablet Start Date: 07/20/17 Status: Ordered Metoprolol Succinate ER 25 mg oral tablet, extended release See Instructions, TAKE 1 TABLET BY MOUTH DAILY AT BEDTIME, # 30 tablet, 5 Refills, [facility],177.8, cm, 06/18/21 9:52:00 EDT, Height, 92.3, kg, 12/18/20 11:27:00 EDT, Dry Weight Start Date: 07/16/21 Status: Ordered nitroglycerin 0.4 mg sublingual tablet 1 tablet = 0.4 mg, Sublingual, Every 5 minutes, PRN as needed for chest pain, not to exceed 3 doses/15 min--if pain persists, seek medical attention, # 100 tablet, 0 Refills, Maintenance, 09/28/20 17:00:00 EST, Tablet, [facility], Partial fill up... Start Date: 09/28/20 Status: Ordered oxyCODONE 5 mg oral tablet 5 mg, 1, tablet, By Mouth, Every 6 hours, for 3 days, # 12 tablet, Refills 0, Tot. Refills 0, Acute08/08/21 12:17:00 EST, 08/05/21 12:17:00 EST, Route to Pharmacy Electronically, [facility], Partial fill upon patient request if the prescription... Start Date: 08/05/21 Stop Date: 08/08/21 Status: Ordered terazosin 5 mg oral capsule 5 mg, 1, capsule, By Mouth, Daily at bedtime, # 30 capsule, Refills 8, Tot. Refills 8, Soft Stop, 03/11/22 15:03:00 EDT, Route to Pharmacy Electronically, [facility], 177.8, cm, 04/22/21 14:54:00 EDT, Height, [...] Exam Date Time Procedure Performing Provider Status 08/05/21 3:53 PM Chest 2 Views Frontal and Lat Albertina Strong; Auth (Verified) Notes: (Chest 2 Views Frontal and Lat) Reason For Exam: post op s/p Inspire device placement;Postop RESULT: Chest 2 Views Frontal and Lat AP and lateral chest x-ray dated August 05, 2021. Comparison films are from October 06, 2016. HISTORY: Status post placement of an Inspire (sleep apnea device) device. FINDINGS: The cardiac silhouette is within normal limits for size. Hilar and mediastinal structuresare unremarkable. An inspiratory pacing device is present overlying the right hemithorax. A wire extends off the film into the neck on the right hand side. No airspace infiltrate or pleural effusion is identified. Degenerative changes are noted in the spine. IMPRESSION: Status post placement of an inspiratory device on the right. No evidence of acute pulmonary disease. Examination [address]6813. Thank you for allowing me to participate in the care of this patient. WSN: [id number] Ordering Physician: Aury Corona Dictated By: Clifford Matute MD Dictated Date/Time: 08/05/21 4:00 pm Reviewed By: Clifford Matute MD Signed By: Clifford Matute MD Signed Date/Time: 08/05/21 4:00 pm Transcribed By: FRANCY Transcribed Date/Time: 08/05/21 3:56 pm * Exam Date Time Procedure Performing Provider Status 08/05/21 3:53 PM Neck Soft Tissue Albertina Strong; Au th (Verified) Notes: (Neck Soft Tissue) Reason For Exam: s/p insertion of Inspire device;Postop RESULT: Neck Soft Tissue Neck Soft Tissue Reason: Postop; s p insertion of Inspire device; COMPARISON: 06/05/2018 FINDINGS: New hypoglossal nerve stimulator power pack over the right upper chest and leads leading up to the right submandibular region. No pneumothorax. Mild C6-7 degenerative disc changes. No acute soft tissue findings. IMPRESSION: No unexpected postoperative findings. WSN: [id number] Ordering Physician: Aury Corona Dictated By: Greg Chao MD Dictated Date/Time: 08/05/21 3:59 pm Reviewed By: Greg Chao MD Signed By: Greg Chao MD Signed Date/Time: 08/05/21 3:59 pm Transcribed By: FRANCY Transcribed Date/Time: 08/05/21 3:54 pm Vital Signs Most recent to oldest [Reference Range]: 1 2 3 Height 177.8 cm (08/05/21 3:51 PM) 177.8 cm (08/05/21 8:57 AM) 177.8 cm (07/30/21 4:21 PM) Weight 95.4 kg (08/05/21 8:57 AM) 95.4 kg (07/30/21 4:21 PM) Oxygen Saturation [94-100 %] 97 % (08/05/21 5:15 PM) 95 % (08/05/21 3:51 PM) 97 % (08/05/21 3:00 PM) Pulse Rate [55-90 bpm] 58 bpm (08/05/21 5:15 PM) 69 bpm (08/05/21 3:51 PM) 61 bpm (08/05/21 8:57 AM) Body Mass Index [18.5-24.99] 30.18 *>HHI* (08/05/21 8:57 AM) 30.18 *>HHI* (07/30/21 4:21 PM) Blood Pressure [90-138/55-84 mm Hg] 132/69mm Hg (08/05/21 5:15 PM) 132/71mm Hg (08/05/21 3:51 PM) 137/81mm Hg (08/05/21 3:00 PM) Respiratory Rate [16-30 br/min] 20 br/min (08/05/21 5:15 PM) 22 br/min (08/05/21 3:51 PM) 25 br/min (08/05/21 3:00 PM) Temperature [96.8-100.4 DegF] 97.2 DegF (08/05/21 5:15 PM) 97.3 DegF (08/05/21 3:51 PM) 97.5 DegF (08/05/21 2:45 PM) Liters per Minute 4 L/min (08/05/21 2:15 PM) 3 L/min (08/05/21 2:00 PM) 3 L/min (08/05/21 1:45 PM) Mode of Delivery (Oxygen) Room air (08/05/21 5:15 PM) Room air (08/05/21 3:51 PM) Room air (08/05/21 3:00 PM) Blood pressure sites Arm, left (08/05/21 3:51 PM) Arm, left (08/05/21 12:00 PM) Arm, left (08/05/21 8:57 AM) Temperature Route Oral (08/05/21 3:51 PM) Temporal (08/05/21 2:45 PM) Temporal (08/05/21 12:00 PM) Dry Weight 96.8 kg (08/05/21 8:57 AM) 95.4 kg (07/30/21 4:21 PM) Weight Obtained Via Patient/family state d (07/30/21 4:21 PM) Dry Weight Obtained Via Standing scale (08/05/21 8:57 AM) Patient/family stated (07/30/21 4:21 PM) Social History Social History Type Response Smoking Status Former smoker; Tobac co user in household: No; Other: quit smoking in 2007; entered on: 07/16/14 Sex
--- OUTSIDE RECORDS SUMMARY | 2024-04-23 08:22 | XMS_ITS | Continuity of Care Document ---
Author Organization [facility] Adult Address [address] [place] [address]- Care Team Providers Care Ballistics Professor Name Role Phone Sneha ELECTRONEURODIAGNOSTIC TECHNICIAN, Radha Sorensen Primary Care Physician [facility]counter [facility] Date(s): 01/29/20 - 02/28/20 [facility] [address] [place] [address]- [facility] Attending Physician: Admtr, Ar8 Allergies, Adverse Reactions, [...] tetanus/diphtheria/pertussis, acel(Tdap) 06/08/11 Given 1Result Comment: [facility] [id number] 2Result Comment: [05/25/2018] [facility]: [id number] 3Admin Note: [facility] 4Admin Note: vis 03/31/09 [...] 3 Refills, Maintenance, 10/21/19 17:07:00 EST, Tablet, [facility], 175.4, cm, 10/21/19 8:06:00 EST, Height Start Date: 10/21/19 Status: Ordered azelastine nasal 0.15% spray 2 sprays, Nares, Both, 2 times a day, PRN for allergy symptoms, # 30 mL, 0 Refills, Maintenance, 10/21/19 8:40:00 EST, [place], [facility], 2 sprays Nares, Both 2 times a day,PRN:for allergy symptoms, 175.4, cm, 10/21/19 8:06:00 EST, Height Start Date: 10/21/19 Status: Ordered fenofibrate 54 mg oral tablet 1 tablet = 54 mg, By Mouth, Daily, # 30 tablet, 5 Refills, Maintenance, 12/31/19 10:02:00 EDT, [facility], 175.4, cm, 10/21/19 8:06:00 EST, Height [...] Replace Required Details, Route to Pharmacy Electronically, [facility], 175.4, cm, 03/... Start Date: 02/26/20 Status: Ordered mercaptopurine 50 mg oral tablet = 100 mg, By Mouth, Daily at bedtime, 0 Refills, Maintenance, 07/20/17 8:35:35, Tablet Start Date: 07/20/17 Status: Ordered metoprolol 25 mg oral tablet, extended release 25 mg, By Mouth, Daily at bedtime, # 30 tablet, Refills 5, Tot. Refills 5, Maintenance, 02/27/20 14:03:00 EDT, Route to Pharmacy Electronically, [facility], 175.4, cm, 10/21/19 8:06:00 EST, Height Start Date: 02/27/20 Status: Ordered oxyCODONE 5 mg oral tablet 5 mg, 1, tablet, By Mouth, 2 times a day, PRN, for 28 days, # 56 tablet, Refills 0, Tot. Refills 0,Acute 03/17/20 11:39:00 EDT, Pain , Severe, 02/18/20 11:39:00 EDT, Route to Pharmacy Electronically, [facility], Partial fill upon patient request... Start Date: 02/18/20 Stop Date: 03/17/20 Status: Ordered Shingrix intramuscular injection 0.5 mL, Intramuscular, Once, # 0.5 mL, 1 Refills, Soft Stop, 06/28/19 13:15:54 EST, 0.5 mL Intramuscular Once Start Date: 06/28/19 Status: Ordered terazosin 5 mg oral capsule See Instructions, # 30 capsule, Refills 11 Tot. Refills 11, TAKE 1 CAPSULE BY MOUTH DAILY AT BEDTIME, [facility] Start Date: 05/02/19 Status: Ordered tiZANidine 2 mg oral tablet 1/2 tablet, By Mouth, Every 8 hours, PRN, # 45 tablet, Refills 0, Tot. Refills 0, Maintenance, as needed for muscle spasm, 11/05/19 10:51:00 EDT, Route to Pharmacy Electronically, [facility], 175.4, cm, 10/21/19 8:06:00 EST, Height [...] myofascial strain(Confirmed) Active Ulcerative colitis(Confirmed) 10/14/13 Active Procedures Procedure Date Related Diagnosis Body Site Status Euflexxa injections, bilateral 1, 2, 3 08/01/12 [facility] 08/08 3third injection 08/16 Social History Social History Type Response Smoking Status Former smoker; Tobac co user in household: No; Other: quit smoking in 2007; entered on: 07/16/14 Sex
--- OUTSIDE RECORDS SUMMARY | 2024-04-23 08:22 | XMS_ITS | Continuity of Care Document ---
Author Organization [facility] Adult Address [address] [place] [address]- Care Team Providers Care Engineering And Scientific Programmer Name Role Phone Sneha PROCEDURE RN, Radha Sorensen Primary Care Physician [place] [facility]s): 03/03/24 - 04/02/24 [facility] [address] [place] [address]- Allergies, Adverse Reactions, Alerts Substance Reaction Severity [...] vaccine, inactivated 4 05/08/09 Gi shane SARS-CoV-2(COVID-19)mRNA-LNP vac([id number]) 05/29/23 Recorded [id number] 12y+ bivalent booster vax 05/19/22 Recorded SARS-CoV-2 [...] acel(Tdap) 06/08/11 Given 1Result Comment: [facility] [id number] 2Result Comment: [05/25/2018] [facility]: [id number] 3Admin Note: [facility] 4Admin Note: vis 03/31/09 5Result Comment: per [...] 3 Refills, Maintenance, 11/30/23 12:32:00 EDT, Tablet, [facility], 177.8, cm, 11/23/23 15:37:00 EDT, Height Start Date: 11/30/23 Status: Ordered amLODIPine 5 mg oral tablet See Instructions, TAKE 1 TABLET BY MOUTH DAILY, # 30 tablet, 11 Refills, Maintenance, 10/02/23 17:04:00 EST, [facility], 177.8, cm, 12/01/22 8:22:00 EDT, Height [...] 5 Refills, Maintenance, 10/04/23 9:00:00 EST, Tablet, [facility], 177.8, cm, 12/01/22 8:22:00 EDT, Height Start Date: 10/04/23 Stop Date: 04/01/24 Status: Ordered cyclobenzaprine 10 mg oral tablet 10 mg, 1, tablet, By Mouth, Daily at supper, # 30 tablet, Refills 2, Tot. Refills 2, Maintenance, 10/24/22 15:13:00 EST, Route to Pharmacy Electronically, [facility], Partial fill upon patient request if the prescription is for a schedule II opio... Start Date: 10/24/22 Status: Ordered fenofibrate 54 mg oral tablet 1 tablet, By Mouth, Daily, # 30 tablet, 5 Refills, Maintenance, 10/04/23 8:48:00 EST, [facility], 177.8, cm, 12/01/22 8:22:00 EDT, Height Start Date: 10/04/23 Status: Ordered finasteride 5 mg oral tablet 1 tablet, By Mouth, Daily at bedtime, # 30 tablet, 5 Refills, Maintenance, 01/25/24 7:43:00 EDT, [facility], 177.8, cm, 12/25/23 9:41:00 EDT, Height Start Date: 01/25/24 Status: Ordered indomethacin 25 mg oral capsule 1 capsule, By Mouth, 3 times a day, PRN NEEDED FOR HEADACHE, # 30 capsule, 5 Refills, Maintenance, 02/09/23 18:32:00 EDT, [facility], 177.8, cm, 12/01/22 8:22:00 EDT, Height, [...] 0 Refills, Maintenance, 09/28/20 17:00:00 EST, Tablet, [facility], Partial fill up... Start Date: 09/28/20 Status: Ordered Pepcid 20 mg oral tablet 1 tablet = 20 mg, By Mouth, 2 times a day, # 60 tablet, 3 Refills, Maintenance, 10/16/23 16:31:00 EST, Tablet, [facility], Partial fill upon patient request if the prescription is for a scheduleII opioid drug., 177.8, cm, 10/16/23 16:14:00 EST,... Start Date: 10/16/23 Status: Ordered Repatha SureClick 140 mg/mL subcutaneous solution = 140 mg, Subcutaneous Infusion, Every 14 days, # 2 each, 11 Refills, Maintenance, 08/25/23 8:59:00EST, [facility], Partial fill upon patient request if the prescription is for a schedule II opioid drug., 177.8, cm, 12/01/22 8:22:00... Start Date: 08/25/23 Status: Ordered terazosin 5 mg oral capsule 1, capsule, By Mouth, Daily at bedtime, # 30 capsule, Refills 5, Maintenance, 10/04/23 8:48:00 EST,Route to Pharmacy Electronically, [facility], 177.8, cm, 12/01/22 8:22:00 EDT, Height [...] Care Nurse Name: Veronica Feng RN Position: [facility] SN RN Member Role: Primary Care Nurse Name: Radha Hoover NP Position: [facility] PCO Associate Professional Member Role: PCP Address: Address: [address] [place] [address] [address] [place] [address]- Name: Jonathan Ramos RN Position: [facility] RN Member Role: Primary Care Nurse Care Team Related Persons Name: LEN RAZO Address: home [address] [place] [address]
--- OUTSIDE RECORDS SUMMARY | 2024-04-23 08:22 | XMS_ITS | Continuity of Care Document ---
Author Organization [facility] Address [address] [place] [address]- Care Team Providers Care Mortar Carrier Name Role Phone Sneha DEPARTMENTAL BUYER, Radha Sorensen Primary Care Physician [facility]counter [facility] Date[facility]s): 12/12/19 - 01/11/20 [facility] [address] [place] [address]- [facility] Attending Physician: Julia Allen Admitting Physician: Julia [...] [facility][note 3] [id number] 2Result Comment: [05/25/2018] [facility]: [id number] 3Admin Note: [facility] 4Admin Note: vis 03/31/09 [...] 3 Refills, Maintenance, 10/21/19 17:07:00 EST, Tablet, [facility], 175.4, cm, 10/21/19 8:06:00 EST, Height Start Date: 10/21/19 Status: Ordered azelastine nasal 0.15% spray 2 sprays, Nares, Both, 2 times a day, PRN for allergy symptoms, # 30 mL, 0 Refills, Maintenance, 10/21/19 8:40:00 EST, [place], [facility], 2 sprays Nares, Both 2 times a day,PRN:for allergy symptoms, 175.4, cm, 10/21/19 8:06:00 EST, Height Start Date: 10/21/19 Status: Ordered fenofibrate 54 mg oral tablet 1 tablet = 54 mg, By Mouth, Daily, # 30 tablet, 5 Refills, Maintenance, 12/31/19 10:02:00 EDT, [facility], 175.4, cm, 10/21/19 8:06:00 EST, Height [...] Replace Required Details, Route to Pharmacy Electronically, [facility], 175.4, cm, ... Start Date: 12/31/19 Status: Ordered mercaptopurine 50 mg oral tablet = 100 mg, By Mouth, Daily at bedtime, 0 Refills, Maintenance, 07/20/17 8:35:35, Tablet Start Date: 07/20/17 Status: Ordered metoprolol 25 mg oral tablet, extended release 25 mg, By Mouth, Daily at bedtime, # 30 tablet, Refills 5, Tot. Refills 5, Maintenance, 07/30/19 9:11:06 EST, Route to Pharmacy Electronically, [id number], [facility], 175.4, cm, 07/29/19 8:33:52 EST, Height Start Date: 07/30/19 Status: Ordered oxyCODONE 5 mg oral tablet 5 mg, 1, tablet, By Mouth, 2 times a day, PRN, for 28 days, # 56 tablet, Refills 0, Tot. Refills 0,Acute 01/22/20 16:12:00 EDT, Pain , Severe, 12/25/19 16:12:00 EDT, Route to Pharmacy Electronically, [facility], Partial fill upon patient request... Start [...] 11/05/19 10:51:00 EDT, Route to Pharmacy Electronically, [facility], 175.4, cm, 10/21/19 8:06:00 EST, Height [...]
--- OUTSIDE RECORDS SUMMARY | 2024-04-23 08:22 | XMS_ITS | Continuity of Care Document ---
Author Organization [facility] alicia Address [address] [place] [address] [address] [place] [address]- Care Team Providers Care Bag Loader Name Role Phone Sneha GORDON, Radha Sorensen Primary Care Physician [facility]counter [facility] Date(s): 11/06/20 - 11/13/20 [facility] [address] [place] [address] Drive [address] [place], [place] [address] Attending Physician: Raj Borja MD Referring Physician: Kimo Queen MD Allergies, Adverse Reactions, Alerts Substance Reaction Severity Status statins Active Crestor ck 400's and myalgia Active Levaquin itch Moderate Active nonsteroidal anti-inflammatory agents Active Immunizations Given and Recorded Vaccine Date Status Refusal Reason Influenza Virus Vaccine (oldterm) 1 05/12/20 Recor ded influenza virus vaccine, inactivated 2 06/12/19 Gi shane influenza virus vaccine, inactivated 3 05/25/18 Gi shane influenza virus vaccine, inactivated 4 03/03/17 Gi shaen influenza virus vaccine, inactivated 06/05/14 Give n influenza virus vaccine, inactivated 06/08/11 Give n influenza virus vaccine, inactivated 05/10/10 Give n influenza virus vaccine, inactivated 5 05/08/09 Gi shane Influenza Inactive (IM) (oldterm) 6 06/10/15 Recor ded pneumococcal 23-valent vaccine 06/29/14 Given FluLaval (oldterm) 06/13/12 Given tetanus/diphtheria/pertussis, acel(Tdap) 06/08/11 Given 1Result Comment: per pt call to report when received vaccine 2Result Comment: [facility] [place][note 2] [id number] 3Result Comment: [05/25/2018] [facility]: [id number] 4Admin Note: [facility] 5Admin Note: vis 03/31/09 [...] 3 Refills, Maintenance, 05/08/20 9:35:00 EDT, Tablet, [facility], 175.4, cm, 10/21/19 8:06:00 EST, Height Start Date: 05/08/20 Stop Date: 09/05/20 Status: Ordered apixaban 5 mg oral tablet 1 tablet = 5 mg, By Mouth, 2 times a day, # 60 tablet, 0 Refills, Maintenance, 10/07/20 9:38:00 EST, Tablet, [facility], Partial fill upon patient request if the prescription is for a schedule II opioid drug., 178, cm, 10/07/20 7:43:00 E... Start Date: 10/07/20 Stop Date: 11/06/20 Status: Ordered Ativan 0.5 mg oral tablet 1 tablet = 0.5 mg, By Mouth, Every 8 hours, PRN as needed for anxiety, # 90 tablet, 3 Refills, Maintenance, 06/11/20 17:06:00 EDT, Tablet, [facility], 175.4, cm, 10/21/19 8:06:00 EST, Height Start Date: 06/11/20 Stop Date: 10/09/20 Status: Ordered docusate sodium 100 mg oral capsule 100 mg, 1, capsule, By Mouth, 2 times a day, # 60 capsule, Refills 0, Tot. Refills 0, Maintenance, 10/07/20 9:37:00 EST, Route to Pharmacy Electronically, [facility], Partial fill upon patient request if the prescription is for a schedul... Start Date: 10/07/20 Status: Ordered fenofibrate 54 mg oral tablet 1 tablet = 54 mg, By Mouth, Daily at bedtime, # 30 tablet, 5 Refills, Maintenance, 06/11/20 11:29:00 EDT, [facility], 175.4, cm, 10/21/19 8:06:00 EST, Height [...] Required Details, Route to Pharmacy Electronically, [facility] Start Date: 09/11/20 Status: Ordered Maalox Plus [...] 08/09/20 21:59:00 EST, Route to Pharmacy Electronically, [facility], 175.4, cm, 10/21/19 8:06:00 EST, Height [...] Stop,05/08/20 16:25:00 EDT, Route to Pharmacy Electronically, [facility], 175.4, cm, 10/21/19 8:06:00 EST, Height [...] recent to oldest [Reference Range]: 1 Height 178 cm (11/06/20 1:18 PM) Weight 92.27 kg (11/06/20 1:18 PM) Pulse Rate [55-90 bpm] 85 bpm (11/06/20 1:18 PM) Body Mass Index [18.5-24.99] 29.12 *H* (11/06/20 1:18 PM) Blood Pressure [90-138/55-84 mm Hg] 146/ 85mm Hg *H* (11/06/20 1:18 PM) Temperature [96.8-100.4 DegF] 97.4 DegF (11/06/20 1:18 PM) Social History Social History Type Response Smoking Status Former smoker; Tobac co user in household: No; Other: quit smoking in 2007; entered on: 07/16/14 Sex
--- OUTSIDE RECORDS SUMMARY | 2024-04-23 08:22 | XMS_ITS | Continuity of Care Document ---
Author Organization [facility] alicia Address [address] [place] [address] [address] [place] [address]- Care Team Providers Care Latex Foam Worker Name Role Phone Sneha GORDON, Radha Sorensen Primary Care Physician [place] [facility] [place] 12[place] [facility] [address] [place], [place] [address] [[email or web address]] Attending Physician: Julia Allen Admitting Physician: AdmtrJulia Referring Physician: Admtr, Ar8 Allergies, Adverse Reactions, Alerts Substance Reaction Severity Status Crestor ck 400's and myalgia Active statins myalgia Active Levaquin itch Moderate Active nonsteroidal anti-inflammatory agents diarrhea Active Immunizations Given and Recorded Vaccine Date Status Refusal Reason [id number] 12y+ bivalent booster vax 05/19/22 Recorded SARS-CoV-2 [...] acel(Tdap) 06/08/11 Given 1Result Comment: [facility] [id number] 2Result Comment: [05/25/2018] [facility]: [id number] 3Admin Note: [facility] 4Admin Note: vis 03/31/09 [...] 3 Refills, Maintenance, 09/16/22 8:46:00 EST, Tablet, [facility], 177.8, cm, 08/03/22 15:31:00 EST, Height, 96.8, kg, 08/05/21 8:57:00 EST, Dry Weight Start Date: 09/16/22 Stop Date: 01/14/23 Status: Ordered amitriptyline 50 mg oral tablet 2 tablet = 100 mg, By Mouth, Daily at bedtime, # 60 tablet, 0 Refills, Maintenance, 12/15/22 13:40:00 EDT, [facility], Partial fill upon patient request if [...] 5 Refills, Maintenance, 11/11/22 12:40:00 EDT, Tablet, [facility], 177.8, cm, 10/24/22 8:53:00 EST, Height, [...] 5 Refills, Maintenance, 08/24/22 13:53:00 EST, Capsule, [facility], 30 caps / month, 177.8, cm, [...] at bedtime, # 30 tablet, 5 Refills, [facility], 177.8, cm, 11/22/21 14:53:00 EDT, Height, [...] Refills, Soft Stop, 05/20/22 7:59:00 EDT, Tablet, [facility], Partial fill upon patient request if the prescript... Start Date: 05/20/22 Status: Ordered SUMAtriptan 4 mg/0.5 mL subcutaneous solution 0.5 mL = 4 mg, Subcutaneous Injection, Once, PRN as needed for migraine headache, may repeat once in 1 hour if needed, # 1 kit, 0 Refills, Soft Stop, 03/21/22 14:40:00 EDT, Solution, [facility],Partial fill upon patient request if the prescripti... Start Date: 03/21/22 Status: Ordered terazosin 5 mg oral capsule 1, capsule, By Mouth, Daily at bedtime, # 30 capsule, Refills 5, Maintenance, 08/04/22 11:10:00 EST, Route to Pharmacy Electronically, [facility], 177.8, cm, 08/03/22 15:31:00 EST, Height, [...] Nurse Name: Sneha GORDON, Radha Sorensen Position: [facility] PCO Associate Professional Member Role: PCP Address: Address: [address] [place] [address] [address] [place], [place] [address] [[email or web address] Name: Jonathan Ramos RN Position: S RN Member Role: Primary Care Nurse Care Team Related Persons Name: LEN RAZO Address: [address] [address]
--- OUTSIDE RECORDS SUMMARY | 2024-04-23 08:22 | XMS_ITS | Continuity of Care Document ---
Author Organization [facility] Adult Address [address] [place] [address]- Care Team Providers Care Charge Attendant Name Role Phone Sneha GORDON, Radha Sorensen Primary Care Physician [id number] Date(s): [facility] - 12/08/22 [facility] [address] [place] [phone]- Encounter Diagnosis Routine physical examination(Discharge Diagnosis) - 12/01/22 Anxiety disorder(Discharge Diagnosis) - 12/01/22 CAD (coronary artery disease)(Discharge Diagnosis) - 12/01/22 Cervical myofascial pain syndrome(Discharge Diagnosis) - 12/01/22 Chronic headaches(Discharge Diagnosis) - 12/01/22 BPH (benign prostatic hyperplasia)(Discharge Diagnosis) - 12/01/22 Heart failure, diastolic, chronic(Discharge Diagnosis) - 12/01/22 ALICE (obstructive sleep apnea)(Discharge Diagnosis) - 12/01/22 History of GI bleed(Discharge Diagnosis) - 12/01/22 Obese class I(Discharge Diagnosis) - 12/01/22 Osteoarthritis of knee(Discharge Diagnosis) - 12/01/22 Prediabetes(Discharge Diagnosis) - 12/01/22 Ulcerative colitis(Discharge Diagnosis) - 12/01/22 Attending Physician: Radha Hoover NP Allergies, Adverse Reactions, Alerts Substance Reaction Severity Status Levaquin itch Moderate Active Crestor ck 400's and myalgia Active statins myalgia Active nonsteroidal anti-inflammatory agents diarrhea Active Immunizations Given and Recorded Vaccine Date Status Refusal Reason [id number] 12y+ bivalent booster vax 05/19/22 Recorded SARS-CoV-2 [...] Given tetanus/diphtheria/pertussis, acel(Tdap) 06/08/11 Given 1Result Comment: [facility] [id number] 2Result Comment: [05/25/2018] [facility]: [address]-34 3Admin Note: Codi 4Admin Note: vis 03/31/09 [...] Date: 09/16/22 Stop Date: 01/14/23 Status: Ordered amLODIPine 5 [...] tablet, 5 Refills, Maintenance, 11/09/22 6:38:00 EDT, [facility], 177.8, cm, 10/24/22 8:53:00 EST, Height, [...] Instructions Replace RequiredDetails, Route to Pharmacy Electronically, [facility] Start Date: 06/23/22 Status: Ordered indomethacin 25 mg oral capsule 1 capsule = 25 mg, By Mouth, 3 times a day, PRN Headache, # 30 capsule, 5 Refills, Maintenance, 08/24/22 13:53:00 EST, Capsule, [facility], 30 caps / month, 177.8, cm, [...] at bedtime, # 30 tablet, 5 Refills, [facility], 177.8, cm, 11/22/21 14:53:00 EDT, Height, [...] Refills, Soft Stop, 05/20/22 7:59:00 EDT, Tablet, [facility], Partial fill upon patient request if the prescript... Start Date: 05/20/22 Status: Ordered SUMAtriptan 4 mg/0.5 mL subcutaneous solution 0.5 mL = 4 mg, Subcutaneous Injection, Once, PRN as needed for migraine headache, may repeat once in 1 hour if needed, # 1 kit, 0 Refills, Soft Stop, 03/21/22 14:40:00 EDT, Solution, [facility],Partial fill upon patient request if the prescripti... Start Date: 03/21/22 Status: Ordered terazosin 5 mg oral capsule 1, capsule, By Mouth, Daily at bedtime, # 30 capsule, Refills 5, Maintenance, 08/04/22 11:10:00 EST, Route to Pharmacy Electronically, [facility], 177.8, cm, 08/03/22 15:31:00 EST, Height, [...] Effective Dates Health Status Clinical Service Informant Routine physical examination Discharge Diagnosis 12/01/22 Anxiety disorder Discharge Diagnosis 12/01/22 CAD (coronary artery disease) Discharge Diagnosis 12/01/22 Cervical myofascial pain syndrome Discharge Diagnosis 12/01/22 Chronic headaches Discharge Diagnosis 12/01/22 BPH (benign prostatic hyperplasia) Discharge Diagnosis 12/01/22 Heart failure, diastolic, chronic Discharge Diagnosis 12/01/22 ALICE (obstructive sleep apnea) Discharge Diagnosis 12/01/22 History of GI bleed Discharge Diagnosis 12/01/22 Obese class I Discharge Diagnosis 12/01/22 Osteoarthritis of knee Discharge Diagnosis 12/01/22 Prediabetes Discharge Diagnosis 12/01/22 Ulcerative colitis Discharge Diagnosis 12/01/22 Vital Signs Most recent to oldest [Reference Range]: 1 2 Height 177.8 cm (12/01/22 8:22 AM) 177.8 cm (12/01/22 7:44 AM) Weight 100.5 kg (12/01/22 7:44 AM) Oxygen Saturation [94-100 %] 97 % (12/01/22 7:44 AM) Pulse Rate [55-90 bpm] 77 bpm (12/01/22 7:44 AM) Body Mass Index [18.5-24.99 kg/m2] 31.79 kg/m2 *>HHI* (12/01/22 7:44 AM) Blood Pressure [90-138/55-84 mm Hg] 118/ 78mm Hg (12/01/22 8:22 AM) 135/86mm Hg (12/01/22 7:44 AM) Mode of Delivery (Oxygen) Room air (12/01/22 7:44 AM) Blood pressure sites Arm, left (12/01/22 8:22 AM) Arm, left (12/01/22 7:44 AM) Weight Obtained Via Standing scale (12/01/22 7:44 AM) Social History Social History Type Response Smoking Status Former smoker; Tobac co user in household: No; Other: quit smoking in 2007; entered on: 07/16/14 Sex Note * Radha Clark: PERFORM, SIGN, VERIFY Event Display: Patient Education/Instruction Authored Date: [id number] [facility] *[facility] [place] [facility] Clinical Summary Name ANTHONY RAZO Age 62 Years 1960 PCP Sneha GORDON, Radha Sorensen [facility] [id number] Visit Date 12/01/2022 07:38:00 Additional Instructions: Scheduled Appointments?? Future Appointments ?No Future Appointments Scheduled Follow-Up Instructions ?? Diagnosis Benign prostatic hyperplasia without lower urinary tract symptoms; Obstructive sleep apnea (adult) (pediatric); Body mass index [BMI] 30.0-30.9, adult; Prediabetes; Anxiety disorder, unspecified; Encounter for general adult medical examination without abnormal findings; Atherosclerotic heart disease of [place] coronary artery without angina pectoris; Personal history of other diseases of the digestive system; Unilateral primary osteoarthritis, unspecified knee; Ulcerative colitis, unspecified, without complications; Headache, unspecified; Cervicalgia; Chronic diastolic (congestive) heart failure Medications: Please continue your medications until treatment is completed or stopped by your provider. Discuss any questions related to medications with your provider. Medications to Continue with [facility], [address] [place] [phone], [phone] Terazosin (terazosin 5 mg oral capsule) 1 capsule Oral Daily at Bedtime. Refills: 5. Next Dose: These medications were not printed or sent to your pharmacy Acetaminophen (acetaminophen 325 mg oral tablet) 650 Milligram Oral every 6 hours. may take OTC, not to exceed 3000 mg/day. Next Dose: Amlodipine (amLODIPine 5 mg oral tablet) 1 tab(s) Oral Daily. Refills: 3. Next Dose: Aspirin (aspirin 81 mg oral delayed release tablet) 1 tab(s) Oral Daily. Next Dose: Cyclobenzaprine (cyclobenzaprine 10 mg oral tablet) 1 tab(s) Oral Daily at supper. Refills: 2. Next Dose: evolocumab (evolocumab 140 mg/mL subcutaneous solution) 140 Milligram Subcutaneous Infusion Every 14 days. Refills: 6. Next Dose: Fenofibrate (fenofibrate 54 mg oral tablet) 1 tab(s) Oral Daily. Refills: 5. Next Dose: Finasteride (finasteride 5 mg oral tablet) 1 tab(s) Oral Daily at Bedtime. Next Dose: Gabapentin (gabapentin 100 mg oral capsule) TAKE 1 CAPSULE BY MOUTH ONE HOUR PRIOR TO BEDTIME AND IF NEEDED CAN TAKE UP TO 3 CAPSULES. Refills: 3. Next Dose: Indomethacin (indomethacin 25 mg oral capsule) 1 capsule Oral 3 times a day as needed Headache. Refills: 5. Next Dose: Lorazepam (Ativan 0.5 mg oral tablet) 1 tab(s) Oral every 8 hours as needed as needed for anxiety for 30 Days. Refills: 5. Next Dose: Mercaptopurine (mercaptopurine 50 mg oral tablet) 1 tab(s) Oral Daily at Bedtime. Next Dose: Metoprolol (Metoprolol Succinate ER 25 mg oral tablet, extended release) 1 tab(s) Oral Daily at Bedtime. Refills: 5. Next Dose: Miscellaneous Rx (GABAPENTIN 100 MG CAPS 100 Capsule) TAKE 1 CAPSULE BY MOUTH ONE HOUR PRIOR TO BEDTIME AND IF NEEDED CAN TAKE UP TO 3 CAPSULES. Refills: 3. Next Dose: Nitroglycerin (nitroglycerin 0.4 mg sublingual tablet) 1 tab(s) Sublingual every 5 minutes as needed as needed for chest pain. not to exceed 3 doses/15 min--if pain persists, seek medical attention. Refills: 0. Next Dose: Rizatriptan (rizatriptan 5 mg oral tablet) 1 tab(s) Oral once as needed for migraine headache. may repeat dose once in 2 hours max 2 tabs in 24hrs .. Refills: 2. Next Dose: Sumatriptan (SUMAtriptan 4 mg/0.5 mL subcutaneous solution) 0.5 Milliliter Subcutaneous Injection once as needed as needed for migraine headache. may repeat once in 1 hour if needed. Refills: 0. Next Dose: Zolpidem (Ambien 10 mg oral tablet) 1 tab(s) Oral Daily at Bedtime as needed for sleep for 30 Days.Refills: 3. Next Dose: No Longer Take the Following Medications alirocumab (alirocumab 75 mg/mL subcutaneous solution) 75 Milligram Subcutaneous Infusion Every 14 days for 30 Days. Refills: 11. amiTRIPTYLINE (amitriptyline 50 mg oral tablet) 2 tab(s) Oral Daily at Bedtime for 30 Days. 1 tab dailyx 1 week then increase to 2 tabs. Refills: 5. Guaifenesin/Codeine (Guaiatussin AC 10 mg-100 mg/5 ml oral syrup) 10 Milliliter Oral every 6 hours as needed for cough. Refills: 0. Allergy Info:?? statins; Crestor; nonsteroidal anti-inflammatory agents; Levaquin Medications Given This Visit Future Orders ?TSH with T4 Reflex (Adults Only)? Order Date:12/01/22?- Complete on or after?12/01/22 ?PSA Screen? Order Date:12/01/22?- Complete on or after?12/01/22 ?Urinalysis (Outpt)? Order Date:12/01/22?- Complete on or after?12/01/22 ?CBC w/ Differential? Order Date:12/01/22?- Complete on or after?12/01/22 ?Comprehensive Metabolic Panel? Order Date:12/01/22?- Complete on or after?12/01/22 Vital Signs Height 177.8 cm Weight 100.5 kg BMI 31.79 kg/m2 Blood Pressure 118 mm Hg/78 mm Hg Temperature Pulse Rate 77 bpm Respiratory Rate 02 Sat Mode of Delivery 97 %/Room air You can now view a summary of your hospital visit from the comfort of your home through a free online portal called [employer]. [employer] is a website that allows you to securely view your medical information including discharge summary, medications and follow-up visits. ??You can alsosend a secure electronic message to your doctor???s office to request appointments, renew medications or just ask a question. You can enroll at [email or web address] or register during your next office visit. [...] primary care provider, you may find a [facility] provider by calling [facility] [employer] at [phone]. For information about the plan of care [...] Nurse Name: Sneha GORDON, Radha Sorensen Position: [facility] PCO Associate Professional Member Role: PCP Address: Address: [address] [place] [address]- Name: Jonathan Ramos RN Position: S RN Member Role: Primary Care Nurse Care Team Related Persons Name: LEN RAZO Address: [address] [address]
--- OUTSIDE RECORDS SUMMARY | 2024-04-23 08:22 | XMS_ITS | Continuity of Care Document ---
Author Organization [facility] Address [address], [address], [address] [place] [address]- Care Team Providers Care Demand Generation Manager Name Role Phone Sneha TOBACCO DRIER OPERATOR, Radha Sorensen Primary Care Physician [facility]counter [facility] Date(s): 08/27/20 - 09/26/20 [facility] [address], [address], [address] [place] [id number] Allergies, Adverse Reactions, Alerts Substance Reaction [...] to report when received vaccine 2Result Comment: [facility] [id number] 3Result Comment: [05/25/2018] [facility]: [id number] 4Admin Note: [facility] 5Admin Note: vis 03/31/09 6Result Comment: [08/11/2015] [facility] Medications Ambien 10 mg oral tablet 1 tablet = 10 mg, By Mouth, Daily at bedtime, PRN for sleep, # 30 tablet, 3 Refills, Maintenance, 05/08/20 9:35:00 EDT, Tablet, [facility], 175.4, cm, 10/21/19 8:06:00 EST, Height [...] 3 Refills, Maintenance, 06/11/20 17:06:00 EDT, Tablet, [facility], 175.4, cm, 10/21/19 8:06:00 EST, Height Start Date: 06/11/20 Stop Date: 10/09/20 Status: Ordered fenofibrate 54 mg oral tablet 1 tablet = 54 mg, By Mouth, Daily, # 30 tablet, 5 Refills, Maintenance, 06/11/20 11:29:00 EDT, [facility], 175.4, cm, 10/21/19 8:06:00 EST, Height [...] 08/09/20 21:59:00 EST, Route to Pharmacy Electronically, [facility], 175.4, cm, 10/21/19 8:06:00 EST, Height [...] Stop,05/08/20 16:25:00 EDT, Route to Pharmacy Electronically, [facility], 175.4, cm, 10/21/19 8:06:00 EST, Height [...]
--- OUTSIDE RECORDS SUMMARY | 2024-04-23 08:22 | XMS_ITS | Continuity of Care Document ---
Author Organization [facility] Address [address] [place] [address]- Care Team Providers Care Textile Coating Machine Operator Name Role Phone Sneha GORDON, Radha Sorensen Primary Care Physician Encounter [facility] Date(s): 09/17/19 - 12/05/19 [facility] [address] [place] [id number]- [facility] Attending Physician: Ashley ANTONIO, Petr Marcus [...] Given tetanus/diphtheria/pertussis, acel(Tdap) 06/08/11 Given 1Result Comment: [facility] [id number] 2Result Comment: [05/25/2018] [facility]: [id number] 3Admin Note: [facility] 4Admin Note: vis 03/31/09 [...] 3 Refills, Maintenance, 10/21/19 17:07:00 EST, Tablet, [facility], 175.4, cm, 10/21/19 8:06:00 EST, Height Start Date: 10/21/19 Status: Ordered azelastine nasal 0.15% spray 2 sprays, Nares, Both, 2 times a day, PRN for allergy symptoms, # 30 mL, 0 Refills, Maintenance, 10/21/19 8:40:00 EST, [place], [facility], 2 sprays Nares, Both 2 times [...] Replace Required Details, Route to Pharmacy Electronically, [facility], 175.4, cm, .. Start Date: 11/26/19 Status: Ordered mercaptopurine 50 mg oral tablet = 100 mg, By Mouth, Daily at bedtime, 0 Refills, Maintenance, 07/20/17 8:35:35, Tablet Start Date: 07/20/17 Status: Ordered metoprolol 25 mg oral tablet, extended release 25 mg, By Mouth, Daily at bedtime, # 30 tablet, Refills 5, Tot. Refills 5, Maintenance, 07/30/19 9:11:06 EST, Route to Pharmacy Electronically, [id number], [facility], 175.4, cm, 07/29/19 8:33:52 EST, Height Start Date: 07/30/19 Status: Ordered oxyCODONE 5 mg oral tablet 5 mg, 1, tablet, By Mouth, 2 times a day, PRN, for 28 days, # 56 tablet, Refills 0, Tot. Refills 0,Acute 12/24/19 14:59:00 EDT, Pain , Severe, 11/26/19 14:59:00 EDT, Route to Pharmacy Electronically, [facility], Partial fill upon patient request... Start Date: 11/26/19 Stop Date: 12/24/19 Status: Ordered Shingrix intramuscular injection 0.5 mL, Intramuscular, Once, # 0.5 mL, 1 Refills, Soft Stop, 06/28/19 13:15:54 EST, 0.5 mL Intramuscular Once Start Date: 06/28/19 Status: Ordered terazosin 5 mg oral capsule See Instructions, # 30 capsule, Refills 11 Tot. Refills 11, TAKE 1 CAPSULE BY MOUTH DAILY AT BEDTIME, [facility] Start Date: 05/02/19 Status: Ordered tiZANidine 2 mg oral tablet 1/2 tablet, By Mouth, Every 8 hours, PRN, # 45 tablet, Refills 0, Tot. Refills 0, Maintenance, as needed for muscle spasm, 11/05/19 10:51:00 EDT, Route to Pharmacy Electronically, [facility], 175.4, cm, 10/21/19 8:06:00 EST, Height [...]
--- OUTSIDE RECORDS SUMMARY | 2024-04-23 08:22 | XMS_ITS | Continuity of Care Document ---
Author Organization [facility] Adult Address [address] [place] [address]- Care Team Providers Care Director Of Medicare Name Role Phone Sneha RESTAURANT HOURLY MANAGER, Radha Sorensen Primary Care Physician [facility] Date(s): 06/07/21 - 07/07/21 [facility] [address] [place] [address]- Allergies, Adverse Reactions, Alerts Substance Reaction Severity [...] [facility][note 3] [id number] 2Result Comment: [05/25/2018] [facility]: [id number] 3Admin Note: [facility] 4Admin Note: vis 03/31/09 [...] 3 Refills, Maintenance, 04/19/21 10:21:00 EDT, Tablet, [facility], 177.8, cm, 03/11/21 9:04:00 EDT, Height, [...] 3 Refills, Maintenance, 01/06/21 15:26:00 EDT, Tablet, [facility], 177.8, cm, 12/18/20 11:27:00 EDT, Height, 92.3, kg, 12/18/20 11:27:00 EDT, Dry Weight Start Date: 01/06/21 Stop Date: 05/06/21 Status: Ordered fenofibrate 54 mg oral tablet 1 tablet, By Mouth, Daily, # 30 tablet, 5 Refills, Maintenance, 12/14/20 9:58:00 EDT, [facility], 178, cm, 11/06/20 13:18:00 EDT, Height, 90.1, kg, 10/06/20 6:33:00 EST, Dry Weight Start Date: 12/14/20 Status: Ordered fenofibrate 54 mg oral tablet 1 tablet = 54 mg, By Mouth, Daily, # 90 tablet, 1 Refills, Maintenance, 01/05/21 9:14:00 EDT, [facility], 177.8, cm, 12/18/20 11:27:00 EDT, Height, [...] Replace Required Details, Route to Pharmacy Electronically, [facility], 177.8, cm, ... Start Date: 01/07/21 [...] 12/11/20 21:05:00 EDT, Route to Pharmacy Electronically, [facility], 178, cm, 11/06/20 13:18:00 EDT, Height,90.1, [...] 06/18/21 9:57:00 EDT, Route to Pharmacy Electronically, [facility], Partial fill upon patient requ... Start Date: 06/18/21 Stop Date: 07/18/21 Status: Ordered terazosin 5 mg oral capsule 5 mg, 1, capsule, By Mouth, Daily at bedtime, for 30 days, # 30 capsule, Refills 11, Tot. Refills 11, Hard Stop 03/11/22 15:03:00 EDT, 03/16/21 15:03:00 EDT, Route to Pharmacy Electronically, [facility], 177.8, cm, 03/11/21 9:04:00 EDT, Height, [...]
--- OUTSIDE RECORDS SUMMARY | 2024-04-23 08:22 | XMS_ITS | Continuity of Care Document ---
Author Organization [facility] Adult Address [address] [place] [address]- Care Team Providers Care Chummer Name Role Phone Sneha GORDON, Radha Sorensen Primary Care Physician [facility]counter [facility] Date(s): 02/27/20 - 03/28/[address] [facility] Adult [address] [place] [phone] [facility] Allergies, Adverse Reactions, Alerts Substance [...] [facility] [id number] 2Result Comment: [05/25/2018] [facility]: [id number] 3Admin Note: [facility] 4Admin Note: vis 03/31/09 [...] 3 Refills, Maintenance, 10/21/19 17:07:00 EST, Tablet, [facility], 175.4, cm, 10/21/19 8:06:00 EST, Height Start Date: 10/21/19 Status: Ordered azelastine nasal 0.15% spray 2 sprays, Nares, Both, 2 times a day, PRN for allergy symptoms, # 30 mL, 0 Refills, Maintenance, 10/21/19 8:40:00 EST, [place], [facility], 2 sprays Nares, Both 2 times a day,PRN:for allergy symptoms, 175.4, cm, 10/21/19 8:06:00 EST, Height Start Date: 10/21/19 Status: Ordered fenofibrate 54 mg oral tablet 1 tablet = 54 mg, By Mouth, Daily, # 30 tablet, 5 Refills, Maintenance, 12/31/19 10:02:00 EDT, [facility], 175.4, cm, 10/21/19 8:06:00 EST, Height [...] Replace Required Details, Route to Pharmacy Electronically, [facility], 175.4, cm, .. Start Date: 02/26/20 Status: Ordered mercaptopurine 50 mg oral tablet = 100 mg, By Mouth, Daily at bedtime, 0 Refills, Maintenance, 07/20/17 8:35:35, Tablet Start Date: 07/20/17 Status: Ordered metoprolol 25 mg oral tablet, extended release 25 mg, By Mouth, Daily at bedtime, # 30 each, Refills 0, Tot. Refills 0, Maintenance, 03/02/20 14:36:00 EDT, Route to Pharmacy Electronically, [facility], 175.4, cm, 10/21/19 8:06:00 EST, Height Start Date: 03/02/20 Stop Date: 04/01/20 Status: Ordered oxyCODONE 5 mg oral tablet 5 mg, 1, tablet, By Mouth, 2 times a day, PRN, for 28 days, # 56 tablet, Refills 0, Tot. Refills 0,Acute 04/10/20 18:44:00 EDT, Pain , Severe, 03/13/20 18:44:00 EDT, Route to Pharmacy Electronically, [facility], Partial fill upon patient request... Start Date: 03/13/20 Stop Date: 04/10/20 Status: Ordered Shingrix intramuscular injection 0.5 mL, Intramuscular, Once, # 0.5 mL, 1 Refills, Soft Stop, 06/28/19 13:15:54 EST, 0.5 mL Intramuscular Once Start Date: 06/28/19 Status: Ordered terazosin 5 mg oral capsule See Instructions, # 30 capsule, Refills 11 Tot. Refills 11, TAKE 1 CAPSULE BY MOUTH DAILY AT BEDTIME, [facility] Start Date: 05/02/19 Status: Ordered tiZANidine 2 mg oral tablet 1/2 tablet, By Mouth, Every 8 hours, PRN, # 45 tablet, Refills 0, Tot. Refills 0, Maintenance, as needed for muscle spasm, 11/05/19 10:51:00 EDT, Route to Pharmacy Electronically, [facility], 175.4, cm, 10/21/19 8:06:00 EST, Height [...]
--- OUTSIDE RECORDS SUMMARY | 2024-04-23 08:22 | XMS_ITS | Continuity of Care Document ---
Author Organization [facility] Address [address] [place] [phone]- Care Team Providers Care Shooting Gallery Operator Name Role Phone Sneha GORDON, Radha Sorensen Primary Care Physician Encounter [facility] Date(s): 09/29/22 - 10/29/22 [facility] [address] [place] [address]- Attending Physician: Julia Allen Admitting Physician: Julia Allen Referring Physician: [id number] Allergies, Adverse Reactions, Alerts Substance Reaction Severity [...] [facility] [id number] 2Result Comment: [05/25/2018] [facility]: [id number] 3Admin Note: Codi 4Admin Note: vis 03/31/09 [...] 3 Refills, Maintenance, 09/16/22 8:46:00 EST, Tablet, [facility], 177.8, cm, 08/03/22 15:31:00 EST, Height, 96.8, kg, 08/05/21 8:57:00 EST, Dry Weight Start Date: 09/16/22 Stop Date: 01/14/23 Status: Ordered amitriptyline 50 mg oral tablet 2 tablet = 100 mg, By Mouth, Daily at bedtime, 1 tab dailyx 1 week then increase to 2 tabs, # 60 tablet, 5 Refills, Maintenance, 05/20/22 7:56:00 EDT, [facility], Partial fill upon patient request if [...] 5 Refills, Maintenance, 04/27/22 12:46:00 EDT, Tablet, [facility], 177.8, cm, 04/19/22 9:41:00 EDT, Height, 96.8, kg, 08/05/21 8:57:00 EST, Dry Weight Start Date: 04/27/22 Stop Date: 10/24/22 Status: Ordered cyclobenzaprine 10 mg oral tablet 10 mg, 1, tablet, By Mouth, Daily at supper, # 30 tablet, Refills 2, Tot. Refills 2, Maintenance, 10/24/22 15:13:00 EST, Route to Pharmacy Electronically, [facility], Partial fill upon patient request if [...] tablet, 5 Refills, Maintenance, 03/25/22 14:14:00 EDT, [facility], 177.8, cm, 02/14/22 8:18:00 EDT, [...] 0 Refills, Maintenance, 11/22/21 16:22:00 EDT, Syrup, [facility], Partial fill upon patient request if the prescription is for a scheduleII opioid drug., 10 mL By Mouth Every 6 hours,PRN:f... Start Date: 11/22/21 Status: Ordered indomethacin 25 mg oral capsule 1 capsule = 25 mg, By Mouth, 3 times a day, PRN Headache, # 30 capsule, 5 Refills, Maintenance, 08/24/22 13:53:00 EST, Capsule, [facility], 30 caps / month, 177.8, cm, [...] at bedtime, # 30 tablet, 5 Refills, [facility], 177.8, cm, 11/22/21 14:53:00 EDT, Height, 96.8, kg, 08/05/21 8:57:00 EST, Dry Weight Start Date: 12/23/21 Status: Ordered nitroglycerin 0.4 mg sublingual tablet 1 tablet = 0.4 mg, Sublingual, Every 5 minutes, PRN as needed for chest pain, not to exceed 3 doses/15 min--if pain persists, seek medical attention, # 100 tablet, 0 Refills, Maintenance, 09/28/20 17:00:00 EST, Tablet, [facility], Partial fill up... Start Date: 09/28/20 Status: Ordered rizatriptan 5 mg oral tablet 1 tablet = 5 mg, By Mouth, Once, PRN for migraine headache, may repeat dose once in 2 hours max 2 tabs in 24hrs ., # 12 tablet, 2 Refills, Soft Stop, 05/20/22 7:59:00 EDT, Tablet, [facility], Partial fill upon patient request if the prescript... Start Date: 05/20/22 Status: Ordered SUMAtriptan 4 mg/0.5 mL subcutaneous solution 0.5 mL = 4 mg, Subcutaneous Injection, Once, PRN as needed for migraine headache, may repeat once in 1 hour if needed, # 1 kit, 0 Refills, Soft Stop, 03/21/22 14:40:00 EDT, Solution, [facility],Partial fill upon patient request if the prescripti... Start Date: 03/21/22 Status: Ordered terazosin 5 mg oral capsule 1, capsule, By Mouth, Daily at bedtime, # 30 capsule, Refills 5, Maintenance, 08/04/22 11:10:00 EST, Route to Pharmacy Electronically, [facility], 177.8, cm, 08/03/22 15:31:00 EST, Height, [...] Care Nurse Name: Radha Hoover NP Position: [facility] PCO Associate Professional Member Role: PCP Address: Address: [address] [place] [address] [address]rd [place] [address]- Name: Jonathan Ramos RN Position: S RN Member Role: Primary Care Nurse Care Team Related Persons Name: LEN RAZO Address: home [address] [place] [id number]
--- OUTSIDE RECORDS SUMMARY | 2024-04-23 08:22 | XMS_ITS | Continuity of Care Document ---
Author Organization [facility] Address [address] [place] [address]- Care Team Providers Care Stone Layer Name Role Phone Sneha HVAC INSTALLATION TECHNICIAN, aRdha Sorensen Primary Care Physician [facility]counter [facility] Date(s): 08/09/20 - 09/08/20 [facility] [address] [place] [address]- Allergies, Adverse Reactions, Alerts Substance Reaction Severity [...] Comment: [facility] [id number] 3Result Comment: [05/25/2018] [facility][NOTE 3]: [id number] 4Admin Note: Codi 5Admin Note: vis 03/31/09 6Result Comment: [08/11/2015] [facility] Ambien 10 mg oral tablet 1 tablet = 10 mg, By Mouth, Daily at bedtime, PRN for sleep, # 30 tablet, 3 Refills, Maintenance, 05/08/20 9:35:00 EDT, Tablet, [facility], 175.4, cm, 10/21/19 8:06:00 EST, Height [...] 3 Refills, Maintenance, 06/11/20 17:06:00 EDT, Tablet, [facility], 175.4, cm, 10/21/19 8:06:00 EST, Height Start Date: 06/11/20 Stop Date: 10/09/20 Status: Ordered azelastine nasal 0.15% spray 2 sprays, Nares, Both, 2 times a day, PRN for allergy symptoms, # 30 mL, 0 Refills, Maintenance, 10/21/19 8:40:00 EST, [place], [facility], 2 sprays Nares, Both 2 times a day,PRN:for allergy symptoms, 175.4, cm, 10/21/19 8:06:00 EST, Height Start Date: 10/21/19 Status: Ordered fenofibrate 54 mg oral tablet 1 tablet = 54 mg, By Mouth, Daily, # 30 tablet, 5 Refills, Maintenance, 06/11/20 11:29:00 EDT, [facility], 175.4, cm, 10/21/19 8:06:00 EST, Height [...] Required Details, Route to Pharmacy Electronically, [facility], 175.4, cm, 03... Start Date: 02/26/20 Status: Ordered mercaptopurine 50 mg oral tablet = 100 mg, By Mouth, Daily at bedtime, 0 Refills, Maintenance, 07/20/17 8:35:35, Tablet Start Date: 07/20/17 Status: Ordered metoprolol 25 mg oral tablet, extended release 25 mg, By Mouth, Daily at bedtime, # 30 each, Refills 2, Tot. Refills 2, Maintenance, 08/09/20 21:59:00 EST, Route to Pharmacy Electronically, [facility], 175.4, cm, 10/21/19 8:06:00 EST, Height Start Date: 08/09/20 Stop Date: 11/07/20 Status: Ordered oxyCODONE 5 mg oral tablet 5 mg, 1, tablet, By Mouth, 2 times a day, PRN, for 28 days, # 56 tablet, Refills 0, Tot. Refills 0,Acute 09/17/20 8:19:00 EST, Pain , Severe, 08/20/20 8:19:00 EST, Route to Pharmacy Electronically, [facility], Partial fill upon patient request,... Start [...] Stop,05/08/20 16:25:00 EDT, Route to Pharmacy Electronically, [facility], 175.4, cm, 10/21/19 8:06:00 EST, Height Start Date: 05/08/20 Stop Date: 05/03/21 Status: Ordered tiZANidine 2 mg oral tablet 1/2 tablet, By Mouth, Every 8 hours, PRN, # 45 tablet, Refills 0, Tot. Refills 0, Maintenance, as needed for muscle spasm, 11/05/19 10:51:00 EDT, Route to Pharmacy Electronically, [facility], 175.4, cm, 10/21/19 8:06:00 EST, Height [...]
--- OUTSIDE RECORDS SUMMARY | 2024-04-23 08:22 | XMS_ITS | Continuity of Care Document ---
Author Organization [facility] Address [address] [place] [address]- Care Team Providers Care Assembler Steam And Gas Turbine Name Role Phone Sneha MARKER ASSEMBLER, Radha Sorensen Primary Care Physician [facility]counter [facility] Date(s): 12/18/20 - 12/18/[address] [address]- Discharge Disposition: A-D/C Home Attending Physician: Raj [...] to report when received vaccine 2Result Comment: [facility] [id number] 3Result Comment: [05/25/2018] [facility]: [id number] 4Admin Note: Codi 5Admin Note: gabbie 03/31/09 [...] 3 Refills, Maintenance, 12/02/20 15:26:00 EDT, Tablet, [facility], 178, cm, 11/06/20 13:18:00 EDT, Height, [...] 3 Refills, Maintenance, 06/11/20 17:06:00 EDT, Tablet, [facility], 175.4, cm, 10/21/19 8:06:00 EST, Height Start Date: 06/11/20 Stop Date: 10/09/20 Status: Ordered fenofibrate 54 mg oral tablet 1 tablet, By Mouth, Daily, # 30 tablet, 5 Refills, Maintenance, 12/14/20 9:58:00 EDT, [facility], 178, cm, 11/06/20 13:18:00 EDT, Height, [...] Replace Required Details, Route to Pharmacy Electronically, [facility]... Start Date: 09/11/20 Status: Ordered mercaptopurine 50 mg oral tablet 1 tablet = 50 mg, By Mouth, Daily at bedtime, 0 Refills, Maintenance, 07/20/17 8:35:35 EST, Tablet Start Date: 07/20/17 Status: Ordered metoprolol 25 mg oral tablet, extended release 25 mg, By Mouth, Daily at bedtime, # 30 each, Refills 5, Tot. Refills 5, Maintenance, 12/11/20 21:05:00 EDT, Route to Pharmacy Electronically, [facility], 178, cm, 11/06/20 13:18:00 EDT, Height,90.1, [...] Stop,05/08/20 16:25:00 EDT, Route to Pharmacy Electronically, [facility], 175.4, cm, 10/21/19 8:06:00 EST, Height [...] [Reference Range]: 1 2 Height 177.80 cm (12/18/20 11:27 AM) 177.80 cm (12/15/20 5:41 PM) Weight 92.3 kg (12/18/20 11: AM) 92.27 kg (12/15/20 5:41 PM) Oxygen Saturation [94-100 %] 96 % (12/18/20 12:30 PM) 97 % (12/18/20 11:27 AM) Pulse Rate [55-90 bpm] 71 bpm (12/18/20 11:27 AM) Body Mass Index [18.5-24.99] 29.2 *H* (12/18/20 11:27 AM) 29.19 *H* (12/15/20 5:41 PM) Blood Pressure [90-138/55-84 mm Hg] 126/ 72mm Hg (12/18/20 12:30 PM) 142/84mm Hg *H* (12/18/20 11:27 AM) Respiratory Rate [16-30 br/min] 18 br/mi n (12/18/20 12:30 PM) 19 br/min (12/18/20 11:27 AM) Temperature [96.8-100.4 DegF] 98.5 DegF (12/18/20 12:30 PM) 98.1 DegF (12/18/20 11:27 AM) Mode of Delivery (Oxygen) Room air (12/18/20 12:30 PM) Room air (12/18/20 11:27 AM) Blood pressure sites Arm, left (12/18/20 11:27 AM) Temperature Route Temporal (12/18/20 12:30 PM) Temporal (12/18/20 11:27 AM) Dry Weight 92.3 kg (12/18/20 11:27 AM) 92.27 kg (12/15/20 5:41 PM) Weight Obtained Via Standing scale (12/18/20 11:27 AM) Patient/family stated (12/15/20 5:41 PM) Social History Social History Type Response Smoking Status Former smoker; Tobac co user in household: No; Other: quit smoking in 2007; entered on: 07/16/14 Sex
--- OUTSIDE RECORDS SUMMARY | 2024-04-23 08:22 | XMS_ITS | Continuity of Care Document ---
Author Organization [facility] Address [address] [place] [phone]- Care Team Providers Care Rehabilitation Specialist Name Role Phone Radha Hoover NP Primary Care Physician [place] [facility] [place] 12/14/21 - 01/13/22 [facility] [address] [place] [phone]- Allergies, Adverse Reactions, Alerts Substance Reaction Severity [...] tetanus/diphtheria/pertussis, acel(Tdap) 06/08/11 Given 1Result Comment: [facility] [id number] 2Result Comment: [05/25/2018] [facility]: [id number] 3Admin Note: Codi 4Admin Note: vis 03/31/09 [...] 3 Refills, Maintenance, 08/18/21 8:58:00 EST, Tablet, [facility], 177.8, cm, 08/10/21 10:04:00 EST, Height, [...] 0 Refills, Maintenance, 12/24/21 12:45:00 EDT, Tablet, [facility], 177.8, cm, 11/22/21 14:53:00 EDT, Height, [...] Mouth, Daily, # 30 tablet, 3 Refills, [facility], 177.8, cm, 11/22/21 14:53:00 EDT, Height, [...] Replace Required Details, Route to Pharmacy Electronically, [facility], 177.8, cm, 09/07/21 13:03:0... Start Date: 09/17/21 Status: Ordered Guaiatussin AC 10 mg-100 mg/5 ml oral syrup 10 mL, By Mouth, Every 6 hours, PRN for cough, # 240 mL, 0 Refills, Maintenance, 11/22/21 16:22:00 EDT, Syrup, [facility], Partial fill upon patient request if [...] at bedtime, # 30 tablet, 5 Refills, [facility], 177.8, cm, 11/22/21 14:53:00 EDT, Height, 96.8, kg, 08/05/21 8:57:00 EST, Dry Weight Start Date: 12/23/21 Status: Ordered nitroglycerin 0.4 mg sublingual tablet 1 tablet = 0.4 mg, Sublingual, Every 5 minutes, PRN as needed for chest pain, not to exceed 3 doses/15 min--if pain persists, seek medical attention, # 100 tablet, 0 Refills, Maintenance, 09/28/20 17:00:00 EST, Tablet, [facility], Partial fill up... Start Date: 09/28/20 Status: Ordered terazosin 5 mg oral capsule 5 mg, 1, capsule, By Mouth, Daily at bedtime, # 30 capsule, Refills 8, Tot. Refills 8, Soft Stop, 03/11/22 15:03:00 EDT, Route to Pharmacy Electronically, [facility], 177.8, cm, 04/22/21 14:54:00 EDT, Height, [...]
--- OUTSIDE RECORDS SUMMARY | 2024-04-23 08:22 | XMS_ITS | Continuity of Care Document ---
Author Organization [facility] Address [address] [place] [address]- Care Team Providers Care Plate Developer Name Role Phone Radha Hoover NP Primary Care Physician [place] [facility] [place]08[place]22 - 03/10/22 [facility] [address] [place] [phone]- Allergies, Adverse Reactions, Alerts Substance Reaction Severity [...] Given tetanus/diphtheria/pertussis, acel(Tdap) 06/08/11 Given 1Result Comment: [facility] [id number] 2Result Comment: [05/25/2018] [facility]: [id number] 3Admin Note: Codi 4Admin Note: vis 03/31/09 [...] Mouth, Daily, # 30 tablet, 3 Refills, [facility], 177.8, cm, 11/22/21 14:53:00 EDT, Height, [...] Replace Required Details, Route to Pharmacy Electronically, [facility], 177.8, cm, 09/07/21 13:03:0... Start Date: 09/17/21 Status: Ordered Guaiatussin AC 10 mg-100 mg/5 ml oral syrup 10 mL, By Mouth, Every 6 hours, PRN for cough, # 240 mL, 0 Refills, Maintenance, 11/22/21 16:22:00 EDT, Syrup, [facility], Partial fill upon patient request [...] at bedtime, # 30 tablet, 5 Refills, [facility], 177.8, cm, 11/22/21 14:53:00 EDT, Height, 96.8, kg, 08/05/21 8:57:00 EST, Dry Weight Start Date: 12/23/21 Status: Ordered nitroglycerin 0.4 mg sublingual tablet 1 tablet = 0.4 mg, Sublingual, Every 5 minutes, PRN as needed for chest pain, not to exceed 3 doses/15 min--if pain persists, seek medical attention, # 100 tablet, 0 Refills, Maintenance, 09/28/20 17:00:00 EST, Tablet, [facility], Partial fill up... Start Date: 09/28/20 Status: Ordered terazosin 5 mg oral capsule See Instructions, TAKE 1 CAPSULE BY MOUTH DAILY AT BEDTIME, # 30 capsule, Refills 5, Instructions Replace Required Details, Route to Pharmacy Electronically, [facility], 177.8, cm, 02/14/22 8:18:00 EDT, Height, [...]
--- OUTSIDE RECORDS SUMMARY | 2024-04-23 08:23 | XMS_ITS | Continuity of Care Document ---
Author Organization [facility] Address [address] [facility], [address], [address] [place] [address]- Care Team Providers Care Frame Runner Name Role Phone Sneha SUPERVISOR REFINING, Radha Sorensen Primary Care Physician [facility] Date(s): 08/24/22 - 09/23/22 [facility] [address], [address], [address] [place] [phone]- Allergies, Adverse Reactions, Alerts Substance Reaction Severity [...] 06/08/11 Given 1Result Comment: [facility] [id number] 2Result Comment: [05/25/2018] [facility]: [id number] 3Admin Note: Codi 4Admin Note: vis 03/31/09 [...] tablet, 5 Refills, Maintenance, 03/25/22 14:14:00 EDT, [facility], 177.8, cm, 02/14/22 8:18:00 EDT, Height, [...] 0 Refills, Maintenance, 11/22/21 16:22:00 EDT, Syrup, [facility], Partial fill upon patient request if the prescription is for a scheduleII opioid drug., 10 mL By Mouth Every 6 hours,PRN:f... Start Date: 11/22/21 Status: Ordered indomethacin 25 mg oral capsule 1 capsule = 25 mg, By Mouth, 3 times a day, PRN Headache, # 30 capsule, 5 Refills, Maintenance, 08/24/22 13:53:00 EST, Capsule, [facility], 30 caps / month, 177.8, cm, [...] at bedtime, # 30 tablet, 5 Refills, [facility], 177.8, cm, 11/22/21 14:53:00 EDT, Height, 96.8, kg, 08/05/21 8:57:00 EST, Dry Weight Start Date: 12/23/21 Status: Ordered nitroglycerin 0.4 mg sublingual tablet 1 tablet = 0.4 mg, Sublingual, Every 5 minutes, PRN as needed for chest pain, not to exceed 3 doses/15 min--if pain persists, seek medical attention, # 100 tablet, 0 Refills, Maintenance, 09/28/20 17:00:00 EST, Tablet, [facility], Partial fill up... Start Date: 09/28/20 Status: Ordered rizatriptan 5 mg oral tablet 1 tablet = 5 mg, By Mouth, Once, PRN for migraine headache, may repeat dose once in 2 hours max 2 tabs in 24hrs ., # 12 tablet, 2 Refills, Soft Stop, 05/20/22 7:59:00 EDT, Tablet, [facility], Partial fill upon patient request if the prescript... Start Date: 05/20/22 Status: Ordered SUMAtriptan 4 mg/0.5 mL subcutaneous solution 0.5 mL = 4 mg, Subcutaneous Injection, Once, PRN as needed for migraine headache, may repeat once in 1 hour if needed, # 1 kit, 0 Refills, Soft Stop, 03/21/22 14:40:00 EDT, Solution, [facility],Partial fill upon patient request if the prescripti... Start Date: 03/21/22 Status: Ordered terazosin 5 mg oral capsule 1, capsule, By Mouth, Daily at bedtime, # 30 capsule, Refills 5, Maintenance, 08/04/22 11:10:00 EST, Route to Pharmacy Electronically, [facility], 177.8, cm, 08/03/22 15:31:00 EST, Height, [...] Name: Radha Hoover NP Position: [facility] PCO Associate Professional Member Role: PCP Address: Address: [address] [place] [address] 3rd [place] [address]- Name: Jonathan Ramos RN Position: S RN Member Role: Primary Care Nurse Care Team Related Persons Name: LEN RAZO Address: home [address] [place] [id number]
--- OUTSIDE RECORDS SUMMARY | 2024-04-23 08:23 | XMS_ITS | Continuity of Care Document ---
Author Organization [facility] Address [address] [place] [address] [address] [place] [address]- Care Team Providers Care Research Anthropologist Name Role Phone Sneha GORDON, Radha Sorensen Primary Care Physician [facility] Date(s): 07/14/21 - 08/13/21 [facility] [address] [place] [address]- Allergies, Adverse Reactions, Alerts Substance Reaction Severity [...] Given 1Result Comment: [facility] [id number] 2Result Comment: [05/25/2018] [facility]: [id number] 3Admin Note: Codi 4Admin Note: gabbie 03/31/09 [...] 3 Refills, Maintenance, 04/19/21 10:21:00 EDT, Tablet, [facility], 177.8, cm, 03/11/21 9:04:00 EDT, Height, [...] 0 Refills, Maintenance, 07/16/21 12:39:00 EST, Tablet, [facility], 177.8, cm, 06/18/21 9:52:00 EDT, Height, 92.3, kg, 12/18/20 11:27:00 EDT, Dry Weight Start Date: 07/16/21 Stop Date: 08/15/21 Status: Ordered fenofibrate 54 mg oral tablet 1 tablet = 54 mg, By Mouth, Daily at bedtime, # 90 tablet, 1 Refills, Maintenance, 01/05/21 9:14:00EDT, [facility], 177.8, cm, 12/18/20 11:27:00 EDT, Height, [...] AT BEDTIME, # 30 tablet, 5 Refills, [facility],177.8, cm, 06/18/21 9:52:00 EDT, Height, 92.3, kg, 12/18/20 11:27:00 EDT, Dry Weight Start Date: 07/16/21 Status: Ordered nitroglycerin 0.4 mg sublingual tablet 1 tablet = 0.4 mg, Sublingual, Every 5 minutes, PRN as needed for chest pain, not to exceed 3 doses/15 min--if pain persists, seek medical attention, # 100 tablet, 0 Refills, Maintenance, 09/28/20 17:00:00 EST, Tablet, [facility], Partial fill up... Start Date: 09/28/20 [...]
--- OUTSIDE RECORDS SUMMARY | 2024-04-23 08:23 | XMS_ITS | Continuity of Care Document ---
Author Organization [facility] Address [address] [place] [address]- Care Team Providers Care Mutual Fund Analyst Name Role Phone Sneha EMERGENCY COMMUNICATIONS DISPATCHER, Radha Sorensen Primary Care Physician [facility] Date(s): 12/11/20 - 01/10/21 [facility] [address] [place] [address]- Allergies, Adverse Reactions, Alerts Substance Reaction Severity [...] to report when received vaccine 2Result Comment: [facility] [id number] 3Result Comment: [05/25/2018] [facility]: [id number] 4Admin Note: [facility] 5Admin Note: vis 03/31/09 [...] 3 Refills, Maintenance, 12/02/20 15:26:00 EDT, Tablet, [facility], 178, cm, 11/06/20 13:18:00 EDT, Height, [...] 3 Refills, Maintenance, 01/06/21 15:26:00 EDT, Tablet, [facility], 177.8, cm, 12/18/20 11:27:00 EDT, Height, 92.3, kg, 12/18/20 11:27:00 EDT, Dry Weight Start Date: 01/06/21 Stop Date: 05/06/21 Status: Ordered fenofibrate 54 mg oral tablet 1 tablet, By Mouth, Daily, # 30 tablet, 5 Refills, Maintenance, 12/14/20 9:58:00 EDT, [facility], 178, cm, 11/06/20 13:18:00 EDT, Height, 90.1, kg, 10/06/20 6:33:00 EST, Dry Weight Start Date: 12/14/20 Status: Ordered fenofibrate 54 mg oral tablet 1 tablet = 54 mg, By Mouth, Daily, # 90 tablet, 1 Refills, Maintenance, 01/05/21 9:14:00 EDT, [facility], 177.8, cm, 12/18/20 11:27:00 EDT, Height, [...] Replace Required Details, Route to Pharmacy Electronically, [facility], 177.8, cm, ... Start Date: 01/07/21 [...] 12/11/20 21:05:00 EDT, Route to Pharmacy Electronically, [facility], 178, cm, 11/06/20 13:18:00 EDT, Height,90.1, [...] 0 Refills, Maintenance, 09/28/20 17:00:00 EST, Tablet, [facility], Partial fill up... Start Date: 09/28/20 [...] Stop,05/08/20 16:25:00 EDT, Route to Pharmacy Electronically, [facility], 175.4, cm, 10/21/19 8:06:00 EST, Height [...]
--- OUTSIDE RECORDS SUMMARY | 2024-04-23 08:23 | XMS_ITS | Continuity of Care Document ---
Author Organization [facility] Address [address] [place] [address]- Care Team Providers Care Accounts Payable Professional Name Role Phone Sneha GORDON, Radha Sorensen Primary Care Physician Encounter [facility] Date(s): 09/10/19 - 09/17/19 [facility] [address] [place] [address]- [facility] Encounter Diagnosis Cervical myofascial strain(Discharge Diagnosis) - 09/10/19 Cervical facet syndrome(Discharge Diagnosis) - 09/10/19 Attending Physician: Ashley ANTONIO, Petr Marcus Referring Physician: Julius ANTONIO, Prashanth Turner Allergies, [...] tetanus/diphtheria/pertussis, acel(Tdap) 06/08/11 Given 1Result Comment: [facility] [id number] 2Result Comment: [05/25/2018] [facility]: [id number] 3Admin Note: Codi 4Admin Note: gabbie 03/31/09 5Result Comment: [08/11/2015] [facility] [...] 09/10/19 9:37:00 EST, Route to Pharmacy Electronically, [facility], 175.4, cm, 09/10/19 9:16:00 EST, Height [...] 07/30/19 9:11:06 EST, Route to Pharmacy Electronically, [id number], [facility], 175.4, cm, 07/29/19 8:33:52 EST, Height Start Date: 07/30/19 Status: Ordered oxyCODONE 5 mg oral tablet 5 mg, 1, tablet, By Mouth, 2 times a day, PRN, for 28 days, # 56 tablet, Refills 0, Tot. Refills 0,Acute 10/01/19 16:55:00 EST, Pain , Severe, 09/03/19 16:55:00 EST, Route to Pharmacy Electronically, [facility], Partial fill upon patient request... Start [...] Health Status Clinical Service Informant Cervical myofascial strain Discharge Diagnosis 09/10/19 Cervical facet syndrome Discharge Diagnosis 09/10/19 Vital Signs Most recent to oldest [Reference Range]: 1 Height 175.4 cm (09/10/19 9:16 AM) Weight 90 kg (09/10/19 9:16 AM) Oxygen Saturation [94-100 %] 95 % (09/10/19 9:16 AM) Pulse Rate [55-90 bpm] 62 bpm (09/10/19 9:16 AM) Body Mass Index [18.5-24.99] 29.25 *H* (09/10/19 9:16 AM) Blood Pressure [90-138/55-84 mm Hg] 131/ 80mm Hg (09/10/19 9:16 AM) Temperature [96.8-100.4 DegF] 98.4 DegF (09/10/19 9:16 AM) Blood pressure sites Arm, left (09/10/19 9:16 AM) Temperature Route Temporal (09/10/19 9:16 AM) Social History Social History Type Response Smoking Status Former smoker; Tobac co user in household: No; Other: quit smoking in 2007; entered on: 07/16/14 Sex
--- OUTSIDE RECORDS SUMMARY | 2024-04-23 08:23 | XMS_ITS | Continuity of Care Document ---
Author Organization [facility] Adult Address [address] [place] [address]- Care Team Providers Care Dog Pound Attendant Name Role Phone Radha Hoover NP Primary Care Physician Encounter [facility] Date(s): 05/12/22 - 06/11/22 [facility] Adult [address] [place] [address]- Allergies, Adverse Reactions, Alerts Substance Reaction Severity [...] Given tetanus/diphtheria/pertussis, acel(Tdap) 06/08/11 Given 1Result Comment: [facility] [id number] 2Result Comment: [05/25/2018] [facility]: [id number] 3Admin Note: Cameronradha 4Admin Note: gabbie 03/31/09 [...] 3 Refills, Maintenance, 02/17/22 12:36:00 EDT, Tablet, [facility], 177.8, cm, 02/14/22 8:18:00 EDT, Height, [...] 5 Refills, Maintenance, 04/27/22 12:46:00 EDT, Tablet, [facility], 177.8, cm, 04/19/22 9:41:00 EDT, Height, [...] tablet, 5 Refills, Maintenance, 03/25/22 14:14:00 EDT, [facility], 177.8, cm, 02/14/22 8:18:00 EDT, Height, [...] Replace Required Details, Route to Pharmacy Electronically, [facility], 177.8, cm, 02/14/22 8:18:00... Start Date: 03/24/22 Status: Ordered Guaiatussin AC 10 mg-100 mg/5 ml oral syrup 10 mL, By Mouth, Every 6 hours, PRN for cough, # 240 mL, 0 Refills, Maintenance, 11/22/21 16:22:00 EDT, Syrup, [facility], Partial fill upon patient request if the prescription is for a scheduleII opioid drug., 10 mL By Mouth Every 6 hours,PRN:f... Start Date: 11/22/21 Status: Ordered indomethacin 25 mg oral capsule 1 capsule = 25 mg, By Mouth, 3 times a day, PRN Headache, # 30 capsule, 2 Refills, Maintenance, 05/20/22 8:07:00 EDT, Capsule, [facility], 30 caps / month, 177.8, cm, [...] at bedtime, # 30 tablet, 5 Refills, [facility], 177.8, cm, 11/22/21 14:53:00 EDT, Height, 96.8, kg, 08/05/21 8:57:00 EST, Dry Weight Start Date: 12/23/21 Status: Ordered nitroglycerin 0.4 mg sublingual tablet 1 tablet = 0.4 mg, Sublingual, Every 5 minutes, PRN as needed for chest pain, not to exceed 3 doses/15 min--if pain persists, seek medical attention, # 100 tablet, 0 Refills, Maintenance, 09/28/20 17:00:00 EST, Tablet, [facility], Partial fill up... Start Date: 09/28/20 Status: Ordered rizatriptan 5 mg oral tablet 1 tablet = 5 mg, By Mouth, Once, PRN for migraine headache, may repeat dose once in 2 hours max 2 tabs in 24hrs ., # 12 tablet, 2 Refills, Soft Stop, 05/20/22 7:59:00 EDT, Tablet, [facility], Partial fill upon patient request if the prescript... Start Date: 05/20/22 Status: Ordered SUMAtriptan 4 mg/0.5 mL subcutaneous solution 0.5 mL = 4 mg, Subcutaneous Injection, Once, PRN as needed for migraine headache, may repeat once in 1 hour if needed, # 1 kit, 0 Refills, Soft Stop, 03/21/22 14:40:00 EDT, Solution, [facility],Partial fill upon patient request if the prescripti... Start Date: 03/21/22 Status: Ordered terazosin 5 mg oral capsule See Instructions, TAKE 1 CAPSULE BY MOUTH DAILY AT BEDTIME, # 30 capsule, Refills 5, Instructions Replace Required Details, Route to Pharmacy Electronically, [facility], 177.8, cm, 02/14/22 8:18:00 EDT, Height, [...] Sneha GORDON, Radha Sorensen Address: Address: [address] [facility] [address] [place], [place] [address]
--- OUTSIDE RECORDS SUMMARY | 2024-04-23 08:23 | XMS_ITS | Continuity of Care Document ---
Author Organization [facility] ter Address [address] [place] [address]- Care Team Providers Care Travel Consultant Name Role Phone Sneha STATISTICIAN, Radha Sorensen Primary Care Physician [place] [facility] 09/19/20 - 10/25/[address] [address] Attending Physician: Dany Molina MD Admitting Physician: [...] report when received vaccine 2Result Comment: [facility] [id number] 3Result Comment: [05/25/2018] [facility]: [id number] 4Admin Note: Codi 5Admin Note: vis 03/31/09 [...] 3 Refills, Maintenance, 05/08/20 9:35:00 EDT, Tablet, [facility], 175.4, cm, 10/21/19 8:06:00 EST, Height Start Date: 05/08/20 Stop Date: 09/05/20 Status: Ordered apixaban 5 mg oral tablet 1 tablet = 5 mg, By Mouth, 2 times a day, # 60 tablet, 0 Refills, Maintenance, 10/07/20 9:38:00 EST, Tablet, [facility], Partial fill upon patient request if the prescription is for a schedule II opioid drug., 178, cm, 10/07/20 7:43:00 E... Start Date: 10/07/20 Stop Date: 11/06/20 Status: Ordered Ativan 0.5 mg oral tablet 1 tablet = 0.5 mg, By Mouth, Every 8 hours, PRN as needed for anxiety, # 90 tablet, 3 Refills, Maintenance, 06/11/20 17:06:00 EDT, Tablet, [facility], 175.4, cm, 10/21/19 8:06:00 EST, Height Start Date: 06/11/20 Stop Date: 10/09/20 Status: Ordered docusate sodium 100 mg oral capsule 100 mg, 1, capsule, By Mouth, 2 times a day, # 60 capsule, Refills 0, Tot. Refills 0, Maintenance, 10/07/20 9:37:00 EST, Route to Pharmacy Electronically, [facility], Partial fill upon patient request if the prescription is for a schedul... Start Date: 10/07/20 Status: Ordered fenofibrate 54 mg oral tablet 1 tablet = 54 mg, By Mouth, Daily at bedtime, # 30 tablet, 5 Refills, Maintenance, 06/11/20 11:29:00 EDT, [facility], 175.4, cm, 10/21/19 8:06:00 EST, Height [...] Electronically, Cent[facility]... Start Date: 09/11/20 Status: Ordered Maalox Plus [...] 08/09/20 21:59:00 EST, Route to Pharmacy Electronically, [facility], 175.4, cm, 10/21/19 8:06:00 EST, Height [...] Stop,05/08/20 16:25:00 EDT, Route to Pharmacy Electronically, [facility], 175.4, cm, 10/21/19 8:06:00 EST, Height [...]
--- OUTSIDE RECORDS SUMMARY | 2024-04-23 08:23 | XMS_ITS | Continuity of Care Document ---
Author Organization [facility] Address [address] [place] [address]- Care Team Providers Care Deodorizer Operator Name Role Phone Sneha GORDON, Radha Sorensen Primary Care Physician [place] [facility] 10[place]05[place]22 - 11/04/22 [facility] [address] [place] [address]- [place] Allergies, Adverse Reactions, Alerts Substance Reaction [...] acel(Tdap) 06/08/11 Given 1Result Comment: [facility] [id number] 2Result Comment: [05/25/2018] [facility]: [id number] 3Admin Note: Codi 4Admin Note: vis 03/31/09 [...] each, 11 Refills, Maintenance, 10/20/22 8:14:00 EST, [facility], Partial fill upon patient request if the prescription is for a schedule II opioid drug., 177.8, cm, 09/29/22 9:19:00 EST, Height,... Start Date: 10/20/22 Stop Date: 10/15/23 Status: Ordered Ambien 10 mg oral tablet 1 tablet = 10 mg, By Mouth, Daily at bedtime, PRN for sleep, # 30 tablet, 3 Refills, Maintenance, 09/16/22 8:46:00 EST, Tablet, [facility], 177.8, cm, 08/03/22 15:31:00 EST, Height, 96.8, kg, 08/05/21 8:57:00 EST, Dry Weight Start Date: 09/16/22 Stop Date: 01/14/23 Status: Ordered amitriptyline 50 mg oral tablet 2 tablet = 100 mg, By Mouth, Daily at bedtime, 1 tab dailyx 1 week then increase to 2 tabs, # 60 tablet, 5 Refills, Maintenance, 05/20/22 7:56:00 EDT, [facility], Partial fill upon patient request if [...] 10/24/22 15:13:00 EST, Route to Pharmacy Electronically, [facility], Partial fill upon patient request if [...] 0 Refills, Maintenance, 11/22/21 16:22:00 EDT, Syrup, [facility], Partial fill upon patient request if the prescription is for a scheduleII opioid drug., 10 mL By Mouth Every 6 hours,PRN:f... Start Date: 11/22/21 Status: Ordered indomethacin 25 mg oral capsule 1 capsule = 25 mg, By Mouth, 3 times a day, PRN Headache, # 30 capsule, 5 Refills, Maintenance, 08/24/22 13:53:00 EST, Capsule, [facility], 30 caps / month, 177.8, cm, [...] at bedtime, # 30 tablet, 5 Refills, [facility], 177.8, cm, 11/22/21 14:53:00 EDT, Height, 96.8, kg, 08/05/21 8:57:00 EST, Dry Weight Start Date: 12/23/21 Status: Ordered nitroglycerin 0.4 mg sublingual tablet 1 tablet = 0.4 mg, Sublingual, Every 5 minutes, PRN as needed for chest pain, not to exceed 3 doses/15 min--if pain persists, seek medical attention, # 100 tablet, 0 Refills, Maintenance, 09/28/20 17:00:00 EST, Tablet, [facility], Partial fill up... Start Date: 09/28/20 Status: Ordered rizatriptan 5 mg oral tablet 1 tablet = 5 mg, By Mouth, Once, PRN for migraine headache, may repeat dose once in 2 hours max 2 tabs in 24hrs ., # 12 tablet, 2 Refills, Soft Stop, 05/20/22 7:59:00 EDT, Tablet, [facility], Partial fill upon patient request if the prescript... Start Date: 05/20/22 Status: Ordered SUMAtriptan 4 mg/0.5 mL subcutaneous solution 0.5 mL = 4 mg, Subcutaneous Injection, Once, PRN as needed for migraine headache, may repeat once in 1 hour if needed, # 1 kit, 0 Refills, Soft Stop, 03/21/22 14:40:00 EDT, Solution, [facility],Partial fill upon patient request if the prescripti... Start Date: 03/21/22 Status: Ordered terazosin 5 mg oral capsule 1, capsule, By Mouth, Daily at bedtime, # 30 capsule, Refills 5, Maintenance, 08/04/22 11:10:00 EST, Route to Pharmacy Electronically, [facility], 177.8, cm, 08/03/22 15:31:00 EST, Height, [...] Care Nurse Name: Radha Hoover NP Position: [facility] PCO Associate Professional Member Role: PCP Address: Address: [address] [place] [address] [address] [place] [address]- Name: Jonathan Ramos RN Position: S RN Member Role: Primary Care Nurse Care Team Related Persons Name: LEN RAZO Address: home [address] [place] [address]
--- OUTSIDE RECORDS SUMMARY | 2024-04-23 08:23 | XMS_ITS | Continuity of Care Document ---
Author Organization [facility] alicia Address [address] [place] [address] [address] [place] [address]- Care Team Providers Care Surface Plate Inspector Name Role Phone Sneha GORDON, Radha Sorensen Primary Care Physician Encounter [facility] Date(s): 12/17/20 - 01/16/21 [facility] [address] [place] [address] Drive [address] [place], [place] [address] Allergies, Adverse Reactions, Alerts Substance Reaction [...] received vaccine 2Result Comment: [facility] [id number] 3Result Comment: [05/25/2018] [facility]: [id number] 4Admin Note: [facility] 5Admin Note: vis 03/31/09 [...] 3 Refills, Maintenance, 12/02/20 15:26:00 EDT, Tablet, [facility], 178, cm, 11/06/20 13:18:00 EDT, Height, [...] 3 Refills, Maintenance, 01/06/21 15:26:00 EDT, Tablet, [facility], 177.8, cm, 12/18/20 11:27:00 EDT, Height, 92.3, kg, 12/18/20 11:27:00 EDT, Dry Weight Start Date: 01/06/21 Stop Date: 05/06/21 Status: Ordered fenofibrate 54 mg oral tablet 1 tablet, By Mouth, Daily, # 30 tablet, 5 Refills, Maintenance, 12/14/20 9:58:00 EDT, [facility], 178, cm, 11/06/20 13:18:00 EDT, Height, 90.1, kg, 10/06/20 6:33:00 EST, Dry Weight Start Date: 12/14/20 Status: Ordered fenofibrate 54 mg oral tablet 1 tablet = 54 mg, By Mouth, Daily, # 90 tablet, 1 Refills, Maintenance, 01/05/21 9:14:00 EDT, [facility], 177.8, cm, 12/18/20 11:27:00 EDT, Height, [...] Replace Required Details, Route to Pharmacy Electronically, [facility], 177.8, cm, .. Start Date: 01/07/21 [...] 12/11/20 21:05:00 EDT, Route to Pharmacy Electronically, [facility], 178, cm, 11/06/20 13:18:00 EDT, Height,90.1, [...] 01/08/21 14:05:00 EDT, Route to Pharmacy Electronically, [facility], Partial fill upon patient re... Start Date: 01/08/21 Stop Date: 01/18/21 Status: Ordered terazosin 5 mg oral capsule 5 mg, 1, capsule, By Mouth, Daily at bedtime, # 30 capsule, Refills 11, Tot. Refills 11, Soft Stop,05/08/20 16:25:00 EDT, Route to Pharmacy Electronically, [facility], 175.4, cm, 10/21/19 8:06:00 EST, Height [...]
--- OUTSIDE RECORDS SUMMARY | 2024-04-23 08:23 | XMS_ITS | Continuity of Care Document ---
Author Organization [facility] Adult Address [address] [place] [address]- Care Team Providers Care Hearing Aid Mechanic Name Role Phone Sneha EMBROIDERY PATTERNMAKER, Radha Sorensen Primary Care Physician Encounter [facility] Date(s): 10/05/20 - 11/04/20 [facility] [address] [place] [address]- Allergies, Adverse Reactions, Alerts Substance Reaction Severity [...] 2Result Comment: [facility] [id number] 3Result Comment: [05/25/2018] [facility]: [id number] 4Admin Note: [facility] 5Admin Note: vis 03/31/09 [...] 3 Refills, Maintenance, 05/08/20 9:35:00 EDT, Tablet, [facility], 175.4, cm, 10/21/19 8:06:00 EST, Height Start Date: 05/08/20 Stop Date: 09/05/20 Status: Ordered apixaban 5 mg oral tablet 1 tablet = 5 mg, By Mouth, 2 times a day, # 60 tablet, 0 Refills, Maintenance, 10/07/20 9:38:00 EST, Tablet, [facility], Partial fill upon patient request if the prescription is for a schedule II opioid drug., 178, cm, 10/07/20 7:43:00 E... Start Date: 10/07/20 Stop Date: 11/06/20 Status: Ordered Ativan 0.5 mg oral tablet 1 tablet = 0.5 mg, By Mouth, Every 8 hours, PRN as needed for anxiety, # 90 tablet, 3 Refills, Maintenance, 06/11/20 17:06:00 EDT, Tablet, [facility], 175.4, cm, 10/21/19 8:06:00 EST, Height Start Date: 06/11/20 Stop Date: 10/09/20 Status: Ordered docusate sodium 100 mg oral capsule 100 mg, 1, capsule, By Mouth, 2 times a day, # 60 capsule, Refills 0, Tot. Refills 0, Maintenance, 10/07/20 9:37:00 EST, Route to Pharmacy Electronically, [facility], Partial fill upon patient request if the prescription is for a schedul... Start Date: 10/07/20 Status: Ordered fenofibrate 54 mg oral tablet 1 tablet = 54 mg, By Mouth, Daily at bedtime, # 30 tablet, 5 Refills, Maintenance, 06/11/20 11:29:00 EDT, [facility], 175.4, cm, 10/21/19 8:06:00 EST, Height [...] Replace Required Details, Route to Pharmacy Electronically, [facility] Start Date: 09/11/20 Status: Ordered Maalox Plus [...] 08/09/20 21:59:00 EST, Route to Pharmacy Electronically, [facility], 175.4, cm, 10/21/19 8:06:00 EST, Height [...]
--- OUTSIDE RECORDS SUMMARY | 2024-04-23 08:23 | XMS_ITS | Continuity of Care Document ---
Author Organization [facility] Adult Address [address] [place] [address]- Care Team Providers Care Honey Processor Name Role Phone Radha Hoover NP Primary Care Physician [place] [facility] [place] 12/22/21 [facility] [address] [place] [address]- Attending Physician: Admtr, Ar8 Allergies, Adverse Reactions, [...] 1Result Comment: [facility] [id number] 2Result Comment: [05/25/2018] [facility]: [id number] 3Admin Note: Codi 4Admin Note: vis 03/31/09 [...] 3 Refills, Maintenance, 08/18/21 8:58:00 EST, Tablet, [facility], 177.8, cm, 08/10/21 10:04:00 EST, Height, [...] 0 Refills, Maintenance, 11/22/21 12:48:00 EDT, Tablet, [facility], 177.8, cm, 11/15/21 9:37:00 EDT, Height, [...] 90 tablet, 1 Refills, Maintenance, 01/05/21 9:14:00EDT, [facility], 177.8, cm, 12/18/20 11:27:00 EDT, [...] Required Details, Route to Pharmacy Electronically, [facility], 177.8, cm, 09/07/21 13:03:0... Start Date: 09/17/21 Status: Ordered Guaiatussin AC 10 mg-100 mg/5 ml oral syrup 10 mL, By Mouth, Every 6 hours, PRN for cough, # 240 mL, 0 Refills, Maintenance, 11/22/21 16:22:00 EDT, Syrup, [facility], Partial fill upon patient request [...] AT BEDTIME, # 30 tablet, 5 Refills, [facility],177.8, cm, 06/18/21 9:52:00 EDT, Height, 92.3, kg, 12/18/20 11:27:00 EDT, Dry Weight Start Date: 07/16/21 Status: Ordered nitroglycerin 0.4 mg sublingual tablet 1 tablet = 0.4 mg, Sublingual, Every 5 minutes, PRN as needed for chest pain, not to exceed 3 doses/15 min--if pain persists, seek medical attention, # 100 tablet, 0 Refills, Maintenance, 09/28/20 17:00:00 EST, Tablet, [facility], Partial fill up... Start Date: 09/28/20 Status: Ordered terazosin 5 mg oral capsule 5 mg, 1, capsule, By Mouth, Daily at bedtime, # 30 capsule, Refills 8, Tot. Refills 8, Soft Stop, 03/11/22 15:03:00 EDT, Route to Pharmacy Electronically, [facility], 177.8, cm, 04/22/21 14:54:00 EDT, [...] injections, bilateral 1, 2, 3 08/01/12 [facility] 2repeated 08/08 3third injection 08/16 Social History Social History Type Response Smoking Status Former smoker; Tobac co user in household: No; Other: quit smoking in 2007; entered on: 07/16/14 Sex
--- OUTSIDE RECORDS SUMMARY | 2024-04-23 08:23 | XMS_ITS | Continuity of Care Document ---
Author Organization [facility] Address [address] [place] [address]- Care Team Providers Care Glass Tube Bender Name Role Phone Sneha GORDON, Radha Sorensen Primary Care Physician Encounter [facility] Date(s): 09/28/20 - 10/28/20 [facility] [address] [place] [address]- Allergies, Adverse Reactions, Alerts Substance Reaction Severity [...] report when received vaccine 2Result Comment: [facility] [id number] 3Result Comment: [05/25/2018] [facility]: [id number] 4Admin Note: [facility] 5Admin Note: vis 03/31/09 [...] 3 Refills, Maintenance, 05/08/20 9:35:00 EDT, Tablet, [facility], 175.4, cm, 10/21/19 8:06:00 EST, Height Start Date: 05/08/20 Stop Date: 09/05/20 Status: Ordered apixaban 5 mg oral tablet 1 tablet = 5 mg, By Mouth, 2 times a day, # 60 tablet, 0 Refills, Maintenance, 10/07/20 9:38:00 EST, Tablet, [facility], Partial fill upon patient request if the prescription is for a schedule II opioid drug., 178, cm, 10/07/20 7:43:00 E... Start Date: 10/07/20 Stop Date: 11/06/20 Status: Ordered Ativan 0.5 mg oral tablet 1 tablet = 0.5 mg, By Mouth, Every 8 hours, PRN as needed for anxiety, # 90 tablet, 3 Refills, Maintenance, 06/11/20 17:06:00 EDT, Tablet, [facility], 175.4, cm, 10/21/19 8:06:00 EST, Height Start Date: 06/11/20 Stop Date: 10/09/20 Status: Ordered docusate sodium 100 mg oral capsule 100 mg, 1, capsule, By Mouth, 2 times a day, # 60 capsule, Refills 0, Tot. Refills 0, Maintenance, 10/07/20 9:37:00 EST, Route to Pharmacy Electronically, [facility], Partial fill upon patient request if the prescription is for a schedul... Start Date: 10/07/20 Status: Ordered fenofibrate 54 mg oral tablet 1 tablet = 54 mg, By Mouth, Daily at bedtime, # 30 tablet, 5 Refills, Maintenance, 06/11/20 11:29:00 EDT, [facility], 175.4, cm, 10/21/19 8:06:00 EST, Height [...] Replace Required Details, Route to Pharmacy Electronically, [facility] Start Date: 09/11/20 Status: Ordered Maalox Plus [...] 08/09/20 21:59:00 EST, Route to Pharmacy Electronically, [facility], 175.4, cm, 10/21/19 8:06:00 EST, Height [...]
--- OUTSIDE RECORDS SUMMARY | 2024-04-23 08:23 | XMS_ITS | Continuity of Care Document ---
Author Organization [facility] Adult Address [address] [place] [address]- Care Team Providers Care Director Sales Training Name Role Phone Sneha GORDON, Radha Sorensen Primary Care Physician Encounter [facility] Date(s): 08/08/23 - 09/07/23 [facility] [address] [place] [id number]- Allergies, Adverse Reactions, Alerts Substance Reaction Severity Status Levaquin itch Moderate Active nonsteroidal anti-inflammatory agents diarrhea Active Crestor ck 400's and myalgia Active statins myalgia Active Immunizations Given and Recorded Vaccine Date Status Refusal Reason [id number] 12y+ bivalent booster vax 05/19/22 Recorded SARS-CoV-2 (COVID-19) mRNA-1273 vaccine 06/19/21 R ecorded zoster vaccine, inactivated 05/25/21 Recorded zoster vaccine, inactivated 07/02/20 Recorded influenza virus vaccine, inactivated 05/25/21 Domencio rded influenza virus vaccine, inactivated 1 06/12/19 [...] 1Result Comment: [facility] [id number] 2Result Comment: [05/25/2018] [facility]: [id number] 3Admin Note: Codi 4Admin Note: vis 03/31/09 [...] 3 Refills, Maintenance, 05/12/23 16:48:00 EDT, Tablet, [facility], 177.8, cm, 12/01/22 8:22:00 EDT, Height, 96.8, kg, 08/05/21 8:57:00 EST, Dry Weight Start Date: 05/12/23 Stop Date: 09/09/23 Status: Ordered amitriptyline 50 mg oral tablet 2 tablet = 100 mg, By Mouth, Daily at bedtime, # 60 tablet, 0 Refills, Maintenance, 12/15/22 13:40:00 EDT, [facility], Partial fill upon patient request if [...] 5 Refills, Maintenance, 05/11/23 14:18:00 EDT, Tablet, [facility], 177.8, cm, 12/01/22 8:22:00 EDT, Height, 96.8, kg, 08/05/21 8:57:00 EST, Dry Weight Start Date: 05/11/23 Stop Date: 11/07/23 Status: Ordered cyclobenzaprine 10 mg oral tablet 10 mg, 1, tablet, By Mouth, Daily at supper, # 30 tablet, Refills 2, Tot. Refills 2, Maintenance, 10/24/22 15:13:00 EST, Route to Pharmacy Electronically, [facility], Partial fill upon patient request if the prescription is for a schedule II opio... Start Date: 10/24/22 Status: Ordered fenofibrate 54 mg oral tablet 1 tablet, By Mouth, Daily, # 30 tablet, 5 Refills, Maintenance, 05/11/23 13:30:00 EDT, [facility], 177.8, cm, 12/01/22 8:22:00 EDT, Height, [...] capsule, 5 Refills, Maintenance, 02/09/23 18:32:00 EDT, [facility], 177.8, cm, 12/01/22 8:22:00 EDT, Height, [...] tablet, 5 Refills, Maintenance, 08/08/23 20:42:00 EST, [facility], 177.8, cm, 12/01/22 8:22:00 EDT, Height Start Date: 08/08/23 Status: Ordered nitroglycerin 0.4 mg sublingual tablet 1 tablet = 0.4 mg, Sublingual, Every 5 minutes, PRN as needed for chest pain, not to exceed 3 doses/15 min--if pain persists, seek medical attention, # 100 tablet, 0 Refills, Maintenance, 09/28/20 17:00:00 EST, Tablet, [facility], Partial fill up... Start Date: 09/28/20 Status: Ordered Praluent Pen 75 mg/mL subcutaneous solution See Instructions, INJECT 75MG SUBCUTANEOUSLY EVERY 2 WEEKS, # 2 mL, 10 Refills, Maintenance, 05/25/23 10:56:00 EDT, [facility], 177.8, cm, 12/01/22 8:22:00 EDT, Height, 96.8, kg, 08/05/21 8:57:00 EST, Dry Weight Start Date: 05/25/23 Status: Ordered Repatha SureClick 140 mg/mL subcutaneous solution = 140 mg, Subcutaneous Infusion, Every 14 days, # 2 each, 11 Refills, Maintenance, 08/25/23 8:59:00EST, [facility], Partial fill upon patient [...] Refills, Soft Stop, 05/20/22 7:59:00 EDT, Tablet, [facility], Partial fill upon patient request if the prescript... Start Date: 05/20/22 Status: Ordered SUMAtriptan 4 mg/0.5 mL subcutaneous solution 0.5 mL = 4 mg, Subcutaneous Injection, Once, PRN as needed for migraine headache, may repeat once in 1 hour if needed, # 1 kit, 0 Refills, Soft Stop, 03/21/22 14:40:00 EDT, Solution, [facility],Partial fill upon patient request if the prescripti... Start Date: 03/21/22 Status: Ordered terazosin 5 mg oral capsule See Instructions, TAKE 1 CAPSULE BY MOUTH DAILY AT BEDTIME, # 90 capsule, Refills 1, Tot. Refills 1, Maintenance, 03/13/23 8:21:00 EDT, Instructions Replace Required Details, Route to Pharmacy Electronically, [facility], 177.8, cm, 12/01/22 8:22:... Start Date: 03/13/23 Status: Ordered zolpidem 10 mg oral tablet 1 tablet = 10 mg, By Mouth, Daily at bedtime, PRN as needed for insomnia, # 15 tablet, 0 Refills, Maintenance, 05/12/23 7:19:00 EDT, Tablet, [facility], Partial fill upon patient request if [...] Care Nurse Name: Veronica Feng RN Position: [facility] RN Member Role: Primary Care Nurse Name: Radha Hoover NP Position: [facility] Associate Professional Member Role: PCP Address: Address: [address] [place] [address] [address] [place] [address]- Name: Jonathan Ramos RN Position: S RN Member Role: Primary Care Nurse Care Team Related Persons Name: LEN RAZO Address: home [address] [place] [id number]
== END 2024-04-23 09:24 | disposition home or self-care (01) ==
PROVIDERS: Visit Provider Nurse Practitioner Family
DX: J06.9 Acute upper respiratory infection, unspecified (principal)
CPT/HCPCS: 99204

== ENCOUNTER 2024-04-23 08:26 | Outpatient (REF) | payer OTHER, SELFPAY | END 2024-04-23 08:27 | disposition home or self-care (01) | LOC: HO.LAB 08:26 | PROVIDERS: Visit Provider Physician Assistant | DX: Z13.89 Encounter for screening for other disorder (principal) ==

== ENCOUNTER 2024-04-23 08:45 | Outpatient (REF) | payer OTHER, SELFPAY ==
--- NOTE | ~2024-04-23 | XR_ITS ---
EXAMINATION: XR CHEST CLINICAL INFORMATION: Unspecified COMPARISON: None available. TECHNIQUE: 2 views of the chest were obtained. FINDINGS: Lungs grossly clear. No pleural effusions. Heart and pulmonary vessels normal. A pacing device overlies the right anterior chest with a pacing wire extending up towards the right thoracic inlet. XR/XR chest 2V IMPRESSION: No active disease. Electronically signed by: Leandro Holden MD 04/23/2024 09:31 AM EDT
== END 2024-04-23 08:46 | disposition home or self-care (01) ==
LOC: HO.HMGCX 08:45
PROVIDERS: PCP Nurse Practitioner Family; Visit Provider Physician Assistant
DX: R05.9 Cough, unspecified (principal)
CPT/HCPCS: 0241U; 71046